=== PATIENT | female | born 1955 | race Caucasian/White ===

== ENCOUNTER 2021-03-25 09:28 | Outpatient (REF) | payer OTHER, SELFPAY ==
--- NOTE | 2021-03-25 10:12 | MHC.AU.ANR ---
Adult Audiological Evaluation Date of Visit: 03/25/21 Reason for Appointment: Audiological evaluation due to concerns for decreased hearing. Patient feels she hears well, but notes that her family frequently complains that she doesn't hear and often asks for repetition. Patient notes that she does have to raise the TV volume. She reports constant bilateral tinnitus that she's had for a number of years and is typically able to ignore. Does patient feel they have a hearing loss?: No Has hearing been tested previously?: No Hearing Handicap Inventory: HHIE SCORE: 6 Based on HHIE score, patient has: No perceived hearing handicap Ear History: Bothersome Tinnitus/Ringing/Noises in Ears: Both Ears Medical History: Medical History (Other): Appendicitis at age 14 Medication List: Suldasalazine 500 mg, Atorvastatin calcium 40 mg, low dose aspirin 81 mg, Vitamin D3 25 mcg, Hydroxyzine HCl 25 mg, omeprazole 20 mg, folic acid 1 mg Otoscopy: Right Ear: Unremarkable Left Ear: Unremarkable Tympanometry: Tympanometry performed due to: To assess integrity of the middle ear system Right Ear: Normal Middle Ear System (Type A) Left Ear: Hypercompliant Middle Ear System (Type Ad) Hearing Evaluation: Transducer(s) Used: Insert Earphones, Bone Conduction Method: Conventional Audiometry Stimuli Used: Pure Tones Right Ear: Description of Hearing: Normal hearing from 250-1500 Hz, sloping to a mild to moderately severe sensorineural hearing loss from 7001-6105 Hz. Left Ear: Description of Hearing: Normal hearing from 250-1000 Hz, sloping to a mild to severe sensorineural hearing loss from 8492-7570 Hz. Speech Recognition Threshold (SRT): Method Used: Monitored Live Voice Stimuli Used: Spondee Words Right Ear: 20 dBHL Left Ear: 20 dBHL Word Discrimination: Method: Recorded Lists Word Lists Used: NU-6 Right Ear: 100% at 70 dBHL Left Ear: 96% at 70 dBHL Recommendations: Audiological re-evaluation in one year, or sooner if changes are noted. Trial with amplification is recommended. Patient does not feel they are ready for amplification at this time. Diagnosis: Primary Diagnosis: H90.3 Bilateral Sensorineural Hearing Loss Services Performed: Services Performed: Comprehensive Audiological Evaluation (CPT 41691) Tympanometry (CPT 11012) Signature: Provider: Armando Magallon, CCC-A
== END 2021-03-25 09:29 | disposition home or self-care (01) ==
LOC: HO.SH 09:28
PROVIDERS: Visit Provider Internal Medicine
DX: H90.3 Sensorineural hearing loss, bilateral (principal)
CPT/HCPCS: 92557; 92567

== ENCOUNTER 2021-10-04 10:58 | Outpatient (REF) | payer MEDICARE, SELFPAY ==
--- NOTE | ~2021-10-04 | MM_ITS ---
EXAMINATION: MM SCREENING DIGITAL BREAST TOMOSYNTHESIS, BILATERAL CLINICAL INFORMATION: Screening. Asymptomatic. The lifetime risk of breast cancer based on the Tyrer-Cuzick Model is 7%. COMPARISON: Outside mammography: 02/16/2019, 12/18/2017, 01/09/2016 ([facility]). TECHNIQUE: Digital breast tomosynthesis is performed in both the craniocaudal and mediolateral oblique views along with computer-aided detection (CAD). Synthesized 2D images are generated from the tomosynthesis. Additional left CC view is provided. FINDINGS: There are scattered areas of fibroglandular density (ACR BI-RADS breast composition Category b). There is fine fibronodular background parenchymal pattern predominantly in the anterior and anterior central breast similar to prior outside exams. There is a stable dominant nodule mid 3:00 right breast. The axilla and skin contours are unremarkable. There are no abnormal calcifications. No significant changes. MM/MM tomosynthesis screening BI IMPRESSION: No mammographic evidence of malignancy. ASSESSMENT: BI-RADS 2: Benign RECOMMENDATION: Routine annual mammography screening. This patient's information was entered into a reminder system with a target due date for their next mammogram.
== END 2021-10-04 10:59 | disposition home or self-care (01) ==
LOC: HO.MAMMO 10:58
PROVIDERS: Visit Provider Student in an Organized Health Care Education/Training Program
DX: Z12.31 Encounter for screening mammogram for malignant neoplasm of breast (principal)
CPT/HCPCS: 77063; 77067

== ENCOUNTER 2021-10-20 14:11 | Emergency (ER) | payer MEDICARE, SELFPAY ==
--- NOTE | ~2021-10-20 | CT_ITS ---
EXAMINATION: CTA OF THE HEAD AND NECK CLINICAL INFORMATION: Left-sided headaches. COMPARISON: None. TECHNIQUE: Test bolus sequences followed by intravenous administration 70 mL of Omnipaque 350. Helical imaging was performed in the axial plane from the mediastinum to the skull vertex. Delayed postcontrast imaging of the head was also performed. The data was processed at the development technologist's workstation for generation of MIP sequences. Three-dimensional volume rendered reformatted images were also generated at an offline 3-D workstation. Stenoses are assessed in accordance with NASCET criteria unless otherwise indicated. This CT examination was performed using dose optimization techniques as appropriate, variously including the following: *Automated exposure control *Adjustment of mA and/or kV according to patient size (this includes techniques or standardized protocols for targeted exams where dose is matched to indication/reason for exam; i.e. extremities or head) *Use of iterative reconstruction technique DLP: 2294 mGy-cm. FINDINGS: CT head: There is no evidence of acute intracranial hemorrhage or territorial infarction. There is no loss of sutherland to white matter differentiation. No abnormal mass effect or midline shift is seen. No extra-axial fluid collections are identified. Incidental right-sided choroidal fissure cyst. There is no abnormal enhancement. The ventricles are normal in size. There is no abnormal attenuation within the brain parenchyma. The osseous structures and soft tissues are normal. The mastoid air cells and visualized portions of the paranasal sinuses are well aerated. CTA neck: The imaged aortic arch and origins of the great vessels are normal. The common carotid arteries are widely patent. The carotid bifurcations are patent with mild atherosclerotic wall calcifications on the right side. The cervical internal carotid arteries are normal. The vertebral arteries opacify normally and are of normal caliber. The thyroid gland is heterogeneous but not enlarged. There is moderate disc space narrowing and endplate spurring at the C5-C6 level. The imaged portions of the lungs are clear. CTA head: The intradural vertebral arteries and basilar artery are normal. The posterior cerebral arteries are widely patent. The internal carotid arteries are of normal caliber. The DANIEL and MCA vascular complexes bilaterally are normal. The venous sinuses opacify normally. CT/CT angio head neck IMPRESSION: No acute intracranial process. Normal CT angiogram of the head and neck. Imaging findings report to SHAHZAD Jones at 6:23 PM on 10/20/2021.
[2021-10-20 14:35] VITALS: BP 125/66; PULSE 93; RESP 18; TEMP 36.9; O2SAT 97; BMI 30.9
[2021-10-20 15:12] LABS: Hemoglobin 12.9 g/dl (12.0-16.0); Mean Corpuscular HGB Conc 33.1 g/dl (31.0-35.0); Mean Corpuscular Hemoglobin 31.5 pg (27.0-33.0); Mean Corpuscular Volume 95.4 fL (80.0-98.0); Mean Platelet Volume 9.4 fL (9.4-12.3); Platelet Count 256 X10*3/uL (160-400); Red Blood Count 4.09 X10*6/uL (4.20-5.50); Red Cell Distribution Width 12.5 % (11.0-16.0)
--- NOTE | 2021-10-20 15:15 | ED_ITS ---
HPI - Headache General Chief Complaint: Headache <SHAHZAD Gallagher Last Filed: 10/20/21 17:24> Stated Complaint: headache <SHAHZAD Gallagher Last Filed: 10/20/21 17:24> Time Seen by Provider: 10/20/21 15:15 <SHAHZAD Gallagher Last Filed: 10/20/21 17:24> Source: patient <SHAHZAD Gallagher Last Filed: 10/20/21 17:24> Mode of arrival: ambulatory <SHAHZAD Gallagher Last Filed: 10/20/21 17:24> Limitations: no limitations <SHAHZAD Gallagher Last Filed: 10/20/21 17:24> History of Present Illness HPI Narrative: 66 y/o female presents with 3 weeks of left-sided intermittent headache that was gradual in onset. No migraine history. No fevers, no hypertension, no nuccal rigidity. Patient states that the headache has come and gone, but for the last 4 days it is worse, and she is tender in the left side of her frontal scalp, with pain behind her left eye, and feeling that the left side of her neck is stiff. Her hair is sore. She has a history of rheumatoid arthritis, and had a TIA 1 year ago where she was treated at [facility] in [facility]. States she has been taking ibuprofen, but is not helping, the headache is still 6/10. No chest pain, no shortness of breath, no abdominal pain, no nausea, no vomiting or diarrhea, no dizziness, no lightheadedness, no palpitations, no visual changes. No blurry vision, no double vision, no loss of vision. No weakness, numbness, tingling. No slurred speech, no photophobia, no facial droop, no limb weakness. It does not hurt when she chews. She has felt well other than this. She is not vaccinated for COVID. She is on Sulfasalazine for RA, a statin d/t prior TIA, and although she does not endorse pmh of hypertension she is on hydrochlorothiazide <SHAHZAD Gallagher Last Filed: 10/20/21 17:24> MD elicited complaint: headache <SHAHZAD Gallagher Last Filed: 10/20/21 17:24> Onset (ago): week(s) (3) <SHAHZAD Gallagher Last Filed: 10/20/21 17:24> Onset description: gradually <SHAHZAD Gallagher Last Filed: 10/20/21 17:24> Location: left, frontal and occipital <SHAHZAD Gallagher Last Filed: 10/20/21 17:24> Severity: moderate <SHAHZAD Gallagher Last Filed: 10/20/21 17:24> Pain scale (0-10): 6 <SHAHZAD Gallagher Last Filed: 10/20/21 17:24> Quality & Timing: aching and throbbing <SHAHZAD Gallagher - Last Filed: 10/20/21 17:24> Exacerbating factors: none <SHAHZAD Gallagher Last Filed: 10/20/21 17:24> Relieving factors: nothing <SHAHZAD Gallagher Last Filed: 10/20/21 17:24> Associated symptoms: none <SHAHZAD Gallagher - Last Filed: 10/20/21 17:24> Related Data Allergies/Adverse Reactions: Allergies Allergy/AdvReac Type Severity Reaction Status Date / Time No Known Allergies Allergy Verified 10/20/21 15:48 <SHAHZAD Gallagher Last Filed: 10/20/21 17:24> Review of Systems Verdana 4l Constitutional: Verdana 4d Verdana 4d Constitutional: Verdana 4d Denies body ache(s), Denies chills, Denies fatigue, Denies fever(s), Reports headache(s), Denies malaise and Denies weakness Verdana 4Il <SHAHZAD Gallagher - Last Filed: 10/20/21 17:24> Verdana 4d Verdana 4l Eyes: Verdana 4d Verdana 4d Eyes: Verdana 4d Denies diplopia Verdana 4Il <SHAHZAD Gallagher - Last Filed: 10/20/21 17:24> Verdana 4d Verdana 4l ENT: Verdana 4d Denies vertigo, Denies dizziness, Denies otalgia, Reports headache(s), Denies mouth pain, Denies post nasal drip, Denies sinus pain, Denies sinus pressure, Denies sore throat and Denies throat swelling Verdana 4Il <SHAHZAD Gallagher Last FiledFiled: 10/20/21 17:24> Comments: scalp feels sore <SHAHZAD Gallagher Last Filed: 10/20/21 17:24> Cardiovascular: Cardiovascular: Denies chest pain, Denies syncope, Denies leg edema, Denies lightheadedness, Denies Loss of Consciousness, Denies palpitations and Denies dyspnea <SHAHZAD Gallagher - Last Filed: 10/20/21 17:24> Respiratory: Respiratory: Denies chest congestion, Denies cough and Denies dyspnea <SHAHZAD Gallagher - Last Filed: 10/20/21 17:24> Gastrointestinal: Gastrointestinal: Denies abdominal pain, Denies hematochezia, Denies constipation, Denies diarrhea and Denies vomiting <SHAHZAD Gallagher Last Filed: 10/20/21 17:24> Musculoskeletal: Musculoskeletal: Reports no additional musculoskeletal complaints <SHAHZAD Gallagher Last Filed: 10/20/21 17:24> Neurologic: Denies Abnormal speech present, Denies confusion, Denies vertigo, Denies dizziness, Denies syncope, Reports headache(s), Denies Sensory deficit (Neuro) and Denies weakness <SHAHZAD Gallagher - Last Filed: 10/20/21 17:24> Psychiatric: Psychiatric: Denies anxiety, Denies confusion and Denies depression <SHAHZAD Gallagher - Last Filed: 10/20/21 17:24> Endocrine: Endocrine: Denies fatigue and Denies palpitations <SHAHZAD Gallagher - Last Filed: 10/20/21 17:24> Allergic/Immunologic: Allergic/Immunologic: Denies throat swelling <SHAHZAD Gallagher - Last Filed: 10/20/21 17:24> [facility] Past Medical History [facility] Narrative: TIA RA <SHAHZAD Gallagher - Last Filed: 10/20/21 17:24> Medical History: Medical History (Updated 10/20/21 @ 17:23 by SHAHZAD Gallagher) Arthritis <SHAHZAD Gallagher - Last Filed: 10/20/21 17:24> Social History Social History: Social History Alcohol intake: never Smoked in Last 30 Days: No Use of substances other than those prescribed or required for medical reasons: No Advance Directives: No Advance Directives Information Provided: Yes <SHAHZAD Gallagher Last Filed: 10/20/21 17:24> Physical Exam Verdana 4l Vital Signs: Verdana 4d Verdana 4d Vital Signs: Verdana 4d Verdana 4Bd Last Vital Signs Verdana 4d Wire Photo Operator New 4d Wire Photo Operator New 4d Temp 98.5 F 10/20/21 14:35 Wire Photo Operator New 4d Pulse 93 10/20/21 14:35 Wire Photo Operator New 4d Resp 18 10/20/21 14:35 BP 125/66 10/20/21 14:35 Pulse Ox 97 10/20/21 14:35 BMI result Body Mass Index 30.9 <SHAHZAD Gallagher Last Filed: 10/20/21 17:24> Vital Signs: Last Vital Signs Temp 98.5 F 10/20/21 14:35 Pulse 93 10/20/21 14:35 Resp 18 10/20/21 14:35 BP 125/66 10/20/21 14:35 Pulse Ox 97 10/20/21 14:35 BMI result Body Mass Index 30.9 <SHAHZAD Greene - Last Filed: 10/20/21 18:53> Const: General: No confusion <SHAHZAD Gallagher Last Filed: 10/20/21 17:24> Nutritional Appearance: well nourished <SHAHZAD Gallagher Last Filed: 10/20/21 17:24> Orientation/consciousness: patient oriented x3 and No confusion <SHAHZAD Gallagher Last Filed: 10/20/21 17:24> Limitations: no limitations <SHAHZAD Gallagher Last Filed: 10/20/21 17:24> HENMT: Head: Yes normal to inspection, Yes normocephalic and Yes atraumatic <SHAHZAD Gallagher Last Filed: 10/20/21 17:24> Ears: hearing grossly normal bilaterally, external ears normal, TM's normal bilaterally and EAC's normal <SHAHZAD Gallagher Last Filed: 10/20/21 17:24> General nose exam: Normal external nose present <SHAHZAD Gallagher Last Filed: 10/20/21 17:24> Face and sinus: Yes normal facial exam and Yes sinuses nontender <Kassi Roque [facility] Last Filed: 10/20/21 17:24> Mouth: Normal oral and palatal mucosa present <Kassi Roque [facility] Last Filed: 10/20/21 17:24> Throat: Yes posterior oropharynx normal <Kassi Roque [facility] Last Filed: 10/20/21 17:24> Eyes: Conjunctivae: conjunctivae normal <Kassi Roque [facility] Last Filed: 10/20/21 17:24> Pupils: Equal, round and reactive pupils present <Kassi Roque [facility] Last Filed: 10/20/21 17:24> EOM: EOMs intact bilaterally <Kassi Roque [facility] Last Filed: 10/20/21 17:24> Neck: Neck: Yes full ROM, Yes no lymphadenopathy and Yes supple <Kassi Roque [facility] Last Filed: 10/20/21 17:24> Resp: Effort & Inspection: normal respiratory effort and able to speak in complete sentences <Kassi Roque [facility] Last Filed: 10/20/21 17:24> Auscultation: clear to auscultation bilaterally, no crackles, no rales, no rhonchi and no wheezes <Kassi Roque [facility] Last Filed: 10/20/21 17:24> Cardio: Rate: regular rate <Kassi Roque [facility] Last Filed: 10/20/21 17:24> Rhythm: regular rhythm <Kassi Roque [facility] Last Filed: 10/20/21 17:24> Heart sounds: S1 normal heart sound present and S2 normal heart sound present <Kassi Roque [facility] Last Filed: 10/20/21 17:24> GI: Inspection: Yes normal to inspection <Kassi Roque [facility] Last Filed: 0 10/20/21 17:24> Palpation (GI): Soft to palpation, nontender, no guarding and not rigid <Kassi Roque [facility] Last Filed: 10/20/21 17:24> Percussion: Yes normal to percussion <Kassi Roque [facility] Last Filed: 10/20/21 17:24> Auscultation: normal bowel sounds <Kassi Roque [facility] Last Filed: 10/20/21 17:24> Skin: Other: No redness, swelling, or rash on scalp. <SHAHZAD Gallagher Last Filed: 10/20/21 17:24> General skin exam: no rashes or lesions noted <Kassi Roque [facility] Last Filed: 10/20/21 17:24> Neuro: General: patient oriented x3, gait normal, tone normal and No confusion <Kassi Roque [facility] Last Filed: 10/20/21 17:24> Cranial nerves: Yes CN's II-XII intact bilaterally, Yes Facial sensation intact/muscles of mastication intact, Yes Equal, round and reactive pupils present, Yes Normal accommodation reflex present, Yes Bilaterally intact EOM present, Yes Nystagmus not present, Yes Normal facial strength present, Yes Midline tongue present, Yes Ability to bilaterally rotate head present and Yes Ability to bilaterally elevate shoulders present <Kassi Roque [facility] Last Filed: 10/20/21 17:24> Cognition (Neuro): normal cognition <Kassi Roque [facility] Last Filed: 10/20/21 17:24> Speech: No Abnormal speech present <Kassi Roque [facility] Last Filed: 10/20/21 17:24> Gait exam (Neuro): Normal gait present <Kassi Roque [facility] Last Filed: 10/20/21 17:24> Motor exam (neuro): 5/5 motor strength present throughout and Pronator motor function not present <Kassi Roque [facility] Last Filed: 10/20/21 17:24> Sensory Exam: No Sensory deficit (Neuro) <Kassi Roque [facility] Last Filed: 10/20/21 17:24> Deep tendon reflexes (DTR's): Right brachioradialis reflex intensity grade: 1+, Left brachioradialis reflex intensity grade: 1+, Right patellar reflex intensity grade: 1+ and Left patellar reflex intensity grade: 1+ <SHAHZAD Gallagher Last Filed: 10/20/21 17:24> Coordination: [id number] test normal, [id number] test normal, tandem gait normal and does not sway with eyes open <SHAHZAD Gallagher - Last Filed: 10/20/21 17:24> Romberg Test: Negative <SHAHZAD Gallagher Last Filed: 10/20/21 17:24> Pupils: Normal pupillary reactivity/response: bilateral <SHAHZAD Gallagher Last Filed: 10/20/21 17:24> Extrem: General: Yes normal to inspection and Yes full ROM <SHAHZAD Gallagher - Last Filed: 10/20/21 17:24> Psych: Appearance: grossly normal <SHAHZAD Gallagher Last Filed: 10/20/21 17:24> Affect: normal affect <SHAHZAD Gallagher Last Filed: 10/20/21 17:24> Attitude: cooperative <SHAHZAD Gallagher Last Filed: 10/20/21 17:24> Thought process: Normal thought process present <SHAHZAD Gallagher Last Filed: 10/20/21 17:24> Course Course Course Narrative: 66-year-old female with 3 weeks of gradual onset headache that has worsened on the left side in the last 3 days with left-sided scalp tenderness. No jaw pain with chewing, patient is able to open her mouth completely without pain Normal neurological exam. Discussed with Dr Garza, will get labs, ESR, Dr Garza recommended CTA head and neck. Trying to obtain records from TIA from [facility]. Were faxed ER visit from July 2021, which was a covid positive visit, not her TIA visit. <SHAHZAD Gallagher Last Filed: 10/20/21 17:24> Reevaluation(s) Reevaluation #1: Will give patient migraine treatment of fluids, Reglan, ketorolac. If sed rate is high, will place patient on high-dose steroids, and refer for temporal artery biopsy. Signed pt out to SHAHZAD Johnson, awaiting CTA and ESR results <SHAHZAD Gallagher Last Filed: 10/20/21 17:24> Reevaluation #2: CT angio head neck IMPRESSION: No acute intracranial process. Normal CT angiogram of the head and neck. > results discussed with patient including worrisome signs and symptoms and strict return precautions any to close follow-up with Neurology/PCP. She verbalized understanding feel safe for discharge home <SHAHZAD Greene Last Filed: 10/20/21 18:53> Time: 18:49 <SHAHZAD Greene - Last Filed: 10/20/21 18:53> MDM - Headache Lab Data Result diagrams: : 10/20/21 15:01 10/20/21 15:01 <SHAHZAD Gallagher - Last Filed: 10/20/21 17:24> Labs: Lab Results 10/20/21 10/20/21 10/20/21 Range/Units 15:01 15:01 15:01 WBC 10.0 (4.8-10.8) X10*3/uL RBC 4.09 L (4.20-5.50) X10*6/uL Hgb 12.9 (12.0-16.0) g/dl Hct 39.0 (37.0-47.0) % MCV 95.4 (80.0-98.0) fL MCH 31.5 (27.0-33.0) pg MCHC 33.1 (31.0-35.0) g/dl RDW 12.5 (11.0-16.0) % Plt Count 256 (160-400) X10*3/uL MPV 9.4 (9.4-12.3) fL Absolute Nucleated RBC 0.000 (0.0-0.012) X10*3/uL Nucleated RBC % (auto) 0.0 (0.0-0.2) /100WBC ESR 8 (0-20) MM/HR Sodium 140 (135-145) mmol/L Potassium 4.8 (3.3-5.1) mmol/L Chloride 106 (96-108) mmol/L Carbon Dioxide 27 (22-29) mmol/L Anion Gap 12 (12-20) BUN 18 H (9-16) mg/dL Creatinine 0.78 (0.5-1.4) mg/dL Estim Creat Clear Calc 71.7 Estimated GFR > 60 Random Glucose 122 H (60-115) mg/dL Calcium 9.8 (8.4-10.2) mg/dL <SHAHZAD Gallagher - Last Filed: 10/20/21 17:24> Lab Results 10/20/21 10/20/21 10/20/21 Range/Units 15:01 15:01 15:01 WBC 10.0 (4.8-10.8) X10*3/uL RBC 4.09 L (4.20-5.50) X10*6/uL Hgb 12.9 (12.0-16.0) g/dl Hct 39.0 (37.0-47.0) % MCV 95.4 (80.0-98.0) fL MCH 31.5 (27.0-33.0) pg MCHC 33.1 (31.0-35.0) g/dl RDW 12.5 (11.0-16.0) % Plt Count 256 (160-400) X10*3/uL MPV 9.4 (9.4-12.3) fL Absolute Nucleated RBC 0.000 (0.0-0.012) X10*3/uL Nucleated RBC % (auto) 0.0 (0.0-0.2) /100WBC ESR 8 (0-20) MM/HR Sodium 140 (135-145) mmol/L Potassium 4.8 (3.3-5.1) mmol/L Chloride 106 (96-108) mmol/L Carbon Dioxide 27 (22-29) mmol/L Anion Gap 12 (12-20) BUN 18 H (9-16) mg/dL Creatinine 0.78 (0.5-1.4) mg/dL Estim Creat Clear Calc 71.7 Estimated GFR > 60 Random Glucose 122 H (60-115) mg/dL Calcium 9.8 (8.4-10.2) mg/dL <SHAHZAD Greene - Last Filed: 10/20/21 18:53> Discharge Plan Discharge Clinical Impression: Headache <SHAHZAD Gallagher - Last Filed: 10/20/21 17:24> Patient Disposition: Home, Self-Care <SHAHZAD Gallagher - Last Filed: 10/20/21 17:24> Instructions: Acute Headache (DC) <SHAHZAD Gallagher - Last Filed: 10/20/21 17:24> Additional Instructions: Your blood work and CT scan of her head and neck were unremarkable. Please follow-up with your doctor and Neurology. If symptoms persist or worsen, headache becomes more constant/unbearable, you have weakness, vision change/loss or fever please return to the emergency department. Please see Tylenol and Motrin as needed. <SHAHZAD Gallagher - Last Filed: 10/20/21 17:24> Referrals: Taye Palafox MD [Physician] - 2 days Heide Oreilly MD [Primary Care Provider] - 2 days <SHAHZAD Gallagher - Last Filed: 10/20/21 17:24>
[2021-10-20 15:26] LABS: Anion Gap 12 (12-20); Blood Urea Nitrogen 18 mg/dL (9-16); Calcium 9.8 mg/dL (8.4-10.2); Carbon Dioxide 27 mmol/L (22-29); Chloride 106 mmol/L (96-108); Creatinine Clr Calc Pharmacy 71.7; Estimated Glomerular Filt Rate > 60; Glucose Random 122 mg/dL (60-115); Potassium 4.8 mmol/L (3.3-5.1); Sodium 140 mmol/L (135-145)
[2021-10-20] MEDS: 0.9 % Sodium Chloride 1,000 ML 999 ML IV ×2 (16:02→17:26)
[2021-10-20] MEDS: iohexoL 350 MG/ML 100 ML INFUS..BTL 70 ML IV (17:20)
[2021-10-20] MEDS: Ketorolac Tromethamine 30 MG/ML VIAL IVPUSH (17:26)
[2021-10-20] MEDS: Metoclopramide HCl 10 MG/2 ML VIAL IVPUSH (17:26)
[2021-10-20 17:45] LABS: Erythrocyte Sedimentation Rate 8 MM/HR (0-20)
== END 2021-10-20 19:04 | disposition home or self-care (01) ==
PROVIDERS: Physician Assistant; Emergency Provider Emergency Medicine; PCP Student in an Organized Health Care Education/Training Program
DX: R51.9 Headache, unspecified (principal); Z79.899 Other long term (current) drug therapy
CPT/HCPCS: 36415; 70496; 70498; 80048; 85027; 85652; 96360; 96365; 96376; 99284; J1885; J2765; Q9967

== ENCOUNTER 2022-10-08 09:28 | Emergency (ER) | payer MEDICARE, SELFPAY ==
--- NOTE | ~2022-10-08 | CT_ITS ---
EXAMINATION: CT HEAD WITHOUT CONTRAST CLINICAL INFORMATION: Headache. Rule out TIA. COMPARISON: 10/20/2021 TECHNIQUE: Contiguous axial imaging was performed from the skull base to vertex without intravenous contrast. This CT examination was performed using dose optimization techniques as appropriate, variously including the following: * Automated exposure control * Adjustment of mA and/or kV according to patient size (this includes techniques or standardized protocols for targeted exams where dose is matched to indication/reason for exam; i.e. extremities or head) Use of iterative reconstruction technique DLP: 656 mGy-cm. FINDINGS: There is no evidence of acute intracranial hemorrhage or territorial infarction. No abnormal mass effect or midline shift is seen. [place] to white matter differentiation is well preserved. No extra-axial fluid collections are identified. No hydrocephalus. No significant volume loss. There is no abnormal attenuation within the brain parenchyma. The osseous structures and soft tissues are normal. The mastoid air cells and visualized portions of the paranasal sinuses are well aerated. CT/CT head/brain wo IV con IMPRESSION: No acute intracranial pathology.
--- NOTE | 2022-10-08 09:29 | ECG_ITS ---
Test Reason : CP Blood Pressure : / mmHG Vent. Rate : 071 BPM Atrial Rate : 071 BPM P-R Int : 102 ms QRS Dur : 070 ms QT Int : 394 ms P-R-T Axes : 061 025 056 degrees QTc Int : 428 ms Sinus rhythm with short MN Otherwise normal ECG No previous ECGs available Referred By: Generic ED Physician Electronically Signed By:SUSIE RODAS
[2022-10-08 09:34] VITALS: BP 135/70; PULSE 71; RESP 20; TEMP 36.7; O2SAT 95; BMI 33.3
[2022-10-08 09:57] LABS: MANUAL DIFF FLAG NO
[2022-10-08 09:58] LABS: Basophils Percent Auto 0.4 % (0-2); Eosinophils Absolute Auto 0.1 X10*3/uL (0.0-0.4); Eosinophils Percent Auto 1.7 % (0-4); Hematocrit 37.2 % (37.0-47.0); Hemoglobin 12.6 g/dl (12.0-16.0); Imm Gran Abs Auto 0.01 X10*3/uL (0.00-0.03); Imm Gran Pct Auto 0.2 % (0.0-0.4); Lymphocytes Absolute Auto 1.1 X10*3/uL (1.2-4.9); Lymphocytes Percent Auto 23.3 % (20-40); Mean Corpuscular HGB Conc 33.9 g/dl (31.0-35.0); Mean Corpuscular Hemoglobin 31.9 pg (27.0-33.0); Mean Corpuscular Volume 94.2 fL (80.0-98.0); Mean Platelet Volume 9.6 fL (9.4-12.3); Monocytes Absolute Auto 0.3 X10*3/uL (0.1-1.2); Monocytes Percent Auto 7.4 % (2-11); Neutrophils Absolute Auto 3.1 x10*3/uL (2.0-8.3); Platelet Count 226 X10*3/uL (160-400); Red Blood Count 3.95 X10*6/uL (4.20-5.50); Red Cell Distribution Width 12.4 % (11.0-16.0); White Blood Count 4.6 X10*3/uL (4.8-10.8)
[2022-10-08 10:13] LABS: Alanine Aminotransferase 31 U/L (0-31); Albumin Level 4.2 g/dL (3.5-5.0); Alkaline Phosphatase 113 U/L (39-117); Anion Gap 12 (12-20); Aspartate Amino Transferase 26 U/L (5-31); Bilirubin Total 0.7 mg/dL (0.0-1.0); Blood Urea Nitrogen 12 mg/dL (9-16); Calcium 9.5 mg/dL (8.4-10.2); Carbon Dioxide 24 mmol/L (22-29); Chloride 106 mmol/L (96-108); Creatinine Clr Calc Pharmacy 77.4; Estimated Glomerular Filt Rate > 60; Glucose Random 112 mg/dL (60-115); Sodium 138 mmol/L (135-145); Total Protein 6.9 g/dL (6.5-8.0)
[2022-10-08 10:31] LABS: Troponin-I High Sensitivity < 3.5 ng/L (<3.5-17.0)
[2022-10-08 10:51] LABS: Appearance Urine Clear; Color Urine Dark Yellow; Glucose Urine UA Negative (Negative); Leukocyte Esterase Urine Small (1+) (Negative); Nitrite Urine Negative (Negative); PH 5.5 (5.0-9.0); UMIC TRIGGER UACC YES; Urine Blood Negative (Negative); Urine Ketones Negative (Negative); Urine Protein Negative (Neg-Trace)
[2022-10-08 10:59] LABS: Influenza A PCR NEGATIVE (Negative); Influenza B PCR NEGATIVE (Negative); Resp Syncy Virus RNA Qual PCR NEGATIVE (Negative); SARS COV2 PCR INHOUSE NEGATIVE (Negative)
[2022-10-08 11:01] LABS: Bacteria Urine None Seen (None Seen); Hyaline Casts Urine 0-2 /LPF (0-2); RBC Urine 0-2 /HPF (0-2); Squamous Epithelial Cell Urine 0-2 /HPF (0-2); UACC Culture Trigger YES; WBC Urine 0-5 /HPF (0-5)
[2022-10-08 11:13] VITALS: BP 110/54; PULSE 62; RESP 20; TEMP 36.5; O2SAT 96
[2022-10-08 12:52] VITALS: BP 94/69; PULSE 65; RESP 15; TEMP 36.5; O2SAT 96
--- NOTE | 2022-10-08 13:12 | ED.GENADULT ---
HPI - General Adult General Chief complaint: General Medical Stated complaint: migraine, chest pain Time Seen by Provider: 10/08/22 09:34 Source: patient Mode of arrival: ambulatory Limitations: no limitations History of Present Illness HPI narrative: 67-year-old female past medical history of arthritis and headaches presents emergency department today with complaints of a burning pain in her head for the past 2 months, difficulty getting her words out, forgetfulness, and chest pain since started last night. She reports she has had the symptoms before, with the last time being at a hair salon with bright lighting. She states at that time she had loss of vision and required transfer to local emergency department. She was diagnosed with possible TIA, however; she states her primary care provider is unsure of this diagnosis. Here in the emergency department she denies any difficulty speaking. Pt states she is being followed by her primary care provider for the burning sensation in her scalp and has recently been started on Gabapentin. She reports a large amount of stressors including the of brother and her impending detention. Pt denies any recent illness, sick contacts, paresthesias, weakness, fever, chills, nausea, vomiting, diarrhea, constipation, headache, or vision changes. Treatments prior to arrival: none Related Data Allergies Allergy/AdvReac Type Severity Reaction Status Date / Time No Known Allergies Allergy Verified 10/20/21 15:48 Review of Systems Review of Systems: In addition to documented HPI above, the additional ROS was obtained: CONSTITUTIONAL: Denies fever, chills, weakness, fatigue, headache, night sweats, or weight loss EYES: Denies eye pain, swelling, redness, foreign body, discharge ENT: Hearing normal. Denies sore throat, swallowing difficulty, throat tightness, hoarse voice, congestion, or ear pain CV: Denies epigastric pain. No edema, palpitations, or dyspnea on exertion RESP: Denies shortness of breath. Denies cough, wheezing, dyspnea. Denies smoke exposure GI: Denies abdominal pain. Denies nausea, vomiting, constipation or diarrhea. No hematemesis, melena, or hematochezia. : Denies irregular bleeding or vaginal discharge. Denies dysuria, urinary frequency, urinary incontinence/retention, urgency. Denies flank pain or hematuria MSK: Denies recent trauma, change in gait, myalgias, joint swelling or pain SKIN: Denies no lesions, rashes, or sores NEURO: Denies new numbness, tingling, dizziness, paresthesias or weakness. No loss of consciousness. Denies headache ENDOCRINE: Denies unexpected weight loss. Denies polyuria, polydipsia. No temperature intolerance HEME/ONC: Denies bleeding disorders, easy bruising, or lymphadenopathy PSYCH: Denies anxiety/panic, depression, SI/HI, or social issues. Yes all other systems are reviewed and are negative [facility] Past Medical History Attestation statement: The following information was validated with the patient. Source: old records reviewed Medical History Arthritis Social History Social History Alcohol intake: never Smoked in Last 30 Days: No Use of substances other than those prescribed or required for medical reasons: No Advance Directives: Yes Advance Directives Information Provided: No Advance Directives on File: No Physical Exam ED Vital Signs: Vital Signs - 24 hr 10/08/22 09:34 10/08/22 11:13 10/08/22 12:52 Temperature 98.0 F 97.7 F 97.7 F Pulse Rate 71 62 65 Respiratory Rate 20 20 15 Blood Pressure 135/70 110/54 L 94/69 Pulse Oximetry 95 96 96 Oxygen Delivery Method Room Air Room Air Room Air BMI result Body Mass Index 33.3 Nursing notes and vital signs reviewed. GENERAL APPEARANCE: A&0 x 4, generally well appearing, no acute distress HENMT: Normal to inspection, atraumatic, face symmetrical. Normal external ears, nose, and oropharynx clear. EYE: PERRLA, EOM intact, structures appear normal NECK: Supple without lymphadenopathy. No stiffness or restricted ROM. CHEST: Normal to inspection HEART: Normal rate and regular rhythm, normal S1/S2, no M/R/G LUNGS: LS CTA, moving air well. Able to speak in complete sentences. No crackles, wheezes, or rhonchi auscultated ABDOMEN: Soft, nontender, nondistended. Normal bowel sounds noted BACK: No CVAT, no obvious deformity EXTREMITIES: Moving all extremities without difficulty. No cyanosis, clubbing, or edema. Normal capillary refill. NEUROLOGICAL: Alert and oriented, moving all 4 extremities with equal strength. CN not formally tested but appearing grossly intact. Observed to ambulate with normal gait. Cognition normal SKIN: Warm and dry without any lesions, rash, or visible sores PSYCH: Cooperative, normal affect, normal thought process Course Course Course Narrative: 929: Plan for EKG to rule out STEMI. 45: Plan for CT head, blood work, serology comment and urinalysis to rule out stroke or sign of infection. Medical Decision Making Medical Decision Making [facility] Narrative: 67-year-old female past medical history of arthritis and headaches presents emergency department today with complaints of a burning pain in her head for the past 2 months, difficulty getting her words out, forgetfulness, and chest pain since started last night. Blood work unremarkable. Urinalysis negative for infection. Serology negative. EKG sinus rhythm with short MS, with no signs ischemia. CT head with no acute intracranial processes. History, physical, and diagnostics consistent with complex migraine. Low suspicion for ACS, PE, CVA, TIA. Patient is safe for discharge at this time with plan to manage her symptoms with [id number] Tylenol and/or NSAIDs such as ibuprofen in or NSAIDs, increased hydration, and rest. HPI, PE, diagnostics, and plan discussed with patient and family with no unanswered questions at this time. Patient educated to return to the emergency department with new, worsening, or concerning emergent symptoms. Recommended to follow-up with there primary care provider for further treatment and management. *Refer to Course for additional information on consultations, diagnostic interpretation, consultations, emergency department stay, conversations with patient and family, shared decision making with patient, and more information on medical decision making* Lab Data MDM Lab Attestation statement: I reviewed the patient's lab results. 10/08/22 09:49 10/08/22 09:49 Labs: Lab Results 10/08/22 10/08/22 10/08/22 Range/Units 09:49 09:49 09:49 WBC 4.6 L (4.8-10.8) X10*3/uL RBC 3.95 L (4.20-5.50) X10*6/uL Hgb 12.6 (12.0-16.0) g/dl Hct 37.2 (37.0-47.0) % MCV 94.2 (80.0-98.0) fL MCH 31.9 (27.0-33.0) pg MCHC 33.9 (31.0-35.0) g/dl RDW 12.4 (11.0-16.0) % Plt Count 226 (160-400) X10*3/uL MPV 9.6 (9.4-12.3) fL Immature Gran % (Auto) 0.2 (0.0-0.4) % Neut % (Auto) 67.0 (45-73) % Lymph % (Auto) 23.3 (20-40) % [place] % (Auto) 7.4 (2-11) % Eos % (Auto) 1.7 (0-4) % Baso % (Auto) 0.4 (0-2) % Lymph # (Auto) 1.1 L (1.2-4.9) X10*3/uL [place] # (Auto) 0.3 (0.1-1.2) X10*3/uL Eos # (Auto) 0.1 (0.0-0.4) X10*3/uL Baso # (Auto) 0.0 (0.0-0.2) X10*3/uL Abs Immat Gran (auto) 0.01 (0.00-0.03) X10*3/uL Absolute Neuts (auto) 3.1 (2.0-8.3) x10*3/uL Absolute Nucleated RBC 0.000 (0.0-0.012) X10*3/uL Nucleated RBC % (auto) 0.0 (0.0-0.2) /100WBC Sodium 138 (135-145) mmol/L Potassium 4.0 (3.3-5.1) mmol/L Chloride 106 (96-108) mmol/L Carbon Dioxide 24 (22-29) mmol/L Anion Gap 12 (12-20) BUN 12 (9-16) mg/dL Creatinine 0.74 (0.5-1.4) mg/dL Estim Creat Clear Calc 77.4 Estimated GFR > 60 Random Glucose 112 (60-115) mg/dL Calcium 9.5 (8.4-10.2) mg/dL Magnesium 2.0 (1.6-2.6) mg/dL Total Bilirubin 0.7 (0.0-1.0) mg/dL AST 26 (5-31) U/L ALT 31 (0-31) U/L Alkaline Phosphatase 113 (39-117) U/L Troponin I High Sens < 3.5 (<3.5-17.0) ng/L Total Protein 6.9 (6.5-8.0) g/dL Albumin 4.2 (3.5-5.0) g/dL Urine Color Urine Appearance Urine pH (5.0-9.0) Ur Specific [place] (1.005-1.025) Urine Protein (Neg-Trace) mg/dL Urine Glucose (UA) (Negative) mg/dL Urine Ketones (Negative) mg/dL Urine Blood (Negative) Urine Nitrite (Negative) Ur Leukocyte Esterase (Negative) Urine RBC (0-2) /HPF Urine WBC (0-5) /HPF Ur Squamous Epith Cells (0-2) /HPF Urine Bacteria (None Seen) Hyaline Casts (0-2) /LPF Influenza Type A (PCR) (Negative) Influenza Type B (PCR) (Negative) RSV RNA Qual (PCR) (Negative) SARS-CoV-2 RNA (RT-PCR) (Negative) 10/08/22 10/08/22 Range/Units 09:59 10:30 WBC (4.8-10.8) X10*3/uL RBC (4.20-5.50) X10*6/uL Hgb (12.0-16.0) g/dl Hct (37.0-47.0) % MCV (80.0-98.0) fL MCH (27.0-33.0) pg MCHC (31.0-35.0) g/dl RDW (11.0-16.0) % Plt Count (160-400) X10*3/uL MPV (9.4-12.3) fL Immature Gran % (Auto) (0.0-0.4) % Neut % (Auto) (45-73) % Lymph % (Auto) (20-40) % [place] % (Auto) (2-11) % Eos % (Auto) (0-4) % Baso % (Auto) (0-2) % Lymph # (Auto) (1.2-4.9) X10*3/uL [place] # (Auto) (0.1-1.2) X10*3/uL Eos # (Auto) (0.0-0.4) X10*3/uL Baso # (Auto) (0.0-0.2) X10*3/uL Abs Immat Gran (auto) (0.00-0.03) X10*3/uL Absolute Neuts (auto) (2.0-8.3) x10*3/uL Absolute Nucleated RBC (0.0-0.012) X10*3/uL Nucleated RBC % (auto) (0.0-0.2) /100WBC Sodium (135-145) mmol/L Potassium (3.3-5.1) mmol/L Chloride (96-108) mmol/L Carbon Dioxide (22-29) mmol/L Anion Gap (12-20) BUN (9-16) mg/dL Creatinine (0.5-1.4) mg/dL Estim Creat Clear Calc Estimated GFR Random Glucose (60-115) mg/dL Calcium (8.4-10.2) mg/dL Magnesium (1.6-2.6) mg/dL Total Bilirubin (0.0-1.0) mg/dL AST (5-31) U/L ALT (0-31) U/L Alkaline Phosphatase (39-117) U/L Troponin I High Sens (<3.5-17.0) ng/L Total Protein (6.5-8.0) g/dL Albumin (3.5-5.0) g/dL Urine Color Dark Yellow Urine Appearance Clear Urine pH 5.5 (5.0-9.0) Ur Specific [place] 1.020 (1.005-1.025) Urine Protein Negative (Neg-Trace) mg/dL Urine Glucose (UA) Negative (Negative) mg/dL Urine Ketones Negative (Negative) mg/dL Urine Blood Negative (Negative) Urine Nitrite Negative (Negative) Ur Leukocyte Esterase Small (1+) H (Negative) Urine RBC 0-2 (0-2) /HPF Urine WBC 0-5 (0-5) /HPF Ur Squamous Epith Cells 0-2 (0-2) /HPF Urine Bacteria None Seen (None Seen) Hyaline Casts 0-2 (0-2) /LPF Influenza Type A (PCR) NEGATIVE (Negative) Influenza Type B (PCR) NEGATIVE (Negative) RSV RNA Qual (PCR) NEGATIVE (Negative) SARS-CoV-2 RNA (RT-PCR) NEGATIVE (Negative) Independent Interpretation I performed an independent interpretation of an: EKG Interpretation: I have independently reviewed EKG showing sinus rhythm with short MS at rate 71 bpm. Vent. Rate : 071 BPM ? ? Atrial Rate : 071 BPM ?? P-R Int : 102 ms? QRS Dur : 070 ms ? ? QT Int : 394 ms ? ? ? P-R-T Axes : 061 025 056 degrees ?? QTc Int : 428 ms ? Sinus rhythm with short MS Otherwise normal ECG No previous ECGs available Radiology Impression Discussion of test interpretation with radiology: I have reviewed the radiologist's reading. Radiologist Impression: Have independently reviewed the CT head showing no signs of hemorrhage or infarction, no hydrocephalus. EXAMINATION: CT HEAD WITHOUT CONTRAST CLINICAL INFORMATION: Headache. Rule out TIA. COMPARISON: 10/20/2021 TECHNIQUE: Contiguous axial imaging was performed from the skull base to vertex without intravenous contrast. This CT examination was performed using dose optimization techniques as appropriate, variously including the following: *? Automated exposure control *? Adjustment of mA and/or kV according to patient size (this includes techniques or standardized protocols for targeted exams where dose is matched to indication/reason for exam; i.e. extremities or head) Use of iterative reconstruction technique DLP: 656 mGy-cm. FINDINGS: There is no evidence of acute intracranial hemorrhage or territorial infarction. No abnormal mass effect or midline shift is seen. [place] to white matter differentiation is well preserved. No extra-axial fluid collections are identified. No hydrocephalus. No significant volume loss. There is no abnormal attenuation within the brain parenchyma. The osseous structures and soft tissues are normal. The mastoid air cells and visualized portions of the paranasal sinuses are well aerated. ? CT/CT head/brain wo IV con IMPRESSION: No acute intracranial pathology. Dictated By: Curtis Layton MD Signed By: <Electronically signed by Curtis Layton MD in OV> 10/08/22 1114 DD/ 1050 TD/TT:? Logistics Administrator: ISELA Discharge Plan Discharge Clinical Impression: Migraine Patient Disposition: Home, Self-Care Instructions: Migraine Headache (ED) Additional Instructions: Your blood work is unremarkable. You do not have a urinary tract infection based on your urinalysis. Your nasal swab is negative for influenza, Covid or RSV. Your EKG is normal with no signs of heart attack or heart disease. Your CT head shows no signs of stroke, masses, or other acute intracranial pathology. Your symptoms are consistent with a complex migraine. You are safe for discharge at this time with plan to manage her symptoms with increased hydration, Tylenol and/or NSAIDs such as ibuprofen or naproxen, and rest. Please return to the emergency department new or worsening numbness, weakness, chest pain, shortness of breath, extreme headache, or vision changes. Please follow-up with your primary care provider for further treatment and management. Referrals: Heide Oreilly MD [Primary Care Provider] - Print Language: Japanese
== END 2022-10-08 13:35 | disposition home or self-care (01) ==
PROVIDERS: Nurse Practitioner Family; Emergency Provider Emergency Medicine; PCP Student in an Organized Health Care Education/Training Program
DX: G43.909 Migraine, unspecified, not intractable, without status migrainosus (principal); Z20.822 Contact with and (suspected) exposure to COVID-19; Z20.828 Contact with and (suspected) exposure to other viral communicable diseases; R41.3 Other amnesia
CPT/HCPCS: 0241U; 70450; 80053; 81001; 83735; 84484; 85025; 87086; 93005; 99284

== ENCOUNTER 2022-11-25 10:21 | Outpatient (REF) | payer MEDICARE, SELFPAY ==
--- NOTE | ~2022-11-25 | US_ITS ---
EXAMINATION: US EXTRACRANIAL CAROTID DUPLEX, BILATERAL CLINICAL INFORMATION: Dizziness COMPARISON: CT a head/neck 10/20/2021 TECHNIQUE: Real-time ultrasound and Doppler techniques (integrating B-mode 2-D vascular images, Doppler spectral analysis and color-flow Doppler imaging) were utilized to interrogate the extracranial carotid arteries, the vertebral arteries and proximal subclavian arteries bilaterally. The degree of stenosis is determined by criteria similar to NASCET. FINDINGS: Right Side: 1. There is mild atherosclerotic plaque seen in the bifurcation/proximal ICA region. 2. The common carotid artery PSV proximally is 155 cm/s and distally 75 cm/s. 3. The proximal internal carotid artery velocities are 43 cm/s systolic and 16 cm/s diastolic. 4. The proximal external carotid artery PSV is 75 cm/s. 5. The vertebral artery shows antegrade flow. 6. The subclavian artery waveforms are triphasic. Left Side: 1. There is no atherosclerotic plaque seen in the bifurcation/proximal ICA region. 2. The common carotid artery PSV proximally is 137 cm/s and distally 77 cm/s. 3. The proximal internal carotid artery velocities are 67 cm/s systolic and 20 cm/s diastolic. 4. The proximal external carotid artery PSV is 1 cm/s. 5. The vertebral artery shows antegrade flow. 6. The subclavian artery waveforms are triphasic. US/US carotid duplex BI IMPRESSION: 1. RIGHT: Minimal, non-hemodynamically significant stenosis of the proximal right internal carotid artery corresponding to a 0-49% stenosis by velocity criteria. 2. LEFT: Normal left internal carotid artery without atherosclerotic plaque or hemodynamically significant stenosis.
[2022-11-25 13:54] LABS: Erythrocyte Sedimentation Rate 9 MM/HR (0-20)
== END 2022-11-25 10:22 | disposition home or self-care (01) ==
LOC: HO.US 10:21
PROVIDERS: Absent Provider Psychiatry & Neurology Neurology; PCP Student in an Organized Health Care Education/Training Program; Visit Provider Student in an Organized Health Care Education/Training Program
DX: M06.9 Rheumatoid arthritis, unspecified (principal); R51.9 Headache, unspecified; R42 Dizziness and giddiness
CPT/HCPCS: 36415; 85652; 93880

== ENCOUNTER → 2023-02-16 10:46 | Outpatient (BNVA) | payer OTHER, SELFPAY | PROVIDERS: PCP Internal Medicine; Visit Provider Internal Medicine ==

== ENCOUNTER 2023-04-16 08:59 | Outpatient (AMB) | payer OTHER, SELFPAY ==
[2023-04-16 09:00] VITALS: BP 112/80; PULSE 84; O2SAT 96; BMI 34.2
--- NOTE | 2023-04-16 09:00 | A.OFFPC_ITS ---
Vital Signs 04/16/23 09:00 Height 5 ft 3 in Weight 193 lb BMI 34.2 BP 112/80 Blood Pressure Location Lt brachial Position Sitting Pulse 84 Pulse Source Pulse Oximeter Pulse Oximetry (%) 96 Oxygen Delivery Method Room Air Intake Visit Reasons: [employer]Sten[employer] Carotid Right Artery Hotel Attendant Required: No Accompanied by: Self / Same As Patient Allergies No Known Allergies Allergy (Verified 04/16/23 09:15) Medication List - Last Reconciled 04/16/23 by Levon Rueda MD aspirin 81 mg PO DAILY atorvastatin 40 mg PO DAILY cholecalciferol (vitamin D3) 25 mcg PO DAILY folic acid 1 mg PO DAILY hydroxyzine HCl 50 mg PO BEDTIME PRN pantoprazole 40 mg PO BID sulfasalazine 1,000 mg PO BID Tobacco use date assessed: 04/16/23 Fall risk assessment: No Falls in past year Last assessed Fall Risk: 04/16/23 Dental Screening Dental Screen Date: 04/16/23 Did you have a dental visit in the last 12 months?: Yes Did you have a dental problem in the last 6 months where you did not have access to dental care?: No Was dental information given to patient?: Patient has dentist HPI [employer] Carotid Right Artery HPI Details Patient comes in today to establish care - is a new patient to the practice Previous PCP was at the [facility] Relates (+) Hx of TIAs over the past couple of years wherein she was experiencing some burning sensation/pain over her scalp, headaches as well as occasional speech difficulty Work ups done at the ER, including labs and head CT, have all been unrevealing so far Patient also had a carotid doppler done back in November 2022 and a head and neck CTA done last year - both came out negative / unremarkable She was seen by cardiology a couple of months ago in February 2023 and is now scheduled for further work ups with echocardiogram, stress test and cardiac ev ent monitor later this month She was also referred to bariatric surgery to help her lose weight and she is scheduled to be seen by the weight loss clinic next week She is currently following up with Dr. Palafox regularly for her headaches and her rheumatoid arthritis is being managed by Dr. Hurt at [facility] [place] (is currently on Sulfasalazine) She denies any dizziness; still has on and off burning sensations on her scalp but denies any increased headaches lately Denies any exertional chest pains or SOB No nausea/vomiting, no abdominal pain No change in bowel habits noted Denies any acute urinary symptoms Recalls that she had her routine annual mammogram done at [facility] sometime earlier this year; also thinks she had BMD done either this year or last year and states that she will try to get these information to us as soon as she can Relates having her colonoscopy done last year; states they had to send her to their offices in [place] to get it done as they were booked up otherwise at their other clinics Thinks that she last had her leader assembler exam and pap smear about 3 years ago; states that she never had Hx of any abnormal pap smears - will also try to get copies of her colonoscopy and pap smear results sent to us [facility] Medical History (Updated 04/16/23 @ 12:20 by Levon Rueda MD) GERD without esophagitis Morbid obesity Obesity (BMI 30-39.9) Pure hypercholesterolemia Rheumatoid arthritis TIA (transient ischemic attack) Vitamin D deficiency Surgical History (Updated 04/16/23 @ 09:39 by Levon Rueda MD) Hx of appendectomy Family History Paternal Grandfather Heart problem Father Heart problem HTN (hypertension) Mother Heart problem HTN (hypertension) Social History Housing: Apartment Alcohol intake: never Patient Tobacco Use Status: Never used Tobacco e-Cigarette/Vaping Use: Never Used service: No Current occupational status: employed Current occupational exposures/hazards: No Cognitive needs: No Hearing needs: No Vision needs: No Questionnaire PHQ-9 Over the last 2 weeks, how often have you been bothered by any of the following problems? 1. Little interest or pleasure in doing things: not at all 2. Feeling down, depressed, or hopeless: not at all 3. Trouble falling or staying asleep, or sleeping too much: not at all 4. Feeling tired or having little energy: not at all 5. Poor appetite or overeating: not at all 6. Feeling bad about yourself - or that you are a failure or have let yourself or your family down: not at all 7. Trouble concentrating on things, such as reading the newspaper or watching television: not at all 8. Moving or speaking so slowly that other people could have noticed. Or the opposite - being so fidgety or restless that you have been moving around a lot more than usual: not at all 9. Thoughts that you would be better off or of hurting yourself in some way: not at all Total score: 0 Depression Screening Interpretation: Negative 26307 - PHQ-9 Billing: Yes Source: Developed by Drs. Merrick Justin, Debbie Monsalve, Yovany Curran and colleagues, with an educational cortney from [employer]. Thrive Questionnaire Date Thrive assessed: 04/16/23 I am a: Patient What is your living situation today?: I have a steady place to live Within the past 12 months, did the food you bought not last and you didn't have the money to get more?: Never true Within the past 12 months, did you worry whether your food would run out before you got money to buy more?: Never true Do you have trouble paying for medicines?: No Do you have trouble getting transportation to medical appointments?: No Do you have trouble paying your heating and electricity bill?: No Do you have trouble taking care of your child, family member or friend?: No Do you have trouble with day-to-day activities such as bathing, preparing meals, shopping, managing finances, etc.?: No Are you currently unemployed and looking for a job?: No Are you interested in more education?: No Please select the resources that you would like help with: None Currently or been in a relationship where the following occur: no concerns reported AUDIT C Alcohol Use Questionnaire (AUDIT-C) 1. How often do you have a drink containing alcohol?: Never Total Score: 0 Score Reviewed/Action Taken: Yes FABY-7 AMB Questionnaire FABY-7 Date FABY - 7 assessed: 04/16/23 Feeling nervous, anxious, or on edge: 0 = Not at all Not being able to stop or control worryin = Not at all Worrying too much about different things: 0 = Not at all Trouble relaxin = Not at all Being so restless that it is hard to sit still: 0 = Not at all Becoming easily annoyed or irritable: 0 = Not at all Feeling afraid as if something awful might happen: 0 = Not at all Total FABY-7 score (0-4 normal; 5-9 mild; 10-14 moderate; 15-21 severe): 0 Source: Developed by Drs. Merrick Justin, Debbie Monsalve, Yovany Curran and colleagues, with an educational cortney from [employer]. Review of Systems Const Denies chills, Reports difficulty sleeping (Hydroxyzine helps), Denies fatigue, Denies fever(s), Reports headache(s) (on and off, mostly as scalp pain / burning) and Denies malaise Eyes Denies blurry vision, Denies change in vision, Denies irritation and Denies itchy eyes ENT Denies dysphagia, Denies dizziness, Denies otalgia, Reports headache(s) (on and off, mostly as scalp pain / burning), Denies nasal congestion, Denies neck pain, Denies odynophagia, Denies sinus pain and Denies sore throat Card Denies chest pain, Denies rapid heart rate, Denies irregular heart rhythm, Denies palpitations and Denies dyspnea Resp Denies chest congestion, Denies cough, Denies dyspnea and Denies wheezing GI Denies abdominal pain, Denies bloating, Denies constipation, Denies dysphagia, Denies heartburn, Denies diarrhea, Denies nausea, Denies odynophagia and Denies vomiting Denies hematuria, Denies urinary frequency, Denies dysuria, Denies urinary incontinence and Denies urinary urgency Musc Reports back pain (recurrent pain over lower back - sciatica - sees chiropractor regularly), Reports arthralgias (in hands/fingers due to RA), Denies joint swelling, Denies muscle weakness and Denies neck pain Skin/Breast Denies breast pain, Denies breast mass, Denies change in pigmentation, Denies lesions, Denies rash and Denies unusual bruising Neuro Denies dizziness, Reports headache(s) (on and off, mostly as scalp pain / bu rning) and Denies paresthesias Psych Reports anxiety and Denies depression Endo Denies fatigue and Denies palpitations Leonardo/Lymph Denies easy bruising Aller/Immun Denies itchy eyes and Denies wheezing Physical exam (Primary Care) Vital Signs: Last Vital Signs Pulse 84 04/16/23 09:00 BP 112/80 04/16/23 09:00 Pulse Ox 96 04/16/23 09:00 Oxygen Delivery Method Room Air 04/16/23 09:00 BMI result Body Mass Index 34.2 Tobacco/Smoking Status: Tobacco use Status Tobacco use date assessed 04/16/23 04/16/23 09:06 Patient Tobacco Use Status Never used Tobacco 04/16/23 09:06 e-Cigarette/Vaping Use Never Used 04/16/23 09:06 PHQ-9: PHQ-9 Score PHQ-9: Total score 0 04/16/23 09:30 Depression Screening Interpretation: Negative Thrive Assessment: Date of Thrive Assessment Date Thrive assessed 04/16/23 04/16/23 09:06 Currently or been in a relationship where the following occur: no concerns reported Const General: no acute distress, alert and awake Orientation/consciousness: patient oriented x3 HENMT Head: Yes normocephalic and Yes atraumatic Ears: external ears normal, TM's normal bilaterally and EAC's normal General nose exam: No nasal discharge present Face and sinus: Yes normal facial exam and Yes sinuses nontender Teeth and gingiva: dentition normal Throat: Yes posterior oropharynx normal and Yes tonsils normal (no TP congestion) Eyes Eyelids: Yes eyelids normal Conjunctivae: conjunctivae normal Pupils: Equal, round and reactive pupils present EOM: EOMs intact bilaterally Neck Neck: Yes no lymphadenopathy and Yes supple Thyroid: Thyroid normal Carotids: no bruits Resp Auscultation: clear to auscultation bilaterally, no rales and no wheezes Cardio Rate: regular rate Rhythm: regular rhythm Heart sounds: no murmurs GI Palpation (GI): Soft to palpation, nontender and No hepatosplenomegaly present Auscultation: normal bowel sounds General: Yes no CVA tenderness Back/Spine/Pelvis Back: no CVA tenderness Thoracic/Lumbar Spine: lumbar spinal tenderness Skin Lesions: no lesions Rashes: no rashes Neuro General: patient oriented x3, moves all extremities, no focal motor deficits and CN's II-XI intact bilaterally Cranial nerves: Yes Equal, round and reactive pupils present Cognition (Neuro): normal cognition Gait exam (Neuro): Normal gait present Extrem General: Yes no clubbing, cyanosis or edema Right upper extremity: Extremity exam: right hand Details: tenderness (over joints in fingers); no swelling Left upper extremity: hand Details: tenderness (over joints in fingers); no swelling Assessment and Plan Assessment & Plan (1) Annual physical exam: Code(s): Z00.00 - Encounter for general adult medical examination without abnormal findings Plan: Check labs Patient will try to get copies of her test results, including her annual mammogram, BMD, leader assembler exam and pap smear and colonoscopy, sent to us [facility] We will then determine if she needs any of these updated further or not (2) Rheumatoid arthritis: Code(s): M06.9 - Rheumatoid arthritis, unspecified Qualifiers: Rheumatoid arthritis location: unspecified site Rheumatoid factor presence: with rheumatoid factor Qualified Code(s): M05.9 - Rheumatoid arthritis with rheumatoid factor, unspecified Plan: Continue Sulfasalazine 1000 mg BID and Folic Acid 1 mg QD Follow up with rheumatology (Dr. Hurt) as scheduled (3) Pure hypercholesterolemia: Code(s): E78.00 - Pure hypercholesterolemia, unspecified Plan: Reinforced low cholesterol diet Continue Atorvastatin 40 mg QD Will have her recheck her labs and fasting lipids [facility] for follow up (4) History of TIA (transient ischemic attack): Code(s): Z86.73 - Personal history of transient ischemic attack (TIA), and cerebral infarction without residual deficits Plan: Continue Aspirin 81 mg QD Head and neck CTA done in 2021 show no significant vascular disease; carotid US done earlier this year (2022) revealed no significant carotid artery disease Head CT done in 2022 was unremarkable Is advised to continue with aggressive risk reduction Follow up with neurology (Dr. Palafox) as scheduled She is also being sent by cardiology for further work ups, including echocardiogram, cardiac stress testing as well as a cardiac event monitor (5) Headache: Code(s): R51.9 - Headache, unspecified Qualifiers: Headache chronicity pattern: unspecified pattern Headache type: unspecified Intractability: not intractable Qualified Code(s): R51.9 - Headache, unspecified Plan: Suspect migraine headache or variant Have discussed with patient that her symptoms (scalp pain/burning) and associated photophobia seem consistent with migraine headaches States that neurology has also mentioned this to her in the past Follow up with Dr. Palafox as scheduled (6) Vitamin D deficiency: Code(s): E55.9 - Vitamin D deficiency, unspecified Plan: Continue Vitamin D3 25 mcg (1000 units) QD Will recheck Vitamin D level for follow up (7) GERD without esophagitis: Code(s): K21.9 - Gastro-esophageal reflux disease without esophagitis Plan: Dietary restrictions reinforced Continue Pantoprazole 40 mg QD (8) Anxiety: Code(s): F41.9 - Anxiety disorder, unspecified Plan: Continue Hydroxyzine 25 mg 2 tablets Q HS PRN - states that this helps her sleep better at night States that her anxiety is mostly related to her brother's untimely passing recently - notes that this has affected her a lot and she is still trying to process this even though her brother over a year ago now States that she tries to keep working and staying busy helps her a lot (9) Obesity (BMI 30-39.9): Code(s): E66.9 - Obesity, unspecified Plan: Reinforced diet/exercise as tolerated/lose weight Has been referred by cardiology to weight management and she is scheduled to be seen next week Plan Follow up in 4 months Orders: Orders Comprehensive [place]. Panel Fast Today E78.00 - Pure hypercholesterolemia, unspecified, M06.9 - Rheumatoid arthritis, unspecified, Z00.00 - Encounter for general adult medical examination without abnormal findings Lipid Panel Today E78.00 - Pure hypercholesterolemia, unspecified, M06.9 - Rheumatoid arthritis, unspecified, Z00.00 - Encounter for general adult medical examination without abnormal findings TSH reflex Free T4 Today M06.9 - Rheumatoid arthritis, unspecified, Z00.00 - Encounter for general adult medical examination without abnormal findings Vitamin D 25-OH Total Today E55.9 - Vitamin D deficiency, unspecified, M06.9 - Rheumatoid arthritis, unspecified, Z00.00 - Encounter for general adult medical examination without abnormal findings Complete Blood Count Auto Diff Today M06.9 - Rheumatoid arthritis, unspecified, Z00.00 - Encounter for general adult medical examination without abnormal findings UA CC w/rflx Micro + Cult Today M06.9 - Rheumatoid arthritis, unspecified, R30.0 - Dysuria, Z00.00 - Encounter for general adult medical examination without abnormal findings Vitamin B12 and Folate Today E53.8 - Deficiency of other specified B group vitamins, M06.9 - Rheumatoid arthritis, unspecified, Z00.00 - Encounter for general adult medical examination without abnormal findings C Reactive Protein Today M06.9 - Rheumatoid arthritis, unspecified, Z00.00 - Encounter for general adult medical examination without abnormal findings Hemoglobin A1c Today R73.01 - Impaired fasting glucose, Z00.00 - Encounter for general adult medical examination without abnormal findings Rheumatoid Factor Today M06.9 - Rheumatoid arthritis, unspecified, Z00.00 - Encounter for general adult medical examination without abnormal findings Erythrocyte Sedimentation Rate Today M06.9 - Rheumatoid arthritis, unspecified, Z00.00 - Encounter for general adult medical examination without abnormal findings Coding Level of Care Code New Pt Prev Care >65yr ([id number]) Diagnoses Annual physical exam Z00.00 Rheumatoid arthritis M05.9 Rheumatoid arthritis location: unspecified site Rheumatoid factor presence: with rheumatoid factor Pure hypercholesterolemia E78.00 History of TIA (transient ischemic attack) Z86.73 Headache R51.9 Headache chronicity pattern: unspecified pattern Headache type: unspecified Intractability: not intractable Vitamin D deficiency E55.9 GERD without esophagitis K21.9 Anxiety F41.9 Obesity (BMI 30-39.9) E66.9
== END 2023-04-16 09:59 | disposition home or self-care (01) ==
PROVIDERS: Visit Provider Internal Medicine
DX: Z00.00 Encounter for general adult medical examination without abnormal findings (principal); M05.9 Rheumatoid arthritis with rheumatoid factor, unspecified; Z86.73 Personal history of transient ischemic attack (TIA), and cerebral infarction without residual deficits; E55.9 Vitamin D deficiency, unspecified; E78.00 Pure hypercholesterolemia, unspecified; R51.9 Headache, unspecified; K21.9 Gastro-esophageal reflux disease without esophagitis; F41.9 Anxiety disorder, unspecified; E66.9 Obesity, unspecified
CPT/HCPCS: 99387

== ENCOUNTER 2023-04-21 09:02 | Outpatient (REF) | payer OTHER, SELFPAY ==
[2023-04-21 09:24] LABS: MANUAL DIFF FLAG NO
[2023-04-21 09:47] LABS: Basophils Percent Auto 0.5 % (0-2); Eosinophils Absolute Auto 0.1 X10*3/uL (0.0-0.4); Eosinophils Percent Auto 1.4 % (0-4); Hematocrit 38.4 % (37.0-47.0); Hemoglobin 12.8 g/dl (12.0-16.0); Imm Gran Abs Auto 0.02 X10*3/uL (0.00-0.03); Imm Gran Pct Auto 0.5 % (0.0-0.4); Lymphocytes Absolute Auto 1.2 X10*3/uL (1.2-4.9); Lymphocytes Percent Auto 26.1 % (20-40); Mean Corpuscular HGB Conc 33.3 g/dl (31.0-35.0); Monocytes Absolute Auto 0.3 X10*3/uL (0.1-1.2); Monocytes Percent Auto 7.3 % (2-11); Neutrophils Absolute Auto 2.8 x10*3/uL (2.0-8.3); Neutrophils Percent Auto 64.2 % (45-73); Platelet Count 234 X10*3/uL (160-400); Red Cell Distribution Width 12.1 % (11.0-16.0); White Blood Count 4.4 X10*3/uL (4.8-10.8)
[2023-04-21 10:18] LABS: Estimated Average Glucose 71 mg/dL; Hemoglobin A1c % 4.1 %
[2023-04-21 10:26] LABS: Erythrocyte Sedimentation Rate 7 MM/HR (0-20)
[2023-04-21 11:05] LABS: Alanine Aminotransferase 44 U/L (0-31); Albumin Level 4.4 g/dL (3.5-5.0); Alkaline Phosphatase 90 U/L (39-117); Anion Gap 13 (12-20); Aspartate Amino Transferase 37 U/L (5-31); Bilirubin Total 0.7 mg/dL (0.0-1.0); Blood Urea Nitrogen 16 mg/dL (9-16); C Reactive Protein 0.27 mg/dL (< or = 0.50); Calcium 9.3 mg/dL (8.4-10.2); Carbon Dioxide 24 mmol/L (22-29); Chloride 107 mmol/L (96-108); Cholesterol 150 mg/dL; Estimated Glomerular Filt Rate > 60; Glucose Fasting 100 mg/dL (60-99); HDL Cholesterol 60 mg/dL; LDL Cholesterol Calculated 79 mg/dl; Potassium 3.9 mmol/L (3.3-5.1); Sodium 140 mmol/L (135-145); Total Protein 7.5 g/dL (6.5-8.0); Triglycerides 58 mg/dL
[2023-04-21 11:07] LABS: TSH reflex Free T4 1.64 uIU/mL (0.32-4.0); Vitamin D 25-OH Total 31.2 ng/mL (>30)
[2023-04-21 11:14] LABS: Appearance Urine Clear; Color Urine Dark Yellow; Glucose Urine UA Negative (Negative); Leukocyte Esterase Urine Trace (Negative); Nitrite Urine Negative (Negative); Specific Gravity - Urine >= 1.030 (1.005-1.025); UMIC TRIGGER UACC YES; Urine Blood Negative (Negative); Urine Ketones Trace mg/dL (Negative); Urine Protein Trace mg/dL (Neg-Trace)
[2023-04-21 11:23] LABS: Folate 15.8 ng/mL (> or = 4.0); Vitamin B12 769 pg/mL (200-900)
[2023-04-21 11:24] LABS: Bacteria Urine None Seen (None Seen); Hyaline Casts Urine 0-2 /LPF (0-2); Other Crystals Urine Present; Squamous Epithelial Cell Urine 0-2 /HPF (0-2); WBC Urine 0-5 /HPF (0-5)
[2023-04-21 11:46] LABS: Rheumatoid Factor < 13.0 IU/mL (<15.0)
== END 2023-04-21 09:03 | disposition home or self-care (01) ==
LOC: HO.LAB 09:02
PROVIDERS: PCP Internal Medicine; Visit Provider Internal Medicine
DX: Z00.00 Encounter for general adult medical examination without abnormal findings (principal); M06.9 Rheumatoid arthritis, unspecified; E53.8 Deficiency of other specified B group vitamins; E78.00 Pure hypercholesterolemia, unspecified; E55.9 Vitamin D deficiency, unspecified; R73.01 Impaired fasting glucose
CPT/HCPCS: 36415; 80053; 80061; 81001; 81003; 82306; 82607; 82746; 83036; 84443; 85025; 85652; 86140; 86431

== ENCOUNTER → 2023-05-01 13:07 | Outpatient (REF) | payer MEDICARE, SELFPAY ==
--- NOTE | 2023-05-01 13:10 | CA_ITS ---
Transthoracic Echocardiogram Patient (Last, First, Middle): Rylie Marcos M Gender: Female Date of : 1955 Age: 67 Procedure Date: 05/01/2023 Procedure Type: Transthoracic Echocardiogram Location: OP Height: 157.48 cm Weight: 86.18 kg BSA: 1.87 m2 Heart Rate: bpm BP: 122 / 70 mmHg World Ge[employer] Teacher: TO Referring MD: Carlo Wisdom MD Tooling Manager: Anirudh Kumari MD Symptoms: I25.10 - Atherosclerotic heart disease of [place] coronary artery without... Study Quality: Fair/Contrast ECG Rhythm: Sinus Conclusions: - Essentially normal study Findings Procedure Information Contrast agent, definity, is being given per protocol without apparent complications. Left Ventricle Normal left ventricular size, thickness, and systolic function. The visually estimated ejection fraction is between 60-65%. Spectral Doppler is indicative of a normal filling pattern. Wall Motion Rest Echo Findings The basal inferior segment is hypokinetic. All other scored wall segments showed normal motion. Right Ventricle Normal right ventricular cavity size and systolic function. Atria Both atria are normal in size. Interatrial shunt cannot be excluded. Aortic Valve Normal aortic valve structure and function. There is no aortic valve stenosis. There is no aortic valve regurgitation. Mitral Valve Normal mitral valve structure and function. There is trace mitral valve regurgitation. There is no mitral valve stenosis. Pulmonic Valve The pulmonic valve is likely normal. Tricuspid Valve Normal tricuspid valve structure. There is trace tricuspid valve regurgitation. The right ventricular systolic pressure is normal. The right ventricular systolic pressure is 13 mmHg. Normal right atrial pressure. There is no evidence of pulmonary hypertension. Great Vessels All visible segments of the aorta are normal in size. The pulmonary artery was not well visualized. Venous The inferior vena cava is normal in size and collapses greater than 50% with inspiration. Pericardium/Pleural There is no evidence of pericardial effusion. Prior Study Comparison No prior study available for comparison. Measurements 2D Linear Measurements IVSd: 0.94 0.6-0.9/0.6-1.0 cm LVIDd: 4.62 3.9-5.3/4.2-5.9 cm LVIDd Index: 2.47 2.4-3.2/2.2-3.1 cm/m2 LVIDs: 3.06 2.0-3.6 cm LVPWd: 0.68 0.7-1.1 cm LA Diam: 3.70 2.7-3.8/3.0-4.0 cm LAIDs Index: 1.98 1.5-2.3 cm/m2 LV Mass: 150.01 67-162/88-224 g LV Mass Index: 80.22 43-95/49-115 g/m2 LVOT Diam: 2.00 3.0+(-)1.3 cm 2D Systolic Function EF 4C: 65.70 >55% EF 2C: 61.00 >55% EF BiP: 63.70 >55% Mitral Valve MV Pk E: 0.49 MV PK A: 0.63 MV Decel Time: 270.00 E/A: 0.80 E'Lateral: 9.03 E'Medial: 5.33 E/E' Med: 9.20 E/E' Lat: 5.50 PHT: 79.00 MVA PHT: 2.78 Decel [place]: 1.83 Aortic Valve AoV Pk Antoine: 1.28 AoV Mn Antoine: 0.88 AoV VTI: 0.23 AoV Pk Grad: 7.00 Aov Mn Grad: 4.00 EDU Cont.VTI: 2.40 LVOT LVOT Pk Antoine: 0.92 LVOT Mn Antoine: 0.57 LVOT VTI: 0.18 LVOT Pk Grad: 3.00 LVOT Mn Grad: 2.00 LVOT Diam: 2.00 LVOT Area: 3.14 Diastolic Function MV Pk E: 0.49 MV Pk A: 0.63 E/A: 0.80 E'Medial: 5.33 E/E' Med: 9.20 E' Laterial: 9.03 E/E' Lat: 5.50 Right Ventricle TAPSE (mm): 20.70 TVS' Antoine: 11.10 Tricuspid Valve TR Pk Antoine: 1.59 TR Pk Grad: 10.00 RA Press: 3.00 RVSP: 13.00 Great Vessels Aorta Sinus of Valsalva: 2.94 2.0-3.5 cm Ao Asc: 3.30 2.1-3.4 cm Updated in Other Vendor System with Status of Final Anirudh Kumari MD electronically signed on 05/02/2023 1:24:06 PM with status of Final
--- NOTE | 2023-05-01 13:10 | HM_ITS ---
* Total procedure length 35 days. Wear time 23 days. * Underlying rhythm is sinus. Average ventricular rate 68/Min. Range 50 to 153/Min. * Rare supraventricular ectopy. * No evidence of atrial fibrillation. * No significant bradycardia or heart block. * No patient markers or events in diary. MTDD
== END ==
LOC: HO.CARD 13:07
PROVIDERS: PCP Internal Medicine; Visit Provider Internal Medicine
DX: I25.10 Atherosclerotic heart disease of native coronary artery without angina pectoris (principal); I48.0 Paroxysmal atrial fibrillation; G45.9 Transient cerebral ischemic attack, unspecified
CPT/HCPCS: 93270; 93306; Q9957

== ENCOUNTER → 2023-05-01 13:10 | Outpatient (BNV) | payer MEDICARE, SELFPAY | PROVIDERS: PCP Internal Medicine; Visit Provider Internal Medicine Cardiovascular Disease | DX: I47.1 Supraventricular tachycardia (principal) | CPT/HCPCS: 93272; 93306 ==

== ENCOUNTER → 2023-05-11 10:51 | Outpatient (REF) | payer MEDICARE, SELFPAY ==
--- NOTE | 2023-05-11 10:53 | CA_ITS ---
Acquisition Time: 2023-05-11 11:11:34 Total Exercise Time: 00:05:53 Test Indications: Palpitations Medications: ASA ATORVASTATIN HYDROXYZINE PANTOPRAZOLE Protocol: SANDRA Max HR: 166 BPM 107% of Pred: 154 BPM Max BP: 158/068 mmHG Max Work Load: 7.0 METS Exercise stress test exericse 5 min 53 sec of Sandra protocol achieving 106% MPHR, without anginal symptoms, without arrhythmias, with normotensive response to exercise, without EKG changes.Echo images obtained by floor technician at rest and immedately post peak exercise. Definity contrast used. Test reviewed with Dr. Benites. Referred By: Susie Wisdom Overread By: SUSIE WISDOM
== END ==
LOC: HO.CARD 10:51
PROVIDERS: PCP Internal Medicine; Visit Provider Internal Medicine
DX: R07.2 Precordial pain (principal); G45.9 Transient cerebral ischemic attack, unspecified
CPT/HCPCS: 93350; Q9957

== ENCOUNTER → 2023-05-11 10:53 | Outpatient (BNV) | payer MEDICARE, SELFPAY | PROVIDERS: PCP Internal Medicine; Visit Provider Internal Medicine | DX: R07.2 Precordial pain (principal) | CPT/HCPCS: 93016; 93018; 93350; 93352 ==

== ENCOUNTER 2023-05-13 09:56 | Outpatient (AMB) | payer MEDICARE, SELFPAY ==
--- NOTE | 2023-05-13 10:00 | A.OFFVIS_ITS ---
Intake VS Expanded 05/13/23 10:10 Height 5 ft 2 in Weight 192 lb 9.6 oz BMI 35.2 BP 115/58 L Blood Pressure Location Rt brachial Blood Pressure Position Sitting Pulse 73 Pulse Source Pulse Oximeter Temp 98.1 F Temperature Source Temporal Artery Scan Pulse Oximetry 95 Oxygen Delivery Method Room Air Body Fat 88.4 Body Fat Percentage 45.9 Free Fat Mass 104.0 Muscle Mass 98.8 Visceral Mass 14.0 Water Mass 73.4 BMR 1,459 Intake Visit Reasons: (OV) Gastric Balloon Multiple Needle Stitcher Required: No Top Bottom Attaching Machine Operator: Top Bottom Attaching Machine Operator offered & declined Accompanied by: Self / Same As Patient Allergies No Known Allergies Allergy (Verified 05/13/23 10:07) Medication List - Last Reconciled 05/13/23 by Lionel Valencia MD aspirin 81 mg PO DAILY atorvastatin 40 mg PO DAILY cholecalciferol (vitamin D3) 25 mcg PO DAILY folic acid 1 mg PO DAILY hydroxyzine HCl 50 mg PO BEDTIME PRN pantoprazole 40 mg PO BID sulfasalazine 1,000 mg PO BID HPI HPI Comments History of Present Illness Details The patient is a 67-year-old woman self-referred to discuss Orbera gastric balloon due to a chronic problem with obesity that started in her 30s. Patient has tried every fad diet and weight loss treatment with the exception of prescription items, all unsuccessfully. These include NutriSystem, other portion control, dietary supplements and fad diets. Patient notes that in her youth, she was very active and athletic, but as she became older, she has had issues with rheumatoid arthritis and is currently being evaluated for TIA/cardiac issues with a water manager. She is currently on sulfasalazine for her rheumatoid arthritis and is being treated with low-dose statin because of a possible TIA. 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; she reports a distant history of ruptured appendix requiring open surgery at age 14 She has no children She wakes at: 0700 bed at: 2200 Breakfast: Skips food, frequently has coffee with Creamer in sugar Lunch: 1130-noon, usually some sort of a take out sandwich or fast food Dinner: About 18 30, usually starch based such as pizza, pasta, protein with starch and vegetables After dinner: 20:00 snack of either cookie or ice cream Other snacks: Assorted crackers Liquids: Milk and water Alcohol intake: Rare nicotine: Denies marijuana: Denied drugs: Denied caffeine: 2 cups per day Exercise: None, has a gym membership Last mammogram: Last pap smear: control method: Colonoscopy: SHELDON: 2 ESS: 4; patient reports severe snoring that disrupts her partner GERD: 0 on PPI, significant without PPI, + FH Parr's in brother QOL: 68 PFSH Medical History GERD without esophagitis Morbid obesity Obesity (BMI 30-39.9) Pure hypercholesterolemia Rheumatoid arthritis TIA (transient ischemic attack) Vitamin D deficiency Surgical History Hx of appendectomy Family History Paternal Grandfather Heart problem Father Heart problem HTN (hypertension) Mother Heart problem HTN (hypertension) Social History Housing: Apartment Alcohol intake: never Patient Tobacco Use Status: Never used Tobacco e-Cigarette/Vaping Use: Never Used service: No Current occupational status: employed Current occupational exposures/hazards: No Cognitive needs: No Hearing needs: No Vision needs: No Review of Systems Const All systems reviewed & are unremarkable except as noted in HPI and below Reports as per HPI Physical Exam The patient is non-toxic & in good spirits NC/AT, PERRLA, EOMI Mood, affect & judgment all appear appropriate Sclera anicteric conjunctiva pink and moist Oropharynx is clear with no aphthous ulcers, Mallampati class 4, mucous membranes moist Neck is supple with no masses, adenopathy or bruits Heart is regular, normal S1-S2 no rubs or murmurs Lungs are clear and equal anteriorly with no audible wheezing, rubs or dullness to percussion Abdomen is overweight with no demonstrable hernias. No HSM, rebound, rigidity, guarding, masses or bruits are present. Rectal exam is deferred Skin has good turgor and is free of rashes Extremities free of cyanosis clubbing edema Assessment & Plan Assessment & Plan (1) Obesity (BMI 30-39.9): Code(s): E66.9 - Obesity, unspecified (2) Anxiety: Code(s): F41.9 - Anxiety disorder, unspecified (3) History of TIA (transient ischemic attack): Code(s): Z86.73 - Personal history of transient ischemic attack (TIA), and cerebral in farction without residual deficits (4) Pure hypercholesterolemia: Code(s): E78.00 - Pure hypercholesterolemia, unspecified (5) GERD without esophagitis: Code(s): K21.9 - Gastro-esophageal reflux disease without esophagitis (6) Vitamin D deficiency: Code(s): E55.9 - Vitamin D deficiency, unspecified (7) Rheumatoid arthritis: Code(s): M06.9 - Rheumatoid arthritis, unspecified Qualifiers: Rheumatoid arthritis location: unspecified site Rheumatoid factor presence: with rheumatoid factor Qualified Code(s): M05.9 - Rheumatoid arthritis with rheumatoid factor, unspecified (8) Morbid obesity: Code(s): E66.01 - Morbid (severe) obesity due to excess calories (9) TIA (transient ischemic attack): Code(s): G45.9 - Transient cerebral ischemic attack, unspecified (10) Snorings: Code(s): R06.83 - Snoring Plan Using a teaching machine ii trimmer, we reviewed normal anatomy and physiology, the importance of proper diet to include lean protein, vegetable/high-fiber and minimal carbohydrates and fats. Options of medical weight loss, Orbera gastric balloon and sleeve gastrectomy were discussed with the patient. Risks, benefits and alternatives seem to be understood and her questions seemed to be satisfactorily answered. Out of pocket expense of 6000 dollars for the Orbera balloon was reviewed. Patient was given handouts regarding protein supplements and healthy diet and stated that she wanted to discuss her options with her partner of 30 years prior to committing. She scheduled a follow-up appointment so we can review her fa sting labs and decide how she would like to proceed. Orders: Orders Vitamin B12 and Folate Today E55.9 - Vitamin D deficiency, unspecified, E66.01 - Morbid (severe) obesity due to excess calories, E66.9 - Obesity, unspecified, E78.00 - Pure hypercholesterolemia, unspecified, F41.9 - Anxiety disorder, unspecified, G45.9 - Transient cerebral ischemic attack, unspecified, K21.9 - Gastro-esophageal reflux disease without esophagitis, M06.9 - Rheumatoid arthritis, unspecified, Z86.73 - Personal history of transient ischemic attack (TIA), and cerebral infarction without residual deficits Comprehensive Met. Panel Today E55.9 - Vitamin D deficiency, unspecified, E66.01 - Morbid (severe) obesity due to excess calories, E66.9 - Obesity, unspecified, E78.00 - Pure hypercholesterolemia, unspecified, F41.9 - Anxiety disorder, unspecified, G45.9 - Transient cerebral ischemic attack, unspecified, K21.9 - Gastro-esophageal reflux disease without esophagitis, M06.9 - Rheumatoid arthritis, unspecified, Z86.73 - Personal history of transient ischemic attack (TIA), and cerebral infarction without residual deficits C Reactive Protein Today E55.9 - Vitamin D deficiency, unspecified, E66.01 - Morbid (severe) obesity due to excess calories, E66.9 - Obesity, unspecified, E78.00 - Pure hypercholesterolemia, unspecified, F41.9 - Anxiety disorder, unspecified, G45.9 - Transient cerebral ischemic attack, unspecified, K21.9 - Gastro-esophageal reflux disease without esophagitis, M06.9 - Rheumatoid arthritis, unspecified, Z86.73 - Personal history of transient ischemic attack (TIA), and cerebral infarction without residual deficits Ferritin Today E55.9 - Vitamin D deficiency, unspecified, E66.01 - Morbid (severe) obesity due to excess calories, E66.9 - Obesity, unspecified, E78.00 - Pure hypercholesterolemia, unspecified, F41.9 - Anxiety disorder, unspecified, G45.9 - Transient cerebral ischemic attack, unspecified, K21.9 - Gastro- esophageal reflux disease without esophagitis, M06.9 - Rheumatoid arthritis, unspecified, Z86.73 - Personal history of transient ischemic attack (TIA), and cerebral infarction without residual deficits Hemoglobin A1c Today E55.9 - Vitamin D deficiency, unspecified, E66.01 - Morbid (severe) obesity due to excess calories, E66.9 - Obesity, unspecified, E78.00 - Pure hypercholesterolemia, unspecified, F41.9 - Anxiety disorder, unspecified, G45.9 - Transient cerebral ischemic attack, unspecified, K21.9 - Gastro- esophageal reflux disease without esophagitis, M06.9 - Rheumatoid arthritis, unspecified, Z86.73 - Personal history of transient ischemic attack (TIA), and cerebral infarction without residual deficits Insulin Today E55.9 - Vitamin D deficiency, unspecified, E66.01 - Morbid (severe) obesity due to excess calories, E66.9 - Obesity, unspecified, E78.00 - Pure hypercholesterolemia, unspecified, F41.9 - Anxiety disorder, unspecified, G45.9 - Transient cerebral ischemic attack, unspecified, K21.9 - Gastro- esophageal reflux disease without esophagitis, M06.9 - Rheumatoid arthritis, unspecified, Z86.73 - Personal history of transient ischemic attack (TIA), and cerebral infarction without residual deficits IRON PROFILE Today E55.9 - Vitamin D deficiency, unspecified, E66.01 - Morbid (severe) obesity due to excess calories, E66.9 - Obesity, unspecified, E78.00 - Pure hypercholesterolemia, unspecified, F41.9 - Anxiety disorder, unspecified, G45.9 - Transient cerebral ischemic attack, unspecified, K21.9 - Gastro- esophageal reflux disease without esophagitis, M06.9 - Rheumatoid arthritis, unspecified, Z86.73 - Personal history of transient ischemic attack (TIA), and cerebral infarction without residual deficits Lipid Panel Today E55.9 - Vitamin D deficiency, unspecified, E66.01 - Morbid (severe) obesity due to excess calories, E66.9 - Obesity, unspecified, E78.00 - Pure hypercholesterolemia, unspecified, F41.9 - Anxiety disorder, unspecified, G45.9 - Transient cerebral ischemic attack, unspecified, K21.9 - Gastro- esophageal reflux disease without esophagitis, M06.9 - Rheumatoid arthritis, unspecified, Z86.73 - Personal history of transient ischemic attack (TIA), and cerebral infarction without residual deficits PTHI Today E55.9 - Vitamin D deficiency, unspecified, E66.01 - Morbid (severe) obesity due to excess calories, E66.9 - Obesity, unspecified, E78.00 - Pure hypercholesterolemia, unspecified, F41.9 - Anxiety disorder, unspecified, G45.9 - Transient cerebral ischemic attack, unspecified, K21.9 - Gastro-esophageal reflux disease without esophagitis, M06.9 - Rheumatoid arthritis, unspecified, Z86.73 - Personal history of transient ischemic attack (TIA), and cerebral infarction without residual deficits TSH reflex Free T4 Today E55.9 - Vitamin D deficiency, unspecified, E66.01 - Morbid (severe) obesity due to excess calories, E66.9 - Obesity, unspecified, E78.00 - Pure hypercholesterolemia, unspecified, F41.9 - Anxiety disorder, unspecified, G45.9 - Transient cerebral ischemic attack, unspecified, K21.9 - Gastro-esophageal reflux disease without esophagitis, M06.9 - Rheumatoid arthritis, unspecified, Z86.73 - Personal history of transient ischemic attack (TIA), and cerebral infarction without residual deficits Vitamin A Today E55.9 - Vitamin D deficiency, unspecified, E66.01 - Morbid (severe) obesity due to excess calories, E66.9 - Obesity, unspecified, E78.00 - Pure hypercholesterolemia, unspecified, F41.9 - Anxiety disorder, unspecified, G45.9 - Transient cerebral ischemic attack, unspecified, K21.9 - Gastro- esophageal reflux disease without esophagitis, M06.9 - Rheumatoid arthritis, unspecified, Z86.73 - Personal history of transient ischemic attack (TIA), and cerebral infarction without residual deficits Vitamin B1 Today E55.9 - Vitamin D deficiency, unspecified, E66.01 - Morbid (se nel) obesity due to excess calories, E66.9 - Obesity, unspecified, E78.00 - Pure hypercholesterolemia, unspecified, F41.9 - Anxiety disorder, unspecified, G45.9 - Transient cerebral ischemic attack, unspecified, K21.9 - Gastro- esophageal reflux disease without esophagitis, M06.9 - Rheumatoid arthritis, unspecified, Z86.73 - Personal history of transient ischemic attack (TIA), and cerebral infarction without residual deficits Vitamin D 25-OH Total Today E55.9 - Vitamin D deficiency, unspecified, E66.01 - Morbid (severe) obesity due to excess calories, E66.9 - Obesity, unspecified, E78.00 - Pure hypercholesterolemia, unspecified, F41.9 - Anxiety disorder, unspecified, G45.9 - Transient cerebral ischemic attack, unspecified, K21.9 - Gastro-esophageal reflux disease without esophagitis, M06.9 - Rheumatoid arthritis, unspecified, Z86.73 - Personal history of transient ischemic attack (TIA), and cerebral infarction without residual deficits Zinc Today E55.9 - Vitamin D deficiency, unspecified, E66.01 - Morbid (severe) obesity due to excess calories, E66.9 - Obesity, unspecified, E78.00 - Pure hypercholesterolemia, unspecified, F41.9 - Anxiety disorder, unspecified, G45.9 - Transient cerebral ischemic attack, unspecified, K21.9 - Gastro-esophageal reflux disease without esophagitis, M06.9 - Rheumatoid arthritis, unspecified, Z86.73 - Personal history of transient ischemic attack (TIA), and cerebral infarction without residual deficits Complete Blood Count Auto Diff Today E55.9 - Vitamin D deficiency, unspecified, E66.01 - Morbid (severe) obesity due to excess calories, E66.9 - Obesity, unspecified, E78.00 - Pure hypercholesterolemia, unspecified, F41.9 - Anxiety disorder, unspecified, G45.9 - Transient cerebral ischemic attack, unspecified, K21.9 - Gastro-esophageal reflux disease without esophagitis, M06.9 - Rheumatoid arthritis, unspecified, Z86.73 - Personal history of transient ischemic attack (TIA), and cerebral infarction without residual deficits H Pylori Breath Test Today E55.9 - Vitamin D deficiency, unspecified, E66.01 - Morbid (severe) obesity due to excess calories, E66.9 - Obesity, unspecified, E78.00 - Pure hypercholesterolemia, unspecified, F41.9 - Anxiety disorder, unspecified, G45.9 - Transient cerebral ischemic attack, unspecified, K21.9 - Gastro-esophageal reflux disease without esophagitis, M06.9 - Rheumatoid arthritis, unspecified, Z86.73 - Personal history of transient ischemic attack (TIA), and cerebral infarction without residual deficits Coding Level of Care Code New Pt Level 4 (14647) Diagnoses Obesity (BMI 30-39.9) E66.9 Anxiety F41.9 History of TIA (transient ischemic attack) Z86.73 Pure hypercholesterolemia E78.00 GERD without esophagitis K21.9 Vitamin D deficiency E55.9 Rheumatoid arthritis M05.9 Rheumatoid arthritis location: unspecified site Rheumatoid factor presence: with rheumatoid factor Morbid obesity E66.01 TIA (transient ischemic attack) G45.9 Snorings R06.83
[2023-05-13 10:10] VITALS: BP 115/58; PULSE 73; TEMP 36.7; O2SAT 95; BMI 35.2
== END 2023-05-13 12:05 | disposition home or self-care (01) ==
PROVIDERS: PCP Internal Medicine; Visit Provider Surgery
DX: E66.9 Obesity, unspecified (principal); F41.9 Anxiety disorder, unspecified; Z86.73 Personal history of transient ischemic attack (TIA), and cerebral infarction without residual deficits; E78.00 Pure hypercholesterolemia, unspecified; K21.9 Gastro-esophageal reflux disease without esophagitis; E55.9 Vitamin D deficiency, unspecified; M05.9 Rheumatoid arthritis with rheumatoid factor, unspecified; E66.01 Morbid (severe) obesity due to excess calories; G45.9 Transient cerebral ischemic attack, unspecified; R06.83 Snoring
CPT/HCPCS: 99204

== ENCOUNTER → 2023-05-13 09:56 | Outpatient (BNVA) | payer MEDICARE, SELFPAY | PROVIDERS: PCP Internal Medicine; Visit Provider Surgery | DX: E66.01 Morbid (severe) obesity due to excess calories (principal); Z68.35 Body mass index [BMI] 35.0-35.9, adult; F41.9 Anxiety disorder, unspecified; E78.00 Pure hypercholesterolemia, unspecified; K21.9 Gastro-esophageal reflux disease without esophagitis; E55.9 Vitamin D deficiency, unspecified; M05.9 Rheumatoid arthritis with rheumatoid factor, unspecified; R06.83 Snoring; Z86.73 Personal history of transient ischemic attack (TIA), and cerebral infarction without residual deficits | CPT/HCPCS: 99202 ==

== ENCOUNTER 2023-05-29 08:24 | Outpatient (REF) | payer MEDICARE, SELFPAY ==
[2023-05-29 08:51] LABS: MANUAL DIFF FLAG NO
[2023-05-29 09:25] LABS: Basophils Percent Auto 0.6 % (0-2); Eosinophils Absolute Auto 0.1 X10*3/uL (0.0-0.4); Hematocrit 39.9 % (37.0-47.0); Hemoglobin 13.2 g/dl (12.0-16.0); Imm Gran Abs Auto 0.02 X10*3/uL (0.00-0.03); Imm Gran Pct Auto 0.4 % (0.0-0.4); Lymphocytes Absolute Auto 1.4 X10*3/uL (1.2-4.9); Mean Corpuscular HGB Conc 33.1 g/dl (31.0-35.0); Mean Corpuscular Hemoglobin 31.9 pg (27.0-33.0); Mean Corpuscular Volume 96.4 fL (80.0-98.0); Mean Platelet Volume 10.1 fL (9.4-12.3); Monocytes Absolute Auto 0.3 X10*3/uL (0.1-1.2); Monocytes Percent Auto 6.9 % (2-11); Neutrophils Absolute Auto 3.1 x10*3/uL (2.0-8.3); Neutrophils Percent Auto 62.1 % (45-73); Platelet Count 238 X10*3/uL (160-400); Red Blood Count 4.14 X10*6/uL (4.20-5.50); Red Cell Distribution Width 12.2 % (11.0-16.0); White Blood Count 4.9 X10*3/uL (4.8-10.8)
[2023-05-29 09:26] LABS: Estimated Average Glucose 77 mg/dL; Hemoglobin A1c % 4.3 % (<6.0)
[2023-05-29 10:15] LABS: Alanine Aminotransferase 22 U/L (0-31); Albumin Level 4.1 g/dL (3.5-5.0); Alkaline Phosphatase 94 U/L (39-117); Anion Gap 11 (12-20); Aspartate Amino Transferase 20 U/L (5-31); Bilirubin Total 0.5 mg/dL (0.0-1.0); Blood Urea Nitrogen 15 mg/dL (9-16); C Reactive Protein < 0.10 mg/dL (< or = 0.50); Calcium 9.2 mg/dL (8.4-10.2); Carbon Dioxide 24 mmol/L (22-29); Chloride 108 mmol/L (96-108); Cholesterol 159 mg/dL (<200); Estimated Glomerular Filt Rate > 60; Glucose Random 98 mg/dL (60-115); HDL Cholesterol 58 mg/dL (>40); Iron 96 mcg/dL (30-160); LDL Cholesterol Calculated 89 mg/dL (<100); Percent Iron Saturation 34 % (15-50); Potassium 4.1 mmol/L (3.3-5.1); Sodium 139 mmol/L (135-145); Total Iron Binding Capacity 285 mcg/dL (228-428); Triglycerides 63 mg/dL (<150); Unsaturated Iron Binding 189 ug/dL
[2023-05-29 10:38] LABS: Ferritin 190 ng/mL (10-250); Insulin 10 uU/mL (2-29); Vitamin D 25-OH Total 29.3 ng/mL (>30)
[2023-05-29 11:59] LABS: Folate 13.4 ng/mL (> or = 4.0); Vitamin B12 629 pg/mL (200-900)
[2023-06-01 13:59] LABS: Calcium (PTHI) 9.4 mg/dL (8.6-10.4); PTHI 53 pg/mL (16-77)
[2023-06-03 02:38] LABS: Zinc 74 mcg/dL (60-130)
[2023-06-03 19:59] LABS: Vitamin A 48 mcg/dL (38-98)
[2023-06-06 15:18] LABS: Vitamin B1 20 nmol/L (8-30)
== END 2023-05-29 08:25 | disposition home or self-care (01) ==
LOC: HO.LAB 08:24
PROVIDERS: PCP Internal Medicine; Visit Provider Surgery
DX: E66.9 Obesity, unspecified (principal); F41.9 Anxiety disorder, unspecified; E78.00 Pure hypercholesterolemia, unspecified; K21.9 Gastro-esophageal reflux disease without esophagitis; E55.9 Vitamin D deficiency, unspecified; M06.9 Rheumatoid arthritis, unspecified; E66.01 Morbid (severe) obesity due to excess calories; Z86.73 Personal history of transient ischemic attack (TIA), and cerebral infarction without residual deficits
CPT/HCPCS: 36415; 80053; 80061; 82306; 82607; 82728; 82746; 83036; 83525; 83540; 83970; 84425; 84443; 84590; 84630; 85025; 86140

== ENCOUNTER 2023-07-15 10:55 | Outpatient (AMB) | payer MEDICARE, SELFPAY ==
--- NOTE | 2023-07-15 10:58 | A.OFFVIS_ITS ---
Intake Vital Signs 07/15/23 11:00 Height 5 ft 2 in Weight 191 lb 12.835 oz BMI 35.1 BP 120/68 Blood Pressure Location Lt brachial Position Sitting Pulse 81 Intake Visit Reasons: follow up testing Intake Note: follow up Lithographic Retoucher Apprentice Required: No Accompanied by: Self / Same As Patient Allergies No Known Allergies Allergy (Verified 07/15/23 11:00) Medication List - Last Reconciled 07/15/23 by Carlo Wisdom MD aspirin 81 mg PO DAILY atorvastatin 40 mg PO DAILY cholecalciferol (vitamin D3) 25 mcg PO DAILY folic acid 1 mg PO DAILY hydroxyzine HCl 50 mg PO BEDTIME PRN pantoprazole 40 mg PO BID sulfasalazine 1,000 mg PO BID HPI HPI Comments History of Present Illness Details Rylie returns for follow-up. Recently seen in consultation regarding vascular disease. Several months ago, patient apparently had speech issues and some arm tingling extra. She was seen in the emergency room and underwent workup. She was thought to have possibly a TIA. She is on aspirin and statins. No clear neurological deficits. She has been referred to us for vascular workup as there is also strong family history of cardiac issues in multiple family members. Patient herself has no clear symptoms like angina or shortness of breath. She states he feels fine. She is overweight. She is quite concerned about that and like lose some weight. Not listed to be a diabetic or hypertensive. No history of atrial fibrillation either. Since last seen, she underwent 30 day monitor, stress test as well as coronary CTA. Overall, she feels fine. [facility] Medical History GERD without esophagitis Morbid obesity Obesity (BMI 30-39.9) Pure hypercholesterolemia Rheumatoid arthritis TIA (transient ischemic attack) Vitamin D deficiency Surgical History Hx of appendectomy Family History Paternal Grandfather Heart problem Father Heart problem HTN (hypertension) Mother Heart problem HTN (hypertension) Social History Housing: Apartment Alcohol intake: never Patient Tobacco Use Status: Never used Tobacco e-Cigarette/Vaping Use: Never Used service: No Current occupational status: employed Current occupational exposures/hazards: No Cognitive needs: No Hearing needs: No Vision needs: No Review of Systems Const Denies weakness ENT Denies dizziness Card Denies chest pain, Denies chest pain with activity, Denies syncope, Denies rapid heart rate, Denies pedal edema, Denies edema, Denies leg edema, Denies lightheadedness, Denies palpitations, Denies dyspnea, Denies dyspnea on exertion and Denies orthopnea Resp Denies cough, Denies dyspnea and Denies dyspnea on exertion GI Denies hematochezia and Denies change in stool character Musc Denies abnormal gait, Denies muscle cramps, Denies muscle weakness, Denies numbness, Denies radiating pain into limb and Denies tingling Neuro Denies abnormal gait, Denies dizziness, Denies syncope, Denies numbness, Denies tingling and Denies weakness Endo Denies palpitations Physical Exam Vital Signs: Last Vital Signs Pulse 81 07/15/23 11:00 BP 120/68 07/15/23 11:00 BMI result Body Mass Index 35.1 Assessment & Plan Assessment & Plan (1) TIA (transient ischemic attack): Code(s): G45.9 - Transient cerebral ischemic attack, unspecified (2) Morbid obesity: Code(s): E66.01 - Morbid (severe) obesity due to excess calories (3) Atherosclerotic cardiovascular disease: Code(s): I25.10 - Atherosclerotic heart disease of [place] coronary artery without angina pectoris Plan Pertinent studies reviewed. In the recent EKG, underlying rhythm is sinus. Short [place] interval. No significant ST-T changes. Normal corrected QT. In the head and neck CTA, no significant stenosis. Mild atherosclerotic wall calcifications on the right side. In the echocardiogram, LVEF 60-65%. There was concern of basal inferior hypokinesis- could be technical finding. In the exercise stress echocardiogram, reached 7 METS exercise capacity, 107% of max predicted heart rate and EKG part was negative. No symptoms. Echocardiographic component was of suboptimal quality. In the coronary CTA, mild LAD atherosclerosis, but nothing in the circumflex or RCA. Holter monitor shows underlying sinus rhythm but no evidence of any atrial fibrillation. Overall, can treat for stable vascular disease. Aspirin and statins. She states that she is taking only half a tablet of atorvastatin and hence advised to take the full dose. Follow-up lipids in due course. Weight loss as much able. Follow-up in 1 year. In the interim, she will call with concerns. Total time spent including review of data, counseling, documentation, coordination of care-31 minutes. Coding Level of Care Code Est Pt Level 4 (95504) Diagnoses TIA (transient ischemic attack) G45.9 Morbid obesity E66.01 Atherosclerotic cardiovascular disease I25.10
[2023-07-15 11:00] VITALS: BP 120/68; PULSE 81; BMI 35.1
== END 2023-07-15 11:15 | disposition home or self-care (01) ==
PROVIDERS: PCP Internal Medicine; Visit Provider Internal Medicine
DX: G45.9 Transient cerebral ischemic attack, unspecified (principal); E66.01 Morbid (severe) obesity due to excess calories; I25.10 Atherosclerotic heart disease of native coronary artery without angina pectoris
CPT/HCPCS: 99214

== ENCOUNTER → 2023-07-15 10:55 | Outpatient (BNVA) | payer MEDICARE, SELFPAY | PROVIDERS: PCP Internal Medicine; Visit Provider Internal Medicine | DX: I25.10 Atherosclerotic heart disease of native coronary artery without angina pectoris (principal); E66.01 Morbid (severe) obesity due to excess calories; Z68.35 Body mass index [BMI] 35.0-35.9, adult; Z86.73 Personal history of transient ischemic attack (TIA), and cerebral infarction without residual deficits; Z79.82 Long term (current) use of aspirin; Z79.899 Other long term (current) drug therapy | CPT/HCPCS: 99212 ==

== ENCOUNTER 2023-08-31 08:43 | Outpatient (AMB) | payer OTHER, SELFPAY ==
[2023-08-31 08:48] VITALS: BP 114/70; PULSE 93; O2SAT 95; BMI 35.9
--- NOTE | 2023-08-31 08:48 | MHC.PC.OV ---
Vital Signs 08/31/23 08:48 Height 5 ft 2 in Weight 196 lb 8 oz BMI 35.9 BP 114/70 Blood Pressure Location Lt brachial Position Sitting Pulse 93 Pulse Source Pulse Oximeter Pulse Oximetry (%) 95 Oxygen Delivery Method Room Air Intake Visit Reasons: TIA, headaches, rheumatoid arthritis [employer] Operator Required: No Accompanied by: Self / Same As Patient Allergies No Known Allergies Allergy (Verified 08/31/23 09:28) Medication List - Last Reconciled 08/31/23 by Levon Rueda MD aspirin 81 mg PO DAILY atorvastatin 40 mg PO DAILY cholecalciferol (vitamin D3) 25 mcg PO DAILY folic acid 1 mg PO DAILY hydroxyzine HCl 50 mg PO BEDTIME PRN pantoprazole 40 mg PO BID sulfasalazine 1,000 mg PO BID Tobacco use date assessed: 08/31/23 Fall risk assessment: No Falls in past year Last assessed Fall Risk: 08/31/23 Dental Screening Dental Screen Date: 08/31/23 Did you have a dental visit in the last 12 months?: Yes Did you have a dental problem in the last 6 months where you did not have access to dental care?: No Was dental information given to patient?: Patient has dentist HPI TIA, headaches, rheumatoid arthritis HPI Details Patient comes in today for her follow up visit States that she feels okay but remains frustrated about her weight She was previously referred to and was seen by Dr. Valencia from weight management a few months ago for consultation regarding her weight loss options She was also introduced to the options of a gastric balloon versus a sleeve gastrectomy and she was interested in the gastric balloon but is disappointed about the high [id number] expense Is trying to see if there are any other weight loss options for her medically or prescription-randolph although she feels that the newer injectable weight-loss medications may not necessarily be appropriate for her and she is very wary about them She denies any headaches or dizziness Denies any chest pains, no SOB No nausea/vomiting, no abdominal pain No change in bowel habits noted States that she had some follow up labs done a couple of months ago Would also like to get a referral to start seeing [place]ology here [place] [facility] [place] to see Dr. Hurt in [place] but states that he recently moved his practice over to [facility] in [place] Would also like to get a referral to gynecology here to get her pap smear done - states that she has not had a gynecology exam and pap smear done in a few years Had her colonoscopy done by Dr. Squires up in [place] back in 2019 and she is not sure at this time when her next recommended colonoscopy will be [facility] Medical History Obesity (BMI 30-39.9) Pure hypercholesterolemia GERD without esophagitis Vitamin D deficiency Rheumatoid arthritis Morbid obesity TIA (transient ischemic attack) Surgical History Hx of appendectomy Family History Paternal Grandfather Heart problem Father Heart problem HTN (hypertension) Mother Heart problem HTN (hypertension) Social History Housing: Apartment Alcohol intake: never Patient Tobacco Use Status: Never used Tobacco e-Cigarette/Vaping Use: Never Used service: No Current occupational status: employed Current occupational exposures/hazards: No Cognitive needs: No Hearing needs: No Vision needs: No Questionnaire PHQ-9 Over the last 2 weeks, how often have you been bothered by any of the following problems? 1. Little interest or pleasure in doing things: not at all 2. Feeling down, depressed, or hopeless: not at all 3. Trouble falling or staying asleep, or sleeping too much: not at all 4. Feeling tired or having little energy: not at all 5. Poor appetite or overeating: not at all 6. Feeling bad about yourself - or that you are a failure or have let yourself or your family down: not at all 7. Trouble concentrating on things, such as reading the newspaper or watching television: not at all 8. Moving or speaking so slowly that other people could have noticed. Or the opposite - being so fidgety or restless that you have been moving around a lot more than usual: not at all 9. Thoughts that you would be better off or of hurting yourself in some way: not at all Total score: 0 Depression Screening Interpretation: Negative Depression Screening Done: Yes 65509 - PHQ-9 Billing: Yes Source: Developed by Drs. Merrick Justin, Debbie Monsalve, Yovany Curran and colleagues, with an educational cortney from [employer]. Thrive Questionnaire Date Thrive assessed: 08/31/23 I am a: Patient What is your living situation today?: I have a steady place to live Within the past 12 months, did the food you bought not last and you didn't have the money to get more?: Never true Within the past 12 months, did you worry whether your food would run out before you got money to buy more?: Never true Do you have trouble paying for medicines?: No Do you have trouble getting transportation to medical appointments?: No Do you have trouble paying your heating and electricity bill?: No Do you have trouble taking care of your child, family member or friend?: No Do you have trouble with day-to-day activities such as bathing, preparing meals, shopping, managing finances, etc.?: No Are you currently unemployed and looking for a job?: No Are you interested in more education?: No Please select the resources that you would like help with: None Currently or been in a relationship where the following occur: no concerns reported AUDIT C Alcohol Use Questionnaire (AUDIT-C) 1. How often do you have a drink containing alcohol?: Never Total Score: 0 Score Reviewed/Action Taken: Yes FABY-7 AMB Questionnaire FABY-7 Date FABY - 7 assessed: 08/31/23 Feeling nervous, anxious, or on edge: 0 = Not at all Not being able to stop or control worryin = Not at all Worrying too much about different things: 0 = Not at all Trouble relaxin = Not at all Being so restless that it is hard to sit still: 0 = Not at all Becoming easily annoyed or irritable: 0 = Not at all Feeling afraid as if something awful might happen: 0 = Not at all Total FABY-7 score (0-4 normal; 5-9 mild; 10-14 moderate; 15-21 severe): 0 Source: Developed by Drs. Merrick Justin, Debbie Monsalve, Yovany Curran and colleagues, with an educational cortney from [employer]. Review of Systems Const Reports difficulty sleeping (Hydroxyzine helps), Denies fatigue, Denies fever(s), Denies headache(s) and Denies malaise ENT Denies dysphagia, Denies dizziness, Denies otalgia, Denies headache(s), Denies neck pain, Denies odynophagia, Denies sinus pain and Denies sore throat Card Denies chest pain, Denies rapid heart rate, Denies irregular heart rhythm, Denies palpitations and Denies dyspnea Resp Denies cough, Denies dyspnea and Denies wheezing GI Denies abdominal pain, Denies constipation, Denies dysphagia, Denies heartburn, Denies diarrhea, Denies nausea, Denies odynophagia and Denies vomiting Denies hematuria, Denies urinary frequency, Denies dysuria, Denies urinary incontinence and Denies urinary urgency Musc Reports back pain (recurrent pain over lower back - sciatica - sees chiropractor regularly), Reports arthralgias (in hands/fingers due to RA), Denies joint swelling and Denies neck pain Skin/Breast Denies rash Neuro Denies dizziness, Denies headache(s) and Denies paresthesias Psych Reports anxiety and Denies depression Endo Denies fatigue and Denies palpitations Leonardo/Lymph Denies easy bruising Aller/Immun Denies wheezing Physical exam (Primary Care) Vital Signs: Last Vital Signs Pulse 93 08/31/23 08:48 BP 114/70 08/31/23 08:48 Pulse Ox 95 08/31/23 08:48 Oxygen Delivery Method Room Air 08/31/23 08:48 BMI result Body Mass Index 35.9 Tobacco/Smoking Status: Tobacco use Status Tobacco use date assessed 08/31/23 08/31/23 08:54 Patient Tobacco Use Status Never used Tobacco 08/31/23 08:54 e-Cigarette/Vaping Use Never Used 08/31/23 08:54 PHQ-9: PHQ-9 Score PHQ-9: Total score 0 08/31/23 08:54 Depression Screening Interpretation: Negative Thrive Assessment: Date of Thrive Assessment Date Thrive assessed 08/31/23 08/31/23 08:54 Currently or been in a relationship where the following occur: no concerns reported Const General: no acute distress and alert HENMT Ears: TM's normal bilaterally and EAC's normal Throat: Yes posterior oropharynx normal and Yes tonsils normal (no TP congestion) Neck Neck: Yes no lymphadenopathy and Yes supple Thyroid: Thyroid normal Resp Auscultation: clear to auscultation bilaterally, no rales and no wheezes Cardio Rate: regular rate Rhythm: regular rhythm Heart sounds: no murmurs GI Palpation (GI): Soft to palpation and nontender Auscultation: normal bowel sounds General: Yes no CVA tenderness Back/Spine/Pelvis Back: no CVA tenderness Thoracic/Lumbar Spine: lumbar spinal tenderness Skin Rashes: no rashes Extrem General: Yes no clubbing, cyanosis or edema Right upper extremity: Extremity exam: right hand Details: tenderness (over joints in fingers); no swelling Left upper extremity: hand Details: tenderness (over joints in fingers); no swelling Results Reviewed Results Reviewed: Laboratory Tests 04/21/23 05/29/23 05/29/23 09:22 08:50 08:50 WBC 4.9 Hgb 13.2 Hct 39.9 Plt Count 238 Sodium 139 Potassium 4.1 Creatinine 0.74 Estimated GFR > 60 Random Glucose 98 Fasting Glucose 100 H Hemoglobin A1c % 4.3 Calcium 9.2 AST 20 ALT 22 C-Reactive Protein < 0.10 Triglycerides 63 Cholesterol 159 LDL Cholesterol, Calc 89 HDL Cholesterol 58 Vitamin A 48 Vitamin B1 20 Vitamin B12 629 25-OH Vitamin D Total 29.3 TSH 2.10 PTH Intact 53 Calcium (PTH Intact) 9.4 Assessment and Plan Assessment & Plan (1) Pure hypercholesterolemia: Code(s): E78.00 - Pure hypercholesterolemia, unspecified Plan: Results of her labs done a few months ago reviewed and discussed with patient Reinforced low cholesterol diet Continue Atorvastatin 40 mg QD Will have her recheck her labs and fasting lipids in 4 months for follow up (2) History of TIA (transient ischemic attack): Code(s): Z86.73 - Personal history of transient ischemic attack (TIA), and cerebral infarction without residual deficits Plan: Continue Aspirin 81 mg QD Head and neck CTA done in 2021 show no significant vascular disease; carotid US done earlier this year (2022) revealed no significant carotid artery disease Head CT done in 2022 was unremarkable Is advised to continue with aggressive risk reduction Follow up with neurology (Dr. Palafox) as scheduled She has also been referred to and was seen by cardiology for further work ups and so far, all of her tests and evaluations done, including echocardiogram, cardiac stress testing as well as a cardiac event monitor have all come back normal Coronary CTA revealed (+) mild LAD atherosclerosis, but normal findings in the circumflex and RCA Holter monitor shows underlying sinus rhythm but no evidence of any atrial fibrillation. She was recommended to continue treatment/management for stable vascular disease, with aggressive control of her cholesterol and blood pressure (3) Rheumatoid arthritis: Code(s): M06.9 - Rheumatoid arthritis, unspecified Qualifiers: Rheumatoid arthritis location: unspecified site Rheumatoid factor presence: with rheumatoid factor Qualified Code(s): M05.9 - Rheumatoid arthritis with rheumatoid factor, unspecified Plan: Continue Sulfasalazine 1000 mg BID and Folic Acid 1 mg QD Used to see Dr. Hurt for rheumatology follow up but is requesting for referral to rheumatology here at [facility] [place] Hurt has reportedly joined [facility] in [place] Will refer patient to [facility] Rheumatology for continuing management and follow up of her RA (4) Headache: Code(s): R51.9 - Headache, unspecified Qualifiers: Headache chronicity pattern: unspecified pattern Headache type: unspecified Intractability: not intractable Qualified Code(s): R51.9 - Headache, unspecified Plan: Suspect migraine headache or variant - states that her headaches have been better controlled lately Follow up with neurology (Dr. Palafox) as scheduled (5) Vitamin D deficiency: Code(s): E55.9 - Vitamin D deficiency, unspecified Plan: Advised that her Vitamin D level is still slightly lower than normal on her recent labs Continue Vitamin D3 25 mcg (1000 units) QD (6) GERD without esophagitis: Code(s): K21.9 - Gastro-esophageal reflux disease without esophagitis Plan: Dietary restrictions reinforced Continue Pantoprazole 40 mg QD (7) Anxiety: Code(s): F41.9 - Anxiety disorder, unspecified Plan: Continue Hydroxyzine 25 mg 2 tablets Q HS PRN - states that this helps her sleep better at night States that her anxiety is mostly related to her brother's untimely passing recently - notes that this has affected her a lot and she is still trying to process this even though her brother over a year ago now States that working and staying busy has helped her a lot (8) Obesity (BMI 30-39.9): Code(s): E66.9 - Obesity, unspecified Plan: Reinforced diet/exercise as tolerated/lose weight Has been seen by weight management and is currently debating on what she wants to do Have advised her that due to her comorbidities, the newer injectables are NOT recommended for her and she also recalls having some problems with stimulants (Phentermine) in the past Discussed other off-label Rx options including Metformin and Topiramate but advised patient that ultimately, the gastric balloon or banding may be the best options for her as they can be reversed if things do not work out for her as planned Follow up with weight management as scheduled (9) Cervical cancer screening: Code(s): Z12.4 - Encounter for screening for malignant neoplasm of cervix Plan: Per request, will refer her to OB-Phosphatic Fertilizer Supervisor here at [facility] for her annual gynecology exam and pap smear Plan Follow up in 4 months Orders: Orders Complete Blood Count Auto Diff 4 Months I10 - Essential (primary) hypertension UA CC w/rflx Micro + Cult 4 Months R30.0 - Dysuria Comprehensive [place]. Panel Fast 4 Months E78.00 - Pure hypercholesterolemia, unspecified Lipid Panel 4 Months E78.00 - Pure hypercholesterolemia, unspecified TSH reflex Free T4 4 Months E78.00 - Pure hypercholesterolemia, unspecified Vitamin D 25-OH Total 4 Months E55.9 - Vitamin D deficiency, unspecified Referrals SHIP MATE Referral Z12.4 - Encounter for screening for malignant neoplasm of cervix Rheumatology Referral M06.9 - Rheumatoid arthritis, unspecified Coding Level of Care Code Est Pt Level 4 (83777) Diagnoses Pure hypercholesterolemia E78.00 History of TIA (transient ischemic attack) Z86.73 Rheumatoid arthritis with positive rheumatoid factor, involving unspecified site M05.9 Rheumatoid arthritis location: unspecified site Rheumatoid factor presence: with rheumatoid factor Nonintractable headache, unspecified chronicity pattern, unspecified headache type R51.9 Headache chronicity pattern: unspecified pattern Headache type: unspecified Intractability: not intractable Vitamin D deficiency E55.9 GERD without esophagitis K21.9 Anxiety F41.9 Obesity (BMI 30-39.9) E66.9 Cervical cancer screening Z12.4
== END 2023-08-31 09:44 | disposition home or self-care (01) ==
PROVIDERS: PCP Internal Medicine; Visit Provider Internal Medicine
DX: E78.00 Pure hypercholesterolemia, unspecified (principal); M05.9 Rheumatoid arthritis with rheumatoid factor, unspecified; E66.9 Obesity, unspecified; Z68.35 Body mass index [BMI] 35.0-35.9, adult; Z86.73 Personal history of transient ischemic attack (TIA), and cerebral infarction without residual deficits; R51.9 Headache, unspecified; E55.9 Vitamin D deficiency, unspecified; K21.9 Gastro-esophageal reflux disease without esophagitis; F41.9 Anxiety disorder, unspecified
CPT/HCPCS: 99214

== ENCOUNTER 2023-12-03 15:14 | Outpatient (AMB) | payer MEDICARE, SELFPAY ==
[2023-12-03 15:23] VITALS: BP 104/60; PULSE 100; TEMP 36.1; O2SAT 93; BMI 35.7
--- NOTE | 2023-12-03 15:23 | A.OFFVIS_ITS ---
Intake Vital Signs 12/03/23 15:23 Height 5 ft 2 in Weight 195 lb BMI 35.7 BP 104/60 Blood Pressure Location Rt brachial Position Sitting Pulse 100 Pulse Source Pulse Oximeter Temp 97 F Temp Source Skin Pulse Oximetry (%) 93 Oxygen Delivery Method Room Air Intake Visit Reasons: RA/LVM Intake Note: New patient, internally referred by Dr. Rueda, presents to office today for RA. Last seen by Dr. Hurt about 1.5 years at [facility]. Joints affected: Sciatic pain Pain began approx: years Has tried: oral medications [employer] Required: No Accompanied by: Self / Same As Patient Allergies No Known Allergies Allergy (Verified 12/03/23 15:28) HPI HPI Comments History of Present Illness Details Ms. Youngblood a very pleasant 68-year-old female presents for transfer of care for her rheumatoid arthritis. The patient has a PMH of hypercholesterolemia, TIA, and GERD. She reports that she has had RA for many is currently on sulfasalazine 1000 mg b.i.d.. She believes that the sulfasalazine has manage her RA very well. She is very active and does all her activities that she wants to do without decreased functionality. She denies persistently red, warm, swollen joints. She does state that sometimes her DIPs get tender but but she finds it is manage. She also gets signs of bursitis in her shoulders but when she does her PT exercises that usually helps. Her main concern today is the sciatica on her right side which she finds very painful, especially when she walks. In 2002 the patient had an experience of trouble speaking and some arm tingling extra. She was seen in the emergency room and underwent workup. She was thought to have possibly a TIA and is now on aspirin and statins. She has had a vascular workup as there is also strong family history of cardiac issues in multiple family members. [facility] Medical History (Updated 12/03/23 @ 16:26 by JACKSON Granado) Piriformis syndrome of right side Piriformis syndrome of left side Low back pain potentially associated with radiculopathy Screening examination for infectious disease Long-term use of immunosuppressant medication Obesity (BMI 30-39.9) Pure hypercholesterolemia GERD without esophagitis Vitamin D deficiency Rheumatoid arthritis Morbid obesity TIA (transient ischemic attack) Surgical History Hx of appendectomy Family History (Updated 12/03/23 @ 15:28 by JEANE Olivares) Paternal Grandfather Heart problem Father Heart problem HTN (hypertension) Mother Heart problem HTN (hypertension) Other Arthritis Social History Housing: Apartment Alcohol intake: never Patient Tobacco Use Status: Never used Tobacco e-Cigarette/Vaping Use: Never Used service: No Current occupational status: employed Current occupational exposures/hazards: No Cognitive needs: No Hearing needs: No Vision needs: No Female Reproductive History Menstrual Total pregnancies: 0 Review of Systems Const All systems reviewed & are unremarkable except as noted in HPI and below Physical Exam Vital Signs: Last Vital Signs Temp 97 F 12/03/23 15:23 Pulse 100 12/03/23 15:23 BP 104/60 12/03/23 15:23 Pulse Ox 93 12/03/23 15:23 Oxygen Delivery Method Room Air 12/03/23 15:23 BMI result Body Mass Index 35.7 Office Procedures Joint Injection/Drain Joint Injection/Drain Details: right piriformis injection Primary Site: other Prep: site was prepped using aseptic technique Injected: 40 mg of, Kenalog, with 1 mL of and 1% plain lidocaine Approach Used: other Procedure: The patient tolerated the procedure well Coding 82722 - Sternocleidomastoid/Piriformis Procedure code (CPT) selection complete Results Reviewed Results Reviewed: Vital signs reviewed. Constitutional: Non-toxic appearing. No acute distress. Well-developed and well-nourished. HEENT: Normocephalic and atraumatic. External auditory canals without erythema or edema bilaterally. Dry mucous membranes. No pharyngeal erythema or exudates. Skin: Warm and dry. No rashes or lesions noted. Neck: Full and painless range of motion. No cervical lymphadenopathy. Cardio: Regular rate and rhythm. No murmurs, gallops, or rubs. No lower extremity edema. No JVD. Pulmonary: No respiratory distress. No accessory muscle usage. Scattered expiratory wheezing. Gastrointestinal: Soft, nontender, and nondistended in all 4 quadrants. Normoactive bowel sounds in all 4 quadrants. Genitourinary: No CVA tenderness. Musculoskeletal: Normal range of motion in joints throughout the body. No deformity or other signs of injury. Mild to moderate Heberden nodes across PIP joints nontender without redness and swelling. Mild to moderate Tenderness to palpation on bilateral buttocks right greater left area of the piriformis muscle. Mild tenderness to bilateral hip bursa Neuro: Alert and oriented x4. Cranial nerves 2-12 grossly intact. No focal deficits appreciated. 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 Palacios presents today for transfer of care for her rheumatoid arthritis. It appears that the patient has done well on sulfasalazine 1000 mg b.i.d. so we will continue that for the time being. There are no significant joint concerns on PE, no synovitis. However, she does have noticed Heberden nodes I will obtain updated labs and x-rays to assess her baseline. Does not appear that she has had any side effects from long-term use of sulfasalazine. Patient will obtain labs and x-rays when she comes back from her trip in about a week. #Low back pain/ Piriformis syndrome right: The right side is very tender today and it is affecting her gait. She is going on a trip and would like some relief so I think it is reasonable that I gave her an injection with the goal to help. The patient states that she had received an injection before on the left side many many years ago. The patient tolerated the procedure well. I will obtain x-ray of her lower back to assess level of osteoarthritis that may be contributory to her radiculopathy Follow-up in 3 months. If there is any need to see her sooner I will call the patient to schedule. 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) use of unspecified immunomodulators and immunosuppressants Vitamin D 1,25 dihydroxy Today M06.9 - Rheumatoid arthritis, unspecified, Z79.60 - [facility] (current) use of unspecified immunomodulators and immunosuppressants XR hand LT min 3V Today M06.9 - Rheumatoid arthritis, unspecified, Z79.60 - [facility] (current) use of unspecified immunomodulators and immunosuppressants Cyclic Citrullinated Peptide Today M06.9 - Rheumatoid arthritis, unspecified, Z7 9.60 - [facility] (current) use of unspecified immunomodulators and immunosuppressants HIGINIO Reflex Titer and Pattern Today M06.9 - Rheumatoid arthritis, unspecified, Z79.60 - [facility] (current) use of unspecified immunomodulators and immunosuppressants Anti Extractable Nuclear Ag Today M06.9 - Rheumatoid arthritis, unspecified, 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.60 - 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 (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) use of unspecified immunomodulators and immunosuppressants C Reactive Protein Today M06.9 - Rheumatoid arthritis, unspecified, Z79.60 - 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 (current) use of unspecified immunomodulators and immunosuppressants AMB Joint Injection/Aspiration Today G57.01 - Lesion of sciatic nerve, right lower limb, M54.50 - Low back pain, unspecified Erythrocyte Sedimentation Rate Today M06.9 - Rheumatoid arthritis, unspecified, Z79.60 - 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 (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) use of unspecified immunomodulators and immunosuppressants Immunoglobulins,IgG IgA IgM Today M06.9 - Rheumatoid arthritis, unspecified, Z79.60 - 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 (current) use of unspecified immunomodulators and immunosuppressants Protein Electrophoresis, Serum Today M06.9 - Rheumatoid arthritis, unspecified, Z79.60 - 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 Panel Today M06.9 - Rheumatoid arthritis, unspecified, Z79.60 - [facility] (current) use of unspecified immunomodulators and immunosuppressants XR hand RT min 3V Today M06.9 - Rheumatoid arthritis, unspecified, Z79.60 - [facility] (current) use of unspecified immunomodulators and immunosuppressants Anti DNA DS Antibody Today M06.9 - Rheumatoid arthritis, unspecified, Z79.60 - [facility] (current) use of unspecified immunomodulators and immunosuppressants Sjogren's Antibodies Today M06.9 - Rheumatoid arthritis, unspecified, Z79.60 - 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 (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) use of unspecified immunomodulators and immunosuppressants Complete Blood Count Auto Diff Today M06.9 - Rheumatoid arthritis, unspecified, Z79.60 - [facility] (current) use of unspecified immunomodulators and immunosuppressants XR lumbar spine 2-3V Today M54.50 - Low back pain, unspecified Medications: New folic acid 1 mg PO DAILY 90 tabs 1RF Z79.60 - [facility] (current) use of unspecified immunomodulators and immunosuppressants sulfasalazine 1,000 mg (2 x 500 mg) PO BID 360 tabs 1RF M06.9 - Rheumatoid arthritis, unspecified Coding Level of Care Code New Pt Level 4 (91962) Diagnoses Rheumatoid arthritis with positive rheumatoid factor, involving unspecified site M05.9 Rheumatoid arthritis location: unspecified site Rheumatoid factor presence: with rheumatoid factor Long-term use of immunosuppressant medication Z79.60 Piriformis syndrome of right side G57.01 Low back pain potentially associated with radiculopathy M54.50 CPT Codes Coding - Joint 3: 43505 - Sternocleidomastoid/Piriformis ([id number])
== END 2023-12-03 16:16 | disposition home or self-care (01) ==
PROVIDERS: PCP Internal Medicine; Visit Provider Nurse Practitioner Family
DX: M05.79 Rheumatoid arthritis with rheumatoid factor of multiple sites without organ or systems involvement (principal); Z79.60 Long term (current) use of unspecified immunomodulators and immunosuppressants; G57.01 Lesion of sciatic nerve, right lower limb; M54.50 Low back pain, unspecified
CPT/HCPCS: 20552; 99204; 99214

== ENCOUNTER → 2023-12-03 15:14 | Outpatient (BNVA) | payer MEDICARE, SELFPAY | PROVIDERS: PCP Internal Medicine; Visit Provider Nurse Practitioner Family | DX: M05.9 Rheumatoid arthritis with rheumatoid factor, unspecified (principal); G57.01 Lesion of sciatic nerve, right lower limb; M54.50 Low back pain, unspecified; Z79.60 Long term (current) use of unspecified immunomodulators and immunosuppressants | CPT/HCPCS: 20552; 99202 ==

== ENCOUNTER 2023-12-15 09:36 | Outpatient (REF) | payer MEDICARE, SELFPAY ==
--- NOTE | ~2023-12-15 | XR_ITS ---
EXAMINATION: XR HANDS, BILATERAL CLINICAL INFORMATION: [facility] (current) use of unspecified immunomodulators. COMPARISON: None available. TECHNIQUE: 3 views each hand. FINDINGS: RIGHT HAND: Aznl-du-kytzreey degenerative changes are present at the DIP joints with osteophyte formation and some sclerosis. Findings are most marked in the 2nd, 3rd and 5th digits. More minor degenerative changes are present at the PIP joint, involving the 3rd digit. Mild degenerative changes are seen in the radiocarpal joint, as well as the 1st CMC joint. No chondrocalcinosis, fractures or dislocations. LEFT HAND: Degenerative changes are present at the DIP joints, most marked in the 2nd, 3rd and 5th digits. There is some sclerosis and osteophyte formation. Subchondral cyst formation seen in the head of the 2nd metacarpal. Mild degenerative changes are seen at the radiocarpal joint and the 1st CMC joint. No chondrocalcinosis, fractures or dislocations. XR/XR hand LT min 3V IMPRESSION: Degenerative changes in both hands as described above.
--- NOTE | ~2023-12-15 | XR_ITS ---
EXAMINATION: XR HANDS, BILATERAL CLINICAL INFORMATION: [facility] (current) use of unspecified immunomodulators. COMPARISON: None available. TECHNIQUE: 3 views each hand. FINDINGS: RIGHT HAND: Egtl-sx-hioxsreu degenerative changes are present at the DIP joints with osteophyte formation and some sclerosis. Findings are most marked in the 2nd, 3rd and 5th digits. More minor degenerative changes are present at the PIP joint, involving the 3rd digit. Mild degenerative changes are seen in the radiocarpal joint, as well as the 1st CMC joint. No chondrocalcinosis, fractures or dislocations. LEFT HAND: Degenerative changes are present at the DIP joints, most marked in the 2nd, 3rd and 5th digits. There is some sclerosis and osteophyte formation. Subchondral cyst formation seen in the head of the 2nd metacarpal. Mild degenerative changes are seen at the radiocarpal joint and the 1st CMC joint. No chondrocalcinosis, fractures or dislocations. XR/XR hand RT min 3V IMPRESSION: Degenerative changes in both hands as described above.
--- NOTE | ~2023-12-15 | XR_ITS ---
EXAMINATION: XR LUMBOSACRAL SPINE CLINICAL INFORMATION: Low back pain. COMPARISON: CT abdomen and pelvis 03/30/2022. TECHNIQUE: Three views of the lumbosacral spine. FINDINGS: Moderately exaggerated lumbar lordosis is present. Mild degenerative changes are present in the lower thoracic spine with disc space narrowing, endplate sclerosis and osteophyte formation. The lumbar spine demonstrates well preserved disc spaces and only some minimal spondylitic endplate changes at L1 and L2. Calcification present in the L2-L3 and L3-L4 disc space that are appreciated on the CT scan. No acute compression fractures or subluxations are seen. No bony destructive lesions. XR/XR lumbar spine 2-3V IMPRESSION: Mild degenerative changes in the lower thoracic spine and upper lumbar spine. No acute finding.
[2023-12-15 09:52] LABS: MANUAL DIFF FLAG NO
[2023-12-15 10:06] LABS: Basophils Percent Auto 0.7 % (0-2); Eosinophils Absolute Auto 0.1 X10*3/uL (0.0-0.4); Hematocrit 38.8 % (37.0-47.0); Imm Gran Abs Auto 0.02 X10*3/uL (0.00-0.03); Imm Gran Pct Auto 0.3 % (0.0-0.4); Lymphocytes Absolute Auto 1.2 X10*3/uL (1.2-4.9); Lymphocytes Percent Auto 20.3 % (20-40); Mean Corpuscular HGB Conc 33.5 g/dl (31.0-35.0); Mean Corpuscular Volume 95.6 fL (80.0-98.0); Mean Platelet Volume 9.3 fL (9.4-12.3); Monocytes Absolute Auto 0.4 X10*3/uL (0.1-1.2); Monocytes Percent Auto 7.2 % (2-11); Neutrophils Absolute Auto 4.1 x10*3/uL (2.0-8.3); Neutrophils Percent Auto 70.5 % (45-73); Platelet Count 256 X10*3/uL (160-400); Red Blood Count 4.06 X10*6/uL (4.20-5.50); Red Cell Distribution Width 12.9 % (11.0-16.0); White Blood Count 5.8 X10*3/uL (4.8-10.8)
[2023-12-15 10:42] LABS: Erythrocyte Sedimentation Rate 6 MM/HR (0-20)
[2023-12-15 10:57] LABS: Alanine Aminotransferase 23 U/L (0-31); Albumin Level 4.2 g/dL (3.5-5.0); Alkaline Phosphatase 101 U/L (39-117); Anion Gap 10 (12-20); Aspartate Amino Transferase 20 U/L (5-31); Bilirubin Total 0.6 mg/dL (0.0-1.0); Blood Urea Nitrogen 17 mg/dL (9-16); C Reactive Protein < 0.10 mg/dL (< or = 0.50); Calcium 9.4 mg/dL (8.4-10.2); Carbon Dioxide 27 mmol/L (22-29); Chloride 107 mmol/L (96-108); Estimated Glomerular Filt Rate > 60; Glucose Random 104 mg/dL (60-115); Potassium 3.9 mmol/L (3.3-5.1); Sodium 140 mmol/L (135-145); Total Protein 7.2 g/dL (6.5-8.0)
[2023-12-15 11:14] LABS: Appearance Urine Clear; Color Urine Dark Yellow; Glucose Urine UA Negative (Negative); Leukocyte Esterase Urine Small (1+) (Negative); Nitrite Urine Negative (Negative); UMIC TRIGGER UA YES; Urine Blood Negative (Negative); Urine Ketones Negative (Negative); Urine Protein Negative (Neg-Trace)
[2023-12-15 11:37] LABS: Uric Acid 3.7 mg/dL (2.4-5.7)
[2023-12-15 11:43] LABS: Bacteria Urine None Seen (None Seen); Hyaline Casts Urine 0-2 /LPF (0-2); Other Crystals Urine Present; RBC Urine 0-2 /HPF (0-2); Squamous Epithelial Cell Urine 0-2 /HPF (0-2); WBC Urine 0-5 /HPF (0-5)
[2023-12-15 12:02] LABS: HBS Num1 0.09 mIU/mL (0-7.99); HBc Num1 0.14 S/CO (0.00-0.79); HBsAGNum1 0.39 S/CO (0.00-0.99); Hepatitis A Antibody IgM 0.27 Index (0-0.79); Hepatitis B Core Antibody Nonreactive (Nonreactive); Hepatitis B Surface Antigen Negative (Negative); ~HepC Num1 0.14 S/CO (0.00-0.79); ~Hepatitis A Antibody IgM Nonreactive (Nonreactive); ~Hepatitis B Surface Antibody NONREACTIVE (Nonreactive); ~Hepatitis C Antibody Nonreactive (Nonreactive)
[2023-12-16 17:29] LABS: IgA 408 mg/dL (70-320); IgG 1072 mg/dL (600-1540); IgM 27 mg/dL (50-300)
[2023-12-16 21:58] LABS: Prot Elec - Albumin 4.4 g/dL (3.8-4.8); Prot Elec - Alpha1 0.2 g/dL (0.2-0.3); Prot Elec - Alpha2 0.6 g/dL (0.5-0.9); Prot Elec - Beta 1 0.5 g/dL (0.4-0.6); Prot Elec - Beta 2 0.5 g/dL (0.2-0.5); Prot Elec - Gamma 0.9 g/dL (0.8-1.7); Prot Elec - Total Protein 7.1 g/dL (6.1-8.1)
[2023-12-16 22:23] LABS: Anti DNA DS Antibody 1 IU/mL; Antibody to SS-A Antigen <1.0 NEG AI (<1.0 NEG); Antibody to SS-B Antigen <1.0 NEG AI (<1.0 NEG); SM/Ribonucleoprotein Ab <1.0 NEG AI (<1.0 NEG); Smith Protein <1.0 NEG AI (<1.0 NEG)
[2023-12-17 12:53] LABS: Anti Nuclear Antibody Screen NEGATIVE (NEGATIVE)
[2023-12-17 12:58] LABS: Cyclic Citrullinated Peptide <16 UNITS
[2023-12-18 08:04] LABS: TS Negative Control Passed; TS Panel A 0; TS Panel B 1; TS Positive Control Passed; TSpotTB Negative (Negative)
[2023-12-19 12:24] LABS: VITAMIN D (1,25 OH) D3 33 pg/mL; Vit D (1,25-Dihydroxy) Total 33 pg/mL (18-72); Vitamin D (1,25 OH) D2 <8 pg/mL
== END 2023-12-15 09:37 | disposition home or self-care (01) ==
LOC: HO.LAB 09:36
PROVIDERS: PCP Internal Medicine; Visit Provider Nurse Practitioner Family
DX: M06.9 Rheumatoid arthritis, unspecified (principal); M54.50 Low back pain, unspecified; Z11.9 Encounter for screening for infectious and parasitic diseases, unspecified; Z79.60 Long term (current) use of unspecified immunomodulators and immunosuppressants
CPT/HCPCS: 36415; 72100; 73130; 80053; 81001; 82652; 82784; 84165; 84550; 85025; 85652; 86038; 86140; 86200; 86225; 86235; 86481; 86704; 86706; 86709; 86803; 87340

== ENCOUNTER 2024-01-07 09:51 | Outpatient (AMB) | payer MEDICARE, SELFPAY ==
[2024-01-07 10:05] VITALS: BP 116/60; PULSE 65; O2SAT 95; BMI 34.4
--- NOTE | 2024-01-07 10:05 | A.OFFPC_ITS ---
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: Not Required per policy Accompanied by: Self / Same As Patient Allergies No Known Allergies Allergy (Verified 01/11/24 23:18) Medication List - Last Reconciled 01/11/24 by Levon Rueda MD aspirin 81 mg PO DAILY atorvastatin 40 mg PO DAILY 90 days cephalexin 500 mg PO Q6H 3 days cholecalciferol (vitamin D3) 25 mcg PO DAILY 90 days folic acid 1 mg PO DAILY hydroxyzine HCl 50 mg (2 x 25 mg) PO BEDTIME PRN pantoprazole 40 mg PO QAM 90 days sulfasalazine 1,000 mg (2 x 500 mg) PO BID Tobacco use date assessed: 01/07/24 Fall risk assessment: No Falls in past year Last assessed Fall Risk: 01/07/24 Dental Screening Dental Screen Date: 01/07/24 Did you have a dental visit in the last 12 months?: Yes Did you have a dental problem in the last 6 months where you did not have access to dental care?: No Was dental information given to patient?: Patient has dentist HPI hyperlipidemia, RA - see comments HPI Details Patient comes in today for her follow up visit States that she is currently finishing up her Cephalexin 500 mg Q 8 hours that was prescribed for her when she went to a local urgent care center about a week ago for a groin abscess She just has a couple of capsules left on her Rx - states that her groin abscess has improved a lot with the Abx but it is still present and has not completely cleared up yet and is wondering if the 2 capsules that she has left will be enough States that she feels okay otherwise She denies any fever, headaches or dizziness Denies any chest pains, no SOB No nausea/vomiting, no abdominal pain No change in bowel habits noted Needs a few of her Rx refilled She was seen by rheumatology last month and was sent for some additional labs, which she did a few weeks ago, for further evaluation and thought that she also had her usual follow up labs done at the same time States that she tried to get copies of her most recent annual mammogram, pap smear and screening colonoscopy reports from her previous PCP but was unsuccessful - thinks that it is time anyway for all of these to be repeated and she would like to get all of these ordered as soon as possible [facility] Medical History (Updated 01/12/24 @ 03:07 by Levon Rueda MD) Piriformis syndrome of right side Piriformis syndrome of left side Low back pain potentially associated with radiculopathy Long-term use of immunosuppressant medication Obesity (BMI 30-39.9) Pure hypercholesterolemia GERD without esophagitis Vitamin D deficiency Rheumatoid arthritis Morbid obesity TIA (transient ischemic attack) Surgical History Hx of appendectomy Family History Paternal Grandfather Heart problem Father Heart problem HTN (hypertension) Mother Heart problem HTN (hypertension) Other Arthritis Social History Housing: Apartment Alcohol intake: never Patient Tobacco Use Status: Never used Tobacco e-Cigarette/Vaping Use: Never Used service: No Current occupational status: employed Current occupational exposures/hazards: No Cognitive needs: No Hearing needs: No Vision needs: Yes (glasses) Questionnaire PHQ-9 Over the last 2 weeks, how often have you been bothered by any of the following problems? 1. Little interest or pleasure in doing things: not at all 2. Feeling down, depressed, or hopeless: not at all 3. Trouble falling or staying asleep, or sleeping too much: not at all 4. Feeling tired or having little energy: not at all 5. Poor appetite or overeating: not at all 6. Feeling bad about yourself - or that you are a failure or have let yourself or your family down: not at all 7. Trouble concentrating on things, such as reading the newspaper or watching television: not at all 8. Moving or speaking so slowly that other people could have noticed. Or the opposite - being so fidgety or restless that you have been moving around a lot more than usual: not at all 9. Thoughts that you would be better off or of hurting yourself in some way: not at all Total score: 0 Depression Screening Interpretation: Negative Depression Screening Done: Yes 20235 - PHQ-9 Billing: Yes Source: Developed by Drs. Merrick Justin, Debbie Monsalve, Yovany Curran and colleagues, with an educational cortney from [employer]. Thrive Questionnaire Date Thrive assessed: 01/07/24 I am a: Patient What is your living situation today?: I have a steady place to live Within the past 12 months, did the food you bought not last and you didn't have the money to get more?: Never true Within the past 12 months, did you worry whether your food would run out before you got money to buy more?: Never true Do you have trouble paying for medicines?: No Do you have trouble getting transportation to medical appointments?: No Do you have trouble paying your heating and electricity bill?: No Do you have trouble taking care of your child, family member or friend?: No Do you have trouble with day-to-day activities such as bathing, preparing meals, shopping, managing finances, etc.?: No Are you currently unemployed and looking for a job?: No Are you interested in more education?: No Please select the resources that you would like help with: None Currently or been in a relationship where the following occur: no concerns reported THRIVE Score: 0 AUDIT C Alcohol Use Questionnaire (AUDIT-C) 1. How often do you have a drink containing alcohol?: Never 3. How often do you have six or more drinks on one occasion?: Never Total Score: 0 Score Reviewed/Action Taken: Yes FABY-7 AMB Questionnaire FABY-7 Date FABY - 7 assessed: 01/07/24 Feeling nervous, anxious, or on edge: 0 = Not at all Not being able to stop or control worryin = Not at all Worrying too much about different things: 0 = Not at all Trouble relaxin = Not at all Being so restless that it is hard to sit still: 0 = Not at all Becoming easily annoyed or irritable: 0 = Not at all Feeling afraid as if something awful might happen: 0 = Not at all Total FABY-7 score (0-4 normal; 5-9 mild; 10-14 moderate; 15-21 severe): 0 Source: Developed by Debbie Markham Kurt Kroenke and colleagues, with an educational cortney from [employer]. Review of Systems Const Denies chills, Reports difficulty sleeping (Hydroxyzine helps), Denies fatigue, Denies fever(s) and Denies headache(s) ENT Denies dysphagia, Denies dizziness, Denies otalgia, Denies headache(s), Denies neck pain, Denies odynophagia and Denies sore throat Card Denies chest pain, Denies rapid heart rate, Denies irregular heart rhythm, Denies palpitations and Denies dyspnea Resp Denies cough, Denies dyspnea and Denies wheezing GI Denies abdominal pain, Denies constipation, Denies dysphagia, Denies heartburn, Denies diarrhea, Denies nausea, Denies odynophagia and Denies vomiting Denies hematuria, Denies urinary frequency, Denies dysuria, Denies urinary incontinence and Denies urinary urgency Musc Reports back pain (recurrent pain over lower back - sciatica - sees chiropractor regularly), Reports arthralgias (in hands/fingers due to RA), Denies joint swelling and Denies neck pain Skin/Breast Reports furuncle (over her groin area - resolving (see HPI)) and Denies rash Neuro Denies dizziness, Denies headache(s) and Denies paresthesias Psych Reports anxiety and Denies depression Endo Denies fatigue and Denies palpitations Leonardo/Lymph Denies easy bruising Aller/Immun Denies wheezing Physical exam (Primary Care) Vital Signs: Last Vital Signs Pulse 65 01/07/24 10:05 BP 116/60 01/07/24 10:05 Pulse Ox 95 01/07/24 10:05 Oxygen Delivery Method Room Air 01/07/24 10:05 BMI result Body Mass Index 34.4 Tobacco/Smoking Status: Tobacco use Status Tobacco use date assessed 01/07/24 01/07/24 10:06 Patient Tobacco Use Status Never used Tobacco 01/07/24 10:06 e-Cigarette/Vaping Use Never Used 01/07/24 10:06 PHQ-9: PHQ-9 Score PHQ-9: Total score 0 01/11/24 23:16 Depression Screening Interpretation: Negative Thrive Assessment: Date of Thrive Assessment Date Thrive assessed 01/07/24 01/07/24 10:06 Currently or been in a relationship where the following occur: no concerns reported Const General: no acute distress and alert HENMT Ears: TM's normal bilaterally and EAC's normal Throat: Yes posterior oropharynx normal and Yes tonsils normal (no TP congestion) Neck Neck: Yes no lymphadenopathy and Yes supple Thyroid: Thyroid normal Resp Auscultation: clear to auscultation bilaterally, no rales and no wheezes Cardio Rate: regular rate Rhythm: regular rhythm Heart sounds: no murmurs GI Palpation (GI): Soft to palpation and nontender Auscultation: normal bowel sounds General: Yes no CVA tenderness Back/Spine/Pelvis Back: no CVA tenderness Thoracic/Lumbar Spine: lumbar spinal tenderness Skin Rashes: no rashes Extrem General: Yes no clubbing, cyanosis or edema Right upper extremity: Extremity exam: right hand Details: tenderness (over joints in fingers); no swelling Left upper extremity: hand Details: tenderness (over joints in fingers); no swelling Results Reviewed Results Reviewed: Laboratory Tests 12/15/23 12/15/23 09:45 09:51 WBC 5.8 Hgb 13.0 Hct 38.8 Plt Count 256 ESR 6 Sodium 140 Potassium 3.9 Creatinine 0.70 Estimated GFR > 60 Random Glucose 104 Uric Acid 3.7 Calcium 9.4 AST 20 ALT 23 C-Reactive Protein < 0.10 PEP Interpretation SEE NOTE Ur Specific [place] 1.020 Urine Protein Negative Urine Glucose (UA) Negative Urine Blood Negative Urine Nitrite Negative Ur Leukocyte Esterase Small (1+) H IgG Total 1072 IgA Total 408 H IgM 27 L Cycl Citrul Peptide IgG <16 HIGINIO Screen NEGATIVE SS-A/Ro Antibody <1.0 NEG SS-B/La Antibody <1.0 NEG Sm (Morgan) Antibody <1.0 NEG SM/VEHICLE MAINTENANCE TECHNICIAN IgG Antibody <1.0 NEG Double Strand DNA Ab 1 Hep Bs Antigen Negative Hepatitis C Ab (EIA) Nonreactive Assessment and Plan Assessment & Plan (1) Pure hypercholesterolemia: Code(s): E78.00 - Pure hypercholesterolemia, unspecified Plan: Results of her labs done a few weeks ago reviewed and discussed with patient but advised that these did not include the labs that I previously ordered (contrary to what patient thought) and did not include her fasting lipids Reinforced low cholesterol diet Continue Atorvastatin 40 mg QD Will have her recheck her labs and fasting lipids in 4 months for follow up - will just have patient use her current orders (updated) for her next lab draw (2) History of TIA (transient ischemic attack): Code(s): Z86.73 - Personal history of transient ischemic attack (TIA), and cerebral infarction without residual deficits Plan: Continue Aspirin 81 mg QD Head and neck CTA done in 2021 showed no significant vascular disease; carotid US done last year (2022) revealed no significant carotid artery disease Head CT done in 2022 was unremarkable She is advised to continue with aggressive risk factor(s) reduction Follow up with neurology (Dr. Palafox) as scheduled She has also been referred to and was seen by cardiology for further work ups and so far, all of her tests and evaluations done, including echocardiogram, cardiac stress testing as well as a cardiac event monitor have all come back normal Coronary CTA revealed (+) mild LAD atherosclerosis, but normal findings in the circumflex and RCA Holter monitor showed underlying sinus rhythm and no evidence of atrial fibrillation or any arrhythmia She was also recommended by cardiology to continue treatment/management for stable vascular disease, with aggressive control of her cholesterol and blood pressure (3) Rheumatoid arthritis: Code(s): M06.9 - Rheumatoid arthritis, unspecified Qualifiers: Rheumatoid arthritis location: unspecified site Rheumatoid factor presence: with rheumatoid factor Qualified Code(s): M05.9 - Rheumatoid arthritis with rheumatoid factor, unspecified Plan: Continue Sulfasalazine 1000 mg BID and Folic Acid 1 mg QD She used to see Dr. Hurt at [facility] in [place] for rheumatology follow up but as Dr. Hurt has reportedly joined [facility] in [place], she is now following up locally here with [facility] Rheumatology for continuing management of her RA She had some additional labs ordered recently for further evaluation, all of which came back okay (4) Headache: Code(s): R51.9 - Headache, unspecified Qualifiers: Headache chronicity pattern: unspecified pattern Headache type: unspecified Intractability: not intractable Qualified Code(s): R51.9 - Headache, unspecified Plan: Suspect migraine headache or variant - states that her headaches have been better controlled lately Follow up with neurology (Dr. Palafox) as scheduled (5) Cutaneous abscess of groin: Code(s): L02.214 - Cutaneous abscess of groin Plan: Patient states that this has improved significantly on her current Abx (Cephalexin 500 mg Q 8 hours x 7 days) and she is almost finished with her Rx (has 2 capsules left) but the abscess is still not completely cleared up yet Will extend her Abx Tx for another 3 days and increase the frequency of her dosing from Q 8 hours to Q 6 hours - advised that this should be enough to help clear up the remaining abscess in her groin area completely (6) Vitamin D deficiency: Code(s): E55.9 - Vitamin D deficiency, unspecified Plan: Continue Vitamin D3 25 mcg (1000 units) QD (7) GERD without esophagitis: Code(s): K21.9 - Gastro-esophageal reflux disease without esophagitis Plan: Dietary restrictions reinforced Continue Pantoprazole 40 mg QD (8) Anxiety: Code(s): F41.9 - Anxiety disorder, unspecified Plan: Continue Hydroxyzine 25 mg 2 tablets Q HS PRN - states that this also helps her sleep better at night States that her anxiety is mostly related to her brother's untimely passing recently - notes that this has affected her a lot and she is still trying to process this even though her brother over a year ago now States that working and staying busy has helped her a lot (9) Obesity (BMI 30-39.9): Code(s): E66.9 - Obesity, unspecified Plan: Reinforced diet/exercise as tolerated/lose weight She has been seen by weight management and is currently still debating on what she wants to do She has been advised her that due to her multiple comorbidities, the newer injectables are NOT really recommended for her and she also recalls having some problems with stimulants (Phentermine) in the past Have discussed with her other off-label Rx options including Metformin and Topiramate but have advised patient that ultimately, the gastric balloon or banding may be the best options for her as they can be reversed if things do not work out as planned although these carry their own potential risks and drawbacks, which she should discuss further with weight management if she wants to consider these Follow up with weight management as scheduled (10) Cervical cancer screening: Code(s): Z12.4 - Encounter for screening for malignant neoplasm of cervix Plan: Per request, will refer her to OB-Astro Technician here at [facility] for her annual gynecology exam and pap smear (11) Breast cancer screening by mammogram: Code(s): Z12.31 - Encounter for screening mammogram for malignant neoplasm of breast Plan: Will send her for her screening mammogram, per request (12) Colon cancer screening: Code(s): Z12.11 - Encounter for screening for malignant neoplasm of colon Plan: Will refer her to GI for repeat screening colonoscopy Plan Follow up in 4 months Orders: Orders MM tomosynthesis screening BI 01/07/24 Z12.31 - Encounter for screening mammogram for malignant neoplasm of breast Referrals PATIENT RELATIONS MANAGER Referral Z12.4 - Encounter for screening for malignant neoplasm of cervix Gastroenterology Referral Z12.11 - Encounter for screening for malignant neoplasm of colon Medications: New cephalexin continue Cephalexin 500 mg Q 6 hours for 3 MORE DAYS 500 mg PO Q6H 3 days 12 caps 0RF hydroxyzine HCl 50 mg (2 x 25 mg) PO BEDTIME PRN 60 tabs 3RF anxiety/sleep Changed From pantoprazole 40 mg PO BID To pantoprazole 40 mg PO QAM 90 days 90 tabs 3RF From atorvastatin 40 mg PO DAILY To atorvastatin 40 mg PO DAILY 90 days 90 tabs 1RF From cholecalciferol (vitamin D3) 25 mcg PO DAILY To cholecalciferol (vitamin D3) 25 mcg PO DAILY 90 days 90 tabs 3RF Coding Level of Care Code Est Pt Level 4 (14474) Diagnoses Pure hypercholesterolemia E78.00 History of TIA (transient ischemic attack) Z86.73 Rheumatoid arthritis with positive rheumatoid factor, involving unspecified site M05.9 Rheumatoid arthritis location: unspecified site Rheumatoid factor presence: with rheumatoid factor Nonintractable headache, unspecified chronicity pattern, unspecified headache type R51.9 Headache chronicity pattern: unspecified pattern Headache type: unspecified Intractability: not intractable Cutaneous abscess of groin L02.214 Vitamin D deficiency E55.9 GERD without esophagitis K21.9 Anxiety F41.9 Obesity (BMI 30-39.9) E66.9 Cervical cancer screening Z12.4 Breast cancer screening by mammogram Z12.31 Colon cancer screening Z12.11
== END 2024-01-07 11:00 | disposition home or self-care (01) ==
PROVIDERS: PCP Internal Medicine; Visit Provider Internal Medicine
DX: E78.00 Pure hypercholesterolemia, unspecified (principal); Z86.73 Personal history of transient ischemic attack (TIA), and cerebral infarction without residual deficits; M05.9 Rheumatoid arthritis with rheumatoid factor, unspecified; Z68.34 Body mass index [BMI] 34.0-34.9, adult; E66.9 Obesity, unspecified; R51.9 Headache, unspecified; L02.214 Cutaneous abscess of groin; E55.9 Vitamin D deficiency, unspecified; K21.9 Gastro-esophageal reflux disease without esophagitis; F41.9 Anxiety disorder, unspecified; Z12.31 Encounter for screening mammogram for malignant neoplasm of breast; Z12.11 Encounter for screening for malignant neoplasm of colon
CPT/HCPCS: 99214

== ENCOUNTER 2024-02-23 13:52 | Outpatient (REF) | payer MEDICARE, SELFPAY ==
[2024-02-23 15:02] LABS: MANUAL DIFF FLAG NO
[2024-02-23 15:23] LABS: Basophils Percent Auto 0.4 % (0-2); Eosinophils Absolute Auto 0.1 X10*3/uL (0.0-0.4); Eosinophils Percent Auto 0.8 % (0-4); Hematocrit 39.9 % (37.0-47.0); Hemoglobin 13.4 g/dl (12.0-16.0); Imm Gran Abs Auto 0.03 X10*3/uL (0.00-0.03); Imm Gran Pct Auto 0.4 % (0.0-0.4); Lymphocytes Absolute Auto 1.5 X10*3/uL (1.2-4.9); Lymphocytes Percent Auto 21.7 % (20-40); Mean Corpuscular HGB Conc 33.6 g/dl (31.0-35.0); Mean Corpuscular Hemoglobin 32.8 pg (27.0-33.0); Mean Corpuscular Volume 97.6 fL (80.0-98.0); Mean Platelet Volume 9.4 fL (9.4-12.3); Monocytes Absolute Auto 0.5 X10*3/uL (0.1-1.2); Monocytes Percent Auto 6.3 % (2-11); Neutrophils Percent Auto 70.4 % (45-73); Platelet Count 274 X10*3/uL (160-400); Red Blood Count 4.09 X10*6/uL (4.20-5.50); Red Cell Distribution Width 12.5 % (11.0-16.0); White Blood Count 7.1 X10*3/uL (4.8-10.8)
[2024-02-23 15:53] LABS: Alanine Aminotransferase 27 U/L (0-31); Albumin Level 4.4 g/dL (3.5-5.0); Alkaline Phosphatase 85 U/L (39-117); Anion Gap 12 (12-20); Aspartate Amino Transferase 25 U/L (5-31); Bilirubin Total 0.4 mg/dL (0.0-1.0); Blood Urea Nitrogen 18 mg/dL (9-16); Calcium 9.6 mg/dL (8.4-10.2); Carbon Dioxide 26 mmol/L (22-29); Chloride 104 mmol/L (96-108); Cholesterol 167 mg/dL (<200); Estimated Glomerular Filt Rate > 60; Glucose Fasting 91 mg/dL (60-99); HDL Cholesterol 74 mg/dL (>40); LDL Cholesterol Calculated 80 mg/dL (<100); Potassium 4.2 mmol/L (3.3-5.1); Sodium 138 mmol/L (135-145); Total Protein 7.5 g/dL (6.5-8.0); Triglycerides 68 mg/dL (<150)
[2024-02-23 16:07] LABS: TSH reflex Free T4 1.35 uIU/mL (0.32-4.0); Vitamin D 25-OH Total 30.2 ng/mL (>30)
[2024-02-23 16:20] LABS: Appearance Urine Clear; Glucose Urine UA Negative (Negative); Leukocyte Esterase Urine Moderate (2+) (Negative); Nitrite Urine Negative (Negative); Specific Gravity - Urine 1.025 (1.005-1.025); UMIC TRIGGER UACC YES; Urine Blood Trace (Negative); Urine Ketones Negative (Negative); Urine Protein Negative (Neg-Trace)
[2024-02-23 16:22] LABS: Color Urine Yellow
[2024-02-23 16:35] LABS: Bacteria Urine None Seen (None Seen); WBC Urine 0-5 /HPF (0-5)
== END 2024-02-23 13:53 | disposition home or self-care (01) ==
LOC: HO.LAB 13:52
PROVIDERS: PCP Internal Medicine; Visit Provider Internal Medicine
DX: I10 Essential (primary) hypertension (principal); E78.00 Pure hypercholesterolemia, unspecified; E55.9 Vitamin D deficiency, unspecified
CPT/HCPCS: 36415; 80053; 80061; 81001; 82306; 84443; 85025; 99202

== ENCOUNTER 2024-02-23 13:57 | Outpatient (AMB) | payer MEDICARE, SELFPAY ==
--- NOTE | 2024-02-23 14:02 | A.OFFVIS_ITS ---
Vital Signs 02/23/24 14:05 Height 5 ft 2 in Weight 190 lb BMI 34.7 BP 116/64 Intake Visit Reasons: Cyst on Labia Intake Note: Went to urgent care and was told she has a bartholin cyst on right labia News Specialist Required: No Information Interpreted: non-clinical & clinical Cylinder Batcher: Cylinder Batcher Present (Abbe) Allergies No Known Allergies Allergy (Verified 02/23/24 14:07) Is last menstrual period known: No Post menopausal: Yes Patient : No HPI Comments Details: Patient is here today for an new patient consult, history right vulvar lump 3 months ago, seen at Urgent Care was placed on antibiotics. (of note the system was down during her visit and charting was done after the visit with access to her records afterwards.) She then reported to her primary care sometime later that the area was not completely resolved and irritating and was given another course of antibiotics from her primary care and she reports this has been helpful along with warm compresses and soaking. She can not remember if it have her drained or had pus discharge. not sexually active in many years. She is uncertain if she has ever had abnormal Pap smear. Her annual was booked in March. [facility] Medical History Piriformis syndrome of right side Piriformis syndrome of left side Low back pain potentially associated with radiculopathy Long-term use of immunosuppressant medication Obesity (BMI 30-39.9) Pure hypercholesterolemia GERD without esophagitis Vitamin D deficiency Rheumatoid arthritis Morbid obesity TIA (transient ischemic attack) Surgical History Hx of appendectomy Family History (Updated 02/23/24 @ 14:09 by JEANE Carreno) Paternal Grandfather Heart problem Father Heart problem HTN (hypertension) Mother Heart problem HTN (hypertension) Paternal Grandmother Breast cancer Maternal Grandfather Pancreatic cancer Other Arthritis Social History Housing: Apartment Alcohol intake: never Patient Tobacco Use Status: Never used Tobacco e-Cigarette/Vaping Use: Never Used service: No Current occupational status: employed Current occupational exposures/hazards: No Cognitive needs: No Hearing needs: No Vision needs: Yes (glasses) Female Reproductive History Menstrual Age of Menarche: 15 control method: none Total pregnancies: 0 Date of Mammogram: 10/06/22 Review of Systems Const All systems reviewed & are unremarkable except as noted in HPI and below Physical Exam Vital Signs: Last Vital Signs BP 116/64 02/23/24 14:05 BMI result Body Mass Index 34.7 Const General: cooperative, healthy appearing and no acute distress Orientation/consciousness: patient oriented x3 GI Inspection: Yes normal to inspection Palpation (GI): Soft to palpation and Other GI palpation findings present (Nontender) Rectal Exam - Female: visual inspection normal Other: External exam: Right lower labia with enlarged, nontender firm thickening in the lower portion approximately 0.5 x 1 point 5 cm, mild erythema focused point possible scar formation. General: Yes bladder normal to palpation External Female Exam: normal appearance of the urethra Speculum Exam - Vagina: normal appearance of the vagina, normal palpation, normal vaginal discharge and vagina atrophic Speculum Exam - Cervix: normal appearance of the cervix and normal palpation Bimanual exam- vagina & uterus: normal bimanual exam, normal palpation, uterine size normal, bladder normal to palpation, normal palpation, uterine shape normal and non-tender Bimanual Exam- Adnexa, other: normal adnexae Neuro General: patient oriented x3 Assessment & Plan Assessment & Plan (1) Labial lesion: Code(s): N90.89 - Other specified noninflammatory disorders of vulva and perineum (2) Labia enlarged: Code(s): N90.60 - Unspecified hypertrophy of vulva Plan Discussed: Possible inflamed hair follicle verses sebaceous gland cyst versus other mass or tumor. She is interested in having it removed. Currently not inflamed or infected appearing. Advised if it does become irritated, enlarged, warmth to touch, or erythematous to apply warm compress several times a day. And to report to the office for sooner evaluation with Dr. Stern. Consult appointment for labial mass to be made. Sign a release of records for her aging room hand in Pap smear reports and mammogram reports. Keep annual exam scheduled in March. Call if there is any further concerns. All of her questions and concerns were addressed to the best of my ability and shared decision making. She is agreeable to the plan of care. This note is constructed using voice recognition software. While every effort has been made to ensure accuracy, production lapping machine operator errors may have been included. Coding Level of Care Code New Pt Level 3 (31313) Diagnoses Labial lesion N90.89 Labia enlarged N90.60
[2024-02-23 14:05] VITALS: BP 116/64; BMI 34.7
== END 2024-02-23 14:36 | disposition home or self-care (01) ==
LOC: HO.HWS 13:57
PROVIDERS: PCP Internal Medicine; Visit Provider Advanced Practice Midwife
DX: N90.89 Other specified noninflammatory disorders of vulva and perineum (principal); N90.60 Unspecified hypertrophy of vulva
CPT/HCPCS: 99203; 99213

== ENCOUNTER → 2024-03-04 15:05 | Outpatient (BNVA) | payer MEDICARE, SELFPAY | PROVIDERS: PCP Internal Medicine; Visit Provider Nurse Practitioner Family | DX: M05.9 Rheumatoid arthritis with rheumatoid factor, unspecified (principal); M54.50 Low back pain, unspecified; G57.01 Lesion of sciatic nerve, right lower limb; Z79.60 Long term (current) use of unspecified immunomodulators and immunosuppressants | CPT/HCPCS: 20552; 99212 ==

== ENCOUNTER 2024-03-25 09:16 | Outpatient (AMB) | payer MEDICARE, SELFPAY ==
--- NOTE | 2024-03-25 09:46 | A.OFFVIS_ITS ---
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 She is doing well with no concerns. freq incomplete emptyung Attempting to eat a healthy diet with calcium and vitamin D and stays active with exercise. Currently sexually active. Denies any vaginal dryness or irritation. STI testing offered; she accepts. Last pap smear; 2019 at [place]. Last mammogram; 2022 at [facility]. Colonoscopy is UTD. Denies any family history of ovarian or colon cancer. FH breast cancer. [facility] Medical History Piriformis syndrome of right side Piriformis syndrome of left side Low back pain potentially associated with radiculopathy Long-term use of immunosuppressant medication Obesity (BMI 30-39.9) Pure hypercholesterolemia GERD without esophagitis Vitamin D deficiency Rheumatoid arthritis Morbid obesity TIA (transient ischemic attack) Surgical History Hx of appendectomy Family History Paternal Grandfather Heart problem Father Heart problem HTN (hypertension) Mother Heart problem HTN (hypertension) Paternal Grandmother Breast cancer Maternal Grandfather Pancreatic cancer Other Arthritis Social History Housing: Apartment Alcohol intake: never Patient Tobacco Use Status: Never used Tobacco e-Cigarette/Vaping Use: Never Used service: No Current occupational status: employed Current occupational exposures/hazards: No Cognitive needs: No Hearing needs: No Vision needs: Yes (glasses) Female Reproductive History Menstrual Age of Menarche: 15 Total pregnancies: 0 Date of last pap smear: 06/06/20 (neg pap and hpv) Date of Mammogram: 10/06/22 (Birad 2) Review of Systems Const All systems reviewed & are unremarkable except as noted in HPI and below Reports as per HPI Eyes Reports no additional complaints ENT Reports no additional complaints Card Reports no additional complaints Resp Reports no additional complaints GI Reports as per HPI and Reports no additional complaints Reports as per HPI Musc Reports no additional complaints Skin/Breast Reports as per HPI Neuro Reports no additional complaints Psych Reports no additional complaints Endo Reports no additional complaints Leonardo/Lymph Reports no additional complaints Aller/Immun Reports no additional complaints Physical Exam Vital Signs: Last Vital Signs BP 104/66 03/25/24 09:47 BMI result Body Mass Index 34.6 Const General: cooperative, healthy appearing, no acute distress, well developed and alert Orientation/consciousness: patient oriented x3 HEENT Head: Yes normal to inspection Eyes General: appearance normal, both eyes and all related structures Neck Neck: Yes normal visual inspection Thyroid: Thyroid normal Chest Chest palpation & inspection: normal inspection of the chest and other (no puckering, dimpling, peau de orange, retraction, discharge, masses) Breast/axilla inspection: normal inspection of the breasts Breast/axilla palpation: normal palpation of the breasts and other (Pendulous bilaterally) Resp Effort & Inspection: normal respiratory effort GI Inspection: Yes normal to inspection Palpation (GI): Soft to palpation Rectal Exam - Female: deferred General: Yes bladder normal to palpation External Female Exam: normal external appearance and normal appearance of the urethra Speculum Exam - Vagina: normal appearance of the vagina, normal palpation, normal vaginal discharge and vagina atrophic Speculum Exam - Cervix: normal appearance of the cervix and normal palpation Bimanual exam- vagina & uterus: normal bimanual exam, normal palpation, uterine size normal, bladder normal to palpation, normal palpation and non-tender Bimanual Exam- Adnexa, other: no masses Skin General skin exam: no rashes or lesions noted Rashes: no rashes Neuro General: patient oriented x3 Cognition (Neuro): normal cognition Extrem General: Yes normal to inspection Psych Attitude: cooperative Thought process: Normal thought process present Results AMB Urinalysis, Automated UA Leukoctes 0 Gonzalo/uL Last Edit by JEANE Cruz on 03/25/24 10:55 UA Nitrite Negative Last Edit by JEANE Cruz on 03/25/24 10:55 UA Urobilinogen 0 mg/dL Last Edit by JEANE Cruz on 03/25/24 10:5 5 UA Protein 0 mg/dL Last Edit by JEANE Cruz on 03/25/24 10:55 UA pH 5.5 Last Edit by Dinora Streetgenoveva A on 03/25/24 10:55 UA Blood 0 Carlos/uL Last Edit by Dinora Streetgenoveva A on 03/25/24 10:55 UA Specific [place] 1.020 Last Edit by Dinora Streetgenoveva A on 03/25/24 10:55 UA Ketone Negative Last Edit by Dinora Valeriano Contrerasdanaegenoveva A on 03/25/24 10:55 UA Bilirubin 0 mg/dL Last Edit by Dinora Streetgenoveva A on 03/25/24 10:55 UA Glucose 0 mg/dL Last Edit by Dinoraalyson Norton A on 03/25/24 10:55 Results Reviewed Results Reviewed: Laboratory Last Values Urine pH (Auto) 5.5 03/25/24 10:54 Specific [place] (Auto) 1.020 03/25/24 10:54 Urine Protein (Auto) 0 mg/dL 03/25/24 10:54 Glucose (UA)(Auto) 0 mg/dL 03/25/24 10:54 Urine Ketones (Auto) Negative 03/25/24 10:54 Urine Blood (Auto) 0 Carlos/uL 03/25/24 10:54 Urine Nitrite (Auto) Negative 03/25/24 10:54 Urine Bilirubin (Auto) 0 mg/dL 03/25/24 10:54 Urine Urobilinogen (Auto) 0 mg/dL 03/25/24 10:54 Leukocyte Esterase (Auto) 0 Gonzalo/uL 03/25/24 10:54 Assessment & Plan Assessment & Plan (1) Encounter for well woman exam with routine gynecological exam: Code(s): Z01.419 - Encounter for gynecological examination (general) (routine) without abnormal findings Category: Medical (2) Frequency of urination: Code(s): R35.0 - Frequency of micturition Category: Medical Plan Discussed: Current recommendations for pap smears per ASCCP guidelines. Breast awareness, periodic self breast exams and yearly mammogram. Maintain a healthy lifestyle, well balanced diet including Calcium 1,200 mg and Vitamin D 600 IU daily, and routine exercise. Contact the office with any postmenopausal bleeding. Patient verbalizes understanding and agrees to the plan of care. She was given opportunity to ask questions and all questions were answered to the best of my ability. RTO in 1 year for annual practicing urologist exam. This note is constructed using voice recognition software. While every effort has been made to ensure accuracy, incident response analyst errors may have been included. Orders: Orders AMB Urinalysis Automated Today R35.0 - Frequency of micturition Referrals Urology Referral R35.0 - Frequency of micturition Coding Level of Care Code Est Pt Prev Care >65y(31517) Diagnoses Encounter for well woman exam with routine gynecological exam Z01.419 Frequency of urination R35.0
[2024-03-25 09:47] VITALS: BP 104/66; BMI 34.6
== END 2024-03-25 10:46 | disposition home or self-care (01) ==
PROVIDERS: PCP Internal Medicine; Visit Provider Advanced Practice Midwife
DX: Z01.419 Encounter for gynecological examination (general) (routine) without abnormal findings (principal); R35.0 Frequency of micturition
CPT/HCPCS: 99397

== ENCOUNTER → 2024-03-25 09:16 | Outpatient (BNVA) | payer MEDICARE, SELFPAY | PROVIDERS: PCP Internal Medicine; Visit Provider Advanced Practice Midwife | DX: Z01.419 Encounter for gynecological examination (general) (routine) without abnormal findings (principal); R35.0 Frequency of micturition | CPT/HCPCS: 81003 ==

== ENCOUNTER 2024-04-19 10:21 | Outpatient (AMB) | payer MEDICARE, SELFPAY ==
--- NOTE | 2024-04-19 10:22 | A.OFFVIS_ITS ---
Vital Signs 04/19/24 10:23 Height 5 ft 2 in Weight 189 lb BMI 34.6 BP 142/50 H Blood Pressure Location Lt brachial Position Sitting Pulse 72 Intake Visit Reasons: Colonoscopy Screening Intake Note: Rylie presents in the office as a colonoscopy screening. CC: She states that she has GERD once in a blue but she takes pantoprazole. 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 She is referred by Levon Rueda. PMX Morbid obesity High cholesterol Snores Arteriosclerotic heart disease Rheumatoid arthritis History of TIA GERD Cutaneous abscess of the groin Anxiety History of esophageal stricture with dilation * SURGICAL HISTORY Appendectomy Colonoscopy -2019 at [facility] with a hyperplastic polyp only * ALLERGIES: NKDA * [employer] LABS: Laboratory Tests 02/23/24 15:00 WBC 7.1 RBC 4.09 L Hgb 13.4 Hct 39.9 Plt Count 274 Estimated GFR > 60 Total Bilirubin 0.4 AST 25 ALT 27 Alkaline Phosphatase 85 TSH 1.35 2020 colonoscopy [facility] 2021 gastroenterology note [facility] 04/21/2022 EGD Gastric biopsy, random: ?Oxyntic and antral type gastric mucosa with no significant pathological change ?No morphological changes of H. pylori present in H&E sections examined. 11/01/2019 EGD/colon 1. Esophagus, middle third, biopsy: - ?Squamous mucosa without pathologic change. ? 2. Sigmoid colon, polypectomy: - ?Hyperplastic polyp. Sign Out Date: ? ?11/02/2019 ? Tissue Source: 1:MIDDLE THIRD ESOPHAGEAL BIOPSY 2:SIGMOID POLYP ? Final Diagnosis: 1. Esophagus, middle third, biopsy: - ?Squamous mucosa without pathologic change. ? 2. Sigmoid colon, polypectomy: - ?Hyperplastic polyp. TODAY'S VISIT She is only here to catch up on all my health tests. But since she is nervous and given she is not completely sure about her own hx of polyps, we will do a Cologuard. She is particularly excited because she did not enjoy prepping and would not like to undergo an unnecessary procedure. I think that this is a good option for her given the negative family history of colorectal cancer. Return office visit in 8 weeks to evaluate [facility] Medical History TIA (transient ischemic attack) Annual physical exam Cervical cancer screening Screening examination for infectious disease Piriformis syndrome of left side Piriformis syndrome of right side Breast cancer screening by mammogram Colon cancer screening Encounter for well woman exam with routine gynecological exam Low back pain potentially associated with radiculopathy Long-term use of immunosuppressant medication Obesity (BMI 30-39.9) Pure hypercholesterolemia GERD without esophagitis Vitamin D deficiency Rheumatoid arthritis Morbid obesity Surgical History Hx of appendectomy Family History Paternal Grandfather Heart problem Father Heart problem HTN (hypertension) Mother Heart problem HTN (hypertension) Paternal Grandmother Breast cancer Maternal Grandfather Pancreatic cancer Other Arthritis Social History Housing: Apartment Alcohol intake: never Patient Tobacco Use Status: Never used Tobacco e-Cigarette/Vaping Use: Never Used service: No Current occupational status: employed Current occupational exposures/hazards: No Cognitive needs: No Hearing needs: No Vision needs: Yes (glasses) Female Reproductive History Menstrual Age of Menarche: 15 Review of Systems Const Denies fatigue, Denies fever(s), Denies night sweats, Denies poor appetite and Denies weight loss ENT Reports Normal hearing present, Denies dental pain, Denies dysphagia, Denies hearing loss, Denies mouth pain, Denies odynophagia, Denies throat swelling, Denies tongue swelling and Reports other (Dentition adequate) Card Reports no additional complaints Resp Reports no additional complaints GI Details: Denies abdominal pain, Denies melena, Denies bloating, Denies hematochezia, Denies constipation, Denies GI cramping, Denies dysphagia, Denies excessive flatus, Denies early satiety, Reports heartburn, Denies diarrhea, Denies nausea, Denies odynophagia, Denies vomiting and Denies hematemesis Skin/Breast Denies pruritus, Denies lesions, Denies rash and Denies jaundice Neuro Reports Normal hearing present and Denies Abnormal speech present Endo Denies fatigue Aller/Immun Denies throat swelling and Denies tongue swelling Physical Exam Vital Signs: Last Vital Signs Pulse 72 04/19/24 10:23 BP 142/50 H 04/19/24 10:23 BMI result Body Mass Index 34.6 Const General: cooperative, no acute distress, well developed and well groomed Nutritional Appearance: well nourished and obese Orientation/consciousness: oriented to person, oriented to place and oriented to time Limitations: No language barrier HEENT Head: Yes normocephalic and Yes atraumatic Eyes General: appearance normal, both eyes and all related structures Pupils: Equal, round and reactive pupils present Neck Neck: Yes normal visual inspection Resp Effort & Inspection: normal respiratory effort and able to speak in complete sentences GI Inspection: Yes obesity Neuro General: oriented to person, oriented to place and oriented to time Cranial nerves: Yes Equal, round and reactive pupils present and Yes Normal hearing present Speech: No Abnormal speech present Extrem General: Yes normal to inspection Psych Appearance: grossly normal and well kempt Mental Status: mental status grossly normal Speech and movement: Normal speech and movement present Affect: normal affect Attitude: cooperative Thought process: Normal thought process present and not confabulating Thought content: Normal thought content present Insight: Limited insight present (Psych) Judgement: Limited judgement present (Psych) Results Reviewed Results Reviewed: Laboratory Tests 02/23/24 15:00 WBC 7.1 RBC 4.09 L Hgb 13.4 Hct 39.9 Plt Count 274 Estimated GFR > 60 Total Bilirubin 0.4 AST 25 ALT 27 Alkaline Phosphatase 85 TSH 1.35 2019 colonoscopy [facility] 2021 gastroenterology note [facility] 04/21/2022 EGD Gastric biopsy, random: ?Oxyntic and antral type gastric mucosa with no significant pathological change ?No morphological changes of H. pylori present in H&E sections examined. 11/01/2019 EGD/colon 1. Esophagus, middle third, biopsy: - ?Squamous mucosa without pathologic change. ? 2. Sigmoid colon, polypectomy: - ?Hyperplastic polyp. Sign Out Date: ? ?11/02/2019 ? Tissue Source: 1:MIDDLE THIRD ESOPHAGEAL BIOPSY 2:SIGMOID POLYP ? Final Diagnosis: 1. Esophagus, middle third, biopsy: - ?Squamous mucosa without pathologic change. ? 2. Sigmoid colon, polypectomy: - ?Hyperplastic polyp. Assessment & Plan Assessment & Plan (1) Pre-op examination: Code(s): Z01.818 - Encounter for other preprocedural examination Category: Medical (2) Morbid obesity: Code(s): E66.01 - Morbid (severe) obesity due to excess calories Category: Medical Plan She is only here to catch up on all my health tests. But since she is nervous and given she is not completely sure about her own hx of polyps, we will do a Cologuard. She is particularly excited because she did not enjoy prepping and would not like to undergo an unnecessary procedure. I think that this is a good option for her given the negative family history of colorectal cancer. Return office visit in 8 weeks to evaluate Cologuard. Coding Level of Care Code New Pt Level 3 (84216) Diagnoses Pre-op examination Z01.818 Morbid obesity E66.01
[2024-04-19 10:23] VITALS: BP 142/50; PULSE 72; BMI 34.6
== END 2024-04-19 10:43 | disposition home or self-care (01) ==
PROVIDERS: PCP Internal Medicine; Visit Provider Nurse Practitioner
DX: Z01.818 Encounter for other preprocedural examination (principal); Z12.11 Encounter for screening for malignant neoplasm of colon; E66.01 Morbid (severe) obesity due to excess calories; Z68.34 Body mass index [BMI] 34.0-34.9, adult
CPT/HCPCS: 99024

== ENCOUNTER → 2024-04-19 10:21 | Outpatient (BNVA) | payer MEDICARE, SELFPAY | PROVIDERS: PCP Internal Medicine; Visit Provider Nurse Practitioner | DX: Z01.818 Encounter for other preprocedural examination (principal); K21.9 Gastro-esophageal reflux disease without esophagitis; E66.01 Morbid (severe) obesity due to excess calories; Z68.34 Body mass index [BMI] 34.0-34.9, adult; Z79.899 Other long term (current) drug therapy | CPT/HCPCS: 99212 ==

== ENCOUNTER 2024-05-30 09:03 | Outpatient (AMB) | payer MEDICARE, SELFPAY ==
[2024-05-30 09:04] VITALS: BP 110/64; PULSE 74; O2SAT 95; BMI 33.2
--- NOTE | 2024-05-30 09:04 | MHC.PC.OV ---
Vital Signs 05/30/24 09:04 Height 5 ft 2 in Weight 181 lb 6 oz BMI 33.2 BP 110/64 Blood Pressure Location Lt brachial Position Sitting Pulse 74 Pulse Source Pulse Oximeter Pulse Oximetry (%) 95 Oxygen Delivery Method Room Air Intake Visit Reasons: Hyperlipidmia Clinical Team Manager Required: No Accompanied by: Self / Same As Patient Allergies No Known Allergies Allergy (Verified 05/30/24 09:22) Medication List - Last Reconciled 05/30/24 by Levon Rueda MD aspirin 81 mg PO DAILY atorvastatin 40 mg PO DAILY 90 days cholecalciferol (vitamin D3) 25 mcg PO DAILY 90 days folic acid 1 mg PO DAILY hydroxyzine HCl 50 mg (2 x 25 mg) PO BEDTIME PRN pantoprazole 40 mg PO QAM 90 days semaglutide 0.5 mg subcut QWEEK sulfasalazine 1,000 mg (2 x 500 mg) PO BID Tobacco use date assessed: 05/30/24 Fall risk assessment: No Falls in past year Last assessed Fall Risk: 05/30/24 Dental Screening Dental Screen Date: 05/30/24 Did you have a dental visit in the last 12 months?: Yes Did you have a dental problem in the last 6 months where you did not have access to dental care?: No Was dental information given to patient?: Patient has dentist HPI Hyperlipidmia HPI Details Patient comes in today for her follow up visit States that she feels okay except for inability to sleep at night She has been taking Hydroxyzine, which used to help her in the past but states that it is no longer helping States that she tried taking 2 tablets of Hydroxyzine and when it did not help, took 3 tablets and even that did nothing She has also tried several OTC sleep aids recently, including Melatonin and Unisom and a couple of others but none of them helped at all Admits that she has been getting Semaglutide 0.5 mg SQ injections weekly for about 3 weeks now - has been getting it online through [employer] and she has been paying [id number] for this as she has tried everything she can to lose weight unsuccessfully States that she has lost some weight since and that the injections have not bothered her so far She denies any fever, headaches or dizziness Denies any chest pains, no SOB No nausea/vomiting, no abdominal pain No change in bowel habits noted She had her follow up labs done back in February 2024 and would like to know how her results came out Since her last visit, she's also had her mammogram done on [facility] in [place] in late March 2024 (normal) and a Cologuard test done last month in April 2024 (also negative) She had her gynecology exam with Richelle Davis here at [facility] in March 2024 and is scheduled to see Dr. Stern in July 2024 for consultation regarding some labial lesion(s) [facility] Medical History (Updated 05/30/24 @ 09:48 by Levon Rueda MD) Insomnia TIA (transient ischemic attack) Piriformis syndrome of left side Piriformis syndrome of right side Low back pain potentially associated with radiculopathy Long-term use of immunosuppressant medication Obesity (BMI 30-39.9) Pure hypercholesterolemia GERD without esophagitis Vitamin D deficiency Rheumatoid arthritis Surgical History Hx of appendectomy Family History Paternal Grandfather Heart problem Father Heart problem HTN (hypertension) Mother Heart problem HTN (hypertension) Paternal Grandmother Breast cancer Maternal Grandfather Pancreatic cancer Other Arthritis Social History Housing: Apartment Alcohol intake: never Patient Tobacco Use Status: Never used Tobacco e-Cigarette/Vaping Use: Never Used service: No Current occupational status: employed Current occupational exposures/hazards: No Cognitive needs: No Hearing needs: No Vision needs: Yes (glasses) Female Reproductive History Menstrual Age of Menarche: 15 Questionnaire PHQ-9 Over the last 2 weeks, how often have you been bothered by any of the following problems? 1. Little interest or pleasure in doing things: not at all 2. Feeling down, depressed, or hopeless: not at all 3. Trouble falling or staying asleep, or sleeping too much: not at all 4. Feeling tired or having little energy: not at all 5. Poor appetite or overeating: not at all 6. Feeling bad about yourself - or that you are a failure or have let yourself or your family down: not at all 7. Trouble concentrating on things, such as reading the newspaper or watching television: not at all 8. Moving or speaking so slowly that other people could have noticed. Or the opposite - being so fidgety or restless that you have been moving around a lot more than usual: not at all 9. Thoughts that you would be better off or of hurting yourself in some way: not at all Total score: 0 Depression Screening Interpretation: Negative Depression Screening Done: Yes 70827 - PHQ-9 Billing: Yes Source: Developed by Drs. Merrick Justin, Debbie Monsalve, Yovany Curran and colleagues, with an educational cortney from [employer]. Thrive Questionnaire Date Thrive assessed: 05/30/24 I am a: Patient What is your living situation today?: I have a steady place to live Within the past 12 months, did the food you bought not last and you didn't have the money to get more?: Never true Within the past 12 months, did you worry whether your food would run out before you got money to buy more?: Never true Do you have trouble paying for medicines?: No Do you have trouble getting transportation to medical appointments?: No Do you have trouble paying your heating and electricity bill?: No Do you have trouble taking care of your child, family member or friend?: No Do you have trouble with day-to-day activities such as bathing, preparing meals, shopping, managing finances, etc.?: No Are you currently unemployed and looking for a job?: Yes Are you interested in more education?: No Please select the resources that you would like help with: None Currently or been in a relationship where the following occur: No concerns reported THRIVE Score: 0 AUDIT C Alcohol Use Questionnaire (AUDIT-C) 1. How often do you have a drink containing alcohol?: Never 3. How often do you have six or more drinks on one occasion?: Never Total Score: 0 Score Reviewed/Action Taken: Yes FABY-7 AMB Questionnaire FABY-7 Date FABY - 7 assessed: 05/30/24 Feeling nervous, anxious, or on edge: 0 = Not at all Not being able to stop or control worryin = Not at all Worrying too much about different things: 0 = Not at all Trouble relaxin = Not at all Being so restless that it is hard to sit still: 0 = Not at all Becoming easily annoyed or irritable: 0 = Not at all Feeling afraid as if something awful might happen: 0 = Not at all Total FABY-7 score (0-4 normal; 5-9 mild; 10-14 moderate; 15-21 severe): 0 Source: Developed by Drs. Merrick Justin, Debbie Monsalve, Yovany Curran and colleagues, with an educational cortney from [employer]. Review of Systems Const Denies chills, Reports difficulty sleeping (Hydroxyzine no longer helping), Denies fatigue, Denies fever(s) and Denies headache(s) ENT Denies dysphagia, Denies dizziness, Denies otalgia, Denies headache(s), Denies neck pain, Denies odynophagia and Denies sore throat Card Denies chest pain, Denies rapid heart rate, Denies irregular heart rhythm, Denies palpitations and Denies dyspnea Resp Denies cough, Denies dyspnea and Denies wheezing GI Denies abdominal pain, Denies constipation, Denies dysphagia, Denies heartburn, Denies diarrhea, Denies nausea, Denies odynophagia and Denies vomiting Denies hematuria, Denies urinary frequency, Denies dysuria, Denies urinary incontinence and Denies urinary urgency Musc Reports back pain (on and off over the lower back), Reports arthralgias (in hands/fingers due to RA), Denies joint swelling and Denies neck pain Skin/Breast Denies rash Neuro Denies dizziness, Denies headache(s) and Denies paresthesias Psych Reports anxiety and Denies depression Endo Denies fatigue and Denies palpitations Leonardo/Lymph Denies easy bruising Aller/Immun Denies wheezing Physical exam (Primary Care) Vital Signs: Last Vital Signs Pulse 74 05/30/24 09:04 BP 110/64 05/30/24 09:04 Pulse Ox 95 05/30/24 09:04 Oxygen Delivery Method Room Air 05/30/24 09:04 BMI result Body Mass Index 33.2 Tobacco/Smoking Status: Tobacco use Status Tobacco use date assessed 05/30/24 05/30/24 09:05 Patient Tobacco Use Status Never used Tobacco 05/30/24 09:05 e-Cigarette/Vaping Use Never Used 05/30/24 09:05 PHQ-9: PHQ-9 Score PHQ-9: Total score 0 05/30/24 09:05 Depression Screening Interpretation: Negative Thrive Assessment: Date of Thrive Assessment Date Thrive assessed 05/30/24 05/30/24 09:05 Currently or been in a relationship where the following occur: No concerns reported Const General: no acute distress and alert HENMT Ears: TM's normal bilaterally and EAC's normal Throat: Yes posterior oropharynx normal and Yes tonsils normal (no TP congestion) Neck Neck: Yes no lymphadenopathy and Yes supple Thyroid: Thyroid normal Resp Auscultation: clear to auscultation bilaterally, no rales and no wheezes Cardio Rate: regular rate Rhythm: regular rhythm Heart sounds: no murmurs GI Palpation (GI): Soft to palpation and nontender Auscultation: normal bowel sounds General: Yes no CVA tenderness Back/Spine/Pelvis Back: no CVA tenderness Thoracic/Lumbar Spine: lumbar spinal tenderness Skin Rashes: no rashes Extrem General: Yes no clubbing, cyanosis or edema Right upper extremity: Extremity exam: right hand Details: tenderness (over joints in fingers); no swelling Left upper extremity: hand Details: tenderness (over joints in fingers); no swelling Results Reviewed Results Reviewed: Laboratory Tests 02/23/24 02/23/24 12:55 15:00 WBC 7.1 Hgb 13.4 Hct 39.9 Plt Count 274 Sodium 138 Potassium 4.2 Creatinine 0.75 Estimated GFR > 60 Fasting Glucose 91 Calcium 9.6 AST 25 ALT 27 Triglycerides 68 Cholesterol 167 LDL Cholesterol, Calc 80 HDL Cholesterol 74 25-OH Vitamin D Total 30.2 L TSH 1.35 Ur Specific Termo 1.025 Urine Protein Negative Urine Glucose (UA) Negative Urine Blood Trace H Urine Nitrite Negative Ur Leukocyte Esterase Moderate (2+) H Assessment and Plan Assessment & Plan (1) Pure hypercholesterolemia: Code(s): E78.00 - Pure hypercholesterolemia, unspecified Plan: Results of her labs done a few weeks ago reviewed and discussed with patient Reinforced low cholesterol diet Continue Atorvastatin 40 mg QD Will have her recheck her labs and fasting lipids in 4 months for follow up (2) History of TIA (transient ischemic attack): Code(s): Z86.73 - Personal history of transient ischemic attack (TIA), and cerebral infarction without residual deficits Plan: Continue Aspirin 81 mg QD Head and neck CTA done in 2021 showed no significant vascular disease; carotid US done last year (2022) revealed no significant carotid artery disease Head CT done in 2022 was unremarkable She is advised to continue with aggressive risk factor(s) reduction Follow up with neurology (Dr. Palafox) as scheduled She has also been referred to and was seen by cardiology for further work ups and so far, all of her tests and evaluations done, including echocardiogram, cardiac stress testing as well as a cardiac event monitor have all come back normal Coronary CTA revealed (+) mild LAD atherosclerosis, but normal findings in the circumflex and RCA Holter monitor showed underlying sinus rhythm and no evidence of atrial fibrillation or any arrhythmia She was also recommended by cardiology to continue treatment/management for stable vascular disease, with aggressive control of her cholesterol and blood pressure (3) Rheumatoid arthritis: Code(s): M06.9 - Rheumatoid arthritis, unspecified Qualifiers: Rheumatoid arthritis location: unspecified site Rheumatoid factor presence: with rheumatoid factor Qualified Code(s): M05.9 - Rheumatoid arthritis with rheumatoid factor, unspecified Plan: Continue Sulfasalazine 1000 mg BID and Folic Acid 1 mg QD She used to see Dr. Hurt at [facility] in [place] for rheumatology follow up but as Dr. Hurt has reportedly joined [facility] in [place], she is now following up locally here with [facility] Rheumatology for continuing management of her RA She had some additional labs ordered by rheumatology for further evaluation a few months ago and all of these came back okay (4) Headache: Code(s): R51.9 - Headache, unspecified Qualifiers: Headache chronicity pattern: unspecified pattern Headache type: unspecified Intractability: not intractable Qualified Code(s): R51.9 - Headache, unspecified Plan: Suspect migraine headache or variant - states that her headaches have been better controlled lately Follow up with neurology (Dr. Palafox) as scheduled (5) Vitamin D deficiency: Code(s): E55.9 - Vitamin D deficiency, unspecified Plan: Continue Vitamin D3 25 mcg (1000 units) QD (6) GERD without esophagitis: Code(s): K21.9 - Gastro-esophageal reflux disease without esophagitis Plan: Dietary restrictions reinforced Continue Pantoprazole 40 mg QD (7) Insomnia: Code(s): G47.00 - Insomnia, unspecified Qualifiers: Insomnia type: unspecified Qualified Code(s): G47.00 - Insomnia, unspecified Plan: Sleep hygiene reinforced States that her Hydroxyzine used to help her with her sleep in the past but it is no longer helping She has also tried several OTC sleep aids recently, including Melatonin and Unisom and a couple of others but none of them helped at all Will now try her on Trazodone 50 mg Q HS PRN (8) Anxiety: Code(s): F41.9 - Anxiety disorder, unspecified Plan: Continue Hydroxyzine 25 mg 2 tablets Q HS PRN - states that this was helping her sleep better at night but has not helped lately States that her anxiety is mostly related to her brother's untimely passing sometime last year - notes that this has affected her a lot and she is still trying to process this even though her brother over a year ago now States that working and staying busy has helped her a lot (9) Obesity (BMI 30-39.9): Code(s): E66.9 - Obesity, unspecified Plan: Reinforced diet/exercise as tolerated/lose weight She has been seen by weight management and is currently still debating on what she wants to do She has been advised her that due to her multiple comorbidities, the newer injectables are NOT really recommended for her and she also recalls having some problems with stimulants (Phentermine) in the past Have discussed with her other off-label Rx options including Metformin and Topiramate but have advised patient that ultimately, the gastric balloon or banding may be the best options for her as they can be reversed if things do not work out as planned although these carry their own potential risks and drawbacks, which she should discuss further with weight management if she wants to consider these She apparently went out on her own and signed up with an online company ([employer]) that apparently helps patients with weight loss and other issues and has been getting from them Rx for Semaglutide injections (she pays [id number] for these) and has been on the injections for about 3 weeks now States that she is happy that she has lost some weight since and has had no problems so far with the injections and she would like to continue on them for now Have advised patient that IF she starts experiencing any abdominal pain, persistent bloating or discomfort or any other unusual symptoms, then she should stop using these immediately and let us know Plan Follow up in 4 months Orders: Orders Complete Blood Count Auto Diff 4 Months D64.9 - Anemia, unspecified TSH reflex Free T4 4 Months E78.00 - Pure hypercholesterolemia, unspecified UA CC w/rflx Micro + Cult 4 Months R30.0 - Dysuria Comprehensive [place]. Panel Fast 4 Months E78.00 - Pure hypercholesterolemia, unspecified Lipid Panel 4 Months E78.00 - Pure hypercholesterolemia, unspecified Vitamin D 25-OH Total 4 Months E55.9 - Vitamin D deficiency, unspecified Medications: New trazodone 50 mg PO BEDTIME 30 days PRN 30 tabs 2RF insomnia Coding Level of Care Code Est Pt Level 4 (13005) Complex EM visit Add On G2211 Diagnoses Pure hypercholesterolemia E78.00 History of TIA (transient ischemic attack) Z86.73 Rheumatoid arthritis with positive rheumatoid factor, involving unspecified site M05.9 Rheumatoid arthritis location: unspecified site Rheumatoid factor presence: with rheumatoid factor Nonintractable headache, unspecified chronicity pattern, unspecified headache type R51.9 Headache chronicity pattern: unspecified pattern Headache type: unspecified Intractability: not intractable Vitamin D deficiency E55.9 GERD without esophagitis K21.9 Insomnia, unspecified type G47.00 Insomnia type: unspecified Anxiety F41.9 Obesity (BMI 30-39.9) E66.9
== END 2024-05-30 09:45 | disposition home or self-care (01) ==
PROVIDERS: PCP Internal Medicine; Visit Provider Internal Medicine
DX: E78.00 Pure hypercholesterolemia, unspecified (principal); Z86.73 Personal history of transient ischemic attack (TIA), and cerebral infarction without residual deficits; M05.9 Rheumatoid arthritis with rheumatoid factor, unspecified; R51.9 Headache, unspecified; E55.9 Vitamin D deficiency, unspecified; K21.9 Gastro-esophageal reflux disease without esophagitis; G47.00 Insomnia, unspecified; F41.9 Anxiety disorder, unspecified; E66.9 Obesity, unspecified

== ENCOUNTER → 2024-05-30 09:03 | Outpatient (BNVA) | payer MEDICARE, SELFPAY | PROVIDERS: PCP Internal Medicine; Visit Provider Internal Medicine | DX: E78.00 Pure hypercholesterolemia, unspecified (principal); M05.9 Rheumatoid arthritis with rheumatoid factor, unspecified; R51.9 Headache, unspecified; E55.9 Vitamin D deficiency, unspecified; K21.9 Gastro-esophageal reflux disease without esophagitis; G47.00 Insomnia, unspecified; F41.9 Anxiety disorder, unspecified; E66.9 Obesity, unspecified; Z86.73 Personal history of transient ischemic attack (TIA), and cerebral infarction without residual deficits | CPT/HCPCS: 99212 ==

== ENCOUNTER 2024-06-01 08:47 | Outpatient (AMB) | payer MEDICARE, SELFPAY ==
--- NOTE | 2024-06-01 09:33 | A.OFFVIS_ITS ---
Intake Visit Reasons: urinary frequency Intake Note: New Patient presents for initial visit for urinary frequency, incontinence Urology Medications: none Blood Thinner: none PVR: 0ml's Windows Systems Admin Required: No Accompanied by: Self / Same As Patient Allergies No Known Allergies Allergy (Verified 06/01/24 09:44) Medication List - Last Reconciled 06/01/24 by JACKSON Cox aspirin 81 mg PO DAILY atorvastatin 40 mg PO DAILY 90 days cholecalciferol (vitamin D3) 25 mcg PO DAILY 90 days folic acid 1 mg PO DAILY hydroxyzine HCl 50 mg (2 x 25 mg) PO BEDTIME PRN pantoprazole 40 mg PO QAM 90 days semaglutide 0.5 mg subcut QWEEK sulfasalazine 1,000 mg (2 x 500 mg) PO BID trazodone 50 mg PO BEDTIME PRN 30 days HPI Comments Details: Rylie is a very pleasant 68-year-old female patient of Dr. Rueda. She has a past medical history of insomnia, TIA, obesity, hypercholesteremia, GERD, vitamin-D deficiency, and rheumatoid arthritis on long-term immunosuppressants. She presents to the office today as a new patient for nocturia. In discussion with the patient today she reports noting over the last year she has been having issues with nocturia. She reports typically she wakes up a proximally 4-5 times per night with urge to use the bathroom with minimal amounts of urination. She otherwise denies urinary urgency, urinary frequency, incontinence, hematuria, dysuria, foul smelling urine, changes to urinary stream, flank pain, fever, and or chills. In office urinalysis results reviewed with the patient today. PVR 0 mL . We discussed at length potential causes of nocturia. When asked she does report a history of snoring, insomnia, and fatigue upon wakening. We discussed correlation of potential sleep apnea with nocturia. Discussed obtaining retroperitoneal ultrasound for further assessment evaluation. She otherwise offers no other issues or concerns at this time. [facility] Medical History Insomnia TIA (transient ischemic attack) Piriformis syndrome of left side Piriformis syndrome of right side Low back pain potentially associated with radiculopathy Long-term use of immunosuppressant medication Obesity (BMI 30-39.9) Pure hypercholesterolemia GERD without esophagitis Vitamin D deficiency Rheumatoid arthritis Surgical History Hx of appendectomy Family History Paternal Grandfather Heart problem Father Heart problem HTN (hypertension) Mother Heart problem HTN (hypertension) Paternal Grandmother Breast cancer Maternal Grandfather Pancreatic cancer Other Arthritis Social History Housing: Apartment Alcohol intake: never Patient Tobacco Use Status: Never used Tobacco e-Cigarette/Vaping Use: Never Used service: No Current occupational status: employed Current occupational exposures/hazards: No Cognitive needs: No Hearing needs: No Vision needs: Yes (glasses) Female Reproductive History Menstrual Age of Menarche: 15 Review of Systems Const All systems reviewed & are unremarkable except as noted in HPI and below Physical Exam Const General: cooperative, healthy appearing, comfortable, no acute distress, well developed, alert and awake Nutritional Appearance: overweight Orientation/consciousness: patient oriented x3 Limitations: no limitations HEENT Head: Yes normal to inspection, Yes normocephalic and Yes atraumatic Ears: hearing grossly normal bilaterally Eyes General: appearance normal, both eyes and all related structures Neck Neck: Yes normal visual inspection and Yes trachea midline Chest Chest palpation & inspection: normal inspection of the chest Resp Effort & Inspection: normal respiratory effort and able to speak in complete sentences Cardio Rate: regular rate GI Inspection: Yes normal to inspection General: Yes no CVA tenderness Back/Spine/Pelvis Back: no CVA tenderness Skin General skin exam: no rashes or lesions noted Neuro General: patient oriented x3 Extrem General: Yes normal to inspection Psych Appearance: grossly normal and well kempt Mental Status: mental status grossly normal Speech and movement: Normal speech and movement present and Clear speech present Affect: normal affect Attitude: cooperative Thought process: Normal thought process present Thought content: Normal thought content present Insight: Fair insight present (Psych) Judgement: Fair judgement present (Psych) Office Procedures Post Void Residual Post Residual Void Post Void Residual (PVR): 0 [id number] Void Residual by ultrasound Results AMB Urinalysis, Automated UA Leukoctes 15 Gonzalo/uL Last Edit by William Méndez on 06/01/24 09:42 UA Nitrite Negative Last Edit by William Méndez on 06/01/24 09:42 UA Urobilinogen 0.2 mg/dL Last Edit by William Méndez on 06/01/24 09:42 UA Protein 15 mg/dL Last Edit by William Méndez on 06/01/24 09:42 UA pH 6.0 Last Edit by William Méndez on 06/01/24 09:42 UA Blood 0 Carlos/uL Last Edit by William Méndez on 06/01/24 09:42 UA Specific [place] 1.020 Last Edit by William Méndez on 06/01/24 09:42 UA Ketone Negative Last Edit by William Méndez on 06/01/24 09:42 UA Bilirubin 0 mg/dL Last Edit by William Méndez on 06/01/24 09:42 UA Glucose 0 mg/dL Last Edit by William Méndez on 06/01/24 09:42 Results Reviewed Results Reviewed: Laboratory Last Values Urine pH (Auto) 6.0 06/01/24 09:40 Specific [place] (Auto) 1.020 06/01/24 09:40 Urine Protein (Auto) 15 mg/dL 06/01/24 09:40 Glucose (UA)(Auto) 0 mg/dL 06/01/24 09:40 Urine Ketones (Auto) Negative 06/01/24 09:40 Urine Blood (Auto) 0 Carlos/uL 06/01/24 09:40 Urine Nitrite (Auto) Negative 06/01/24 09:40 Urine Bilirubin (Auto) 0 mg/dL 06/01/24 09:40 Urine Urobilinogen (Auto) 0.2 mg/dL 06/01/24 09:40 Leukocyte Esterase (Auto) 15 Gonzalo/uL 06/01/24 09:40 Assessment & Plan Assessment & Plan (1) Snorings: Code(s): R06.83 - Snoring Category: Medical (2) Nocturia: Code(s): R35.1 - Nocturia Category: Medical Plan In office urinalysis results reviewed with the patient today; as noted above. PVR 0 mL. Discussed at length potential causes of nocturia. Will obtain sleep study for further assessment evaluation. Will obtain retroperitoneal ultrasound for further assessment evaluation. Discussed importance of limiting fluids 2-3 hours prior to bed to decrease episodes of nocturia. Follow-up in 1-3 months with sleep study and imaging to be completed prior; or sooner with any issues, concerns, and or questions. Orders: Orders AMB Urinalysis Automated Today Z13.9 - Encounter for screening, unspecified US retroperitoneal comp Today R35.1 - Nocturia AMB Post Void Residual by ultrasound Today R35.0 - Frequency of micturition RT home sleep study Today R06.83 - Snoring, R35.1 - Nocturia, R53.83 - Other fatigue Patient Instructions: The patient had an opportunity to ask questions regarding the treatment plan. All questions were answered. Physical exam, labs, and imaging were discussed and reviewed in detail. As well as risks, benefits, and discussion of treatment choices. No major barriers to understanding were identified. The patient expressed understanding and agreement with the above treatment plan. The patient was made aware they should contact our office by phone for worsening of their current condition, the appearance of new symptoms, or with any questions or concerns. Compliance is encouraged with any medications and follow up testing that is ordered. It is a privilege to be allowed the opportunity to participate in? your urological care.? Again, if you have any questions or concerns If you have any questions or concerns please do not hesitate to contact me. The office is [phone]. This note is constructed using voice recognition software. While every effort has been made to ensure accuracy market risk analyst errors may have been included. Yours sincerely, JACKSON Cox Coding Level of Care Code New Pt Level 3 (92832) Diagnoses Snorings R06.83 Nocturia R35.1 CPT Codes Post Residual Void - PVR CPT Code: 60707-Vumq Void Residual by ultrasound ([id number])
== END 2024-06-01 09:49 | disposition home or self-care (01) ==
PROVIDERS: PCP Internal Medicine; Visit Provider Nurse Practitioner Family
DX: R06.83 Snoring (principal); R35.1 Nocturia; Z13.9 Encounter for screening, unspecified
CPT/HCPCS: 99203

== ENCOUNTER → 2024-06-01 08:47 | Outpatient (BNVA) | payer MEDICARE, SELFPAY | PROVIDERS: PCP Internal Medicine; Visit Provider Nurse Practitioner Family | DX: R06.83 Snoring (principal); R35.1 Nocturia | CPT/HCPCS: 51798; 81003; 99202 ==

== ENCOUNTER 2024-06-14 10:24 | Outpatient (AMB) | payer MEDICARE, SELFPAY ==
[2024-06-14 10:29] VITALS: BP 113/61; PULSE 70; BMI 32.7
--- NOTE | 2024-06-14 10:29 | MHC.OFFVIS ---
Vital Signs 06/14/24 10:29 Height 5 ft 2 in Weight 179 lb BMI 32.7 BP 113/61 Blood Pressure Location Lt brachial Position Sitting Pulse 70 Intake Visit Reasons: 8 week follow up Intake Note: Rylie presents to in office follow up of cologuard. CC: Patient reports doing well and denies having any GI concerns today. 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 But since she is nervous and given she is not completely sure about her own hx of polyps, we will do a Cologuard. She is particularly excited because she did not enjoy prepping and would not like to undergo an unnecessary procedure. I think that this is a good option for her given the negative family history of colorectal cancer. Return office visit in 8 weeks to evaluate Cologuard. HER COLOGUARD SCREENING was negative TODAY'S VISIT The Cologuard test is negative and can be repeated in 3 years. PFSH Medical History Insomnia TIA (transient ischemic attack) Piriformis syndrome of left side Piriformis syndrome of right side Low back pain potentially associated with radiculopathy Long-term use of immunosuppressant medication Obesity (BMI 30-39.9) Pure hypercholesterolemia GERD without esophagitis Vitamin D deficiency Rheumatoid arthritis Surgical History Hx of appendectomy Family History Paternal Grandfather Heart problem Father Heart problem HTN (hypertension) Mother Heart problem HTN (hypertension) Paternal Grandmother Breast cancer Maternal Grandfather Pancreatic cancer Other Arthritis Social History Housing: Apartment Alcohol intake: never Patient Tobacco Use Status: Never used Tobacco e-Cigarette/Vaping Use: Never Used service: No Current occupational status: employed Current occupational exposures/hazards: No Cognitive needs: No Hearing needs: No Vision needs: Yes (glasses) Female Reproductive History Menstrual Age of Menarche: 15 Review of Systems Const Denies fatigue, Denies fever(s), Denies night sweats, Denies poor appetite and Denies weight loss Eyes Details: glasses Reports requires corrective lenses ENT Reports Normal hearing present, Denies dental pain, Denies dysphagia, Denies hearing loss, Denies mouth pain, Denies odynophagia, Denies throat swelling, Denies tongue swelling and Reports other (Dentition adequate) Card Reports no additional complaints Resp Reports no additional complaints GI Details: Denies abdominal pain, Denies melena, Denies bloating, Denies hematochezia, Denies constipation, Denies GI cramping, Denies dysphagia, Denies excessive flatus, Denies early satiety, Denies heartburn, Denies diarrhea, Denies nausea, Denies odynophagia, Denies vomiting and Denies hematemesis Skin/Breast Denies pruritus, Denies lesions, Denies rash and Denies jaundice Neuro Reports Normal hearing present and Denies Abnormal speech present Endo Denies fatigue Aller/Immun Denies throat swelling and Denies tongue swelling Physical Exam Vital Signs: Last Vital Signs Pulse 70 06/14/24 10:29 BP 113/61 06/14/24 10:29 BMI result Body Mass Index 32.7 Const General: cooperative, no acute distress, well developed and well groomed Nutritional Appearance: well nourished and obese Orientation/consciousness: oriented to person, oriented to place and oriented to time Limitations: No language barrier HEENT Head: Yes normocephalic and Yes atraumatic Eyes General: appearance normal, both eyes and all related structures Pupils: Equal, round and reactive pupils present Resp Effort & Inspection: normal respiratory effort and able to speak in complete sentences GI Inspection: No Abdominal panniculus present and Yes obesity Rectal Exam - Female: deferred Skin General skin exam: no rashes or lesions noted Nails: normal Neuro General: oriented to person, oriented to place and oriented to time Cranial nerves: Yes Equal, round and reactive pupils present and Yes Normal hearing present Speech: No Abnormal speech present Extrem General: Yes normal to inspection Psych Appearance: grossly normal and well kempt Mental Status: mental status grossly normal Speech and movement: Normal speech and movement present Affect: normal affect Attitude: cooperative Thought process: Normal thought process present and not confabulating Thought content: Normal thought content present Insight: Good insight present (Psych) Judgement: Good judgement present (Psych) Assessment & Plan Assessment & Plan (1) Encounter for colorectal cancer screening using Cologuard test: Comment: 05/2024= negative Cologuard repeat in 3 years Code(s): Z12.11 - Encounter for screening for malignant neoplasm of colon; Z12.12 - Encounter for screening for malignant neoplasm of rectum Category: Medical Plan The Cologuard test is negative and can be repeated in 3 years. Coding Level of Care Code Est Pt Level 3 (13780) Diagnoses Encounter for colorectal cancer screening using Cologuard test Z12.11; Z12.12
== END 2024-06-14 10:47 | disposition home or self-care (01) ==
PROVIDERS: PCP Internal Medicine; Visit Provider Nurse Practitioner
DX: Z71.2 Person consulting for explanation of examination or test findings (principal)
CPT/HCPCS: 99024

== ENCOUNTER → 2024-06-14 10:24 | Outpatient (BNVA) | payer MEDICARE, SELFPAY | PROVIDERS: PCP Internal Medicine; Visit Provider Nurse Practitioner | DX: E66.01 Morbid (severe) obesity due to excess calories (principal); Z68.32 Body mass index [BMI] 32.0-32.9, adult; Z12.11 Encounter for screening for malignant neoplasm of colon; Z12.12 Encounter for screening for malignant neoplasm of rectum | CPT/HCPCS: 99212 ==

== ENCOUNTER 2024-07-28 08:56 | Outpatient (AMB) | payer MEDICARE, SELFPAY ==
[2024-07-28 08:57] VITALS: BP 120/62; PULSE 68; BMI 30.9
--- NOTE | 2024-07-28 08:57 | MHC.OFFVIS ---
Vital Signs 07/28/24 08:57 Height 5 ft 2 in Weight 168 lb 13.985 oz BMI 30.9 BP 120/62 Blood Pressure Location Lt brachial Position Sitting Pulse 68 Pulse Source Monitor Intake Visit Reasons: 1 yr f/up [employer] Specialist Required: No Accompanied by: Self / Same As Patient Allergies No Known Allergies Allergy (Verified 06/14/24 10:38) Medication List - Last Reconciled 07/28/24 by Carlo Wisdom MD aspirin 81 mg PO DAILY atorvastatin 40 mg PO DAILY 90 days cholecalciferol (vitamin D3) 25 mcg PO DAILY 90 days folic acid 1 mg PO DAILY hydroxyzine HCl 50 mg (2 x 25 mg) PO BEDTIME PRN pantoprazole 40 mg PO QAM 90 days semaglutide 0.5 mg subcut QWEEK sulfasalazine 1,000 mg (2 x 500 mg) PO BID HPI Comments Details: Rylie returns for follow-up. Originally seen in consultation regarding vascular disease. In 2022, patient apparently had speech issues and some arm tingling extra. She was seen in the ER and underwent workup. She was thought to have possibly a TIA. She is on aspirin and statins. No clear neurological deficits. She was then referred to us for vascular workup as there is also strong family history of cardiac issues in multiple family members. Patient herself has no clear symptoms like angina or shortness of breath. She states he feels fine. She is overweight. She is quite concerned about that and like lose some weight. Not listed to be a diabetic or hypertensive. No history of atrial fibrillation either. Since last seen, no new cardiac concerns. She states she is losing a lot of weight and much more cheerful. Otherwise, getting along fine. [facility] Medical History Insomnia TIA (transient ischemic attack) Piriformis syndrome of left side Piriformis syndrome of right side Low back pain potentially associated with radiculopathy Long-term use of immunosuppressant medication Obesity (BMI 30-39.9) Pure hypercholesterolemia GERD without esophagitis Vitamin D deficiency Rheumatoid arthritis Surgical History Hx of appendectomy Family History Paternal Grandfather Heart problem Father Heart problem HTN (hypertension) Mother Heart problem HTN (hypertension) Paternal Grandmother Breast cancer Maternal Grandfather Pancreatic cancer Other Arthritis Social History Housing: Apartment Alcohol intake: never Patient Tobacco Use Status: Never used Tobacco e-Cigarette/Vaping Use: Never Used service: No Current occupational status: employed Current occupational exposures/hazards: No Cognitive needs: No Hearing needs: No Vision needs: Yes (glasses) Female Reproductive History Menstrual Age of Menarche: 15 Review of Systems Const Denies chills, Denies fatigue, Denies fever(s), Denies frequent falls, Denies weakness, Denies weight gain and Denies weight loss ENT Denies dizziness Card Denies chest pain, Denies leg edema, Denies lightheadedness, Denies palpitations, Denies dyspnea and Denies dyspnea on exertion Resp Denies cough, Denies dyspnea and Denies dyspnea on exertion GI Denies hematochezia Musc Denies abnormal gait, Denies muscle weakness, Denies numbness, Denies radiating pain into limb and Denies tingling Neuro Denies abnormal gait, Denies dizziness, Denies frequent falls, Denies numbness, Denies tingling and Denies weakness Endo Denies fatigue and Denies palpitations Physical Exam Vital Signs: Last Vital Signs Pulse 68 07/28/24 08:57 BP 120/62 07/28/24 08:57 BMI result Body Mass Index 30.9 Const General: comfortable and no acute distress Orientation/consciousness: patient oriented x3 HEENT Other: Unremarkable Head: Yes normal to inspection Neck Neck: Yes normal visual inspection Chest Chest palpation & inspection: normal inspection of the chest Resp Auscultation: clear to auscultation bilaterally Cardio Palpation: normal PMI Heart sounds: S1 normal heart sound present, S2 normal heart sound present, no gallops, no murmurs and no rubs GI Palpation (GI): Soft to palpation Back/Spine/Pelvis Other: unremarkable Skin General skin exam: no rashes or lesions noted Neuro General: patient oriented x3 Extrem General: Yes normal to inspection Psych Mental Status: mental status grossly normal Office Procedures EKG Details: EKG with underlying sinus rhythm at 68/Min; no significant ST-T changes and otherwise unremarkable. [place]. [id number], Complete Assessment & Plan Assessment & Plan (1) TIA (transient ischemic attack): Code(s): G45.9 - Transient cerebral ischemic attack, unspecified Category: Medical (2) Morbid obesity: Code(s): E66.01 - Morbid (severe) obesity due to excess calories Category: Medical (3) Atherosclerotic cardiovascular disease: Code(s): I25.10 - Atherosclerotic heart disease of [place] coronary artery without angina pectoris Category: Medical Plan Pertinent studies reviewed. In the head and neck CTA, no significant stenosis. Mild atherosclerotic wall calcifications on the right side. In the echocardiogram, LVEF 60-65%. There was concern of basal inferior hypokinesis- could be technical finding. In the exercise stress echocardiogram, reached 7 METS exercise capacity, 107% of max predicted heart rate and EKG part was negative. No symptoms. Echocardiographic component was of suboptimal quality. In the coronary CTA, mild LAD atherosclerosis, but nothing in the circumflex or RCA. Holter monitor shows underlying sinus rhythm but no evidence of any atrial fibrillation. Overall, can treat for stable mild vascular disease. She is already losing lot of weight and that is going to be very beneficial in improving the overall health. Remains on aspirin/statins. She will call us with ongoing concerns. Coding Level of Care Code Est Pt Level 3 (48707) Diagnoses TIA (transient ischemic attack) G45.9 Morbid obesity E66.01 Atherosclerotic cardiovascular disease I25.10 CPT Codes EKG - CPT: 36806-[id number], Complete ([id number])
== END 2024-07-28 09:15 | disposition home or self-care (01) ==
PROVIDERS: PCP Internal Medicine; Visit Provider Internal Medicine
DX: G45.9 Transient cerebral ischemic attack, unspecified (principal); E66.01 Morbid (severe) obesity due to excess calories; I25.10 Atherosclerotic heart disease of native coronary artery without angina pectoris
CPT/HCPCS: 93010; 99213

== ENCOUNTER 2024-07-28 09:31 | Outpatient (REF) | payer MEDICARE, SELFPAY ==
--- NOTE | ~2024-07-28 | US_ITS ---
EXAMINATION: US RETROPERITONEAL COMPLETE (RENAL) CLINICAL INFORMATION: Nocturia. COMPARISON: Ultrasound abdomen 05/02/2022. CT abdomen 04/17/2022. TECHNIQUE: Real-time imaging of the kidneys and bladder. FINDINGS: RIGHT KIDNEY: 10.7 x 3.8 x 5.2 cm (SAG x AP x TRV). The kidney is normal in size, contour, and echogenicity. Renal cortical thickness is normal. No calculi or focal parenchymal lesions. No hydronephrosis. LEFT KIDNEY: 11.0 x 4.7 x 4.8 cm (SAG x AP x TRV). The kidney is normal in size, contour, and echogenicity. Renal cortical thickness is normal. No calculi or focal parenchymal lesions. No hydronephrosis. BLADDER: Well distended and normal. Bilateral ureteral jets are demonstrated. Prevoid bladder volume is 187 mL. Postvoid bladder volume is 6 mL. US/US retroperitoneal comp IMPRESSION: Normal exam. Electronically signed by: Micah Logan MD 09/23/2024 04:15 PM DILCIA
== END 2024-07-28 09:32 | disposition home or self-care (01) ==
LOC: HO.US 09:31
PROVIDERS: PCP Internal Medicine; Visit Provider Nurse Practitioner Family
DX: R35.1 Nocturia (principal); R06.83 Snoring; R53.83 Other fatigue; G47.33 Obstructive sleep apnea (adult) (pediatric)
CPT/HCPCS: 76770; 93005; 95806; 99212

== ENCOUNTER → 2024-07-28 09:46 | Outpatient (BNV) | payer MEDICARE, SELFPAY | PROVIDERS: PCP Internal Medicine; Visit Provider Internal Medicine | DX: G47.33 Obstructive sleep apnea (adult) (pediatric) (principal) | CPT/HCPCS: 95806 ==

== ENCOUNTER 2024-07-29 09:14 | Outpatient (REF) | payer MEDICARE, SELFPAY ==
[2024-07-29 09:42] LABS: MANUAL DIFF FLAG NO
[2024-07-29 10:41] LABS: Basophils Percent Auto 0.7 % (0-2); Eosinophils Absolute Auto 0.1 X10*3/uL (0.0-0.4); Eosinophils Percent Auto 1.7 % (0-4); Hematocrit 37.5 % (37.0-47.0); Hemoglobin 12.3 g/dl (12.0-16.0); Imm Gran Abs Auto 0.01 X10*3/uL (0.00-0.03); Imm Gran Pct Auto 0.2 % (0.0-0.4); Lymphocytes Absolute Auto 1.2 X10*3/uL (1.2-4.9); Lymphocytes Percent Auto 28.7 % (20-40); Mean Corpuscular HGB Conc 32.8 g/dl (31.0-35.0); Mean Corpuscular Hemoglobin 32.2 pg (27.0-33.0); Mean Corpuscular Volume 98.2 fL (80.0-98.0); Mean Platelet Volume 9.8 fL (9.4-12.3); Monocytes Absolute Auto 0.4 X10*3/uL (0.1-1.2); Monocytes Percent Auto 9.5 % (2-11); Neutrophils Absolute Auto 2.5 x10*3/uL (2.0-8.3); Neutrophils Percent Auto 59.2 % (45-73); Platelet Count 220 X10*3/uL (160-400); Red Blood Count 3.82 X10*6/uL (4.20-5.50); Red Cell Distribution Width 12.7 % (11.0-16.0); White Blood Count 4.2 X10*3/uL (4.8-10.8)
[2024-07-29 11:18] LABS: Alanine Aminotransferase 27 U/L (0-31); Albumin Level 4.2 g/dL (3.5-5.0); Anion Gap 13 (12-20); Aspartate Amino Transferase 27 U/L (5-31); Bilirubin Total 0.6 mg/dL (0.0-1.0); Blood Urea Nitrogen 9 mg/dL (9-16); C Reactive Protein < 0.10 mg/dL (< or = 0.50); Calcium 9.7 mg/dL (8.4-10.2); Carbon Dioxide 27 mmol/L (22-29); Chloride 105 mmol/L (96-108); Estimated Glomerular Filt Rate > 60; Glucose Random 101 mg/dL (60-115); Potassium 4.3 mmol/L (3.3-5.1); Sodium 141 mmol/L (135-145); Total Protein 6.8 g/dL (6.5-8.0)
[2024-07-29 11:19] LABS: Erythrocyte Sedimentation Rate 7 MM/HR (0-20)
[2024-07-29 12:03] LABS: Alkaline Phosphatase 80 U/L (39-117)
== END 2024-07-29 09:15 | disposition home or self-care (01) ==
LOC: HO.LAB 09:14
PROVIDERS: Nurse Practitioner Family; PCP Internal Medicine; Visit Provider Internal Medicine
DX: M05.9 Rheumatoid arthritis with rheumatoid factor, unspecified (principal); Z79.60 Long term (current) use of unspecified immunomodulators and immunosuppressants
CPT/HCPCS: 36415; 80053; 85025; 85652; 86140

== ENCOUNTER 2024-08-24 10:45 | Outpatient (AMB) | payer MEDICARE, SELFPAY ==
--- NOTE | 2024-08-24 10:50 | A.OFFVIS_ITS ---
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 Rueda. She has a past medical history of insomnia, TIA, obesity, hypercholesteremia, GERD, vitamin-D deficiency, and rheumatoid arthritis on long-term immunosuppressants. She presents to the office today for follow-up. Of note, patient was seen approximately 3 months ago as a new patient for nocturia at which time a retroperitoneal ultrasound was ordered for further assessment evaluation and a sleep study as patient had been reporting signs and symptoms of sleep apnea. Both of these results were reviewed with the patient today. Sleep study notes recommendation for mild obstructive sleep apnea that can be treated with conservative measures including position therapy, avoiding sleeping in a supine position, and weight reduction. She does report feeling symptoms are somewhat improving as she has been intentionally losing weight as she is on Semaglutide. She also reports feeling she has difficulty sleeping and staying asleep and feels this contributes to her episodes of nocturia. She discusses the loss of her significant other of 40 years in January of this year. Retroperitoneal ultrasound notes................ She otherwise denies urinary urgency, urinary frequency, incontinence, hematuria, dysuria, foul smelling urine, changes to urinary stream, flank pain, fever, and or chills. In office urinalysis results reviewed with the patient today. We discussed bilirubinemia however patient states this is related to her rheumatological medications. In review of patient's chart it appears: Total bilirubin: 03/07 0.4, 08/07 0.6 AST: 03/07 25, 08/07 27 ALT: 03/07 PVR 0 mL . We discussed at length potential causes of nocturia. She otherwise offers no other issues or concerns at this time. FORMERLY [facility], 1928–1983 Medical History Insomnia TIA (transient ischemic attack) Piriformis syndrome of left side Piriformis syndrome of right side Low back pain potentially associated with radiculopathy Long-term use of immunosuppressant medication Obesity (BMI 30-39.9) Pure hypercholesterolemia GERD without esophagitis Vitamin D deficiency Rheumatoid arthritis Surgical History Hx of appendectomy Family History Paternal Grandfather Heart problem Father Heart problem HTN (hypertension) Mother Heart problem HTN (hypertension) Paternal Grandmother Breast cancer Maternal Grandfather Pancreatic cancer Other Arthritis Social History Housing: Apartment Alcohol intake: never Patient Tobacco Use Status: Never used Tobacco e-Cigarette/Vaping Use: Never Used service: No Current occupational status: employed Current occupational exposures/hazards: No Cognitive needs: No Hearing needs: No Vision needs: Yes (glasses) Female Reproductive History Menstrual Age of Menarche: 15 Review of Systems Const All systems reviewed & are unremarkable except as noted in HPI and below Physical Exam Const General: cooperative, healthy appearing, comfortable, no acute distress, well developed, alert and awake Nutritional Appearance: overweight Orientation/consciousness: patient oriented x3 Limitations: no limitations HEENT Head: Yes normal to inspection, Yes normocephalic and Yes atraumatic Ears: hearing grossly normal bilaterally Eyes General: appearance normal, both eyes and all related structures Neck Neck: Yes normal visual inspection and Yes trachea midline Chest Chest palpation & inspection: normal inspection of the chest Resp Effort & Inspection: normal respiratory effort and able to speak in complete sentences Cardio Rate: regular rate GI Inspection: Yes normal to inspection General: Yes no CVA tenderness Back/Spine/Pelvis Back: no CVA tenderness Skin General skin exam: no rashes or lesions noted Neuro General: patient oriented x3 Extrem General: Yes normal to inspection Psych Appearance: grossly normal and well kempt Mental Status: mental status grossly normal Speech and movement: Normal speech and movement present and Clear speech present Affect: normal affect Attitude: cooperative Thought process: Normal thought process present Thought content: Normal thought content present Insight: Fair insight present (Psych) Judgement: Fair judgement present (Psych) Office Procedures Post Void Residual Post Residual Void Post Void Residual (PVR): 0 [id number] Void Residual by ultrasound Results AMB Urinalysis, Automated UA Leukoctes 70 Gonzalo/uL Last Edit by [employer] on 08/24/24 11:16 UA Nitrite Last Edit by [employer] on 08/24/24 11:16 UA Urobilinogen 0.2 mg/dL Last Edit by [employer] on 08/24/24 11:16 UA Protein 30 mg/dL Last Edit by [employer] on 08/24/24 11:16 UA pH 6.0 Last Edit by [employer] on 08/24/24 11:16 UA Blood 0 Carlos/uL Last Edit by [employer] on 08/24/24 11:16 UA Specific [place] 1.030 Last Edit by [employer] on 08/24/24 11:16 UA Ketone Positive Last Edit by [employer] on 08/24/24 11:16 UA Bilirubin 2 mg/dL Last Edit by [employer] on 08/24/24 11:16 UA Glucose 0 mg/dL Last Edit by [employer] on 08/24/24 11:16 Results Reviewed Results Reviewed: Laboratory Last Values Urine pH (Auto) 6.0 08/24/24 10:53 Specific [place] (Auto) 1.030 08/24/24 10:53 Urine Protein (Auto) 30 mg/dL 08/24/24 10:53 Glucose (UA)(Auto) 0 mg/dL 08/24/24 10:53 Urine Ketones (Auto) Positive 08/24/24 10:53 Urine Blood (Auto) 0 Carlos/uL 08/24/24 10:53 Urine Bilirubin (Auto) 2 mg/dL 08/24/24 10:53 Urine Urobilinogen (Auto) 0.2 mg/dL 08/24/24 10:53 Leukocyte Esterase (Auto) 70 Gonzalo/uL 08/24/24 10:53 Assessment & Plan Assessment & Plan (1) Anxiety: Code(s): F41.9 - Anxiety disorder, unspecified Category: Medical (2) Nocturia: Code(s): R35.1 - Nocturia Category: Medical Plan In office urinalysis results reviewed with the patient today; as noted above. Recent sleep study results reviewed with the patient today; as noted above. Recent retroperitoneal ultrasound results reviewed with the patient today; as noted above. Will continue with surveillance monitoring as patient feels she is self managing symptoms. We discussed further treatment options and risks and benefits of these treatment options. Will refer to counseling for further assessment evaluation. She currently denies any bothersome urinary issues. She reports be happy with current voiding parameters. We discussed bladder triggers/irritants. We discussed importance of limiting fluids 2-3 hours prior to bed to decrease episodes of nocturia. Follow-up in 3-6 months with PVR; or sooner with any issues, concerns, and or questions. Orders: Orders AMB Post Void Residual by ultrasound Today R35.1 - Nocturia AMB Urinalysis Automated Today Z13.9 - Encounter for screening, unspecified Referrals Counseling Referral F41.9 - Anxiety disorder, unspecified Patient Instructions: The patient had an opportunity to ask questions regarding the treatment plan. All questions were answered. Physical exam, labs, and imaging were discussed and reviewed in detail. As well as risks, benefits, and discussion of treatment choices. No major barriers to understanding were identified. The patient expressed understanding and agreement with the above treatment plan. The patient was made aware they should contact our office by phone for worsening of their current condition, the appearance of new symptoms, or with any questions or concerns. Compliance is encouraged with any medications and follow up testing that is ordered. It is a privilege to be allowed the opportunity to participate in? your urological care.? Again, if you have any questions or concerns If you have any questions or concerns please do not hesitate to contact me. The office is [phone]. This note is constructed using voice recognition software. While every effort has been made to ensure accuracy labor trainer errors may have been included. Yours sincerely, LAWRENCE Cox-FRACISCO Coding Level of Care Code Est Pt Level 3 (79520) Diagnoses Anxiety F41.9 Nocturia R35.1 CPT Codes Post Residual Void - PVR CPT Code: 93853-Fhpm Void Residual by ultrasound ([id number])
--- OUTSIDE RECORDS SUMMARY | 2024-08-25 01:02 | XMS_ITS | Continuity of Care Document ---
Author Organization [facility] ter Address [address] [place] [id number]- Care Team Providers Care Senior Asp Net Developer Name Role Phone Mohit HUNG, Levon Workman Primary Care Physician [place]counter [facility] [place] 08/05/24 - 08/06/[address] [address]- Discharge Disposition: A-D/C Home Attending Physician: Malena Sotomayor MD Admitting Physician: Malnea Sotomayor MD Referring Physician: Not on Staff, Referring MD Encounter Type: Disch ES Allergies, Adverse Reactions, Alerts No Known Allergies Immunizations Given and Recorded Vaccine Date Status Refusal Reason Zostavax (oldterm) 1 01/14/18 Given tetanus/diphtheria/pertussis, acel(Tdap) 2 10/27/12 Given influenza virus vaccine, inactivated 3 07/30/10 Gi augusto Influenza Virus Vaccine (oldterm) 4 07/27/07 Given diphtheria-tetanus toxoids (DT) 01/17/03 Given 1Admin Note: Declined 2Admin Note: Declined 3Admin Note: declined 4Admin Note: Declined Medications aspirin 81 mg oral delayed release tablet 81 mg, By Mouth, Daily, Refills 0, Maintenance, 08/30/20 2:59:00 PM EST, Partial fill upon patient request if the prescription is for a schedule II opioid drug. Start Date: 08/30/20 Status: Ordered Repeat number: 1 atorvastatin 40 mg oral tablet 1 tablet = 40 mg, By Mouth, Daily, # 30 tablet, 5 Refills, Maintenance, 7/28/22 2:02:00 PM EDT, Tablet, Partial fill upon patient request if the prescription is for a schedule II opioid drug. Start Date: 04/10/22 Status: Ordered Quantity: 30.0 Unit: tablet Repeat number: 1 Azulfidine 500 mg oral tablet 2 tablet = 1,000 mg, By Mouth, 2 times a day, # 120 tablet, 0 Refills, Maintenance, 10/28/13 11:27:18 AM EST, Tablet Start Date: 10/28/13 Stop Date: 11/27/13 Status: Ordered Quantity: 120.0 Unit: tablet Repeat number: 1 cyclobenzaprine 5 mg oral tablet 1 tablet = 5 mg, By Mouth, 3 times a day, for 3 days, # 10 tablet, 0 Refills, Acute 08/09/24 12:35:00 AM EST, 08/06/24 12:35:00 AM EST, Tablet, [id number], Partial fill upon patient request if the prescription is for a schedule II opioid drug., 160, cm, 08/05/24 22:38:00 EST, Height, 75, kg, 08/05/24 22:38:00 EST, Dry Weight Start Date: 08/06/24 Stop Date: 08/09/24 Status: Ordered Quantity: 10.0 Unit: tablet Repeat number: 1 folic acid 1 mg oral tablet 1 mg, 1, tablet, By Mouth, Daily, # 30 tablet, Refills 0, Tot. Refills 0, Maintenance, 06/09/16 11:34:12 AM EDT, Do Not Route Start Date: 06/09/16 Stop Date: 07/09/16 Status: Ordered Quantity: 30.0 Unit: tablet Repeat number: 1 HydrOXYzine = 20 mg, By Mouth, Daily at bedtime, 0 Refills, Maintenance, 07/17/21 6:50:00 PM EDT, Partial fill upon patient request if the prescription is for a schedule II opioid drug. Start Date: 07/17/21 Status: Ordered Repeat number: 1 omeprazole 20 mg oral delayed release tablet 1 tablet = 20 mg, By Mouth, Daily, # 30 tablet, 0 Refills, Maintenance, 08/06/24 12:27:00 AM EST, CR Tablet, [facility] #[id number], Partial fill upon patient request if the prescription is for a schedule II opioid drug., 160, cm, 08/05/24 22:38:00 EST, Height, 75, kg, 08/05/24 22:38:00 EST, Dry Weight Start Date: 08/06/24 Status: Ordered Quantity: 30.0 Unit: tablet Repeat number: 1 pantoprazole 40 mg oral delayed release tablet TAKE ONE TABLET TWICE DAILY Start Date: 04/10/22 Status: Ordered Repeat number: 1 Vitamin D3 1000 intl units oral tablet 1 tablet = 1,000 International_Units, By Mouth, Daily, # 30 tablet, 0 Refills, Maintenance, 08/29/20 3:51:00 PM EST, Tablet, Partial fill upon patient request if the prescription is for a schedule IIopioid drug. Start Date: 08/29/20 Status: Ordered Quantity: 30.0 Unit: tablet Repeat number: 1 Problem List Condition Confirmation Course Effective Dates Status Health St at Informant Anxiety disorder Confirmed Active Dyspepsia Confirmed Active Hiatal hernia Confirmed Active Class 1 obesity with body mass index (BMI) of 31.0 to 31.9 in adult Confirmed Active Osteopenia Confirmed Active RLS (restless legs syndrome) Confirmed Active Rheumatoid arthritis Confirmed Active Esophageal stenosis 1 Confirmed Active Synovitis/tenosyno vitis - wrist Confirmed Active 1Per upper Endos, 12/31, Dr. Squires, dilated. Results Radiology Reports * Exam Date Time Procedure Performing Provider Status 08/05/24 10:32 PM Chest 2 Views Frontal and Lat Chirag Herron; Auth (Verified) Notes: (Chest 2 Views Frontal and Lat) Reason For Exam: Cough RESULT: Chest 2 Views Frontal and Lat Chest 2 Views Frontal and Lat INDICATION: Epigastric pain, bilateral leg cramping nausea and poor appetitie, pt also reports having diiffculty sleeping; Reason: Cough; Clinical Question(s): Pneumonia COMPARISON: Multiple priors, most recent 07/17/2021. FINDINGS: LINES AND TUBES: None. LUNGS AND PLEURA: Clear lungs. Normal pulmonary vascularity. No pleural effusion. No pneumothorax. HEART, MEDIASTINUM AND FRAN: Heart is normal in size. Normal mediastinal and hilar contour. BONES AND SOFT TISSUES: No acute abnormality. Partially imaged excreted IV contrast within the renal collecting systems from recent imaging study. IMPRESSION: No evidence of acute abnormality. I have personally reviewed the images and I agree with this report. WSN: [id number] Ordering Physician: Malena Sotomayor Dictated By: Cuate Earl MD Dictated Date/Time: 08/06/24 8:19 am Reviewed By: Seth Luke MD Signed By: Seth Luke MD Signed Date/Time: 08/06/24 8:24 am Transcribed By: SANDRA Transcribed Date/Time: 08/06/24 8:15 am * Exam Date Time Procedure Performing Provider Status 08/05/24 10:[address] Abd/Pelvis W/ IV Contrast Only Colon , Janet; Auth (Verified) Notes: (CT Abd/Pelvis W/ IV Contrast Only) Reason For Exam: Pain RESULT: CT Abd/Pelvis W/ IV Contrast Only CT Abd/Pelvis W/ IV Contrast Only Hx of Present Illness: pt with multiple complaints epigastric pain, bilateral leg cramping nausea and poor appetite, pt also reports having difficulty sleeping no cardiac hx, on semiglutide; Reason: Pain; Clinical Question(s): Obstruction TECHNIQUE: Spiral CT through the abdomen and pelvis with IV contrast formatted in 3 planes. 100 cc of Isovue 300 was administered intravenously. This study was performed without oral contrast. Weight-based protocol using automatic tube modulation was used to optimize exposure parameters. CTDIvol Body: 17.00 mGy, DLP Body: 862 mGy*cm. COMPARISON: 03/30/2022. FINDINGS: Reclamation Supervisor View Findings, Lines and Tubes: None. Visualized Chest: Lung bases are clear. No pleural effusion. The heart is normal in size. No pericardial effusion. Diaphragm: Normal. Liver: Diffuse low-attenuation throughout the liver parenchyma consistent with hepatic steatosis. No evidence of mass. Gallbladder: No CT evidence of gallbladder pathology. Bile ducts: No biliary ductal dilation. Spleen: Normal. Pancreas: Normal. Adrenal glands: Unchanged hypodense nodule in the right adrenal gland measuring 1.9 cm, likely an adenoma. Normal left adrenal gland. Kidneys and ureters: No hydronephrosis, stones, or suspicious masses. Small hypodensities that are too small to characterize are noted, requiring no dedicated follow up. Bladder: Normal. Reproductive organs: Unremarkable. Stomach, small bowel, and large bowel: No evidence of obstruction or inflammation. Appendix: Not seen, likely surgically absent. Peritoneum and retroperitoneum: No ascites or pneumoperitoneum. No omental or mesenteric lesions. Lymph nodes: No enlarged lymph nodes. Blood vessels: Mild vascular calcifications but no aneurysm. No evidence of venous thrombosis. Abdominal and pelvic wall: Small fat-containing umbilical hernia. Bones: No acute abnormality. IMPRESSION: No acute process. I have personally reviewed the images and I agree with this report. WSN: [id number] Ordering Physician: Malena Sotomayor Dictated By: Melissa Macario DO Dictated Date/Time: 08/05/24 11:29 p Reviewed By: Grady Wilkerson MD Signed By: Grady Wilkerson MD Signed Date/Time: 08/05/24 11:34 pm Transcribed By: SANDRA Transcribed Date/Time: 08/05/24 11:04 pm Vital Signs Most recent to oldest [Reference Range]: 1 2 3 Height 160 cm (08/05/24 10:38 PM) 160 cm (08/05/24 6:55 PM) 160 cm (08/05/24 5:36 PM) Weight 75 kg (08/05/24 10:38 PM) 75 kg (08/05/24 6:55 PM) Oxygen Saturation [94-100 %] 100 % (08/05/24 10:38 PM) 99 % (08/05/24 5:36 PM) 100 % (08/05/24 5:30 PM) Pulse Rate [55-90 bpm] 76 bpm (08/05/24 10:38 PM) 74 bpm (08/05/24 5:36 PM) 86 bpm (08/05/24 5:30 PM) Body Mass Index [18.5-24.99 kg/m2] 29.3 kg/m2 *H* (08/05/24 10:38 PM) Blood Pressure [90-138/55-84 mm Hg] 121/76mm Hg (08/05/24 10:38 PM) 135/71mm Hg (08/05/24 5:36 PM) Respiratory Rate [16-30 br/min] 18 br/min (08/05/24 10:38 PM) 20 br/min (08/05/24 5:36 PM) Temperature [96.8-100.4 DegF] 97.4 DegF (08/05/24 10:38 PM) 97.9 DegF (08/05/24 5:36 PM) Mode of Delivery (Oxygen) Room air (08/05/24 10:38 PM) Room air (08/05/24 5:36 PM) Room air (08/05/24 5:30 PM) Blood pressure sites Arm, left (08/05/24 5:36 PM) Temperature Route Oral (08/05/24 10:38 PM) Oral (08/05/24 5:36 PM) Dry Weight 75 kg (08/05/24 10:38 PM) 75 kg (08/05/24 6:55 PM) 75 kg (08/05/24 5:36 PM) Dry Weight Obtained Via Patient/family s tated (08/05/24 5:36 PM) Social History Social History Type Response Smoking Status Former smoker entered on: 07/10/17 Sex Sex Representation Female (finding) EKG study * Event Display: EKG Authored Date: * Event Display: ECG 12-Lead Authored Date: Please click on pdf link to open report * Event Display: ECG 12-Lead Authored Date: Ventricular Rate: 67 BPM Atrial Rate: 67 BPM P-R Interval: 136 ms QRS Duration: 70 ms Q-T Interval: 404 ms QTC Calculation(Bazett): 426 ms P Marydel: 44 degrees R Marydel: 18 degrees T Marydel: 46 degrees Normal sinus rhythm Low voltage QRS Borderline ECG When compared with ECG of 17-Jul-2021 18:56, No significant change was found Confirmed by VENITA MCCRARY MD ([id number]) on 08/06/2024 8:50:16 AM Trezevant: VENITA MCCRARY MD Note * Malena Sotomayor MD: PERFORM, SIGN, VERIFY Event Display: Patient Education Handout Authored Date: [id number] * Malena Sotomayor MD: PERFORM Event Display: Patient Education Leaflets Authored Date: [id number] Leg Cramps ?? [id number] Leg Cramps A muscle cramp or spasm is a strong, involuntary contraction of the muscle fibers. It occurs suddenly. It's also called a charley horse. This may occur in the foot, calf, or thigh at night when the legs are elevated. Muscle cramps can occur after exercise. If the spasm is prolonged, it can become very painful. This may be caused by sleeping in an uncomfortable position, muscle fatigue, poor muscle tone from lack of exercise and stretching, dehydration, electrolyte imbalance, diabetes, alcohol use, and certain medicine. Home care ??? Drink plenty of fluids during the day to prevent dehydration. ??? Stretch your legs before bedtime. ??? Eat a diet high in potassium. These foods include fresh fruit, such as bananas, oranges, cantaloupe, and honeydew melon. It also includes apple, prune, orange, grape and pineapple juices. Other foods high in potassium are white, red, and solano beans, baked potatoes, raw spinach, cod, flounder, halibut, salmon, and scallops. ??? Talk with your healthcare provider about taking mineral and vitamin supplements that contain magnesium and vitamin B-12 if you are not already taking these. Other prescription medicines may also be used. ??? Stay away from stimulants such as caffeine, nicotine,and decongestants. How to relieve an acute leg cramp ??? For mild pain, getting out of the bed and walking may help. Some people find relief with heat and massage. You can apply heat with a warm shower, bath, or compress. Some people feel better with a cold packs. You can make an ice pack by filling a plastic bag that seals at the top with ice cubes and then wrapping it with a thin towel. Try both and use the method that feels best for 15 to 20 minutes at a time. ??? For severe pain, stretching the muscle that isin spasm may quickly relieve the pain. ??? When the spasm is in your foot, your toes may curl up ordown. To stretch the muscle in spasm, bend your toes in the opposite direction. If the spasm pulls your toes up, bend them down. If the spasm pulls them down, bend them up. ??? When the spasm is in your calf, bend the ankle so the foot points upward toward your knee. ??? When the spasm is in your thigh, bend or straighten the knee and hip until you feel relief. ?? Follow-up care Follow up with your healthcare provider, or as advised. ?? When to get medical advice Call your healthcare provider right away if any of these occur: ??? Walking makes your pain worse and rest makes it better ??? You develop weakness in the affected leg ??? Pain or frequency of spasmsincreases and is not controlled by the above measures ?? Last Reviewed Date: 2021 ?? [id number] The [employer]. All rights reserved. This information is not intended as a substitute for professional medical care. Always follow your healthcare professional's instructions. ?? * Bran HUNG, Malena Lopez: PERFORM Event Display: Patient Education Leaflets Authored Date: [id number] Myalgias ?? [id number] Myalgias Myalgias are another word for??muscle aches and soreness.??This is a symptom, not a disease.??Myalgias can have many causes.??A cold, the flu,??fever, or any infection can cause them.??They may happen after heavy exercise or injury, such as an accident or fall.??Some medicines such as statins, someantidepressants, and cancer treatments can cause myalgias.??They can also be a symptom of long-term(chronic) health problems such as cancer, lupus,??chronic fatigue, rheumatoid arthritis, or hypothyroidism. With these illnesses, other serious symptoms often occur with muscle pain and soreness. Myalgias most often go away on their own. If they don't go away, or they come back or are severe, you may need tests to help find the cause. Home care ??? Rest until you feel better. ??? Follow instructions that you were given for how to care for yourself. This may depend on the cause of your myalgias. ??? If myalgia is thought to be caused by a medicine, talk with the healthcare provider who prescribed the medicine about what to do. ??? To control pain, take prescription or ewcy-dtl-[id number] medicines as directed. Unless told not to,??you can try acetaminophen or ibuprofen. ?? Follow-up care Follow up with your healthcare provider or as advised. If your symptoms don't go away in a few daysor if they come back, follow up with your provider for an exam and testing. ?? When to get medical advice Call your healthcare provider right away if you have any of these: ??? Fever of??100.4??F (38??C)??or higher, or as advised by your provider ??? Pain that gets worse, or pain that goes away and comesback ??? New joint pain ??? New rash ??? Severe headache, neck pain, drowsiness, or confusion ?? Last Reviewed Date: 2022 ?? [employer]. All rights reserved. This information is not intended as a substitute for professional medical care. Always follow your healthcare professional's instructions. ?? * Bran HUNG, Malena Lopez: PERFORM Event Display: Patient Education Leaflets Authored Date: [id number] Gastritis or Ulcer, No Antibiotic Treatment ?? [id number] Gastritis or Ulcer, No Antibiotic Treatment Gastritis??is irritation and inflammation of the stomach lining. This means the lining is red and swollen. It can cause shallow sores in the stomach lining called erosions. An??ulcer??is a deeper sore in the lining of the stomach. It may also occur in the first part of the small intestine (duodenum).?? The causes and symptoms of gastritis and ulcers are very similar. Causes and risk factors for both problems can include: ??? Long-term use of nonsteroidal anti-inflammatory drugs (NSAIDs), such as aspirin and ibuprofen ??? H. pylori??bacteria infection ??? Tobacco use ??? Alcohol use ??? Certain other conditions, such as immune disorders, certain medicines such as high-dose iron supplements, and street drugs, such ascocaine Symptoms for both problems can include: ??? Dull or burning pain in the upper part of the belly ??? Loss of appetite ??? Heartburn or upsetstomach ??? Frequent burping ??? Bloated feeling ??? Nausea with or without vomiting You likely had an assessment to help find the exact cause and extent of your problem. This may haveincluded a health history, exam, and certain tests. Results showed that your problem is not from ??H. pylori??infection you may not need antibiotics aspart of your treatment. Whether your problem is gastritis or an ulcer, you will still need to take other medicines. You will also need to follow instructions to help reduce stomach irritation so your stomach can heal.??Yourhealthcare provider may advise you to quit smoking and to stop drinking alcohol If certain medicineshealthcare provider Home care ??? Take any medicines you???re prescribed exactly as directed. Common medicines used to treat gastritis include: o Antacids.??These help neutralize the normal acids in your stomach. o o H2??blockers. These reduce the amount of acid your stomach makes. o Proton pump inhibitors.??These decrease your stomach acid more effectively than H2 blockers. o Bismuth subsalicylate.??This helps protect the lining of your stomach from acid. ??? Don't take any NSAIDs during your treatment. If you take NSAID to help treat other health problems, tell your healthcare provider. They may need to adjustyour medicine plan or change the dosage. ??? Don???t use tobacco and don???t drink alcohol. These products can increase the amount of acid your stomach makes. This can delay healing. It can also makesymptoms worse. ??? Consume plenty of fruits and vegetables and other sources of dietary fiber. ?? Follow-up care Follow up with your healthcare provider, or as advised. In some cases, you may need more tests. ?? When to get medical advice Call your healthcare provider right away if any of these occur: ??? Fever of 100.4??F (38??C) or higher, or as directed by your healthcare??provider ??? Stomach pain that gets worse or moves to the lower right part of belly or towards the back ??? Extreme tiredness (fatigue) ??? Weakness or dizziness ??? Continued weight loss ??? Frequent vomiting,??blood in your vomit, or coffee ground like substance in your vomit ??? Black, tarry, or bloody stools ??? Symptoms get worse or you have new symptoms ?? Call 911 Call 911??if any of these occur: ??? Chest pain appears or gets worse, or spreads to the back, neck, shoulder, or arm ??? Unusually fast heart rate ??? Trouble breathing or swallowing ??? Confusion ??? Extreme drowsiness or trouble waking up ??? Fainting ??? Large amounts of blood present in vomit or stool ?? Last Reviewed Date: 2024 ?? [id number] The [employer]. All rights reserved. This information is not intended as a substitute for professional medical care. Always follow your healthcare professional's instructions. ?? Patient Care team information Care Team Personnel Name: Levon Rueda MD Position: Reference Physician Member Role: PCP Address: [address] [place] [address] [place] [id number] Telecom: Name: Mando Interiano RN Position: S RN Member Role: Primary Care Nurse Name: Víctor Mercado RN Position: S RN Member Role: Primary Care Nurse Care Team Related Persons Name: INDER BENITEZ Name: CORNELIUS TUCKER Name: CORNELIUS TUCKER Name: ALVA TO Insurance Providers Guarantor name: NILESH BENITEZ Health Plan Information #: 1 Payer: [employer] PPO [employer] Member Number: [id number] Policy Number: NA Group Number: [id number] Health Plan Information #: 2 Payer: [employer] PPO [employer] Member Number: [id number] Policy Number: NA Group Number: NA
== END 2024-08-24 11:40 | disposition home or self-care (01) ==
PROVIDERS: PCP Internal Medicine; Visit Provider Nurse Practitioner Family
DX: Z13.9 Encounter for screening, unspecified (principal)

== ENCOUNTER → 2024-08-24 10:45 | Outpatient (BNVA) | payer MEDICARE, SELFPAY | PROVIDERS: PCP Internal Medicine; Visit Provider Nurse Practitioner Family | DX: R35.1 Nocturia (principal); F41.9 Anxiety disorder, unspecified | CPT/HCPCS: 51798; 81003; 99212 ==

== ENCOUNTER 2024-09-19 13:14 | Outpatient (AMB) | payer MEDICARE, SELFPAY ==
[2024-09-19 13:22] VITALS: BP 120/64; PULSE 79; O2SAT 94; BMI 28.4
--- NOTE | 2024-09-19 13:22 | A.OFFPC_ITS ---
Vital Signs 09/19/24 13:22 Height 5 ft 2 in Weight 155 lb 4 oz BMI 28.4 BP 120/64 Blood Pressure Location Lt brachial Position Sitting Pulse 79 Pulse Source Pulse Oximeter Pulse Oximetry (%) 94 Oxygen Delivery Method Room Air Intake Visit Reasons: [facility] Director Risk Required: No Accompanied by: Self / Same As Patient Allergies No Known Allergies Allergy (Verified 09/19/24 13:57) Medication List - Last Reconciled 09/19/24 by Levon Rueda MD aspirin 81 mg PO DAILY atorvastatin 40 mg PO DAILY 90 days cholecalciferol (vitamin D3) 25 mcg PO DAILY 90 days folic acid 1 mg PO DAILY hydroxyzine HCl 50 mg (2 x 25 mg) PO BEDTIME PRN pantoprazole 40 mg PO QAM 90 days semaglutide 0.5 mg subcut QWEEK sulfasalazine 1,000 mg (2 x 500 mg) PO BID Tobacco use date assessed: 09/19/24 Fall risk assessment: 1 Fall in past year Last assessed Fall Risk: 09/19/24 Dental Screening Dental Screen Date: 09/19/24 Did you have a dental visit in the last 12 months?: Yes Did you have a dental problem in the last 6 months where you did not have access to dental care?: No Was dental information given to patient?: Patient has dentist HPI [facility] HPI Details Patient comes in today for her follow up visit States that she feels okay She has done very well and has been able to lose over 25 lbs since her last visit in May 2024 on Semaglutide She denies any headaches or dizziness Denies any chest pains, no increased SOB No nausea/vomiting, no abdominal pain No change in bowel habits noted She was not able to get her follow up fasting labs done prior to her appointment today although she did have some non-fasting labs done back in July 2024 [facility] Medical History (Updated 09/20/24 @ 05:20 by Levon Rueda MD) Coronary artery disease Insomnia TIA (transient ischemic attack) Piriformis syndrome of left side Piriformis syndrome of right side Low back pain potentially associated with radiculopathy Long-term use of immunosuppressant medication Obesity (BMI 30-39.9) Pure hypercholesterolemia GERD without esophagitis Vitamin D deficiency Rheumatoid arthritis Surgical History Hx of appendectomy Family History Paternal Grandfather Heart problem Father Heart problem HTN (hypertension) Mother Heart problem HTN (hypertension) Paternal Grandmother Breast cancer Maternal Grandfather Pancreatic cancer Other Arthritis Social History Housing: Apartment Alcohol intake: never Patient Tobacco Use Status: Never used Tobacco e-Cigarette/Vaping Use: Never Used service: No Current occupational status: employed Current occupational exposures/hazards: No Cognitive needs: No Hearing needs: No Vision needs: Yes (glasses) Female Reproductive History Menstrual Age of Menarche: 15 Questionnaire PHQ-9 Over the last 2 weeks, how often have you been bothered by any of the following problems? 1. Little interest or pleasure in doing things: not at all 2. Feeling down, depressed, or hopeless: not at all 3. Trouble falling or staying asleep, or sleeping too much: not at all 4. Feeling tired or having little energy: not at all 5. Poor appetite or overeating: not at all 6. Feeling bad about yourself - or that you are a failure or have let yourself or your family down: not at all 7. Trouble concentrating on things, such as reading the newspaper or watching television: not at all 8. Moving or speaking so slowly that other people could have noticed. Or the opposite - being so fidgety or restless that you have been moving around a lot more than usual: not at all 9. Thoughts that you would be better off or of hurting yourself in some way: not at all Total score: 0 Depression Screening Interpretation: Negative Depression Screening Done: Yes 06257 - PHQ-9 Billing: Yes Source: Developed by Drs. Merrick Justin, Debbie Monsalve, Yovany Curran and colleagues, with an educational cortney from [employer]. Thrive Questionnaire Date Thrive assessed: 09/19/24 I am a: Patient What is your living situation today?: I have a steady place to live Within the past 12 months, did the food you bought not last and you didn't have the money to get more?: Never true Within the past 12 months, did you worry whether your food would run out before you got money to buy more?: Never true Do you have trouble paying for medicines?: No Do you have trouble getting transportation to medical appointments?: No Do you have trouble paying your heating and electricity bill?: No Do you have trouble taking care of your child, family member or friend?: No Do you have trouble with day-to-day activities such as bathing, preparing meals, shopping, managing finances, etc.?: No Are you currently unemployed and looking for a job?: Yes Are you interested in more education?: No Please select the resources that you would like help with: None Currently or been in a relationship where the following occur: No concerns reported THRIVE Score: 0 AUDIT C Alcohol Use Questionnaire (AUDIT-C) 1. How often do you have a drink containing alcohol?: Never 3. How often do you have six or more drinks on one occasion?: Never Total Score: 0 Score Reviewed/Action Taken: Yes FABY-7 AMB Questionnaire FABY-7 Date FABY - 7 assessed: 09/19/24 Feeling nervous, anxious, or on edge: 0 = Not at all Not being able to stop or control worryin = Not at all Worrying too much about different things: 0 = Not at all Trouble relaxin = Not at all Being so restless that it is hard to sit still: 0 = Not at all Becoming easily annoyed or irritable: 0 = Not at all Feeling afraid as if something awful might happen: 0 = Not at all Total FABY-7 score (0-4 normal; 5-9 mild; 10-14 moderate; 15-21 severe): 0 Source: Developed by Drs. Merrick Justin, Debbie Monsalve, Yovany Curran and colleagues, with an educational cortney from [employer]. Review of Systems Const Denies chills, Reports difficulty sleeping (Hydroxyzine no longer helping), Denies fatigue, Denies fever(s) and Denies headache(s) ENT Denies dysphagia, Denies dizziness, Denies otalgia, Denies headache(s), Denies neck pain, Denies odynophagia and Denies sore throat Card Denies chest pain, Denies rapid heart rate, Denies irregular heart rhythm, Denies palpitations and Denies dyspnea Resp Denies chest congestion, Denies cough and Denies dyspnea GI Denies abdominal pain, Denies constipation, Denies dysphagia, Denies heartburn, Denies diarrhea, Denies nausea, Denies odynophagia and Denies vomiting Denies hematuria, Denies urinary frequency, Denies dysuria, Denies urinary incontinence and Denies urinary urgency Musc Reports back pain (on and off over the lower back), Reports arthralgias (in hands/fingers due to RA), Denies joint swelling and Denies neck pain Skin/Breast Denies rash Neuro Denies dizziness, Denies headache(s) and Denies paresthesias Psych Reports anxiety and Denies depression Endo Denies fatigue and Denies palpitations Leonardo/Lymph Denies easy bruising Physical exam (Primary Care) Vital Signs: Last Vital Signs Pulse 79 09/19/24 13:22 BP 120/64 09/19/24 13:22 Pulse Ox 94 09/19/24 13:22 Oxygen Delivery Method Room Air 09/19/24 13:22 BMI result Body Mass Index 28.4 Tobacco/Smoking Status: Tobacco use Status Tobacco use date assessed 09/19/24 09/19/24 13:28 Patient Tobacco Use Status Never used Tobacco 09/19/24 13:28 e-Cigarette/Vaping Use Never Used 09/19/24 13:28 PHQ-9: PHQ-9 Score PHQ-9: Total score 0 09/19/24 14:02 Depression Screening Interpretation: Negative Thrive Assessment: Date of Thrive Assessment Date Thrive assessed 09/19/24 09/19/24 13:28 Currently or been in a relationship where the following occur: No concerns reported Const General: no acute distress and alert HENMT Ears: TM's normal bilaterally and EAC's normal Throat: Yes posterior oropharynx normal and Yes tonsils normal (no TP congestion) Neck Neck: Yes no lymphadenopathy and Yes supple Thyroid: Thyroid normal Resp Auscultation: clear to auscultation bilaterally, no rales and no wheezes Cardio Rate: regular rate Rhythm: regular rhythm Heart sounds: no murmurs GI Palpation (GI): Soft to palpation and nontender Auscultation: normal bowel sounds General: Yes no CVA tenderness Back/Spine/Pelvis Back: no CVA tenderness Thoracic/Lumbar Spine: lumbar spinal tenderness Skin Rashes: no rashes Extrem General: Yes no clubbing, cyanosis or edema Right upper extremity: Extremity exam: right hand Details: tenderness (over joints in fingers); no swelling Left upper extremity: hand Details: tenderness (over joints in fingers); no swelling Results Reviewed Results Reviewed: Laboratory Tests 07/29/24 09:39 WBC 4.2 L Hgb 12.3 Hct 37.5 Plt Count 220 Sodium 141 Potassium 4.3 Creatinine 0.75 Estimated GFR > 60 Random Glucose 101 Calcium 9.7 AST 27 ALT 27 Coding Level of Care Code Est Pt Level 4 (77738) Diagnoses Pure hypercholesterolemia E78.00 History of TIA (transient ischemic attack) Z86.73 Coronary artery disease involving [place] coronary artery of [place] heart without angina pectoris I25.10 Coronary Disease-Associated Artery/Lesion type: [place] artery [place] vs. transplanted heart: [place] heart Associated angina: without angina Rheumatoid arthritis with positive rheumatoid factor, involving unspecified site M05.9 Rheumatoid arthritis location: unspecified site Rheumatoid factor presence: with rheumatoid factor Nonintractable headache, unspecified chronicity pattern, unspecified headache type R51.9 Headache chronicity pattern: unspecified pattern Headache type: unspecified Intractability: not intractable Vitamin D deficiency E55.9 GERD without esophagitis K21.9 Nocturnal leg cramps G47.62 Insomnia, unspecified type G47.00 Insomnia type: unspecified Anxiety F41.9 Obesity (BMI 30-39.9) E66.9 Additional Codes PHQ-9 - 91438 - PHQ-9 Billing: Yes ([id number]) Assessment & Plan Assessment & Plan (1) Pure hypercholesterolemia: Code(s): E78.00 - Pure hypercholesterolemia, unspecified Category: Medical Plan: Patient was not able to get her follow up labs done prior to her appointment today Reinforced low cholesterol diet Continue Atorvastatin 40 mg QD Will have her recheck her labs and fasting lipids in 4 months for follow up - will just have patient use her current orders (updated) for her next lab draw (2) History of TIA (transient ischemic attack): Code(s): Z86.73 - Personal history of transient ischemic attack (TIA), and cerebral infarction without residual deficits Category: Medical Plan: Continue Aspirin 81 mg QD Head and neck CTA done in 2021 showed no significant vascular disease; carotid US done last year (2022) revealed no significant carotid artery disease Head CT done in 2022 was unremarkable She is advised to continue with aggressive risk factor(s) reduction Follow up with neurology (Dr. Palafox) as scheduled (3) Coronary artery disease: Code(s): I25.10 - Atherosclerotic heart disease of [place] coronary artery without angina pectoris Category: Medical Qualifiers: Coronary Disease-Associated Artery/Lesion type: [place] artery [place] vs. transplanted heart: [place] heart Associated angina: without angina Qualified Code(s): I25.10 - Atherosclerotic heart disease of [place] coronary artery without angina pectoris Plan: She has been referred to and was seen by cardiology for further work ups and all of her tests and evaluations done, including echocardiogram, cardiac stress testing as well as cardiac event monitor, have all come back normal Coronary CTA revealed (+) mild LAD atherosclerosis, but normal findings in the circumflex and RCA Holter monitor showed underlying sinus rhythm and no evidence of atrial fibrillation or any arrhythmia She was recommended by cardiology to continue treatment/management for stable vascular disease, with aggressive control of her cholesterol and blood pressure (4) Rheumatoid arthritis: Code(s): M06.9 - Rheumatoid arthritis, unspecified Category: Medical Qualifiers: Rheumatoid arthritis location: unspecified site Rheumatoid factor presence: with rheumatoid factor Qualified Code(s): M05.9 - Rheumatoid arthritis with rheumatoid factor, unspecified Plan: Continue Sulfasalazine 1000 mg BID and Folic Acid 1 mg QD She used to see Dr[facility] H[facility] [place] for rheumatology follow up but as Dr. Hurt has reportedly joined [facility] in [place], she is now following up locally here with [facility] for continuing management of her RA She had some additional labs ordered by rheumatology for further evaluation a few months ago and all of these came back okay (5) Headache: Code(s): R51.9 - Headache, unspecified Category: Medical Qualifiers: Headache chronicity pattern: unspecified pattern Headache type: unspecified Intractability: not intractable Qualified Code(s): R51.9 - Headache, unspecified Plan: Suspect migraine headache or variant - states that her headaches have been better controlled lately Follow up with neurology (Dr. Palafox) as scheduled (6) Vitamin D deficiency: Code(s): E55.9 - Vitamin D deficiency, unspecified Category: Medical Plan: Continue Vitamin D3 25 mcg (1000 units) QD (7) GERD without esophagitis: Code(s): K21.9 - Gastro-esophageal reflux disease without esophagitis Category: Medical Plan: Dietary restrictions reinforced Continue Pantoprazole 40 mg QD (8) Nocturnal leg cramps: Code(s): G47.62 - Sleep related leg cramps Category: Medical Plan: Will start patient on a trial of Magnesium tablets 400 mg 1 to 2 tablets Q HS PRN (9) Insomnia: Code(s): G47.00 - Insomnia, unspecified Category: Medical Qualifiers: Insomnia type: unspecified Qualified Code(s): G47.00 - Insomnia, unspecified Plan: Sleep hygiene reinforced States that her Hydroxyzine used to help her with her sleep in the past but it is no longer helping She has also tried several OTC sleep aids recently, including Melatonin and Unisom and a couple of others but none of them helped at all We tried her on Trazodone 50 mg Q HS PRN at her last visit and she states that it did not help at all Have advised patient that this is then more likely due to her anxiety and she should be able to sleep better once his anxiety is much better controlled (10) Anxiety: Code(s): F41.9 - Anxiety disorder, unspecified Category: Medical Plan: Continue Hydroxyzine 25 mg 2 tablets Q HS PRN - states that this was helping her sleep better at night but has not helped lately States that her anxiety is mostly related to her brother's untimely passing sometime last year - notes that this has affected her a lot and she is still trying to process this even though her brother over a year ago now States that working and staying busy has helped her a lot Will start her on a trial of Lorazepam 0.5 mg Q HS PRN (11) Obesity (BMI 30-39.9): Code(s): E66.9 - Obesity, unspecified Category: Medical Plan: Reinforced diet/exercise as tolerated/lose weight She went out on her own and signed up with an online company ([employer]) that apparently helps patients with weight loss and other issues and she has been getting from them Rx for Semaglutide injections (she pays [id number] for these) and has been on the injections for a few months now States that she is very happy that she has been able to lose a lot of weight since (over 25 pounds since May 2024) and has had no problems so far with the injections and she would like to continue on them at this time Plan Follow up in 4 months Medications: New magnesium oxide Take 1 to 2 tablets orally bedtime PRN; 60 tabs 3RF leg cramps/restless leg symptoms lorazepam 0.5 mg PO BEDTIME PRN 30 tabs 0RF anxiety
== END 2024-09-19 14:11 | disposition home or self-care (01) ==
LOC: HO.HMCH 13:14
PROVIDERS: PCP Internal Medicine; Visit Provider Internal Medicine
DX: E78.00 Pure hypercholesterolemia, unspecified (principal); M05.9 Rheumatoid arthritis with rheumatoid factor, unspecified; Z68.28 Body mass index [BMI] 28.0-28.9, adult; E66.9 Obesity, unspecified; Z86.73 Personal history of transient ischemic attack (TIA), and cerebral infarction without residual deficits; I25.10 Atherosclerotic heart disease of native coronary artery without angina pectoris; R51.9 Headache, unspecified; E55.9 Vitamin D deficiency, unspecified; K21.9 Gastro-esophageal reflux disease without esophagitis; G47.62 Sleep related leg cramps; G47.00 Insomnia, unspecified; F41.9 Anxiety disorder, unspecified

== ENCOUNTER → 2024-09-19 13:14 | Outpatient (BNVA) | payer MEDICARE, SELFPAY | PROVIDERS: PCP Internal Medicine; Visit Provider Internal Medicine | DX: E78.00 Pure hypercholesterolemia, unspecified (principal); I25.10 Atherosclerotic heart disease of native coronary artery without angina pectoris; M05.9 Rheumatoid arthritis with rheumatoid factor, unspecified; R51.9 Headache, unspecified; E55.9 Vitamin D deficiency, unspecified; K21.9 Gastro-esophageal reflux disease without esophagitis; G47.62 Sleep related leg cramps; G47.00 Insomnia, unspecified; F41.9 Anxiety disorder, unspecified; E66.9 Obesity, unspecified; Z86.73 Personal history of transient ischemic attack (TIA), and cerebral infarction without residual deficits | CPT/HCPCS: 96127; 99212 ==

== ENCOUNTER 2024-11-22 10:45 | Outpatient (AMB) | payer MEDICARE, SELFPAY ==
--- NOTE | 2024-11-22 10:46 | A.OFFVIS_ITS ---
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 Accompanied by: Self / Same As Patient Allergies No Known Allergies Allergy (Verified 11/22/24 11:35) Medication List - Last Reconciled 11/22/24 by JULIAON Cox aspirin 81 mg PO DAILY atorvastatin 40 mg PO DAILY 90 days cholecalciferol (vitamin D3) 25 mcg PO DAILY 90 days folic acid 1 mg PO DAILY hydroxyzine HCl 50 mg (2 x 25 mg) PO BEDTIME PRN lorazepam 0.5 mg PO BEDTIME PRN magnesium oxide Take 1 to 2 tablets orally bedtime PRN; pantoprazole 40 mg PO QAM 90 days semaglutide 0.5 mg subcut QWEEK sulfasalazine 1,000 mg (2 x 500 mg) PO BID HPI Comments Details: Rylie is a very pleasant 69-year-old female patient of Dr. Rueda. She has a past medical history of insomnia, TIA, obesity, hypercholesteremia, GERD, vitamin-D deficiency, and rheumatoid arthritis on long-term immunosuppressants. She presents to the office today for follow-up of her nocturia. In discussion with the patient today she reports to be doing and feeling well. She discusses weaning herself off of her weight loss medication as she feels this is caused her a significant amount of GI issues with nausea, indigestion, and constipation. She discusses continuing with episodes of nocturia up to 3 times per night however feels she is self managing and does not wish to undergo further workup at this time. In office urinalysis results reviewed with the patient today. PVR 0 mL. Previous workup has included a retroperitoneal ultrasound as well as sleep study. Sleep study notes recommendation for mild obstructive sleep apnea that can be treated with conservative measures including position therapy, avoiding sleeping in a supine position, and weight reduction. Retroperitoneal ultrasound 08/07 notes bilateral kidneys are normal in size, contour, and echogenicity. No hydronephrosis, renal lesions, and or calculi noted. The bladder is well distended and normal. Bilateral ureteral jets are demonstrated. Pre void bladder volume is approximately 200 mL. Postvoid bladder volume is approximately 5 mL. Normal retroperitoneal ultrasound. We discussed the importance of limiting fluids 2-3 hours prior to bed to decrease episodes of nocturia. She otherwise denies urinary urgency, urinary frequency, incontinenc e, hematuria, dysuria, foul smelling urine, changes to urinary stream, flank pain, fever, and or chills. We discussed at length potential causes of nocturia. She otherwise offers no other issues or concerns at this time. [facility] Medical History Coronary artery disease Insomnia TIA (transient ischemic attack) Piriformis syndrome of left side Piriformis syndrome of right side Low back pain potentially associated with radiculopathy Long-term use of immunosuppressant medication Obesity (BMI 30-39.9) Pure hypercholesterolemia GERD without esophagitis Vitamin D deficiency Rheumatoid arthritis Surgical History Hx of appendectomy Family History Paternal Grandfather Heart problem Father Heart problem HTN (hypertension) Mother Heart problem HTN (hypertension) Paternal Grandmother Breast cancer Maternal Grandfather Pancreatic cancer Other Arthritis Social History Housing: Apartment Alcohol intake: never Patient Tobacco Use Status: Never used Tobacco e-Cigarette/Vaping Use: Never Used service: No Current occupational status: employed Current occupational exposures/hazards: No Cognitive needs: No Hearing needs: No Vision needs: Yes (glasses) Female Reproductive History Menstrual Age of Menarche: 15 Review of Systems Const All systems reviewed & are unremarkable except as noted in HPI and below Physical Exam Const General: cooperative, healthy appearing, comfortable, no acute distress, well developed, alert and awake Nutritional Appearance: overweight Orientation/consciousness: patient oriented x3 Limitations: no limitations HEENT Head: Yes normal to inspection, Yes normocephalic and Yes atraumatic Ears: hearing grossly normal bilaterally Eyes General: appearance normal, both eyes and all related structures Neck Neck: Yes normal visual inspection and Yes trachea midline Chest Chest palpation & inspection: normal inspection of the chest Resp Effort & Inspection: normal respiratory effort and able to speak in complete sentences Cardio Rate: regular rate GI Inspection: Yes normal to inspection General: Yes no CVA tenderness Back/Spine/Pelvis Back: no CVA tenderness Skin General skin exam: no rashes or lesions noted Neuro General: patient oriented x3 Extrem General: Yes normal to inspection Psych Appearance: grossly normal and well kempt Mental Status: mental status grossly normal Speech and movement: Normal speech and movement present and Clear speech present Affect: normal affect Attitude: cooperative Thought process: Normal thought process present Thought content: Normal thought content present Insight: Fair insight present (Psych) Judgement: Fair judgement present (Psych) Office Procedures Post Void Residual Post Residual Void Post Void Residual (PVR): 0 [id number] Void Residual by ultrasound Results AMB Urinalysis, Automated UA Leukoctes 15 Gonzalo/uL Last Edit by Arielle Delarosa on 11/22/24 11:12 UA Nitrite Negative Last Edit by Arielle Delarosa on 11/22/24 11:12 UA Urobilinogen 0.2 mg/dL Last Edit by Arielle Delarosa on 11/22/24 11:12 UA Protein 15 mg/dL Last Edit by Arielle Delarosa on 11/22/24 11:12 UA pH 6.0 Last Edit by Arielle Delarosa on 11/22/24 11:12 UA Blood 0 Carlos/uL Last Edit by Arielle Delarosa on 11/22/24 11:12 UA Specific [place] 1.020 Last Edit by Arielle Delarosa on 11/22/24 11:12 UA Ketone Negative Last Edit by Arielle Delarosa on 11/22/24 11:12 UA Bilirubin 0 mg/dL Last Edit by Arielle Delarosa on 11/22/24 11:12 UA Glucose 0 mg/dL Last Edit by Arielle Delarosa on 11/22/24 11:12 Results Reviewed Results Reviewed: Laboratory Last Values Urine pH (Auto) 6.0 11/22/24 11:09 Specific [place] (Auto) 1.020 11/22/24 11:09 Urine Protein (Auto) 15 mg/dL 11/22/24 11:09 Glucose (UA)(Auto) 0 mg/dL 11/22/24 11:09 Urine Ketones (Auto) Negative 11/22/24 11:09 Urine Blood (Auto) 0 Carlos/uL 11/22/24 11:09 Urine Nitrite (Auto) Negative 11/22/24 11:09 Urine Bilirubin (Auto) 0 mg/dL 11/22/24 11:09 Urine Urobilinogen (Auto) 0.2 mg/dL 11/22/24 11:09 Leukocyte Esterase (Auto) 15 Gonzalo/uL 11/22/24 11:09 Assessment & Plan Assessment & Plan (1) Nocturia: Code(s): R35.1 - Nocturia Category: Medical Plan In office urinalysis results with the patient today; as noted above. PVR 0 mL. Will continue with surveillance monitoring of nocturia as patient feels she is self managing symptoms at this time. She currently denies any bothersome urinary issues. She reports be happy with current voiding parameters. Discussed importance of limiting fluids 2-3 hours prior to bed to decrease episodes of nocturia. Follow-up in 6 months with PVR; or sooner with any issues, concerns, and or questions. Orders: Orders AMB Urinalysis Automated Today Z13.9 - Encounter for screening, unspecified AMB Post Void Residual by ultrasound Today R35.1 - Nocturia Patient Instructions: The patient had an opportunity to ask questions regarding the treatment plan. All questions were answered. Physical exam, labs, and imaging were discussed and reviewed in detail. As well as risks, benefits, and discussion of treatment choices. No major barriers to understanding were identified. The patient expressed understanding and agreement with the above treatment plan. The patient was made aware they should contact our office by phone for worsening of their current condition, the appearance of new symptoms, or with any questions or concerns. Compliance is encouraged with any medications and follow up testing that is ordered. It is a privilege to be allowed the opportunity to participate in? your urological care.? Again, if you have any questions or concerns If you have any questions or concerns please do not hesitate to contact me. The office is [phone]. This note is constructed using voice recognition software. While every effort has been made to ensure accuracy behavioral instructor errors may have been included. Yours sincerely, JACKSON Cox Coding Level of Care Code Est Pt Level 3 (40722) Diagnoses Nocturia R35.1 CPT Codes Post Residual Void - PVR CPT Code: 40153-Wawt Void Residual by ultrasound ([id number])
--- OUTSIDE RECORDS SUMMARY | 2024-11-22 12:58 | XMS_ITS | Encounter Summary ---
Author Organization [employer] Address [address] [facility] 7t [place] [address] Care Team Providers Care Social Work Therapist Name Role Phone Heide Oreilly MD Primary Care Provider [phone] Encounter Details Date Type Department Care Team (Late st Contact Info) Description 04/17/2023 Orders Only [facility] MED & PEDS [address] [place] [address] Carrie Heard LPN Social History Tobacco Use Types Packs/Day Years Used Date Smoking Tobacco: Never Smokeless Tobacco: Never Alcohol Use Standard Drinks/Week Comments Never 0 (1 standard drink = 0.6 oz pur e alcohol) Comments Unknown Sex and Gender Information Value Date Recorded Sex Assigned at Female 07/14/2022 10:37 AM EDT Legal Sex Female 10:37 AM EDT Gender Identity Female 07/14/2022 10:37 AM EDT Sexual Orientation Straight 07/14/2022 10 :37 AM EDT documented as of this encounter Plan of Treatment Not on file documented as of this encounter Visit Diagnoses Not on filedocumented in this encounter Care Teams Social Work Therapist Relationship Specialty Start Date End Date Heide Oreilly MD [address] [place] [id number] PCP - General Family Medicine 09/03/20 documented as of this encounter
--- OUTSIDE RECORDS SUMMARY | 2024-11-22 12:58 | XMS_ITS | Encounter Summary ---
Author Organization [employer] Address [address] [facility] 7[address] [place] [address] Care Team Providers Care Nail Puller Name Role Phone Heide Oreilly MD Primary Care Provider [phone] Reason for Visit * Reason Onset Date Comments Referral 12/16/2022 Encounter Details Date Type Department Care Team (Late st Contact Info) Description 12/16/2022 Telephone [facility] MEDICINE [address] [place] [address] Heide Oreilly MD [address] [place], [place] [phone] Referral Social History Tobacco Use Types Packs/Day Years [...] Orientation Straight 07/14/2022 10 :37 AM EDT COVID-19 Exposure Response Date Recorded In the last 10 days, have yo u been in contact with someone who was confirmed or suspected to have Coronavirus/COVID-19? No / Unsure 12/12/2022 1:08 PM EDT documented as of this encounter Miscellaneous Notes * Telephone Encounter - Lillian Kimbrough RN - 12/19/2022 3:28 PM EDT RN called pt regarding message below. Pt states she has still not receive cardiology referral. States she is very frustrated and scared because I don't want to and leave my family . RN reassured pt, I will follow up with the referral team . RN spoke with Fay Gil who states referral was not sent by PCP. Will forward message to PCP to place referral. RN will follow up with the referral team and update pt. Pt advised if she experience symptoms such as blurry vision, numbness and any other symptoms. Pt verbalizes understanding and agrees to plan. * Telephone Encounter - Kelsy Ferro - 12/19/2022 1:43 PM EDT Tc from Татьяна at [facility] Radiology inquiring patients referral. Patient also requesting to speak to it application development manager. Please contact Татьяна at [phone] Or/and patient at [phone] * Telephone Encounter - Richmond Babcock - 12/19/2022 1:26 PM EDT Tc from pt returning call per notes, pt is requesting to speak to a nurse in regards to US results and referral. Please contact at [phone] * Telephone Encounter - Liyah Henderson RN - 12/18/2022 1:58 PM EDT Please see messages below and f/u with pt. Thank you. * Telephone Encounter - Ann Marie Garrett - 12/18/2022 1:54 PM EDT Tc from pt calling to inform needs a cardiology referral . States pcp was going to referral her outafter review US results . Pt would like a call back emerald with status . * Telephone Encounter - Liyah Henderson RN - 12/16/2022 3:47 PM EDT Referred 12/10/22. Please f/u with pt regarding status. Thank you. * Telephone Encounter - Víctor Stevenson - 12/16/2022 3:25 PM EDT Tc from pt requesting a call back regarding pt referral for the cardiology. Please contact pt at [phone] documented in this encounter Plan of Treatment Not on file documented as of this encounter Visit Diagnoses Not on filedocumented in this encounter Care Teams Nail Puller Relationship Specialty Start Date End Date Heide Oreilly MD [address] [place] [id number] PCP - General Family Medicine 09/03/20 documented as of this encounter
--- OUTSIDE RECORDS SUMMARY | 2024-11-22 12:58 | XMS_ITS | Encounter Summary ---
Author Organization [employer] Address [address] [facility] [address] [place] [address] Care Team Providers Care Counter Roller Name Role Phone Heide Oreilly MD Primary Care Provider Reason for Visit * Reason Onset Date Comments Med Refill 12/09/2022 Encounter Details Date Type Department Care Team (Late st Contact Info) Description 12/09/2022 Telephone [facility] [address] [place] [address] Heide Oreilly MD [address] [place], [place] [phone] Med Refill Social History Tobacco Use Types Packs/Day Years [...] encounter Miscellaneous Notes * Telephone Encounter - Víctor [place] - 12/09/2022 3:22 PM EDT Tc from pt requesting med refill Atorvastatin 40 mg documented in this encounter Plan of Treatment Not on file documented as of this encounter Visit Diagnoses Not on filedocumented in this encounter Care Teams Counter Roller Relationship Specialty Start Date End Date Heide Oreilly MD [address] [place] [address] PCP - General Family Medicine 09/03/20 documented as of this encounter
--- OUTSIDE RECORDS SUMMARY | 2024-11-22 12:58 | XMS_ITS | Encounter Summary ---
Author Organization [employer] Address [address] [facility] [address] [place] [address] Care Team Providers Care Orthopedic Mechanic Name Role Phone Heide Oreilly MD Primary Care Provider [phone] Reason for Visit * Reason Comments Med Refill Encounter Details Date Type Department Care Team ([facility] st Contact Info) Description 05/09/2024 Refill [facility] MED & PEDS [address] [place] [address] Heide Oreilly MD [address] [place] [address] Social History Tobacco Use Types Packs/Day Years Used Date Smoking Tobacco: Never Smokeless Tobacco: Never Alcohol Use Standard Drinks/Week Comments Never 0 (1 standard drink = 0.6 oz pur e alcohol) Housing Stability Answer Date Recorded What is your housing situation today? Not on aun e 06/30/[address] you li ve. Do you have problems with any of the following? None of the above 06/30/2023 Food Insecurity Answer Date Recorded Within the past 12 months, y ou worried that your food would run out before you got money to buy more: Never True 06/30/2023 Within the past 12 months,th e food you bought just didn't last and you didn't have enough money to get more: Never True Transportation Answer Date Recorded In the past 12 months, has l ack of transportation kept you from medical appts, meetings, work or from getting things needed for daily living? No 06/30/2023 Utilities Answer Date Recorded In the past 12 months, has t he electric, gas, oil or water company threatened to shut off services in your home? No 06/30/2023 Comments Unknown Sex and Gender Information Value [...] on filedocumented in this encounter Care Teams Orthopedic Mechanic Relationship Specialty Start Date End Date Heide Oreilly MD [address] [place] [id number] PCP - General Family Medicine 09/03/20 documented as of this encounter
--- OUTSIDE RECORDS SUMMARY | 2024-11-22 12:58 | XMS_ITS | Clinical Summary ---
Author Organization [employer] Address [address] [place] [address] [address] [place] [address] Care Team Providers Care Academic Vice President Name Role Phone Heide Oreilly MD Primary Care Provider [phone] Allergies No known active allergies Medications famotidine (Pepcid) 40 MG tablet Take 40 mg by mouth at bedtime. 2 Active atorvastatin (Lipitor) 40 MG tablet 1 tablet = 40 mg, By Mouth, Daily, # 30 tablet, 5 Refills, Maintenance, 04/10/22 14:02:00 EDT, Tablet, Partial fill upon patient request if the prescription is for a schedule II opioid drug. 30 tablet 11 3 Active cholecalciferol (Vitamin D-3) 25 MCG (1000 UT) tabletIndicatio ns:Vitamin D deficiency TAKE 1 TABLET BY MOUTH EVERY DAY 30 tablet 11 3 Active pantoprazole (ProtoNix) 40 MG EC tablet TAKE ONE TABLET BY MOUTH TWICE DAILY 180 tablet 1 3 Active famotidine (Pepcid) 40 MG tabletIndicatio ns:Gastroesopha geal reflux disease without esophagitis TAKE ONE TABLET AT BEDTIME 30 tablet 1 4 Active hydrOXYzine HCl (Atarax) 25 MG tablet TAKE TWO TABLETS DAILY NEEDED 180 tablet 4 Active Aspirin Adult Low Strength 81 MG EC tablet TAKE ONE TABLET BY MOUTH EVERY DAY 90 tablet 5 Active Active Problems Problem Noted Date Diagnosed Date Anxiety disorder 10/29/2022 Rheumatoid arthritis 10/29/2022 RLS (restless legs syndrome) 10/29/2022 Synovitis or tenosynovitis of wrist 10/29/2022 Stricture of esophagus 10/29/2022 Overview (10/29/2022): Per upper Endos, 12/31, kehinde Travis. Encounters Date Type Department Care Team Description 09/23/2024 Refill [facility] CH[facility] MED & PEDS [address] [place] [address] Heide Oreilly MD from Last 3 Months Immunizations Name Administration Dates Next Due DT (pediatric) 01/17/2003 Influenza Whole 07/27/2007 Influenza, IIV3, injectable 07/30/2010 Tdap 10/27/2012 Zoster, live 01/14/2018 Social History Tobacco Use Types Packs/Day Years Used Date Smoking Tobacco: Never Smokeless Tobacco: Never Tobacco Cessation:Counseling Given: Not Answered Alcohol Use Standard Drinks/Week Comments Never 0 (1 standard drink = 0.6 oz pur e alcohol) Housing Stability Answer Date Recorded What is your housing situation today? Not on anu e 06/30/[address] you [...] Orientation Straight 07/14/2022 10 :37 AM EDT Last Filed Vital Signs Vital Sign Reading Time Taken Comments Blood Pressure 133/73 12/12/2022 1:55 PM EDT Pulse 70 12/12/2022 1:55 PM EDT Temperature 36.3 ??C (97.4 ??F) 12/12/2022 1:55 PM ED T Respiratory Rate 16 12/12/2022 1:55 PM EDT Oxygen Saturation 97% 12/12/2022 1:55 PM EDT Inhaled Oxygen Concentration - - Weight 86.2 kg (190 lb) 12/12/2022 1:55 PM EDT Height 160 cm (5' 3 ) 12/12/2022 1:55 PM EDT Body Mass Index 33.66 12/12/2022 1:55 PM EDT Plan of Treatment Health Maintenance Due Date Last Done Comments CT Colonography 1956 Colonoscopy 1956 Colorectal Cancer Screening 1956 Depression Screening 1956 FIT DNA/Cologuard 1956 FIT 1956 FOBT 1956 Sigmoidoscopy 1956 Alcohol/Substance Use Screening 1968 Hepatitis C Screening 1974 Pneumococcal Vaccine: 50+ Years (1 of 1 - PCV) 2006 Zoster Vaccines (2 of 3) 03/11/2018 01/14/2018 DTaP/Tdap/Td Vaccines (2 - T d or Tdap) 10/27/2022 10/27/2012 Mammogram 10/04/2023 10/04/2021 SDOH Screening 12/13/2023 12/12/2022 Tobacco Screening 12/13/2023 12/12/2022 COVID-19 Vaccine (1 - 2023-2 5 season) 2024 Influenza Vaccine (#1) 2024 0, 07/27/2007 RSV Patients and Patients Aged 60 years or older (1 - 1-dose 75+ series) 2031 HIB Vaccines Aged Out No longer eligi ble based on patient's age to complete this topic HPV Vaccines Aged Out No longer eligi ble based on patient's age to complete this topic Hepatitis A Vaccines Aged Out No long er eligible based on patient's age to complete this topic Hepatitis B Vaccines Aged Out No long er eligible based on patient's age to complete this topic IPV Vaccines Aged Out No longer eligi ble based on patient's age to complete this topic Meningococcal Vaccine Aged Out No rikki will eligible based on patient's age to complete this topic RSV under 20 months Aged Out No longe r eligible based on patient's age to complete this topic Rotavirus Vaccines Aged Out No longer eligible based on patient's age to complete this topic Procedures Procedure Name Priority Date/Time Associated Diagnosis Comments MAMMOGRAM GENERIC Routine 10/04/2021 11: 20 AM EST from Last 3 Months or Most Recently Relevant to Health Maintenance Results * Mammography Report 1 (10/04/2021 11:20 AM EST) Anatomical Region Laterality Modality Breast Bilateral Mammography 10/04/2021 11:2 0 AM EST Narrative 10/08/2021 5:27 PM EST Refer to the Notes tab for result details [facility] Procedure: Mammography Report 1 Procedure Note Provider, MD [place] - 12/07/2022 Refer to the Notes tab for result details [facility] Procedure: Mammography Report 1 Heide Oreilly MD IMG BI PROCEDURES Final Result from Last 3 Months or Most Recently Relevant to Health Maintenance Insurance [facility] MEDICARE ADVANTAGE HMO Care Teams Academic Vice President Relationship Specialty Start Date End Date Heide Oreilly MD [address] [place] [id number] PCP - General Family Medicine 09/03/20
--- OUTSIDE RECORDS SUMMARY | 2024-11-22 12:58 | XMS_ITS | Encounter Summary ---
Author Organization [employer] Address [address] [facility] 7t [place] [address] Care Team Providers Care Eradicator Name Role Phone Heide Oreilly MD Primary Care Provider [phone] Reason for Visit * Reason Onset Date Comments Results 12/09/2022 Encounter Details Date Type Department Care Team ([facility] st Contact Info) Description 12/09/2022 Telephone [facility] [address] [place] [address] Heide Oreilly MD [address] [place], [place] [phone] Results Social History Tobacco Use Types Packs/Day Years [...] encounter Miscellaneous Notes * Telephone Encounter - Liyah Henderson RN - 12/10/2022 10:01 AM EDT Call to pt and pt informed of below. Pt verbalizes understanding. Per pt, also completed a carotid [place] [facility] Requesting result. Advised will obtain from [employer] and if available will forward to PCPto review and call pt with results. Pt agrees. Pt requesting refill of atorvastatin 40mg. Rx queued. Report of US obtained and sent to scan. * Telephone Encounter - Heide Oreilly MD - 12/10/2022 9:52 AM EDT ESR is normal * Telephone Encounter - Víctor Stevenson - 12/09/2022 3:25 PM EDT Tc from pt requesting lab results. Please contact pt at [phone] documented in this encounter Plan of Treatment Not on file documented as of this encounter Visit Diagnoses Not on filedocumented in this encounter Care Teams Eradicator Relationship Specialty Start Date End Date Heide Oreilly MD [address] [place] [id number] PCP - General Family Medicine 09/03/20 documented as of this encounter
== END 2024-11-22 11:38 | disposition home or self-care (01) ==
LOC: HO.HUSH 10:45
PROVIDERS: PCP Internal Medicine; Visit Provider Nurse Practitioner Family
DX: Z13.9 Encounter for screening, unspecified (principal); R35.1 Nocturia
CPT/HCPCS: 99213

== ENCOUNTER → 2024-11-22 10:45 | Outpatient (BNVA) | payer MEDICARE, SELFPAY | PROVIDERS: PCP Internal Medicine; Visit Provider Nurse Practitioner Family | DX: R35.1 Nocturia (principal); Z13.9 Encounter for screening, unspecified | CPT/HCPCS: 51798; 81003; 99212 ==

== ENCOUNTER 2024-12-26 09:46 | Outpatient (REF) | payer MEDICARE, SELFPAY ==
[2024-12-26 10:01] LABS: MANUAL DIFF FLAG NO
--- OUTSIDE RECORDS SUMMARY | 2024-12-26 10:54 | XMS_ITS | Encounter Summary ---
Author Organization [employer] Address [address] [facility] 7t [place] [address] Care Team Providers Care Jewel Bearing Turner Name Role Phone Heide Oreilly MD Primary Care Provider [phone] Reason for Visit * Reason Onset Date Comments Results 12/09/2022 Encounter Details Date Type Department Care Team ([facility] st Contact Info) Description 12/09/2022 Telephone [facility] MEDICINE [address] [place] [address] Heide Oreilly MD [address] [place], [place] [phone] Results Social History Tobacco Use Types Packs/Day [...] pt, also [place] [facility] [place] Requesting result. Advised will obtain from [employer] and if available will forward to PCPto [...] requesting lab results. Please contact pt at [phone] documented in this encounter Plan of Treatment Not on file documented as of this encounter Visit Diagnoses Not on filedocumented in this encounter Care Teams Jewel Bearing Turner Relationship Specialty Start Date End Date Heide Oreilly MD [address] [place] [id number] PCP - General Family Medicine 09/03/20 documented as of this encounter
--- OUTSIDE RECORDS SUMMARY | 2024-12-26 10:54 | XMS_ITS | Encounter Summary ---
Author Organization [employer] Address [address] [facility] 7t [place] [address] Care Team Providers Care Crystal Gazer Name Role Phone Heide Oreilly MD Primary Care Provider [phone] Reason for Visit * Reason Onset Date Comments Med Refill 12/09/2022 Encounter Details Date Type Department Care Team (Late st Contact Info) Description 12/09/2022 Telephone [facility] MEDICINE [address] [place] [address] Heide Oreilly MD [address] [place], [place] [phone] Med Refill Social History Tobacco Use Types [...] on filedocumented in this encounter Care Teams Crystal Gazer Relationship Specialty Start Date End Date Heide Oreilly MD [address] [place] [address] PCP - General Family Medicine 09/03/20 documented as of this encounter
--- OUTSIDE RECORDS SUMMARY | 2024-12-26 10:54 | XMS_ITS | Encounter Summary ---
Author Organization [employer] Address [address] [facility] 7t [place] [address] Care Team Providers Care Icu Manager Name Role Phone Heide Oreilly MD Primary Care Provider [phone] Reason for Visit * Reason Comments Med Refill Encounter Details Date Type Department Care Team ([facility] st Contact Info) Description 12/21/2024 Refill [facility] & PEDS [address] [place] [address] Heide Oreilly MD [address] [place] [address] Social History Tobacco Use Types Packs/Day Years [...] on filedocumented in this encounter Care Teams Icu Manager Relationship Specialty Start Date End Date Heide Oreilly MD [address] [place] [id number] PCP - General Family Medicine 09/03/20 documented as of this encounter
--- OUTSIDE RECORDS SUMMARY | 2024-12-26 10:54 | XMS_ITS | Clinical Summary ---
Author Organization [employer] Address [address] [place] [address] 7t [place] [address] Care Team Providers Care Rubber Belt Splicer Name Role Phone Heide Oreilly MD Primary Care Provider [phone] Allergies No known active allergies Medications famotidine [...] Encounters Date Type Department Care Team Description 12/21/2024 Refill [facility] [address] [place] [address] Heide Oreilly MD from Last 3 Months [...] Most Recently Relevant to Health Maintenance Insurance [facility] MEDICARE ADVANTAGE HMO Care Teams Rubber Belt Splicer Relationship Specialty Start Date End Date Heide Oreilly MD [address] [place] [id number] PCP - General Family Medicine 09/03/20
--- OUTSIDE RECORDS SUMMARY | 2024-12-26 10:54 | XMS_ITS | Encounter Summary ---
Author Organization [employer] Address [address] [facility] 7t [place] [address] Care Team Providers Care Dowel Maker Name Role Phone Heide Oreilly MD Primary Care Provider [phone] Encounter Details Date Type Department Care Team (Late st Contact Info) Description 04/17/2023 Orders Only [facility]EDS [address] [place] [address] Carrie Heard LPN Social History Tobacco Use [...] on filedocumented in this encounter Care Teams Dowel Maker Relationship Specialty Start Date End Date Heide Oreilly MD [address] [place] [address] PCP - General Family Medicine 09/03/20 documented as of this encounter
--- OUTSIDE RECORDS SUMMARY | 2024-12-26 10:54 | XMS_ITS | Encounter Summary ---
Author Organization [employer] Address [address] [facility] 7t [place] [address] Care Team Providers Care Corn Chip Maker Name Role Phone Heide Oreilly MD Primary Care Provider [phone] Reason for Visit * Reason Comments Med Refill Encounter Details Date Type Department Care Team ([facility] st Contact Info) Description 05/09/2024 Refill [facility] MED & PEDS [address] [place] [address] Heide Oreilly MD [address] [place] [address] Social History Tobacco Use Types Packs/Day Years [...] on filedocumented in this encounter Care Teams Corn Chip Maker Relationship Specialty Start Date End Date Heide Oreilly MD [address] [place] [address] PCP - General Family Medicine 09/03/20 documented as of this encounter
--- OUTSIDE RECORDS SUMMARY | 2024-12-26 10:54 | XMS_ITS | Encounter Summary ---
Author Organization [employer] Address [address] [facility] 7t [place] [address] Care Team Providers Care Clearance Rep Name Role Phone Heide Oreilly MD Primary Care Provider [phone] Reason for Visit * Reason Onset Date Comments Referral 12/16/2022 Encounter Details Date Type Department Care Team (Late st Contact Info) Description 12/16/2022 Telephone [facility] MEDICINE [address] [place] [address] Heide Oreilly MD [address] [place], [place] [phone] Referral Social History Tobacco Use Types Packs/Day [...] 1:43 PM EDT Tc from Татьяна at [facility] Radiology inquiring patients referral. Patient also requesting to speak to fixed income manager. Please contact Татьяна at [phone] Or/and patient at [phone] * Telephone Encounter - Richmond Babcock - 12/19/2022 1:26 PM EDT Tc from pt returning call per notes, pt is requesting to speak to a nurse in regards to US results and referral. Please contact at [phone] * Telephone Encounter - Liyah Henderson RN [...] for the cardiology. Please contact pt at [phone] documented in this encounter Plan of Treatment Not on file documented as of this encounter Visit Diagnoses Not on filedocumented in this encounter Care Teams Clearance Rep Relationship Specialty Start Date End Date Heide Oreilly MD [address] [place] [address] PCP - General Family Medicine 09/03/20 documented as of this encounter
[2024-12-26 11:05] LABS: Basophils Percent Auto 0.5 % (0-2); Eosinophils Absolute Auto 0.1 X10*3/uL (0.0-0.4); Eosinophils Percent Auto 1.3 % (0-4); Imm Gran Abs Auto 0.01 X10*3/uL (0.00-0.03); Imm Gran Pct Auto 0.3 % (0.0-0.4); Lymphocytes Percent Auto 26.2 % (20-40); Mean Corpuscular HGB Conc 33.3 g/dl (31.0-35.0); Mean Corpuscular Hemoglobin 32.8 pg (27.0-33.0); Mean Corpuscular Volume 98.5 fL (80.0-98.0); Mean Platelet Volume 9.5 fL (9.4-12.3); Monocytes Absolute Auto 0.3 X10*3/uL (0.1-1.2); Neutrophils Absolute Auto 2.4 x10*3/uL (2.0-8.3); Neutrophils Percent Auto 64.7 % (45-73); Platelet Count 265 X10*3/uL (160-400); Red Blood Count 3.96 X10*6/uL (4.20-5.50); Red Cell Distribution Width 12.2 % (11.0-16.0); White Blood Count 3.7 X10*3/uL (4.8-10.8)
[2024-12-26 11:11] LABS: Appearance Urine Clear; Color Urine Dark Yellow; Glucose Urine UA Negative (Negative); Leukocyte Esterase Urine Small (1+) (Negative); Nitrite Urine Negative (Negative); Specific Gravity - Urine 1.025 (1.005-1.025); UMIC TRIGGER UACC YES; Urine Blood Negative (Negative); Urine Ketones Trace mg/dL (Negative); Urine Protein Negative (Neg-Trace)
[2024-12-26 11:22] LABS: Bacteria Urine None Seen (None Seen); Hyaline Casts Urine 0-2 /LPF (0-2); RBC Urine 0-2 /HPF (0-2); Squamous Epithelial Cell Urine 0-2 /HPF (0-2); UACC Culture Trigger YES; WBC Urine 0-5 /HPF (0-5)
[2024-12-26 11:46] LABS: Erythrocyte Sedimentation Rate 5 MM/HR (0-20)
[2024-12-26 12:01] LABS: Alanine Aminotransferase 21 U/L (0-31); Albumin Level 4.3 g/dL (3.5-5.0); Alkaline Phosphatase 92 U/L (39-117); Anion Gap 9 (12-20); Aspartate Amino Transferase 25 U/L (5-31); Bilirubin Total 0.6 mg/dL (0.0-1.0); Blood Urea Nitrogen 12 mg/dL (9-16); C Reactive Protein < 0.04 mg/dL (< or = 0.50); Calcium 9.6 mg/dL (8.4-10.2); Carbon Dioxide 27 mmol/L (22-29); Chloride 109 mmol/L (96-108); Cholesterol 148 mg/dL (<200); Estimated Glomerular Filt Rate > 60; Glucose Fasting 100 mg/dL (60-99); Glucose Random 100 mg/dL (60-115); HDL Cholesterol 74 mg/dL (>40); LDL Cholesterol Calculated 64 mg/dL (<100); Lipase 148 U/L (8-78); Sodium 140 mmol/L (135-145); Triglycerides 51 mg/dL (<150)
[2024-12-26 12:02] LABS: TSH reflex Free T4 1.64 uIU/mL (0.32-4.0); Vitamin D 25-OH Total 30.6 ng/mL (>30)
[2024-12-26 13:03] LABS: HBc Num1 0.09 S/CO (0.00-0.79); HBsAGNum1 0.24 S/CO (0.00-0.99); Hepatitis B Core Antibody Nonreactive (Nonreactive); Hepatitis B Surface Antigen Negative (Negative); ~HepC Num1 0.15 S/CO (0.00-0.79); ~Hepatitis B Surface Antibody NONREACTIVE (Nonreactive); ~Hepatitis C Antibody Nonreactive (Nonreactive)
[2024-12-27 08:09] LABS: Hepatitis A Antibody IgM 0.12 Index (0-0.79); ~Hepatitis A Antibody IgM Nonreactive (Nonreactive)
[2024-12-28 20:38] LABS: TS Negative Control Passed; TS Panel A 0; TS Panel B 0; TS Positive Control Passed; TSpotTB Negative (Negative)
== END 2024-12-26 09:47 | disposition home or self-care (01) ==
LOC: HO.LAB 09:46
PROVIDERS: Absent Provider Internal Medicine; PCP Internal Medicine; Visit Provider Student in an Organized Health Care Education/Training Program
DX: M05.9 Rheumatoid arthritis with rheumatoid factor, unspecified (principal); E78.00 Pure hypercholesterolemia, unspecified; E55.9 Vitamin D deficiency, unspecified; R10.9 Unspecified abdominal pain
CPT/HCPCS: 36415; 80053; 80061; 81001; 82306; 83690; 84443; 85025; 85652; 86140; 86481; 86704; 86706; 86709; 86803; 87086; 87340

== ENCOUNTER 2025-01-18 10:55 | Outpatient (AMB) | payer MEDICARE, SELFPAY ==
[2025-01-18 11:01] VITALS: BP 122/68; PULSE 83; O2SAT 92; BMI 26.5
--- NOTE | 2025-01-18 11:01 | MHC.PC.OV ---
Vital Signs 01/18/25 11:01 Height 5 ft 2 in Weight 145 lb 2 oz BMI 26.5 BP 122/68 Blood Pressure Location Lt brachial Position Sitting Pulse 83 Pulse Source Pulse Oximeter Pulse Oximetry (%) 92 Oxygen Delivery Method Room Air Intake Visit Reasons: 4 Months f/u - see comments Branch Assistant Required: No Accompanied by: Self / Same As Patient Allergies No Known Allergies Allergy (Verified 01/18/25 11:32) Medication List - Last Reconciled 01/18/25 by Levon Rueda MD aspirin 81 mg PO DAILY atorvastatin 40 mg PO DAILY 90 days cholecalciferol (vitamin D3) 25 mcg PO DAILY 90 days folic acid 1 mg PO DAILY hydroxyzine HCl 50 mg (2 x 25 mg) PO BEDTIME PRN lorazepam 0.5 mg PO BEDTIME PRN magnesium oxide Take 1 to 2 tablets orally bedtime PRN; pantoprazole 40 mg PO QAM 90 days semaglutide 0.5 mg subcut QWEEK sulfasalazine 1,000 mg (2 x 500 mg) PO BID 30 days Tobacco use date assessed: 01/18/25 Fall risk assessment: No Falls in past year Last assessed Fall Risk: 01/18/25 Dental Screening Dental Screen Date: 01/18/25 Did you have a dental visit in the last 12 months?: Yes Did you have a dental problem in the last 6 months where you did not have access to dental care?: No Was dental information given to patient?: Patient has dentist HPI 4 Months f/u - see comments HPI Details Patient comes in today for her follow up visit States that she feels okay She denies any headaches or dizziness Denies any chest pains, no increased SOB No nausea/vomiting, no abdominal pain No change in bowel habits noted Needs her Folic Acid Rx refilled She had her follow up labs done a few weeks ago - to discuss her results [facility] Medical History Coronary artery disease Insomnia TIA (transient ischemic attack) Piriformis syndrome of left side Piriformis syndrome of right side Low back pain potentially associated with radiculopathy Long-term use of immunosuppressant medication Obesity (BMI 30-39.9) Pure hypercholesterolemia GERD without esophagitis Vitamin D deficiency Rheumatoid arthritis Surgical History Hx of appendectomy Family History Paternal Grandfather Heart problem Father Heart problem HTN (hypertension) Mother Heart problem HTN (hypertension) Paternal Grandmother Breast cancer Maternal Grandfather Pancreatic cancer Other Arthritis Social History Housing: Apartment Alcohol intake: never Patient Tobacco Use Status: Never used Tobacco e-Cigarette/Vaping Use: Never Used service: No Current occupational status: employed Current occupational exposures/hazards: No Cognitive needs: No Hearing needs: No Vision needs: Yes (glasses) Female Reproductive History Menstrual Age of Menarche: 15 Questionnaire PHQ-9 Over the last 2 weeks, how often have you been bothered by any of the following problems? 1. Little interest or pleasure in doing things: not at all 2. Feeling down, depressed, or hopeless: not at all 3. Trouble falling or staying asleep, or sleeping too much: several days 4. Feeling tired or having little energy: not at all 5. Poor appetite or overeating: not at all 6. Feeling bad about yourself - or that you are a failure or have let yourself or your family down: not at all 7. Trouble concentrating on things, such as reading the newspaper or watching television: not at all 8. Moving or speaking so slowly that other people could have noticed. Or the opposite - being so fidgety or restless that you have been moving around a lot more than usual: not at all 9. Thoughts that you would be better off or of hurting yourself in some way: not at all Total score: 1 Depression Screening Interpretation: Negative Depression Screening Done: Yes 30681 - PHQ-9 Billing: Yes Source: Developed by Drs. Merrick Justin, Debbie Monsalve, Yovany Curran and colleagues, with an educational cortney from [employer]. Thrive Questionnaire Date Thrive assessed: 01/18/25 I am a: Patient What is your living situation today?: I have a steady place to live Within the past 12 months, did the food you bought not last and you didn't have the money to get more?: Never true Within the past 12 months, did you worry whether your food would run out before you got money to buy more?: Never true Do you have trouble paying for medicines?: No Do you have trouble getting transportation to medical appointments?: No Do you have trouble paying your heating and electricity bill?: No Do you have trouble taking care of your child, family member or friend?: No Do you have trouble with day-to-day activities such as bathing, preparing meals, shopping, managing finances, etc.?: No Are you currently unemployed and looking for a job?: No Are you interested in more education?: No Please select the resources that you would like help with: None Currently or been in a relationship where the following occur: No concerns reported THRIVE Score: 0 AUDIT C Alcohol Use Questionnaire (AUDIT-C) 1. How often do you have a drink containing alcohol?: Never 3. How often do you have six or more drinks on one occasion?: Never Total Score: 0 Score Reviewed/Action Taken: Yes FABY-7 AMB Questionnaire FABY-7 Date FABY - 7 assessed: 01/18/25 Feeling nervous, anxious, or on edge: 0 = Not at all Not being able to stop or control worryin = Not at all Worrying too much about different things: 0 = Not at all Trouble relaxin = Several days Being so restless that it is hard to sit still: 1 = Several days Becoming easily annoyed or irritable: 0 = Not at all Feeling afraid as if something awful might happen: 0 = Not at all Total FABY-7 score (0-4 normal; 5-9 mild; 10-14 moderate; 15-21 severe): 2 Source: Developed by Drs. Merrick Justin, Debbie Monsalve, Yovany Curran and colleagues, with an educational cortney from [employer]. Review of Systems Const Denies chills, Reports difficulty sleeping (Hydroxyzine not helping much lately), Denies fatigue, Denies fever(s) and Denies headache(s) ENT Denies dysphagia, Denies dizziness, Denies otalgia, Denies headache(s), Denies neck pain, Denies odynophagia and Denies sore throat Card Denies chest pain, Denies rapid heart rate, Denies irregular heart rhythm, Denies palpitations and Denies dyspnea Resp Denies chest congestion, Denies cough and Denies dyspnea GI Denies abdominal pain, Denies constipation, Denies dysphagia, Denies heartburn, Denies diarrhea, Denies nausea, Denies odynophagia and Denies vomiting Denies hematuria, Denies urinary frequency, Denies dysuria, Denies urinary incontinence and Denies urinary urgency Musc Reports back pain (on and off over the lower back), Reports arthralgias (in hands/fingers due to RA), Denies joint swelling and Denies neck pain Skin/Breast Denies rash Neuro Denies dizziness, Denies headache(s) and Denies paresthesias Psych Reports anxiety and Denies depression Endo Denies fatigue and Denies palpitations Leonardo/Lymph Denies easy bruising Physical exam (Primary Care) Vital Signs: Last Vital Signs Pulse 83 01/18/25 11:01 BP 122/68 01/18/25 11:01 Pulse Ox 92 01/18/25 11:01 Oxygen Delivery Method Room Air 01/18/25 11:01 BMI result Body Mass Index 26.5 Tobacco/Smoking Status: Tobacco use Status Tobacco use date assessed 01/18/25 01/18/25 11:07 Patient Tobacco Use Status Never used Tobacco 01/18/25 11:07 e-Cigarette/Vaping Use Never Used 01/18/25 11:07 PHQ-9: PHQ-9 Score PHQ-9: Total score 1 01/18/25 11:34 Depression Screening Interpretation: Negative Thrive Assessment: Date of Thrive Assessment Date Thrive assessed 01/18/25 01/18/25 11:07 Currently or been in a relationship where the following occur: No concerns reported Const General: no acute distress and alert HENMT Ears: TM's normal bilaterally and EAC's normal Throat: Yes posterior oropharynx normal and Yes tonsils normal (no TP congestion) Neck Neck: Yes no lymphadenopathy and Yes supple Thyroid: Thyroid normal Resp Auscultation: clear to auscultation bilaterally, no rales and no wheezes Cardio Rate: regular rate Rhythm: regular rhythm Heart sounds: no murmurs GI Palpation (GI): Soft to palpation and nontender Auscultation: normal bowel sounds General: Yes no CVA tenderness Back/Spine/Pelvis Back: no CVA tenderness Thoracic/Lumbar Spine: lumbar spinal tenderness Skin Rashes: no rashes Extrem General: Yes no clubbing, cyanosis or edema Right upper extremity: Extremity exam: right hand Details: tenderness (over joints in fingers); no swelling Left upper extremity: hand Details: tenderness (over joints in fingers); no swelling Results Reviewed Results Reviewed: Laboratory Tests 12/26/24 12/26/24 09:54 09:59 WBC 3.7 L Hgb 13.0 Hct 39.0 Plt Count 265 ESR 5 Sodium 140 Potassium 5.0 Creatinine 0.74 Estimated GFR > 60 Fasting Glucose 100 H Calcium 9.6 AST 25 ALT 21 Triglycerides 51 Cholesterol 148 LDL Cholesterol, Calc 64 HDL Cholesterol 74 Lipase 148 H 25-OH Vitamin D Total 30.6 TSH 1.64 Ur Specific [place] 1.025 Urine Protein Negative Urine Glucose (UA) Negative Urine Blood Negative Urine Nitrite Negative Ur Leukocyte Esterase Small (1+) H Coding Level of Care Code Est Pt Level 4 (08751) Diagnoses Pure hypercholesterolemia E78.00 History of TIA (transient ischemic attack) Z86.73 Coronary artery disease involving [place] coronary artery of [place] heart without angina pectoris I25.10 Coronary Disease-Associated Artery/Lesion type: [place] artery [place] vs. transplanted heart: [place] heart Associated angina: without angina Rheumatoid arthritis with positive rheumatoid factor, involving unspecified site M05.9 Rheumatoid arthritis location: unspecified site Rheumatoid factor presence: with rheumatoid factor Nonintractable headache, unspecified chronicity pattern, unspecified headache type R51.9 Headache chronicity pattern: unspecified pattern Headache type: unspecified Intractability: not intractable Vitamin D deficiency E55.9 GERD without esophagitis K21.9 Nocturnal leg cramps G47.62 Insomnia, unspecified type G47.00 Insomnia type: unspecified Anxiety F41.9 Obesity (BMI 30-39.9) E66.9 Additional Codes PHQ-9 - 64764 - PHQ-9 Billing: Yes ([id number]) Assessment & Plan Assessment & Plan (1) Pure hypercholesterolemia: Code(s): E78.00 - Pure hypercholesterolemia, unspecified Category: Medical Plan: Results of her labs done a few weeks ago reviewed and discussed with patient Reinforced low cholesterol diet Continue Atorvastatin 40 mg QD Will have her recheck her labs and fasting lipids in 4 months for follow up (2) History of TIA (transient ischemic attack): Code(s): Z86.73 - Personal history of transient ischemic attack (TIA), and cerebral infarction without residual deficits Category: Medical Plan: Continue Aspirin 81 mg QD Head and neck CTA done in 2021 showed no significant vascular disease; carotid US done in 2022 revealed no significant carotid artery disease Head CT done in 2022 was also unremarkable She is advised to continue with aggressive risk factor(s) reduction/modification Follow up with neurology (Dr. Palafox) as scheduled (3) Coronary artery disease: Code(s): I25.10 - Atherosclerotic heart disease of [place] coronary artery without angina pectoris Category: Medical Qualifiers: Coronary Disease-Associated Artery/Lesion type: [place] artery [place] vs. transplanted heart: [place] heart Associated angina: without angina Qualified Code(s): I25.10 - Atherosclerotic heart disease of [place] coronary artery without angina pectoris Plan: Patient was seen by cardiology last year and all of her tests and evaluations done, including echocardiogram, cardiac stress testing as well as cardiac event monitor, have all come back normal Coronary CTA revealed (+) mild LAD atherosclerosis, but normal findings in the circumflex and RCA Holter monitor showed underlying sinus rhythm and no evidence of atrial fibrillation or any arrhythmia She was recommended by cardiology to continue treatment/management for stable vascular disease, with aggressive control of her cholesterol and blood pressure Continue Aspirin 81 mg QD (4) Rheumatoid arthritis: Code(s): M06.9 - Rheumatoid arthritis, unspecified Category: Medical Qualifiers: Rheumatoid arthritis location: unspecified site Rheumatoid factor presence: with rheumatoid factor Qualified Code(s): M05.9 - Rheumatoid arthritis with rheumatoid factor, unspecified Plan: Continue Sulfasalazine 1000 mg BID and Folic Acid 1 mg QD (Rx refilled) She used to see [facility] [place] for rheumatology follow up but as Dr. Hurt has reportedly joined [facility] in [place], she is now following up locally here with [facility] Rheumatology for continuing management of her RA She had some additional labs ordered by rheumatology for further evaluation a few weeks ago and all of these came back normal/negative (5) Headache: Code(s): R51.9 - Headache, unspecified Category: Medical Qualifiers: Headache chronicity pattern: unspecified pattern Headache type: unspecified Intractability: not intractable Qualified Code(s): R51.9 - Headache, unspecified Plan: Suspect migraine headache or variant - states that her headaches have been better controlled lately Follow up with neurology (Dr. Palafox) as scheduled (6) Vitamin D deficiency: Code(s): E55.9 - Vitamin D deficiency, unspecified Category: Medical Plan: Continue Vitamin D3 25 mcg (1000 units) QD (7) GERD without esophagitis: Code(s): K21.9 - Gastro-esophageal reflux disease without esophagitis Category: Medical Plan: Dietary restrictions reinforced Continue Pantoprazole 40 mg QD (8) Nocturnal leg cramps: Code(s): G47.62 - Sleep related leg cramps Category: Medical Plan: Continue Magnesium tablets 400 mg 1 to 2 tablets Q HS PRN - states that these seem to be helping with her leg cramps (9) Insomnia: Code(s): G47.00 - Insomnia, unspecified Category: Medical Qualifiers: Insomnia type: unspecified Qualified Code(s): G47.00 - Insomnia, unspecified Plan: Sleep hygiene reinforced States that her Hydroxyzine used to help her with her sleep in the past but it is no longer helping She has also tried several OTC sleep aids recently, including Melatonin and Unisom and a couple of others but none of them helped at all We tried her on Trazodone 50 mg Q HS PRN at her last visit and she states that it did not help at all Have advised patient that this is then more likely due to her anxiety and she should be able to sleep better once his anxiety is much better controlled (10) Anxiety: Code(s): F41.9 - Anxiety disorder, unspecified Category: Medical Plan: Continue Hydroxyzine 25 mg 2 tablets Q HS PRN - states that this was helping her sleep better at night but has not helped lately States that her anxiety is mostly related to her brother's untimely passing sometime last year - notes that this has affected her a lot and she is still trying to process this even though her brother over a year ago now States that working and staying busy has helped her a lot We started her on a trial of Lorazepam 0.5 mg Q HS PRN - states that Lorazepam helped but she has only taken it a couple of times over the past few months as she did not want to take it unless absolutely needed (11) Obesity (BMI 30-39.9): Code(s): E66.9 - Obesity, unspecified Category: Medical Plan: Reinforced diet/exercise as tolerated/lose weight She went out on her own and signed up with an online company ([employer]) that apparently helps patients with weight loss and other issues and she has been getting from them Rx for Semaglutide injections (she pays [id number] for these) and has been on the injections for a few months now States that she is very happy that she has been able to lose a lot of weight since (over 25 pounds since May 2024) and has had no problems so far with the injections and she would like to continue on them at this time Plan Follow up in 4 months Orders: Orders Complete Blood Count Auto Diff 4 Months D64.9 - Anemia, unspecified UA CC w/rflx Micro + Cult 4 Months R30.0 - Dysuria Vitamin D 25-OH Total 4 Months E55.9 - Vitamin D deficiency, unspecified Comprehensive [place]. Panel Fast 4 Months E78.00 - Pure hypercholesterolemia, unspecified Lipid Panel 4 Months E78.00 - Pure hypercholesterolemia, unspecified TSH reflex Free T4 4 Months E78.00 - Pure hypercholesterolemia, unspecified Medications: Changed From folic acid 1 mg PO DAILY 90 tabs 1RF Z79.60 - nursing home (current) use of unspecified immunomodulators and immunosuppressants To folic acid 1 mg PO DAILY 90 days 90 tabs 3RF Z79.60 - termination clerk (current) use of unspecified immunomodulators and immunosuppressants
--- OUTSIDE RECORDS SUMMARY | 2025-01-18 12:22 | XMS_ITS | Encounter Summary ---
Author Organization [employer] Address 75 [facility] 7t [place] [address] Care Team Providers Care Shook Machine Operator Name Role Phone Heide Oreilly MD Primary Care Provider [phone] Reason for Visit * Reason Comments Med Refill Encounter Details Date Type Department Care Team (Late st Contact Info) Description 12/21/2024 Refill [facility] [address] [place] [address] Heide Oreilly MD [address] [place] [address] Social History Tobacco Use Types Packs/Day Years [...] on filedocumented in this encounter Care Teams Shook Machine Operator Relationship Specialty Start Date End Date Heide Oreilly MD [address] [place] [id number] PCP - General Family Medicine 09/03/20 documented as of this encounter
--- OUTSIDE RECORDS SUMMARY | 2025-01-18 12:22 | XMS_ITS | Encounter Summary ---
Author Organization [employer] Address 75 [facility] 7t [place] [address] Care Team Providers Care Interactive Digital Media Specialist Name Role Phone Heide Oreilly MD Primary Care Provider [phone] Reason for Visit * Reason Onset Date Comments Referral 12/16/2022 Encounter Details Date Type Department Care Team ([facility] st Contact Info) Description 12/16/2022 Telephone [facility] MEDICINE [address] [place] [address] Heide Oreilly MD [address] [place], [place] [phone] Referral Social History Tobacco Use Types Packs/Day [...] 1:43 PM EDT Tc from Татьяна at [facility] Radiology inquiring patients referral. Patient also requesting to speak to executive manager. Please contact Татьяна at [phone] Or/and patient at [phone] * Telephone Encounter - Richmond Babcock - 12/19/2022 1:26 PM EDT Tc from pt returning call per notes, pt is requesting to speak to a nurse in regards to US results and referral. Please contact at [phone] * Telephone Encounter - Liyah Henderson RN [...] for the cardiology. Please contact pt at [phone] documented in this encounter Plan of Treatment Not on file documented as of this encounter Visit Diagnoses Not on filedocumented in this encounter Care Teams Interactive Digital Media Specialist Relationship Specialty Start Date End Date Heide Oreilly MD [address] [place] [phone] PCP - General Family Medicine 09/03/20 documented as of this encounter
--- OUTSIDE RECORDS SUMMARY | 2025-01-18 12:22 | XMS_ITS | Encounter Summary ---
Author Organization [email or web address] Address 75 [facility] 7t [place] [address] Care Team Providers Care Director Of Dietary Name Role Phone Heide Oreilly MD Primary Care Provider [phone] Reason for Visit * Reason Onset Date Comments Results 12/09/2022 Encounter Details Date Type Department Care Team ([facility] st Contact Info) Description 12/09/2022 Telephone [facility] MEDICINE [address] [place] [address] Heide Oreilly MD [address] [place], [place] [phone] Results Social History Tobacco Use Types Packs/Day [...] pt, also completed a carotid US at [facility]. Requesting result. Advised will obtain from [employer] and if available will forward to PCPto [...] requesting lab results. Please contact pt at [phone] documented in this encounter Plan of Treatment Not on file documented as of this encounter Visit Diagnoses Not on filedocumented in this encounter Care Teams Director Of Dietary Relationship Specialty Start Date End Date Heide Oreilly MD [address] [place] [id number] PCP - General Family Medicine 09/03/20 documented as of this encounter
--- OUTSIDE RECORDS SUMMARY | 2025-01-18 12:22 | XMS_ITS | Encounter Summary ---
Author Organization [employer] Address 75 [facility] 7t [place] [address] Care Team Providers Care Certified Nurse Midwife Name Role Phone Heide Oreilly MD Primary Care Provider [phone] Reason for Visit * Reason Comments Med Refill Encounter Details Date Type Department Care Team (Late st Contact Info) Description 05/09/2024 Refill [facility] MED & PEDS [address] [place] [address] Heide Oreilly MD [address] [place] [address] Social History Tobacco Use Types Packs/Day Years [...] on filedocumented in this encounter Care Teams Certified Nurse Midwife Relationship Specialty Start Date End Date Heide Oreilly MD [address] [place] [id number] PCP - General Family Medicine 09/03/20 documented as of this encounter
--- OUTSIDE RECORDS SUMMARY | 2025-01-18 12:22 | XMS_ITS | Encounter Summary ---
Author Organization [employer] Address 75 [facility] 7t [place] [address] Care Team Providers Care Self Pay Collector Name Role Phone Heide Oreilly MD Primary Care Provider [phone] Reason for Visit * Reason Onset Date Comments Med Refill 12/09/2022 Encounter Details Date Type Department Care Team (Late st Contact Info) Description 12/09/[address] [facility] MEDICINE [address] [place] [address] Heide Oreilly MD [address] [place], [place] [phone] Med Refill Social History Tobacco Use Types [...] on filedocumented in this encounter Care Teams Self Pay Collector Relationship Specialty Start Date End Date Heide Oreilly MD [address] [place] [id number] PCP - General Family Medicine 09/03/20 documented as of this encounter
--- OUTSIDE RECORDS SUMMARY | 2025-01-18 12:22 | XMS_ITS | Encounter Summary ---
Author Organization [employer] Address 75 [facility] 7t [place] [address] Care Team Providers Care Rubber Goods Finisher Name Role Phone Heide Oreilly MD Primary Care Provider [phone] Encounter Details Date Type Department Care Team (Late st Contact Info) Description 04/17/2023 Orders Only [facility] MED & PEDS [address] [place] [address] Carrie Heard LPN Social History Tobacco Use [...] on filedocumented in this encounter Care Teams Rubber Goods Finisher Relationship Specialty Start Date End Date Heide Orelily MD [address] [place] [phone] PCP - General Family Medicine 09/03/20 documented as of this encounter
--- OUTSIDE RECORDS SUMMARY | 2025-01-18 12:22 | XMS_ITS | Clinical Summary ---
Author Organization [employer] Address 75 [facility] 7t [place] [address] Care Team Providers Care Line Service Technician Name Role Phone Heide Oreilly MD Primary Care Provider [phone] Allergies No known active allergies Medications famotidine [...] Type Department Care Team Description 12/21/2024 Refill [facility] CH[facility] MED & PEDS [address] [place] [address] Heide Oreilly MD from Last 3 Months [...] Most Recently Relevant to Health Maintenance Insurance [facility] MEDICARE ADVANTAGE HMO Care Teams Line Service Technician Relationship Specialty Start Date End Date Heide Oreilly MD [address] [place] [phone] PCP - General Family Medicine 09/03/20
== END 2025-01-18 11:38 | disposition home or self-care (01) ==
LOC: HO.HMCH 10:57
PROVIDERS: PCP Internal Medicine; Visit Provider Internal Medicine
DX: E78.00 Pure hypercholesterolemia, unspecified (principal); Z86.73 Personal history of transient ischemic attack (TIA), and cerebral infarction without residual deficits; I25.10 Atherosclerotic heart disease of native coronary artery without angina pectoris; M05.9 Rheumatoid arthritis with rheumatoid factor, unspecified; E66.9 Obesity, unspecified; Z68.26 Body mass index [BMI] 26.0-26.9, adult; R51.9 Headache, unspecified; E55.9 Vitamin D deficiency, unspecified; K21.9 Gastro-esophageal reflux disease without esophagitis; G47.62 Sleep related leg cramps; F41.9 Anxiety disorder, unspecified; G47.00 Insomnia, unspecified

== ENCOUNTER → 2025-01-18 10:55 | Outpatient (BNVA) | payer MEDICARE, SELFPAY | PROVIDERS: PCP Internal Medicine; Visit Provider Internal Medicine | DX: E78.00 Pure hypercholesterolemia, unspecified (principal); I25.10 Atherosclerotic heart disease of native coronary artery without angina pectoris; R51.9 Headache, unspecified; E55.9 Vitamin D deficiency, unspecified; K21.9 Gastro-esophageal reflux disease without esophagitis; G47.62 Sleep related leg cramps; G47.00 Insomnia, unspecified; F41.9 Anxiety disorder, unspecified; E66.9 Obesity, unspecified; Z68.26 Body mass index [BMI] 26.0-26.9, adult; Z86.73 Personal history of transient ischemic attack (TIA), and cerebral infarction without residual deficits; Z71.3 Dietary counseling and surveillance | CPT/HCPCS: 96127; 99212 ==

== ENCOUNTER 2025-03-01 10:39 | Outpatient (AMB) | payer MEDICARE, SELFPAY ==
--- NOTE | 2025-03-01 10:47 | A.OFFVIS_ITS ---
Vital Signs 03/01/25 10:58 Height 5 ft 2 in Weight 143 lb 8 oz BMI 26.2 BP 118/58 L Blood Pressure Location Rt brachial Position Sitting Pulse 76 Pulse Source Pulse Oximeter Pulse Oximetry (%) 98 Oxygen Delivery Method Room Air Intake Visit Reasons: f/u Intake Note: Est pt for mgmt of GERD CC; C.O. possible GI sx related to ozempic. Pt reports sx include; bloating, gas, belching, GERD, generalized abd pain, hard stools, constipation. Pt cannot recall previous colo but knows that it was at least 5-6 years ago. Possibly through [facility]? Judge Clerk Required: No Accompanied by: Self / Same As Patient Allergies No Known Allergies Allergy (Verified 03/01/25 10:49) HPI HPI f/u: Details: Pt only see before for cologuard test. It was negative. She is here today for evaluation of multiple new GI problems. She lost 40# on GLP-1 and is having a lot of GI problems. N/V, dyspepesia, severe GERD, severe CIC but then takes meds and has explosive diarrhea - yet won't move bowels for many days despite taking miralax, senna, colace, fiber, and bisacodyl at night. She also had abdominal pain that at times is lower and at times upper, very generalized. Has FHX of SSBE and pancreatic cancer. Labs reveal an elevated lipase. She would like to lose some more weight, but we discuss benefits of medication GLP-1 cessation. For now get CT of abd and pelvis, repeat lipase, start Linzess. ROV 4 weeks. [facility] Medical History Coronary artery disease Insomnia TIA (transient ischemic attack) Piriformis syndrome of left side Piriformis syndrome of right side Low back pain potentially associated with radiculopathy Long-term use of immunosuppressant medication Obesity (BMI 30-39.9) Pure hypercholesterolemia GERD without esophagitis Vitamin D deficiency Rheumatoid arthritis Surgical History H/O colonoscopy Hx of appendectomy Family History Paternal Grandfather Heart problem Father Heart problem HTN (hypertension) Mother Heart problem HTN (hypertension) Paternal Grandmother Breast cancer Maternal Grandfather Pancreatic cancer Other Arthritis Social History Housing: Apartment Alcohol intake: never Patient Tobacco Use Status: Never used Tobacco e-Cigarette/Vaping Use: Never Used service: No Current occupational status: employed Current occupational exposures/hazards: No Cognitive needs: No Hearing needs: No Vision needs: Yes (glasses) Female Reproductive History Menstrual Age of Menarche: 15 Review of Systems Const Denies fatigue, Denies fever(s), Denies night sweats, Reports poor appetite and Reports weight loss ENT Reports Normal hearing present, Denies dental pain, Denies dysphagia, Denies hearing loss, Denies mouth pain, Denies odynophagia, Denies throat swelling, Denies tongue swelling and Reports other (Dentition adequate) Card Reports no additional complaints Resp Reports no additional complaints GI Details: Reports abdominal pain, Reports belching, Denies melena, Reports bloating, Denies hematochezia, Reports constipation, Denies GI cramping, Denies dysphagia, Denies excessive flatus, Denies early satiety, Reports dyspepsia, Reports heartburn, Reports diarrhea, Reports nausea, Denies odynophagia, Reports vomiting and Denies hematemesis Skin/Breast Denies pruritus, Denies lesions, Denies rash and Denies jaundice Neuro Reports Normal hearing present and Denies Abnormal speech present Endo Denies fatigue Aller/Immun Denies throat swelling and Denies tongue swelling Physical Exam Vital Signs: Last Vital Signs Pulse 76 03/01/25 10:58 BP 118/58 L 03/01/25 10:58 Pulse Ox 98 03/01/25 10:58 Oxygen Delivery Method Room Air 03/01/25 10:58 BMI result Body Mass Index 26.2 Const General: cooperative, no acute distress, well developed and well groomed Nutritional Appearance: well nourished Orientation/consciousness: oriented to person, oriented to place and oriented to time Limitations: No language barrier HEENT Head: Yes normocephalic and Yes atraumatic Eyes General: appearance normal, both eyes and all related structures Pupils: Equal, round and reactive pupils present Neck Neck: Yes normal visual inspection and Yes no lymphadenopathy Thyroid: Thyroid normal Resp Effort & Inspection: normal respiratory effort and able to speak in complete sentences Auscultation: clear to auscultation bilaterally Cardio Rate: regular rate Rhythm: regular rhythm Heart sounds: Normal, physiologic split S2 sound present Peripheral pulses: radial pulses present and posterior tibial pulses present GI Inspection: No distended and No Abdominal panniculus present Palpation (GI): Soft to palpation, nontender, no guarding, not rigid and No hepatosplenomegaly present Percussion: Yes normal to percussion Auscultation: normal bowel sounds Rectal Exam - Female: deferred Skin General skin exam: no rashes or lesions noted, turgor normal, skin not dry, no jaundice, No spider nevi and no striae Rashes: no rashes Nails: normal Neuro General: oriented to person, oriented to place and oriented to time Cranial nerves: Yes Equal, round and reactive pupils present and Yes Normal hearing present Speech: No Abnormal speech present Extrem General: Yes normal to inspection, No clubbing, No cyanosis and No edema Psych Appearance: grossly normal and well kempt Mental Status: mental status grossly normal Speech and movement: Normal speech and movement present Affect: normal affect Attitude: cooperative Thought process: Normal thought process present and not confabulating Thought content: Normal thought content present Insight: Limited insight present (Psych) Judgement: Limited judgement present (Psych) Assessment & Plan Assessment & Plan (1) GERD without esophagitis: Code(s): K21.9 - Gastro-esophageal reflux disease without esophagitis Category: Medical (2) History of esophageal stricture: Code(s): Z87.19 - Personal history of other diseases of the digestive system Category: Medical (3) Family history of pancreatic cancer: Comment: maternal grandfather and maternal uncle of this. Code(s): Z80.0 - Family history of malignant neoplasm of digestive organs Category: Medical (4) Elevated lipase: Code(s): R74.8 - Abnormal levels of other serum enzymes Category: Medical (5) Abdominal pain: Code(s): R10.9 - Unspecified abdominal pain Category: Medical Plan Pt only see before for cologuard test. It was negative. She is here today for evaluation of multiple new GI problems. She lost 40# on GLP-1 and is having a lot of GI problems. N/V, dyspepesia, severe GERD, severe CIC but then takes meds and has explosive diarrhea - yet won't move bowels for many days despite taking miralax, senna, colace, fiber, and bisacodyl at night. She also had abdominal pain that at times is lower and at times upper, very generalized. Has FHX of SSBE and pancreatic cancer. Labs reveal an elevated lipase. She would like to lose some more weight, but we discuss benefits of medication GLP-1 cessation. For now get CT of abd and pelvis, repeat lipase, start Linzess. ROV 4 weeks. Orders: Orders CT abdomen pelvis w IV con 03/01/25 R10.9 - Unspecified abdominal pain EGD - GI Use Only 03/01/25 Z87.19 - Personal history of other diseases of the digestive system, K21.9 - Gastro-esophageal reflux disease without esophagitis Amylase 03/01/25 R10.9 - Unspecified abdominal pain Lipase 03/01/25 R10.9 - Unspecified abdominal pain Medications: New linaclotide (Linzess) Take first thing in the morning with a full glass of water. 145 mcg PO QAM 30 caps 3RF K58.1 - Irritable bowel syndrome with constipation Coding Level of Care Code Est Pt Level 4 (46380) Diagnoses GERD without esophagitis K21.9 History of esophageal stricture Z87.19 Family history of pancreatic cancer Z80.0 Elevated lipase R74.8 Abdominal pain R10.9 Time Spent (min) 37
[2025-03-01 10:58] VITALS: BP 118/58; PULSE 76; O2SAT 98; BMI 26.2
== END 2025-03-01 11:41 | disposition home or self-care (01) ==
LOC: HO.HGI 10:39
PROVIDERS: PCP Internal Medicine; Visit Provider Nurse Practitioner
DX: K21.9 Gastro-esophageal reflux disease without esophagitis (principal); Z87.19 Personal history of other diseases of the digestive system; Z80.0 Family history of malignant neoplasm of digestive organs; R74.8 Abnormal levels of other serum enzymes; R10.9 Unspecified abdominal pain
CPT/HCPCS: 99214

== ENCOUNTER 2025-03-01 11:50 | Outpatient (REF) | payer MEDICARE, SELFPAY ==
[2025-03-01 12:56] LABS: Amylase 105 U/L (28-100); Lipase 27 U/L (8-78)
== END 2025-03-01 11:51 | disposition home or self-care (01) ==
LOC: HO.LAB 11:50
PROVIDERS: PCP Internal Medicine; Visit Provider Nurse Practitioner
DX: R10.9 Unspecified abdominal pain (principal); K21.9 Gastro-esophageal reflux disease without esophagitis; R74.8 Abnormal levels of other serum enzymes; Z87.19 Personal history of other diseases of the digestive system; Z80.0 Family history of malignant neoplasm of digestive organs
CPT/HCPCS: 36415; 82150; 83690; 99212

== ENCOUNTER 2025-03-29 08:17 | Outpatient (REF) | payer MEDICARE, SELFPAY | END 2025-03-29 08:18 | disposition home or self-care (01) | LOC: HO.LNP 08:17 | PROVIDERS: PCP Internal Medicine; Visit Provider Advanced Practice Midwife | DX: Z12.4 Encounter for screening for malignant neoplasm of cervix (principal); Z80.3 Family history of malignant neoplasm of breast; Z79.85 Long-term (current) use of injectable non-insulin antidiabetic drugs; Z79.82 Long term (current) use of aspirin; Z79.899 Other long term (current) drug therapy | CPT/HCPCS: 87626; 88175; G0101; Q0091 ==

== ENCOUNTER 2025-03-29 08:17 | Outpatient (AMB) | payer MEDICARE, SELFPAY ==
--- OUTSIDE RECORDS SUMMARY | 2025-03-29 08:20 | XMS_ITS | Encounter Summary ---
Author Organization [employer] Address 75 [facility] 7t [place] [address] Care Team Providers Care Cold Mill Operator Name Role Phone Heide Oreilly MD Primary Care Provider [phone] Reason for Visit * Reason Onset Date Comments Results 12/09/2022 Encounter Details Date Type Department Care Team (Late st Contact Info) Description 12/09/[address] [facility] MEDICINE [address] [place] [address] Heide Oreilly MD [address] [place] [address] Results Social History Tobacco Use Types Packs/Day [...] pt, also completed a carotid US at [facility]. Requesting result. Advised will obtain from [employer] and if available will forward to PCPto [...] requesting lab results. Please contact pt at [phone] documented in this encounter Plan of Treatment Not on file documented as of this encounter Visit Diagnoses Not on filedocumented in this encounter Care Teams Cold Mill Operator Relationship Specialty Start Date End Date Heide Oreilly MD [address] [place] [id number] PCP - General Family Medicine 09/03/20 documented as of this encounter
--- NOTE | 2025-03-29 08:35 | MHC.OFFVIS ---
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: No Information Interpreted: clinical only (Vi) Accompanied by: Self / Same As Patient Allergies No Known Allergies Allergy (Verified 03/29/25 08:37) Medication List - Last Reconciled 03/29/25 by Malena Hernandes LPN aspirin 81 mg PO DAILY atorvastatin 40 mg PO DAILY 90 days cholecalciferol (vitamin D3) 25 mcg PO DAILY 90 days folic acid 1 mg PO DAILY 90 days hydroxyzine HCl 50 mg (2 x 25 mg) PO BEDTIME PRN lorazepam 0.5 mg PO BEDTIME PRN magnesium oxide Take 1 to 2 tablets orally bedtime PRN; ondansetron 4 mg PO Q8H PRN 10 days pantoprazole 40 mg PO QAM 90 days semaglutide 0.5 mg subcut QWEEK sulfasalazine 1,000 mg (2 x 500 mg) PO BID 30 days Is last menstrual period known: No Post menopausal: No Patient : No Do you need a note to return to daycare/school/sports/work: No HPI Comments Details: 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 Currently not sexually active. Denies any vaginal dryness or irritation. Attempting to eat a healthy diet with calcium and vitamin D and stays active with exercise. Last pap smear; 2019, negative. Last mammogram; 2023. Colonoscopy is UTD. Denies any family history of ovarian or colon cancer. FH breast cancer. [facility] Medical History Coronary artery disease Insomnia TIA (transient ischemic attack) Piriformis syndrome of left side Piriformis syndrome of right side Low back pain potentially associated with radiculopathy Long-term use of immunosuppressant medication Obesity (BMI 30-39.9) Pure hypercholesterolemia GERD without esophagitis Vitamin D deficiency Rheumatoid arthritis Surgical History H/O colonoscopy Hx of appendectomy Family History Paternal Grandfather Heart problem Father Heart problem HTN (hypertension) Mother Heart problem HTN (hypertension) Paternal Grandmother Breast cancer Maternal Grandfather Pancreatic cancer Other Arthritis Social History Housing: Apartment Alcohol intake: never Patient Tobacco Use Status: Never used Tobacco e-Cigarette/Vaping Use: Never Used service: No Current occupational status: employed Current occupational exposures/hazards: No Cognitive needs: No Hearing needs: No Vision needs: Yes (glasses) Female Reproductive History Menstrual Age of Menarche: 15 Menopause type: natural Date of last pap smear: 06/06/20 History of abnormal pap smear: No Date of Mammogram: 04/13/24 History of abnormal mammogram: No Review of Systems Const All systems reviewed & are unremarkable except as noted in HPI and below Reports as per HPI Eyes Reports no additional complaints ENT Reports no additional complaints Card Reports no additional complaints Resp Reports no additional complaints GI Reports as per HPI and Reports no additional complaints Reports as per HPI Musc Reports no additional complaints Skin/Breast Reports as per HPI Neuro Reports no additional complaints Psych Reports no additional complaints Endo Reports no additional complaints Leonardo/Lymph Reports no additional complaints Aller/Immun Reports no additional complaints Physical Exam Vital Signs: Last Vital Signs BP 98/62 03/29/25 08:36 BMI result Body Mass Index 26.5 Const General: cooperative, healthy appearing, no acute distress, well developed and alert Orientation/consciousness: patient oriented x3 HEENT Head: Yes normal to inspection Eyes General: appearance normal, both eyes and all related structures Neck Neck: Yes normal visual inspection Thyroid: Thyroid normal Chest Chest palpation & inspection: normal inspection of the chest and other (no puckering, dimpling, peau de orange, retraction, discharge, masses) Breast/axilla inspection: normal inspection of the breasts Breast/axilla palpation: normal palpation of the breasts Resp Effort & Inspection: normal respiratory effort GI Inspection: Yes normal to inspection Palpation (GI): Soft to palpation Rectal Exam - Female: deferred General: Yes bladder normal to palpation External Female Exam: normal external appearance and normal appearance of the urethra Speculum Exam - Vagina: normal appearance of the vagina, normal palpation, normal vaginal discharge and vagina atrophic Speculum Exam - Cervix: normal appearance of the cervix and normal palpation Bimanual exam- vagina & uterus: normal bimanual exam, normal palpation, uterine size normal, bladder normal to palpation, normal palpation and non-tender Bimanual Exam- Adnexa, other: no masses Skin General skin exam: no rashes or lesions noted Rashes: no rashes Neuro General: patient oriented x3 Cognition (Neuro): normal cognition Extrem General: Yes normal to inspection Psych Attitude: cooperative Thought process: Normal thought process present Assessment & Plan Assessment & Plan (1) Encounter for well woman exam with routine gynecological exam: Code(s): Z01.419 - Encounter for gynecological examination (general) (routine) without abnormal findings Category: Medical Plan Discussed: Current recommendations for pap smears per ASCCP guidelines. Pap obtained. Breast awareness, periodic self breast exams and yearly mammogram. Maintain a healthy lifestyle, well balanced diet including Calcium 1,200 mg and Vitamin D 600 IU daily, and routine exercise. Contact the office with any postmenopausal bleeding. Patient verbalizes understanding and agrees to the plan of care. She was given opportunity to ask questions and all questions were answered to the best of my ability. RTO in 1 year for annual weld engineer exam. This note is constructed using voice recognition software. While every effort has been made to ensure accuracy, hydraulic specialist errors may have been included. Orders: Orders Pap Smear Today Z12.4 - Encounter for screening for malignant neoplasm of cervix Coding Level of Care Code Est Pt Prev Care >65y(61315) Diagnoses Encounter for well woman exam with routine gynecological exam Z01.419
[2025-03-29 08:36] VITALS: BP 98/62; BMI 26.5
== END 2025-03-29 09:10 | disposition home or self-care (01) ==
LOC: HO.HWS 08:18
PROVIDERS: PCP Internal Medicine; Visit Provider Advanced Practice Midwife
DX: Z01.419 Encounter for gynecological examination (general) (routine) without abnormal findings (principal)
CPT/HCPCS: G0101; Q0091

== ENCOUNTER 2025-03-30 09:44 | Outpatient (AMB) | payer MEDICARE, SELFPAY ==
--- NOTE | 2025-03-30 09:49 | MHC.OFFVIS ---
Vital Signs 03/30/25 09:50 Height 5 ft 2 in Weight 138 lb 14.259 oz BMI 25.4 BP 89/55 L Blood Pressure Location Lt brachial Position Sitting Pulse 85 Intake Visit Reasons: titrate linzess Intake Note: Rylie presents in the office as a follow up. CC: Results to blood work - states Linzess was $700. Commercial Interior Designer Required: No Allergies No Known Allergies Allergy (Verified 03/30/25 09:51) HPI HPI titrate linzess: Details: Assessment & Plan (1) GERD without esophagitis: Code(s): K21.9 - Gastro-esophageal reflux disease without esophagitis Category: Medical (2) History of esophageal stricture: Code(s): Z87.19 - Personal history of other diseases of the digestive system Category: Medical (3) Family history of pancreatic cancer: Comment: maternal grandfather and maternal uncle of this. Code(s): Z80.0 - Family history of malignant neoplasm of digestive organs Category: Medical (4) Elevated lipase: Code(s): R74.8 - Abnormal levels of other serum enzymes Category: Medical (5) Abdominal pain: Code(s): R10.9 - Unspecified abdominal pain Category: Medical Plan Pt only see before for cologuard test. It was negative. She is here today for evaluation of multiple new GI problems. She lost 40# on GLP-1 and is having a lot of GI problems. N/V, dyspepesia, severe GERD, severe CIC but then takes meds and has explosive diarrhea - yet won't move bowels for many days despite taking miralax, senna, colace, fiber, and bisacodyl at night. She also had abdominal pain that at times is lower and at times upper, very generalized. Has FHX of SSBE and pancreatic cancer. Labs reveal an elevated lipase. She would like to lose some more weight, but we discuss benefits of medication GLP-1 cessation. For now get CT of abd and pelvis, repeat lipase, start Linzess. ROV 4 weeks. Orders: Orders CT abdomen pelvis w IV con 03/01/25 R10.9 - Unspecified abdominal pain EGD - GI Use Only 03/01/25 Z87.19 - Personal history of other diseases of the digestive system, K21.9 - Gastro-esophageal reflux disease without esophagitis Amylase 03/01/25 R10.9 - Unspecified abdominal pain Lipase 03/01/25 R10.9 - Unspecified abdominal pain Medications: New linaclotide (Linzess) Take first thing in the morning with a full glass of water. 145 mcg PO QAM 30 caps 3RF K58.1 - Irritable bowel syndrome with constipation Laboratory Tests 12/26/24 03/01/25 09:59 12:08 Amylase 105 H Lipase [address] ABD AND PELVIS EGD TODAYS VISIT She never got the Linzess because it would have cost her 700 dollars! It appears that it is a tier 3 drug via [facility]. It seems the all of the constipation meds fallen to very high co-pay categories. However, with good Rx we can get her Amitiza 8 micro g twice a day for 42 dollars so I will give her a good Rx card in print the coupon and she will have this at [facility]. We review the pancreatic enzymes and since her amylase and lipase have been intermittently elevated I don't feel that the Ozemic is the best medicine for her given her FHX of pancreatic cancer. We discuss this and sign/sx of pancreatitis. Her BP was low today 89 systolic, will repeat as she has no dizziness or signs of hypotension. Repeat BP is improved. She continues on her pantoprazole 40 mg once a day with good control of her GERD. Return office visit in 6 weeks [facility] Medical History (Updated 03/30/25 @ 11:25 by JOSÉ Alonso) Elevated lipase Abdominal pain Pap smear for cervical cancer screening Encounter for screening for cervical cancer Morbid obesity Coronary artery disease Insomnia TIA (transient ischemic attack) Piriformis syndrome of left side Piriformis syndrome of right side Low back pain potentially associated with radiculopathy Long-term use of immunosuppressant medication Obesity (BMI 30-39.9) Pure hypercholesterolemia GERD without esophagitis Vitamin D deficiency Rheumatoid arthritis Surgical History H/O colonoscopy Hx of appendectomy Family History Paternal Grandfather Heart problem Father Heart problem HTN (hypertension) Mother Heart problem HTN (hypertension) Paternal Grandmother Breast cancer Maternal Grandfather Pancreatic cancer Other Arthritis Social History Housing: Apartment Alcohol intake: never Patient Tobacco Use Status: Never used Tobacco e-Cigarette/Vaping Use: Never Used service: No Current occupational status: employed Current occupational exposures/hazards: No Cognitive needs: No Hearing needs: No Vision needs: Yes (glasses) Female Reproductive History Menstrual Age of Menarche: 15 Review of Systems Const Denies fatigue, Denies fever(s), Denies night sweats, Denies poor appetite and Denies weight loss ENT Denies dental pain, Denies dysphagia, Denies hearing loss, Denies mouth pain, Denies odynophagia, Denies throat swelling, Denies tongue swelling and Reports other (Dentition adequate) Card Reports no additional complaints Resp Reports no additional complaints GI Details: Denies abdominal pain, Denies melena, Denies bloating, Denies hematochezia, Reports constipation, Denies GI cramping, Denies dysphagia, Denies excessive flatus, Denies early satiety, Denies heartburn, Denies diarrhea, Denies nausea, Denies odynophagia, Denies vomiting and Denies hematemesis Skin/Breast Denies pruritus, Denies lesions, Denies rash and Denies jaundice Endo Denies fatigue Aller/Immun Denies throat swelling and Denies tongue swelling Physical Exam Vital Signs: Last Vital Signs Pulse 85 03/30/25 09:50 BP 89/55 L 03/30/25 09:50 BMI result Body Mass Index 25.4 Assessment & Plan Assessment & Plan (1) Elevated pancreatic enzyme: Code(s): R74.8 - Abnormal levels of other serum enzymes Category: Medical (2) Family history of pancreatic cancer: Comment: maternal grandfather and maternal uncle of this. Code(s): Z80.0 - Family history of malignant neoplasm of digestive organs Category: Medical (3) Chronic idiopathic constipation: Code(s): K59.04 - Chronic idiopathic constipation Category: Medical Plan She never got the Linzess because it would have cost her 700 dollars! It appears that it is a tier 3 drug via [facility]. It seems the all of the constipation meds fallen to very high co-pay categories. However, with good Rx we can get her Amitiza 8 micro g twice a day for 42 dollars so I will give her a good Rx card in print the coupon and she will have this at [facility]. We review the pancreatic enzymes and since her amylase and lipase have been intermittently elevated I don't feel that the Ozemic is the best medicine for her given her FHX of pancreatic cancer. We discuss this and sign/sx of pancreatitis. Her BP was low today 89 systolic, will repeat as she has no dizziness or signs of hypotension. Repeat BP is improved. She continues on her pantoprazole 40 mg once a day with good control of her GERD. Return office visit in 6 weeks Medications: New lubiprostone (Amitiza) 8 mcg PO BID 60 caps 6RF JOSÉ Alonso lubiprostone (Amitiza) 8 mcg PO BID 60 caps 6RF JOSÉ Alonso Refilled sulfasalazine 1,000 mg (2 x 500 mg) PO BID 120 tabs 0RF 30 days Levon Rueda MD M06.9 - Rheumatoid arthritis, unspecified Coding Level of Care Code Est Pt Level 3 (38952) Diagnoses Elevated pancreatic enzyme R74.8 Family history of pancreatic cancer Z80.0 Chronic idiopathic constipation K59.04
[2025-03-30 09:50] VITALS: BP 89/55; PULSE 85; BMI 25.4
--- OUTSIDE RECORDS SUMMARY | 2025-03-30 10:06 | XMS_ITS | Encounter Summary ---
Author Organization [employer] Address [address] [facility] [address] [place] [address] Care Team Providers Care Risk And Compliance Analytics Director Name Role Phone Heide Oreilly MD Primary Care Provider Reason for Visit * Reason Onset Date Comments Results 12/09/2022 Encounter Details Date Type Department Care Team (Late st Contact Info) Description 12/09/2022 Telephone [facility] MEDICINE [address] [place] [address] Heide Oreilly MD [address] [place] [address] Results Social History Tobacco Use Types Packs/Day [...] pt, also completed a carotid US at [facility] [place]. Requesting result. Advised will obtain from [facility] and if available will forward to PCPto [...] requesting lab results. Please contact pt at [phone] documented in this encounter Plan of Treatment Not on file documented as of this encounter Visit Diagnoses Not on filedocumented in this encounter Care Teams Risk And Compliance Analytics Director Relationship Specialty Start Date End Date Heide Oreilly MD [address] [place] [id number] PCP - General Family Medicine 09/03/20 documented as of this encounter
== END 2025-03-30 10:26 | disposition home or self-care (01) ==
LOC: HO.HGI 09:45
PROVIDERS: PCP Internal Medicine; Visit Provider Nurse Practitioner
DX: R74.8 Abnormal levels of other serum enzymes (principal); Z80.0 Family history of malignant neoplasm of digestive organs; K59.04 Chronic idiopathic constipation
CPT/HCPCS: 99213

== ENCOUNTER → 2025-03-30 09:44 | Outpatient (BNVA) | payer MEDICARE, SELFPAY | PROVIDERS: PCP Internal Medicine; Visit Provider Nurse Practitioner | DX: R74.8 Abnormal levels of other serum enzymes (principal); K59.04 Chronic idiopathic constipation; Z80.0 Family history of malignant neoplasm of digestive organs | CPT/HCPCS: 99212 ==

== ENCOUNTER 2025-04-06 12:35 | Outpatient (REF) | payer MEDICARE, SELFPAY ==
[2025-04-06 12:47] LABS: MANUAL DIFF FLAG NO
--- OUTSIDE RECORDS SUMMARY | 2025-04-06 12:57 | XMS_ITS | Clinical Summary ---
Author Organization [facility] Address [address] [place] [address] Phone Care Team Providers Care Pbx Supervisor Name Role Phone Chidi Rapp MD Primary Care Provider [phone] Allergies No known active allergies Medications folic acid (FOLVITE) 1 MG tablet Take 1 mg by mouth daily. Active calcium carbonate 1,250 mg (500 mg elemental) capsule Unknown dose Active ibuprofen (ADVIL,MOTRIN) 600 MG tablet Take 1 tablet (600 mg total) by mouth every 8 (eight) hours as needed for pain (specific location in comments). 20 tablet 11/15/2017 Active sulfaSALAzine (AZULFIDINE) 500 mg tabletIndicatio ns:Rheumatoid arthritis involving multiple sites with positive rheumatoid factor Take 2 tablets (1,000 mg total) by mouth 2 (two) times a day. 120 tablet 3 08/03/2023 Active Social History Tobacco Use Types Packs/Day Years Used Date Smoking Tobacco: Former Smokeless Tobacco: Never Alcohol Use Standard Drinks/Week Comments No 0 (1 standard drink = 0.6 oz pur e alcohol) Education Answer Date Recorded Are you interested in more education? Not on anu e 08/03/2023 Are you concerned about learning? Not on file 08/03/2023 No 08/03/2023 No 08/03/2023 Digital Access Answer Date Recorded No 08/03/2023 No 08/03/2023 Reliable internet access at home? Not on file 08/03/2023 Device with a working camera? Not on file Comments Unknown Sex and Gender Information Value Date Recorded Sex Assigned at Not on file Legal Sex Female 5:53 PM EST Gender Identity Not on file Sexual Orientation Not on file Last Filed Vital Signs Vital Sign Reading Time Taken Comments Blood Pressure 130/83 11/15/2017 5:58 PM EST Pulse 72 11/15/2017 5:58 PM EST Temperature 36.6 C (97.9 F) 11/15/2017 5:58 PM EST Respiratory Rate 16 11/15/2017 5:58 PM EST Oxygen Saturation 94% 11/15/2017 5:58 PM EST Inhaled Oxygen Concentration - - Weight 76.2 kg (168 lb) 11/15/2017 5:58 PM EST Height 157.5 cm (5' 2 ) 11/15/2017 5:58 PM EST Body Mass Index 30.73 11/15/2017 5:58 PM EST Plan of Treatment Health Maintenance Due Date Last Done Comments Adult Td,Tdap Booster 1956 LIPID PANEL 1956 DEPRESSION SCREENING 1968 SMOKING Hx and SMOKELESS TOB ACCO SCREENING 1969 HEPATITIS C SCREENING 1974 MAMMOGRAM 1996 COLOGUARD 2001 COLONOSCOPY 2001 COLORECTAL CANCER SCREENING 2001 FIT TEST 2001 FOBT 2001 SIGMOIDOSCOPY 2001 VIRTUAL COLONOSCOPY 2001 PNEUMOCOCCAL VACCINES (50+ y ears) (1 of 1 - PCV) 2006 ZOSTER VACCINES (1 of 2) 2006 OSTEOPOROSIS SCREENING INITI AL (ONE-TIME) 2021 COVID-19 VACCINE ( - 2023-2 5 season) 2024 RSV VACCINE (1 - 1-dose 75+ series) 2031 HEPATITIS A VACCINES Aged Out No long er eligible based on patient's age to complete this topic HIB VACCINES Aged Out No longer eligi ble based on patient's age to complete this topic MENINGOCOCCAL VACCINES (ACWY) Aged Out No longer eligible based on patient's age to complete this topic MENINGOCOCCAL VACCINES (B) Aged Out N o longer eligible based on patient's age to complete this topic Medical Devices Not on file [place] [address] [place] [address] MEDICARE REPLACEMENT MEDICARE REPLACEMENT MEDICARE REPLACEMENT MEDICARE REPLACEMENT [place] [id number] Care Teams Pbx Supervisor Relationship Specialty Start Date End Date Chidi Rapp MD PCP - General Internal Medicine 11/15/17 Additional Source Comments The information contained in this document represents components of the legal health record. It is not the complete legal health record.[facility]
--- OUTSIDE RECORDS SUMMARY | 2025-04-06 12:57 | XMS_ITS | Encounter Summary ---
Author Organization [employer] Address [address] [facility] [address] [place] [address] Care Team Providers Care Rail Switchman Name Role Phone Heide Oreilly MD Primary Care Provider [phone] Reason for Visit * Reason Onset Date Comments Results 12/09/2022 Encounter Details Date Type Department Care Team (Late st Contact Info) Description 12/09/2022 Telephone [facility] MEDICINE [address] [place] [address] Heide Oreilly MD [address] [place] [address] Results Social History Tobacco Use Types Packs/Day [...] pt, also [place] [facility] [place]. Advised will obtain from [facility] and if available will forward to PCPto [...] requesting lab results. Please contact pt at [phone] documented in this encounter Plan of Treatment Not on file documented as of this encounter Visit Diagnoses Not on filedocumented in this encounter Care Teams Rail Switchman Relationship Specialty Start Date End Date Heide Oreilly MD [address] [place] [id number] PCP - General Family Medicine 09/03/20 documented as of this encounter
[2025-04-06 13:00] LABS: Hematocrit 36.0 % (37.0-47.0); Hemoglobin 12.2 g/dl (12.0-16.0); Imm Gran Abs Auto 0.01 X10*3/uL (0.00-0.03); Imm Gran Pct Auto 0.2 % (0.0-0.4); Lymphocytes Absolute Auto 1.5 X10*3/uL (1.2-4.9); Mean Corpuscular HGB Conc 33.9 g/dl (31.0-35.0); Mean Corpuscular Hemoglobin 33.0 pg (27.0-33.0); Mean Corpuscular Volume 97.3 fL (80.0-98.0); NRBC Abs Auto 0.000 X10*3/uL (0.0-0.012); NRBC Pct Auto 0.0 /100WBC (0.0-0.2); Platelet Count 236 X10*3/uL (160-400); Red Blood Count 3.70 X10*6/uL (4.20-5.50); White Blood Count 4.2 X10*3/uL (4.8-10.8)
[2025-04-06 13:24] LABS: Blood Urea Nitrogen 12 mg/dL (9-16); Estimated Glomerular Filt Rate > 60
[2025-04-06 13:26] LABS: Alanine Aminotransferase 21 U/L (0-31); Albumin Level 4.3 g/dL (3.5-5.0); Alkaline Phosphatase 94 U/L (39-117); Anion Gap 9 (12-20); Aspartate Amino Transferase 23 U/L (5-31); Blood Urea Nitrogen 12 mg/dL (9-16); Calcium 8.9 mg/dL (8.4-10.2); Carbon Dioxide 27 mmol/L (22-29); Chloride 108 mmol/L (96-108); Estimated Glomerular Filt Rate > 60; Potassium 4.0 mmol/L (3.3-5.1); Sodium 140 mmol/L (135-145); Total Protein 6.6 g/dL (6.5-8.0)
== END 2025-04-06 12:36 | disposition home or self-care (01) ==
LOC: HO.LAB 12:35
PROVIDERS: Student in an Organized Health Care Education/Training Program; Visit Provider Nurse Practitioner
DX: M05.9 Rheumatoid arthritis with rheumatoid factor, unspecified (principal); R74.8 Abnormal levels of other serum enzymes; Z80.0 Family history of malignant neoplasm of digestive organs
CPT/HCPCS: 36415; 80053; 82565; 84520; 85025; 85652; 86140

== ENCOUNTER 2025-04-12 13:27 | Outpatient (AMB) | payer MEDICARE, SELFPAY ==
--- NOTE | 2025-04-12 13:31 | A.OFFVIS_ITS ---
Vital Signs 04/12/25 13:39 Height 5 ft 2 in Weight 145 lb 1.027 oz BMI 26.5 BP 112/60 Blood Pressure Location Lt brachial Position Sitting Pulse 66 Pulse Source Pulse Oximeter Pulse Oximetry (%) 94 Oxygen Delivery Method Room Air Intake Visit Reasons: RA Intake Note: Patient presents for RA follow up. Allergies No Known Allergies Allergy (Verified 04/12/25 13:39) Medication List - Last Reconciled 04/12/25 by Yuni Mar MD aspirin 81 mg PO DAILY atorvastatin 40 mg PO DAILY 90 days cholecalciferol (vitamin D3) 25 mcg PO DAILY 90 days folic acid 1 mg PO DAILY 90 days hydroxyzine HCl 50 mg (2 x 25 mg) PO BEDTIME PRN lorazepam 0.5 mg PO BEDTIME PRN lubiprostone (Amitiza) 8 mcg PO BID magnesium oxide Take 1 to 2 tablets orally bedtime PRN; ondansetron 4 mg PO Q8H PRN 10 days pantoprazole 40 mg PO QAM 90 days semaglutide 0.5 mg subcut QWEEK sulfasalazine 1,000 mg (2 x 500 mg) PO BID 30 days HPI Comments Details: Patient is a 69-year-old female with hyperlipidemia complicated by coronary artery disease, anxiety, GERD, and rheumatoid arthritis here today for follow up Interval History: Patient last seen 03/04/24 with Maryana Xiong - SSZ 1000mg bid - No complaints, joints under control Today - Feels more achy - restless legs in the night - Intermittent sciatica pains Rheumatologic History: Current Rheumatology Medication(s): SSZ 1000mg bid PFSH Medical History (Updated 03/30/25 @ 11:25 by JOSÉ Alonso) Elevated lipase Abdominal pain Pap smear for cervical cancer screening Encounter for screening for cervical cancer Morbid obesity Coronary artery disease Insomnia TIA (transient ischemic attack) Piriformis syndrome of left side Piriformis syndrome of right side Low back pain potentially associated with radiculopathy Long-term use of immunosuppressant medication Obesity (BMI 30-39.9) Pure hypercholesterolemia GERD without esophagitis Vitamin D deficiency Rheumatoid arthritis Surgical History H/O colonoscopy Hx of appendectomy Family History Paternal Grandfather Heart problem Father Heart problem HTN (hypertension) Mother Heart problem HTN (hypertension) Paternal Grandmother Breast cancer Maternal Grandfather Pancreatic cancer Other Arthritis Social History Housing: Apartment Alcohol intake: never Patient Tobacco Use Status: Never used Tobacco e-Cigarette/Vaping Use: Never Used service: No Current occupational status: employed Current occupational exposures/hazards: No Cognitive needs: No Hearing needs: No Vision needs: Yes (glasses) Female Reproductive History Menstrual Age of Menarche: 15 Review of Systems Const Details: Review of Systems Constitutional: Denies fever, chills, weight loss ENT: Denies vision changes, eye pain or eye redness, dental caries, dry mouth GI: Denies nausea, vomiting, diarrhea, abdominal pain, change in BM Pulm: Denies SOB, LITTLEJOHN, hemoptysis, wheezing Cards: Denies chest pain, palpitations Skin: Denies Raynaud's, rash, nail changes, photosensitivity, MILK VENDOR: Denies headaches, weakness, paresthesias, recurrent falls MSK: as per HPI All other systems reviewed and are unremarkable except noted above Physical Exam Exam Exam: Vital signs reviewed Physical Examination CONSTITUITIONAL Patient alert and cooperative. Well appearing and in no apparent painful distress MSK Hands * Right Hand: Able to make a fist. No swelling or tenderness to palpation of these joints. * Left Hand: Able to make a fist. No swelling or tenderness to palpation of these joints. * Herbedens nodes noted bilaterally Wrists * Right Wrist: Full ROM. 70 degrees of wrist flexion, 80 degrees of wrist extension. No swelling or TTP * Left Wrist: Full ROM. 70 degrees of wrist flexion, 80 degrees of wrist extension. No swelling or TTP Elbows * Right Elbow: Full ROM. No swelling or TTP. No TTP of the medial and lateral epicondyles * Left Elbow: Full ROM. No swelling or TTP. No TTP of the medial and lateral epicondyles Shoulders * Right shoulder: Full ROM. No swelling noted. No TTP of the AC joint, subacromial bursa or posterior shoulder * Left shoulder: Full ROM. No swelling noted. No TTP of the AC joint, subacromial bursa or posterior shoulder Hip bursa: Mild tenderness to palpation bilaterally Knees * Right knee: Full ROM. No swelling noted. No TTP of the knee joint lie or pes anserine bursa * Left knee: Full ROM. No swelling noted. No TTP of the knee joint lie or pes anserine bursa. * Crepitations felt bilaterally Ankles * Right ankle: Good ankle dorsiflexion and plantar flexion. No swelling. No TTP of the ankle joint * Left ankle: Good ankle dorsiflexion and plantar flexion. No swelling. No TTP of the ankle joint Feet * Right foot: Negative squeeze test * Left foot: Negative squeeze test Tender points? * No tenderness to palpation of the bilateral trapezius, supraspinatus, anterior costochondral junctions, bilateral suboccipital muscle insertions SKIN No rashes Vital Signs: Last Vital Signs Pulse 66 04/12/25 13:39 BP 112/60 04/12/25 13:39 Pulse Ox 94 04/12/25 13:39 Oxygen Delivery Method Room Air 04/12/25 13:39 BMI result Body Mass Index 26.5 Results Reviewed Results Reviewed: Laboratory Tests 12/26/24 04/06/25 09:59 12:45 WBC 4.2 L RBC 3.70 L Hgb 12.2 Hct 36.0 L Plt Count 236 ESR 7 Sodium 140 Potassium 4.0 Chloride 108 Carbon Dioxide 27 BUN 12 Creatinine 0.65 AST 23 ALT 21 C-Reactive Protein < 0.04 25-OH Vitamin D Total 30.6 Assessment & Plan Assessment & Plan (1) Rheumatoid arthritis: Code(s): M06.9 - Rheumatoid arthritis, unspecified Category: Medical Qualifiers: Rheumatoid arthritis location: unspecified site Rheumatoid factor presence: with rheumatoid factor Qualified Code(s): M05.9 - Rheumatoid arthritis with rheumatoid factor, unspecified Plan: #RA Patient is a 69-year-old female with rheumatoid arthritis here today for follow up. Doing well overall on sulfasalazine but has been noticing increased achy joints. No active synovitis on examination but we will try increasing her sulfasalazine dose to see if this will help Plan - Increase SSZ 1500mg bid - RTC 4 months - Labs before visit: CBC, CMP, ESR, CRP (2) Encounter for monitoring sulfasalazine therapy: Code(s): Z51.81 - Encounter for therapeutic drug level monitoring; Z79.899 - Other long term care pharmacist (current) drug therapy Plan: #Long-term Use of Sulfasalazine Discussed with patient the risks and benefits of sulfasalazine in the management of the rheumatic condition Benefits include: - Reduced pain, reduce mortality, maintenance of remission then reduction of flares Risks include: - GI upset, hemolysis (especially if G6PD deficiency), eosinophilia, headache, dizziness, rash, elevated LFTs (3) Restless legs syndrome: Code(s): G25.81 - Restless legs syndrome Plan: #RLS Currently on magnesium with minimal improvement. Recommended gabapentin Patient has some at home, she will see if these are still good and try those. If she does not have any at home she will reach out to use and I will prescribe for her Plan I spent 30 minutes reviewing the record and labs, taking a history, examining the patient, discussing the treatment plan, ordering diagnostic work up and documenting in the medical record Orders: Orders Complete Blood Count Auto Diff 4 Months M05.9 - Rheumatoid arthritis with rheumatoid factor, unspecified Erythrocyte Sedimentation Rate 4 Months M05.9 - Rheumatoid arthritis with rheumatoid factor, unspecified Comprehensive Met. Panel 4 Months M05.9 - Rheumatoid arthritis with rheumatoid factor, unspecified C Reactive Protein 4 Months M05.9 - Rheumatoid arthritis with rheumatoid factor, unspecified Medications: Changed From sulfasalazine 1,000 mg (2 x 500 mg) PO BID 30 days 120 tabs 0RF M06.9 - Rheumatoid arthritis, unspecified To sulfasalazine 1,500 mg (3 x 500 mg) PO BID 540 tabs 1RF 90 days M06.9 - Rheumatoid arthritis, unspecified Coding Level of Care Code Est Pt Level 4 (04906) Complex EM visit Add On G2211 Diagnoses Rheumatoid arthritis with positive rheumatoid factor, involving unspecified site M05.9 Rheumatoid arthritis location: unspecified site Rheumatoid factor presence: with rheumatoid factor Encounter for monitoring sulfasalazine therapy Z51.81; Z79.899 Restless legs syndrome G25.81
[2025-04-12 13:39] VITALS: BP 112/60; PULSE 66; O2SAT 94; BMI 26.5
--- OUTSIDE RECORDS SUMMARY | 2025-04-12 14:01 | XMS_ITS | Clinical Summary ---
Author Organization [facility] Address [address] [address] Phone Care Team Providers Care Finance Accounting Internship Name Role Phone Chidi Rapp MD Primary Care Provider [phone] Allergies No known active allergies Medications folic [...] you interested in more education? Not on aun e 08/03/2023 Are you concerned about learning? [...] topic Medical Devices Not on [place] [address] [place] [address] MEDICARE REPLACEMENT MEDICARE REPLACEMENT MEDICARE REPLACEMENT MEDICARE REPLACEMENT [place] [address] Care Teams Finance Accounting Internship Relationship Specialty Start Date End Date Chidi Rapp MD PCP - General Internal Medicine 11/15/17 Additional Source Comments The information contained in this document represents components of the legal health record. It is not the complete legal health record.[facility]
--- OUTSIDE RECORDS SUMMARY | 2025-04-12 14:01 | XMS_ITS | Encounter Summary ---
Author Organization [employer] Address [address] [facility] [address] [place] [address] Care Team Providers Care Leaf Tier Name Role Phone Heide Oreilly MD Primary Care Provider [phone] Reason for Visit * Reason Onset Date Comments Results 12/09/2022 Encounter Details Date Type Department Care Team (Late st Contact Info) Description 12/09/[address] [facility] MEDICINE [address] [place] [address] Heide Oreilly MD [address] [place] [address] Results Social History Tobacco Use Types Packs/Day [...] pt, also completed a carotid US at [facility] [place]. Requesting result. Advised will obtain from [employer] and if available will forward to PCPto [...] requesting lab results. Please contact pt at [phone] documented in this encounter Plan of Treatment Not on file documented as of this encounter Visit Diagnoses Not on filedocumented in this encounter Care Teams Leaf Tier Relationship Specialty Start Date End Date Heide Oreilly MD [address] [place] [id number] PCP - General Family Medicine 09/03/20 documented as of this encounter
== END 2025-04-12 14:08 | disposition home or self-care (01) ==
LOC: HO.RHE 13:28
PROVIDERS: PCP Internal Medicine; Visit Provider Student in an Organized Health Care Education/Training Program
DX: M05.79 Rheumatoid arthritis with rheumatoid factor of multiple sites without organ or systems involvement (principal); Z51.81 Encounter for therapeutic drug level monitoring; Z79.899 Other long term (current) drug therapy; G25.81 Restless legs syndrome
CPT/HCPCS: 99214; G2211

== ENCOUNTER → 2025-04-12 13:27 | Outpatient (BNVA) | payer MEDICARE, SELFPAY | PROVIDERS: PCP Internal Medicine; Visit Provider Student in an Organized Health Care Education/Training Program | DX: M05.842 Other rheumatoid arthritis with rheumatoid factor of left hand (principal); M05.841 Other rheumatoid arthritis with rheumatoid factor of right hand; M15.1 Heberden's nodes (with arthropathy); Z79.899 Other long term (current) drug therapy | CPT/HCPCS: 99212 ==

== ENCOUNTER 2025-04-27 06:56 | Outpatient (REF) | payer MEDICARE, SELFPAY ==
--- NOTE | ~2025-04-27 | CT_ITS ---
EXAMINATION: CT ABDOMEN AND PELVIS WITH CONTRAST CLINICAL INFORMATION: R10.9. Unspecified abdominal pain. COMPARISON: None available. TECHNIQUE: Multidetector volumetric images were obtained from the superior aspect of the liver through the pubic symphysis following administration 85 mL of Omnipaque 350 intravenous contrast. Sagittal and coronal reformatted images were obtained on the technologist's workstation. Oral contrast: Yes This CT examination was performed using dose optimization techniques as appropriate, variously including the following: *Automated exposure control *Adjustment of mA and/or kV according to patient size (this includes techniques or standardized protocols for targeted exams where dose is matched to indication/reason for exam; i.e. extremities or head) *Use of iterative reconstruction technique DLP: 348 mGy centimeter FINDINGS: LUNG BASES: No acute airspace disease. No gross pulmonary nodules. LIVER, GALLBLADDER, AND BILIARY TREE: The liver measures 15 cm. There is a 5 mm well-defined hypodensity in the periphery of the right hepatic lobe too small to be fully characterized. The portal veins, hepatic veins and intrahepatic portion of the IVC are patent. No pericholecystic fluid collection or gallbladder wall thickening. No intrahepatic or extrahepatic biliary ductal dilatation. PANCREAS: No focal lesion. No peripancreatic fluid collection. No main pancreatic ductal dilatation. SPLEEN: 9 cm. No focal mass. ADRENAL GLANDS: There are superior 2 cm hypodense nodule, right adrenal gland. There is a 0.9 cm isodense nodule, left adrenal gland. KIDNEYS AND URETERS: No hydronephrosis. No gross nephrolithiasis. Subcentimeter cyst both kidneys. Normal enhancement pattern of the renal parenchyma. There is no dilatation of the ureters. BLADDER: Fluid-filled and nearly collapsed. GASTROINTESTINAL TRACT: Abundant stool throughout the large intestine. No intestinal wall thickening. No intestinal obstruction pattern. No ascites. No pneumoperitoneum. Appendix is not identified no edema pattern in the mesocecum. ABDOMINAL WALL: Small fat-containing umbilical hernia and focal diastases abdominal rectus muscles. LYMPH NODES: Mild prominent mesenteric and retroperitoneum, nonspecific. VASCULAR: Axial in the descending thoracic aorta proximal abdominal aorta wall. No aneurysm or dissection abdominal aorta. PELVIC VISCERA: No gross masses. OSSEOUS STRUCTURES: Sclerosis and the sacroiliac joints with vacuum phenomenon. Mild degenerative changes in the coxofemoral joints. Multilevel thoracolumbar spondylosis. Facet joint hypertrophy at L4-5 and L5-S1. CT/CT abdomen pelvis w IV con IMPRESSION: Abundant stool, large intestine. Small fat-containing umbilical hernia. Bilateral adrenal nodules, statistically matter present adenoma. 5 mm cystic lesion, right hepatic lobe. Fleischner guidelines were followed. Electronically signed by: Elian Gray MD 04/27/2025 10:11 AM EDT
[2025-04-27] MEDS: iohexoL 350 MG/ML 100 ML INFUS..BTL IV (09:35)
[2025-04-27] MEDS: Barium Sulfate Oral (Berry) 450 ML ORAL.SUSP 900 ML PO (09:36)
== END 2025-04-27 06:57 | disposition home or self-care (01) ==
LOC: HO.CT 06:56
PROVIDERS: PCP Internal Medicine; Visit Provider Nurse Practitioner
DX: R10.9 Unspecified abdominal pain (principal)
CPT/HCPCS: 74177; Q9967

== ENCOUNTER → 2025-04-27 06:58 | Outpatient (BNV) | payer MEDICARE, SELFPAY | PROVIDERS: PCP Internal Medicine; Visit Provider Radiology Diagnostic Radiology | DX: R10.84 Generalized abdominal pain (principal) | CPT/HCPCS: 74177 ==

== ENCOUNTER 2025-04-28 11:26 | Outpatient (REF) | payer MEDICARE, SELFPAY ==
--- OUTSIDE RECORDS SUMMARY | 2025-04-28 11:28 | XMS_ITS | Clinical Summary ---
Author Organization [facility] Address [address] [address] Phone Care Team Providers Care Nougat Cutter Machine Name Role Phone Chidi Rapp MD Primary Care Provider [phone] Allergies No known active allergies Medications folic [...] topic Medical Devices Not on file [place] [address] [address] [place] [address] MEDICARE REPLACEMENT MEDICARE REPLACEMENT MEDICARE REPLACEMENT MEDICARE REPLACEMENT MED[place] [id number] Care Teams Nougat Cutter Machine Relationship Specialty Start Date End Date Chidi Rapp MD PCP - General Internal Medicine 11/15/17 Additional Source Comments The information contained in this document represents components of the legal health record. It is not the complete legal health record.[facility]
--- OUTSIDE RECORDS SUMMARY | 2025-04-28 11:28 | XMS_ITS | Encounter Summary ---
Author Organization [employer] Address [address] [facility] 7t [place] [address] Care Team Providers Care Field Observer Name Role Phone Heide Oreilly MD Primary Care Provider [phone] Madeline Mina CNP Primary Care Provider [phone] Reason for Visit * Reason Onset Date Comments Results 12/09/2022 Encounter Details Date Type Department Care Team (Late st Contact Info) Description 12/09/2022 Telephone [facility] MEDICINE [address] [place] [address] Heide Oreilly MD [address] [place], [place] [id number] Results Social History Tobacco Use Types Packs/Day [...] pt, also completed a carotid US at [facility]. Requesting result. Advised will obtain from [employer] and if available will forward to PCPto [...] requesting lab results. Please contact pt at [phone] documented in this encounter Plan of Treatment Not on file documented as of this encounter Visit Diagnoses Not on filedocumented in this encounter Care Teams Field Observer Relationship Specialty Start Date End Date Heide Oreilly MD [address] [place] [address] PCP - General Family Medicine 09/03/20 04/20/25 Madeline Mina CNP [address] [place] [address] PCP - General Family Medicine 04/21/25 documented as of this encounter
== END 2025-04-28 11:27 | disposition home or self-care (01) ==
LOC: HO.MAMMO 11:26
PROVIDERS: PCP Internal Medicine; Visit Provider Student in an Organized Health Care Education/Training Program
DX: Z13.89 Encounter for screening for other disorder (principal)

== ENCOUNTER 2025-05-11 10:38 | Outpatient (AMB) | payer MEDICARE, SELFPAY ==
--- NOTE | 2025-05-11 10:42 | A.OFFVIS_ITS ---
Vital Signs 05/11/25 10:43 Height 5 ft 2 in Weight 142 lb BMI 26.0 BP 112/64 Blood Pressure Location Rt brachial Position Sitting Pulse 84 Pulse Source Pulse Oximeter Pulse Oximetry (%) 96 Oxygen Delivery Method Room Air Intake Visit Reasons: 6 wks f/u [facility] Intake Note: Est pt for mgmt of [facility]. Review CT scan results. CC: C.O. difficulty with affording the amitiza at this time. Pt also reports that she still has not heard from anyone regarding her EGD and scheduling that procedure. Petroleum Geologist Required: No Accompanied by: Self / Same As Patient Allergies No Known Allergies Allergy (Verified 05/11/25 10:50) HPI HPI 6 wks f/u [facility]: Details: Assessment & Plan (1) Elevated pancreatic enzyme: Code(s): R74.8 - Abnormal levels of other serum enzymes Category: Medical (2) Family history of pancreatic cancer: Comment: maternal grandfather and maternal uncle of this. Code(s): Z80.0 - Family history of malignant neoplasm of digestive organs Category: Medical (3) Chronic idiopathic constipation: Code(s): K59.04 - Chronic idiopathic constipation Category: Medical Plan She never got the Linzess because it would have cost her 700 dollars! It appears that it is a tier 3 drug via [facility]. It seems the all of the constipation meds fallen to very high co-pay categories. However, with good Rx we can get her Amitiza 8 micro g twice a day for 42 dollars so I will give her a good Rx card in print the coupon and she will have this at [facility]. We review the pancreatic enzymes and since her amylase and lipase have been intermittently elevated I don't feel that the Ozemic is the best medicine for her given her FHX of pancreatic cancer. We discuss this and sign/sx of pancreatitis. Her BP was low today 89 systolic, will repeat as she has no dizziness or signs of hypotension. Repeat BP is improved. She continues on her pantoprazole 40 mg once a day with good control of her GERD. Return office visit in 6 weeks Medications: New lubiprostone (Amitiza) 8 mcg PO BID 60 caps 6RF JOSÉ Alonso lubiprostone (Amitiza) 8 mcg PO BID 60 caps 6RF JOSÉ Alonso Refilled sulfasalazine 1,000 mg (2 x 500 mg) PO BID 120 tabs 0RF 30 days Levon Rueda MD M06.9 - Rheumatoid arthritis, unspecified CT ABD AND PELVIS 04/27/25 FINDINGS: LUNG BASES: No acute airspace disease. No gross pulmonary nodules. LIVER, GALLBLADDER, AND BILIARY TREE: The liver measures 15 cm. There is a 5 mm well-defined hypodensity in the periphery of the right hepatic lobe too small to be fully characterized. The portal veins, hepatic veins and intrahepatic portion of the IVC are patent. No pericholecystic fluid collection or gallbladder wall thickening. No intrahepatic or extrahepatic biliary ductal dilatation. PANCREAS: No focal lesion. No peripancreatic fluid collection. No main pancreatic ductal dilatation. SPLEEN: 9 cm. No focal mass. ADRENAL GLANDS: There are superior 2 cm hypodense nodule, right adrenal gland. There is a 0.9 cm isodense nodule, left adrenal gland. KIDNEYS AND URETERS: No hydronephrosis. No gross nephrolithiasis. Subcentimeter cyst both kidneys. Normal enhancement pattern of the renal parenchyma. There is no dilatation of the ureters. BLADDER: Fluid-filled and nearly collapsed. GASTROINTESTINAL TRACT: Abundant stool throughout the large intestine. No intestinal wall thickening. No intestinal obstruction pattern. No ascites. No pneumoperitoneum. Appendix is not identified no edema pattern in the mesocecum. ABDOMINAL WALL: Small fat-containing umbilical hernia and focal diastases abdominal rectus muscles. LYMPH NODES: Mild prominent mesenteric and retroperitoneum, nonspecific. VASCULAR: Axial in the descending thoracic aorta proximal abdominal aorta wall. No aneurysm or dissection abdominal aorta. PELVIC VISCERA: No gross masses. OSSEOUS STRUCTURES: Sclerosis and the sacroiliac joints with vacuum phenomenon. Mild degenerative changes in the coxofemoral joints. Multilevel thoracolumbar spondylosis. Facet joint hypertrophy at L4-5 and L5-S1. CT/CT abdomen pelvis w IV con IMPRESSION: Abundant stool, large intestine. Small fat-containing umbilical hernia. Bilateral adrenal nodules, statistically matter present adenoma. 5 mm cystic lesion, right hepatic lobe. TODAY'S VISIT [facility] Medical History Elevated lipase Abdominal pain Pap smear for cervical cancer screening Encounter for screening for cervical cancer Morbid obesity Coronary artery disease Insomnia TIA (transient ischemic attack) Piriformis syndrome of left side Piriformis syndrome of right side Low back pain potentially associated with radiculopathy Long-term use of immunosuppressant medication Obesity (BMI 30-39.9) Pure hypercholesterolemia GERD without esophagitis Vitamin D deficiency Rheumatoid arthritis Surgical History H/O colonoscopy Hx of appendectomy Family History Paternal Grandfather Heart problem Father Heart problem HTN (hypertension) Mother Heart problem HTN (hypertension) Paternal Grandmother Breast cancer Maternal Grandfather Pancreatic cancer Other Arthritis Social History Housing: Apartment Alcohol intake: never Patient Tobacco Use Status: Never used Tobacco e-Cigarette/Vaping Use: Never Used service: No Current occupational status: employed Current occupational exposures/hazards: No Cognitive needs: No Hearing needs: No Vision needs: Yes (glasses) Female Reproductive History Menstrual Age of Menarche: 15 Review of Systems Const Denies fatigue, Denies fever(s), Denies night sweats, Denies poor appetite and Denies weight loss ENT Reports Normal hearing present, Denies dental pain, Denies dysphagia, Denies hearing loss, Denies mouth pain, Denies odynophagia, Denies throat swelling, Denies tongue swelling and Reports other (Dentition adequate) Card Reports no additional complaints Resp Reports no additional complaints GI Details: Denies abdominal pain, Denies melena, Denies bloating, Denies hematochezia, Reports constipation, Denies GI cramping, Denies dysphagia, Denies excessive flatus, Denies early satiety, Reports dyspepsia, Reports heartburn, Denies diarrhea, Denies nausea, Denies odynophagia, Denies vomiting and Denies hematemesis Skin/Breast Denies pruritus, Denies lesions, Denies rash and Denies jaundice Neuro Reports Normal hearing present and Denies Abnormal speech present Endo Denies fatigue Aller/Immun Denies throat swelling and Denies tongue swelling Physical Exam Vital Signs: Last Vital Signs Pulse 84 05/11/25 10:43 BP 112/64 05/11/25 10:43 Pulse Ox 96 05/11/25 10:43 Oxygen Delivery Method Room Air 05/11/25 10:43 BMI result Body Mass Index 26.0 Const General: cooperative, no acute distress, well developed and well groomed Nutritional Appearance: average body habitus and well nourished Orientation/consciousness: oriented to person, oriented to place and oriented to time Limitations: No language barrier HEENT Head: Yes normocephalic and Yes atraumatic Eyes General: appearance normal, both eyes and all related structures Pupils: Equal, round and reactive pupils present Neck Neck: Yes normal visual inspection and Yes no lymphadenopathy Thyroid: Thyroid normal Resp Effort & Inspection: normal respiratory effort and able to speak in complete sentences Auscultation: clear to auscultation bilaterally Cardio Rate: regular rate Rhythm: regular rhythm Heart sounds: Normal, physiologic split S2 sound present Peripheral pulses: radial pulses present and posterior tibial pulses present GI Inspection: No distended and No Abdominal panniculus present Palpation (GI): Soft to palpation, nontender, no guarding, not rigid and No hepatosplenomegaly present Percussion: Yes normal to percussion Auscultation: normal bowel sounds Rectal Exam - Female: deferred Skin General skin exam: no rashes or lesions noted, turgor normal, skin not dry, no jaundice, No spider nevi and no striae Rashes: no rashes Nails: normal Neuro General: oriented to person, oriented to place and oriented to time Cranial nerves: Yes Equal, round and reactive pupils present and Yes Normal hearing present Speech: No Abnormal speech present Extrem General: Yes normal to inspection, No clubbing, No cyanosis and No edema Psych Appearance: grossly normal and well kempt Mental Status: mental status grossly normal Speech and movement: Normal speech and movement present Affect: normal affect Attitude: cooperative Thought process: Normal thought process present and not confabulating Thought content: Normal thought content present Insight: Fair insight present (Psych) Judgement: Fair judgement present (Psych) Results Reviewed Results Reviewed: CT ABD AND PELVIS 04/27/25 FINDINGS: LUNG BASES: No acute airspace disease. No gross pulmonary nodules. LIVER, GALLBLADDER, AND BILIARY TREE: The liver measures 15 cm. There is a 5 mm well-defined hypodensity in the periphery of the right hepatic lobe too small to be fully characterized. The portal veins, hepatic veins and intrahepatic portion of the IVC are patent. No pericholecystic fluid collection or gallbladder wall thickening. No intrahepatic or extrahepatic biliary ductal dilatation. PANCREAS: No focal lesion. No peripancreatic fluid collection. No main pancreatic ductal dilatation. SPLEEN: 9 cm. No focal mass. ADRENAL GLANDS: There are superior 2 cm hypodense nodule, right adrenal gland. There is a 0.9 cm isodense nodule, left adrenal gland. KIDNEYS AND URETERS: No hydronephrosis. No gross nephrolithiasis. Subcentimeter cyst both kidneys. Normal enhancement pattern of the renal parenchyma. There is no dilatation of the ureters. BLADDER: Fluid-filled and nearly collapsed. GASTROINTESTINAL TRACT: Abundant stool throughout the large intestine. No intestinal wall thickening. No intestinal obstruction pattern. No ascites. No pneumoperitoneum. Appendix is not identified no edema pattern in the mesocecum. ABDOMINAL WALL: Small fat-containing umbilical hernia and focal diastases abdominal rectus muscles. LYMPH NODES: Mild prominent mesenteric and retroperitoneum, nonspecific. VASCULAR: Axial in the descending thoracic aorta proximal abdominal aorta wall. No aneurysm or dissection abdominal aorta. PELVIC VISCERA: No gross masses. OSSEOUS STRUCTURES: Sclerosis and the sacroiliac joints with vacuum phenomenon. Mild degenerative changes in the coxofemoral joints. Multilevel thoracolumbar spondylosis. Facet joint hypertrophy at L4-5 and L5-S1. CT/CT abdomen pelvis w IV con IMPRESSION: Abundant stool, large intestine. Small fat-containing umbilical hernia. Bilateral adrenal nodules, statistically matter present adenoma. 5 mm cystic lesion, right hepatic lobe. Assessment & Plan Assessment & Plan (1) GERD without esophagitis: Code(s): K21.9 - Gastro-esophageal reflux disease without esophagitis Category: Medical (2) Chronic idiopathic constipation: Code(s): K59.04 - Chronic idiopathic constipation Category: Medical (3) Elevated pancreatic enzyme: Code(s): R74.8 - Abnormal levels of other serum enzymes Category: Medical Plan - The patient is a 69-year-old female presenting with follow-up for chronic constipation and evaluation of elevated lipase levels, concerning because she was on Ozempic. - Chronic constipation persisting with episodes of infrequent bowel movements and discomfort, relieved by Lubiprostone 8 micro g b.i.d.. Medication use and costs discussed as contributing factors to management difficulty. She was given a good Rx card and printed a coupon to facilitate/assist with cost - Recent CT scan showed no acute pancreas inflammation, despite previous elevated lipase levels. Normal findings for pancreas and liver ductal systems. Still I would be cautious about Ozempic use especially since she presented to me complaining of nausea GERD and dyspepsia with upper abdominal pain. - the CAT scan also showed sacroiliitis and thoracic spondylosis, which at this point is an incidental finding and not causing the patient any symptoms - awaiting scheduling of endoscopy appointment for evaluating nausea and dyspepsia potentially related to medication (Ozempic) use. Her symptoms have receded since she stopped using the Ozempic after our last conversation. She was utilizing it for weight loss not for diabetes. - she continues on pantoprazole 40 mg once a day with good control of her GERD. Return office visit in 3 months EGD/COLONOSCOPY BIOPSY TODAY'S VISIT Coding Level of Care Code Est Pt Level 3 (81398) Diagnoses GERD without esophagitis K21.9 Chronic idiopathic constipation K59.04 Elevated pancreatic enzyme R74.8
[2025-05-11 10:43] VITALS: BP 112/64; PULSE 84; O2SAT 96; BMI 26.0
--- OUTSIDE RECORDS SUMMARY | 2025-05-11 12:02 | XMS_ITS | Encounter Summary ---
Author Organization [employer] Address [address] [facility] 7t [place] [address] Care Team Providers Care Learning Developer Name Role Phone Heide Oreilly MD Primary Care Provider [phone] Madeline Mina CNP Primary Care Provider [phone] Reason for Visit * Reason Onset Date Comments Results 12/09/2022 Encounter Details Date Type Department Care Team (Late st Contact Info) Description 12/09/2022 Telephone [facility] MEDICINE [address] [place] [address] Heide Oreilly MD [address] [place], [place] [id number] Results Social History Tobacco Use Types Packs/Day [...] pt, also [place] [facility] Requesting result. Advised will obtain from [employer] and if available will forward to PCPto [...] requesting lab results. Please contact pt at [phone] documented in this encounter Plan of Treatment Not on file documented as of this encounter Visit Diagnoses Not on filedocumented in this encounter Care Teams Learning Developer Relationship Specialty Start Date End Date Heide Oreilly MD [address] [place] [address] PCP - General Family Medicine 09/03/20 04/20/25 Madeline Mina CNP [address] [place] [address] PCP - General Family Medicine 04/21/25 documented as of this encounter
--- OUTSIDE RECORDS SUMMARY | 2025-05-11 12:02 | XMS_ITS | Encounter Summary ---
Author Organization [employer] Address [address] [facility] 7t [place] [address] Care Team Providers Care Insole Tacker Name Role Phone Heide Oreilly MD Primary Care Provider [phone] Madeline Mina CNP Primary Care Provider [phone] Reason for Visit * Reason Onset Date Comments Med Refill 12/09/2022 Encounter Details Date Type Department Care Team (Late st Contact Info) Description 12/09/2022 Telephone [facility] MEDICINE [address] [place] [address] Heide Oreilly MD [address] [place], [place] [id number] Med Refill Social History Tobacco Use Types [...] on filedocumented in this encounter Care Teams Insole Tacker Relationship Specialty Start Date End Date Heide Oreilly MD [address] [place] [address] PCP - General Family Medicine 09/03/20 04/20/25 Madeline Mina CNP [address] [place] [address] PCP - General Family Medicine 04/21/25 documented as of this encounter
--- OUTSIDE RECORDS SUMMARY | 2025-05-11 12:02 | XMS_ITS | Encounter Summary ---
Author Organization [employer] Address [address] [facility] [address] [place] [address] Care Team Providers Care Pile Driver Engineer Name Role Phone Heide Oreilly MD Primary Care Provider [phone] Madeline Mina CNP Primary Care Provider [phone] Reason for Visit * Reason Comments Med Refill Encounter Details Date Type Department Care Team (Late st Contact Info) Description 12/21/2024 Refill [facility] & PEDS [address] [place], [place] [phone] Heide Oreilly MD [address] [place], [place] Social History Tobacco Use Types Packs/Day Years [...] on filedocumented in this encounter Care Teams Pile Driver Engineer Relationship Specialty Start Date End Date Heide Oreilly MD [address] [place] [address] PCP - General Family Medicine 09/03/20 04/20/25 Madeline Mina CNP [address] [place] [address] PCP - General Family Medicine 04/21/25 documented as of this encounter
--- OUTSIDE RECORDS SUMMARY | 2025-05-11 12:02 | XMS_ITS | Encounter Summary ---
Author Organization [employer] Address [address] [facility] [address] [place] [address] Care Team Providers Care Organ Recovery Coordinator Name Role Phone Heide Oreilly MD Primary Care Provider [phone] Madeline Mina CNP Primary Care Provider [phone] Reason for Visit * Reason Onset Date Comments Referral 12/16/2022 Encounter Details Date Type Department Care Team (Late st Contact Info) Description 12/16/2022 Telephone [facility] MEDICINE [address] [place] [address] Heide Oreilly MD [address] [place], [place] [phone] Referral Social History Tobacco Use Types Packs/Day [...] 1:43 PM EDT Tc from Татьяна at [facility] Radiology inquiring patients referral. Patient also requesting to speak to kitchen manager. Please contact Татьяна at [phone] Or/and patient at [phone] * Telephone Encounter - [place] Babcock - 12/19/2022 1:26 PM EDT Tc from pt returning call per notes, pt is requesting to speak to a nurse in regards to US results and referral. Please contact at [phone] * Telephone Encounter - Liyah Henderson RN [...] for the cardiology. Please contact pt at [phone] documented in this encounter Plan of Treatment Not on file documented as of this encounter Visit Diagnoses Not on filedocumented in this encounter Care Teams Organ Recovery Coordinator Relationship Specialty Start Date End Date Heide Oreilly MD [address] [place] [address] PCP - General Family Medicine 09/03/20 04/20/25 Madeline Mina CNP [address] [place] [address] PCP - General Family Medicine 04/21/25 documented as of this encounter
--- OUTSIDE RECORDS SUMMARY | 2025-05-11 12:02 | XMS_ITS | Clinical Summary ---
Author Organization [facility] Address [address] [address] Phone Care Team Providers Care Visual Artist Name Role Phone Chidi Rapp MD Primary Care Provider [phone] Allergies No known active allergies Medications folic [...] SCREENING INITI AL (ONE-TIME) 2021 COVID-19 VACCINE (1 - 2023-2 5 season) 2024 INFLUENZA VACCINE (#1) 2025 RSV VACCINE (1 - 1-dose 75+ series) [...] topic Medical Devices Not on file Insurance MEDICARE REPLACEMENT MEDICARE REPLACEMENT MEDICARE REPLACEMENT MEDICARE REPLACEMENT MEDICARE REPLACEMENT Care Teams Visual Artist Relationship Specialty Start Date End Date Chidi Rapp MD PCP - General Internal Medicine 11/15/17 Additional Source Comments The information contained in this document represents components of the legal health record. It is not the complete legal health record.[facility]
--- OUTSIDE RECORDS SUMMARY | 2025-05-11 12:02 | XMS_ITS | Encounter Summary ---
Author Organization [employer] Address [address] [place] [address] 7t [place] [address] Care Team Providers Care Engineering Inspector Name Role Phone Heide Oreilly MD Primary Care Provider [phone] Madeline Mina CNP Primary Care Provider [phone] Encounter Details Date Type Department Care Team (Late st Contact Info) Description 04/17/2023 Orders Only [facility] CHC MED & PEDS [address] [place] [address] Carrie Heard LPN Social History Tobacco Use [...] on filedocumented in this encounter Care Teams Engineering Inspector Relationship Specialty Start Date End Date Heide Oreilly MD [address] [place] [address] PCP - General Family Medicine 09/03/20 04/20/25 Madeline Mina CNP [address] [place] [address] PCP - General Family Medicine 04/21/25 documented as of this encounter
--- OUTSIDE RECORDS SUMMARY | 2025-05-11 12:03 | XMS_ITS | Encounter Summary ---
Author Organization [employer] Address [address] [facility] 7t [place] [address] Care Team Providers Care Drafter Plumbing Name Role Phone Heide Oreilly MD Primary Care Provider [phone] Madeline Mina CNP Primary Care Provider [phone] Reason for Visit * Reason Comments Med Refill Encounter Details Date Type Department Care Team (Late st Contact Info) Description 05/09/2024 Refill [facility] CHC MED & PEDS [address] [place], [place] [phone] Heide Oreilly MD [address] [place], [place] Social History Tobacco Use Types Packs/Day [...] on filedocumented in this encounter Care Teams Drafter Plumbing Relationship Specialty Start Date End Date Heide Oreilly MD [address] [place] [address] PCP - General Family Medicine 09/03/20 04/20/25 Madeline Mina CNP [address] [place] [address] PCP - General Family Medicine 04/21/25 documented as of this encounter
--- OUTSIDE RECORDS SUMMARY | 2025-05-11 12:03 | XMS_ITS | Clinical Summary ---
Author Organization [employer] Address [address] [facility] 7t [place] [address] Care Team Providers Care Luggage Repairer Name Role Phone Madeline Mina CNP Primary Care Provider [phone] Allergies No known active allergies Medications famotidine [...] 10/29/2022 Overview (10/29/2022): Per upper Endos, 12/31, Dr. Squires, dilated. Immunizations Immunization Administration Dates Next Due DT (pediatric) 01/17/2003 [...] 70 12/12/2022 1:55 PM EDT Temperature 36.3 C (97.4 F) 12/12/2022 1:55 PM EDT Respiratory Rate 16 12/12/2022 1:55 PM EDT [...] (2 - T d or Tdap) 10/27/2022 10/27/2012, 01/17/2003 Mammogram 10/04/2023 10/04/2021 SDOH Screening 12/13/2023 12/12/2022 Tobacco Screening 12/13/2023 12/12/2022 COVID-19 Vaccine ( - 2023-2 5 season) 2024 Influenza Vaccine (#1) 2025 0, 07/27/2007 RSV Patients and Patients Aged [...] patient's age to complete this topic Meningococcal B Vaccine Aged Out No l onger eligible based on patient's age to complete [...] Most Recently Relevant to Health Maintenance Insurance [facility] MEDICARE ADVANTAGE HMO Care Teams Luggage Repairer Relationship Specialty Start Date End Date Madeline Mina CNP [address] [place] [address] PCP - General Family Medicine 04/21/25
== END 2025-05-11 11:12 | disposition home or self-care (01) ==
LOC: HO.HGI 10:39
PROVIDERS: PCP Internal Medicine; Visit Provider Nurse Practitioner
DX: K21.9 Gastro-esophageal reflux disease without esophagitis (principal); K59.04 Chronic idiopathic constipation; R74.8 Abnormal levels of other serum enzymes
CPT/HCPCS: 99213

== ENCOUNTER → 2025-05-11 10:38 | Outpatient (BNVA) | payer MEDICARE, SELFPAY | PROVIDERS: PCP Internal Medicine; Visit Provider Nurse Practitioner | DX: K21.9 Gastro-esophageal reflux disease without esophagitis (principal); K59.04 Chronic idiopathic constipation; R74.8 Abnormal levels of other serum enzymes | CPT/HCPCS: 99212 ==

== ENCOUNTER 2025-05-19 12:45 | Outpatient (REF) | payer MEDICARE, SELFPAY ==
--- NOTE | ~2025-05-19 | MM_ITS ---
EXAMINATION: DXA BONE DENSITY AXIAL HISTORY: M81.0 - Age-related osteoporosis without current pathological fracture TECHNIQUE: Zilliant Dual energy absorptiometry (DEXA) of the lumbar spine, total left hip, and femoral neck was performed. COMPARISON: Comparison is made with the prior examination dated EXAMINATION: DXA BONE DENSITY AXIAL HISTORY: M81.0 - Age-related osteoporosis without current pathological fracture TECHNIQUE: Zilliant Dual energy absorptiometry (DEXA) of the lumbar spine, total left hip, and femoral neck was performed. COMPARISON: There are no prior studies for comparison. FINDINGS: The bone mineral density of the lumbar spine is 0.896 g/cm2, corresponding to a T-score of -2.4, and a Z-score of -0.7. This is indicative of osteopenia. The bone mineral density of the left total hip is 0.834 g/cm2, corresponding to a T-score of -1.4, and a Z-score of 0.0. This is indicative of osteopenia. The bone mineral density of the left femoral neck is 0.829 g/cm2, corresponding to a T-score of -1.5, and a Z-score of 0.1. This is indicative of osteopenia. FRACTURE RISK: The FRAX index suggests a risk of major osteoporotic fracture of 20.0%, and of hip fracture 3.5%. MM/XR DEXA axial skeleton IMPRESSION: Based on bone mineral density, and according to World Health Organization (WHO) criteria, the diagnosis is consistent with osteopenia. Statistically, 68% of repeat scans fall within 1 SD (+/- 0.010 g/cm2 for AP spine L1-L4) and 1 SD (+/- 0.012 g/cm2 for femur total) FRAX is a trademark of the [employer]'s [employer], a World Health Organization (WHO) Collaborating Center. . FINDINGS: The bone mineral density of the lumbar spine is g/cm2, corresponding to a T-score of , and a Z-score of . This is indicative of This represents a BMD change of % compared to the prior exam. The bone mineral density of the left total hip is g/cm2, corresponding to a T-score of , and a Z-score of . This is indicative of This represents a BMD change of % compared to the prior exam. The bone mineral density of the left femoral neck is g/cm2, corresponding to a T-score of , and a Z-score of . This is indicative of This represents a BMD change of % compared to the prior exam. FRACTURE RISK: The FRAX index suggests a ten year probability of major osteoporotic fracture of %, and of hip fracture %. IMPRESSION: Based on bone mineral density, and according to World Health Organization (WHO) criteria, the diagnosis is consistent with osteopenia. Statistically, 68% of repeat scans fall within 1 SD (+/- 0.010 g/cm2 for AP spine L1-L4) and 1 SD (+/- 0.012 g/cm2 for femur total) FRAX is a trademark of the [employer], a World Health Organization (WHO) Collaborating Center. Electronically signed by: Merrick Sherman MD 05/19/2025 01:33 PM EDT
--- OUTSIDE RECORDS SUMMARY | 2025-05-19 12:58 | XMS_ITS | Encounter Summary ---
Author Organization [employer] Address [address] [place] [address] 7t [place] [address] Care Team Providers Care Starch Cooker Name Role Phone Heide Oreilly MD Primary Care Provider Madeline Mina CNP Primary Care Provider [phone] Encounter Details Date Type Department Care Team (Late st Contact Info) Description 04/17/2023 Orders Only [facility] CHC MED & PEDS [address] [place] [address] Carrie Heard LPN Social History Tobacco Use [...] on filedocumented in this encounter Care Teams Starch Cooker Relationship Specialty Start Date End Date Heide Oreilly MD [address] [place] [address] PCP - General Family Medicine 09/03/20 04/20/25 Madeline Mina CNP [address] [place] [address] PCP - General Family Medicine 04/21/25 documented as of this encounter
--- OUTSIDE RECORDS SUMMARY | 2025-05-19 12:58 | XMS_ITS | Clinical Summary ---
Author Organization [employer] Address [address] [facility] 7t [place] [address] Care Team Providers Care Suction Operator Name Role Phone Madeline Mina CNP Primary Care Provider [phone] Allergies No known active allergies Medications famotidine [...] COVID-19 Vaccine (1 - 2023-2 5 season) 2025 Influenza Vaccine (#1) 2025 0, 07/27/2007 RSV [...] Most Recently Relevant to Health Maintenance Insurance [facility] MEDICARE ADVANTAGE HMO Care Teams Suction Operator Relationship Specialty Start Date End Date Madeline Mina CNP [address] [place] [address] PCP - General Family Medicine 04/21/25
--- OUTSIDE RECORDS SUMMARY | 2025-05-19 12:58 | XMS_ITS | Encounter Summary ---
Author Organization [employer] Address [address] [facility] 7t [place] [address] Care Team Providers Care Final Inspector Movement Assembly Name Role Phone Heide Oreilly MD Primary Care Provider Madeline Mina CNP Primary Care Provider [phone] Reason for Visit * Reason Onset Date Comments Referral 12/16/2022 Encounter Details Date Type Department Care Team (Late st Contact Info) Description 12/16/2022 Telephone [facility] MEDICINE [address] [place] [address] Heide Oreilly MD [address] [place], [place] [id number] Referral Social History Tobacco Use Types Packs/Day [...] 1:43 PM EDT Tc from Татьяна at [facility] Radiology inquiring patients referral. Patient also requesting to speak to automation/controls manager. Please contact Татьяна at [phone] Or/and patient at [phone] * Telephone Encounter - Richmond Babcock - 12/19/2022 1:26 PM EDT Tc from pt returning call per notes, pt is requesting to speak to a nurse in regards to US results and referral. Please contact at [phone] * Telephone Encounter - Liyah Henderson RN [...] for the cardiology. Please contact pt at [phone] documented in this encounter Plan of Treatment Not on file documented as of this encounter Visit Diagnoses Not on filedocumented in this encounter Care Teams Final Inspector Movement Assembly Relationship Specialty Start Date End Date Heide Oreilly MD [address] [place] [address] PCP - General Family Medicine 09/03/20 04/20/25 Madeline Mina CNP [address] [place] [address] PCP - General Family Medicine 04/21/25 documented as of this encounter
--- OUTSIDE RECORDS SUMMARY | 2025-05-19 12:58 | XMS_ITS | Encounter Summary ---
Author Organization [employer] Address [address] [facility] 7t [place] [address] Care Team Providers Care Getterer Name Role Phone Heide Oreilly MD Primary Care Provider Madeline Mina CNP Primary Care Provider [phone] Reason for Visit * Reason Comments Med Refill Encounter Details Date Type Department Care Team (Late st Contact Info) Description 05/09/2024 Refill [facility] CHC MED & PEDS [address] [place], [place] [phone] Heide Oreilly MD [address] [place] [address] Social History Tobacco Use Types Packs/Day Years [...] on filedocumented in this encounter Care Teams Getterer Relationship Specialty Start Date End Date Heide Oreilly MD [address] [place] [address] PCP - General Family Medicine 09/03/20 04/20/25 Madeline Mina CNP [address] [place] [address] PCP - General Family Medicine 04/21/25 documented as of this encounter
--- OUTSIDE RECORDS SUMMARY | 2025-05-19 12:58 | XMS_ITS | Encounter Summary ---
Author Organization [employer] Address [address] [facility] 7t [place] [address] Care Team Providers Care Thaw Shed Heater Tender Name Role Phone Heide Oreilly MD Primary Care Provider [phone] Madeline Mina CNP Primary Care Provider [phone] Reason for Visit * Reason Onset Date Comments Results 12/09/2022 Encounter Details Date Type Department Care Team (Late st Contact Info) Description 12/09/2022 Telephone [facility] MEDICINE [address] [place] [address] Heide Oreilly MD [address] [place], [place] [id number] Results Social History Tobacco Use Types Packs/Day [...] pt, also completed a carotid US at [facility] [place]. Requesting result. Advised will obtain from [employer] and if available will forward to PCPto [...] requesting lab results. Please contact pt at [phone] documented in this encounter Plan of Treatment Not on file documented as of this encounter Visit Diagnoses Not on filedocumented in this encounter Care Teams Thaw Shed Heater Tender Relationship Specialty Start Date End Date Heide Oreilly MD [address] [place] [address] PCP - General Family Medicine 09/03/20 04/20/25 Madeline Mina CNP [address] [place] [address] PCP - General Family Medicine 04/21/25 documented as of this encounter
--- OUTSIDE RECORDS SUMMARY | 2025-05-19 12:58 | XMS_ITS | Clinical Summary ---
Author Organization [facility] Address [address] [address] Phone Care Team Providers Care Concrete Pavement Installer Name Role Phone Chidi Rapp MD Primary Care Provider [phone] Allergies No known active allergies Medications folic [...] 2006 OSTEOPOROSIS SCREENING INITI AL (ONE-TIME) 2021 INFLUENZA VACCINE (#1) 2025 COVID-19 VACCINE (1 - 4-2 5 season) 2025 RSV VACCINE (1 - 1-dose 75+ [...] REPLACEMENT MEDICARE REPLACEMENT MEDICARE REPLACEMENT Care Teams Concrete Pavement Installer Relationship Specialty Start Date End Date Chidi Rapp MD PCP - General Internal Medicine 11/15/17 Additional Source Comments The information contained in this document represents components of the legal health record. It is not the complete legal health record.[facility]
--- OUTSIDE RECORDS SUMMARY | 2025-05-19 12:58 | XMS_ITS | Encounter Summary ---
Author Organization [employer] Address [address] [facility] 7t [place] [address] Care Team Providers Care Scientist Immunology Name Role Phone Heide Oreilly MD Primary Care Provider [phone] Madeline Mina CNP Primary Care Provider [phone] Reason for Visit * Reason Comments Med Refill Encounter Details Date Type Department Care Team (Late st Contact Info) Description 12/21/2024 Refill [facility] CHC MED & PEDS [address] [place], [place] [phone] Heide Oreilly MD [address] [place] [address] Social History Tobacco Use Types Packs/Day Years [...] on filedocumented in this encounter Care Teams Scientist Immunology Relationship Specialty Start Date End Date Heide Oreilly MD [address] [place] [address] PCP - General Family Medicine 09/03/20 04/20/25 Madeline Mina CNP [address] [place] [address] PCP - General Family Medicine 04/21/25 documented as of this encounter
--- OUTSIDE RECORDS SUMMARY | 2025-05-19 12:58 | XMS_ITS | Encounter Summary ---
Author Organization [employer] Address [address] [facility] 7t [place] [address] Care Team Providers Care Manager Furniture Name Role Phone Heide Oreilly MD Primary Care Provider [phone] Madeline Mina CNP Primary Care Provider [phone] Reason for Visit * Reason Onset Date Comments Med Refill 12/09/2022 Encounter Details Date Type Department Care Team (Late st Contact Info) Description 12/09/2022 Telephone [facility] MEDICINE [address] [place] [address] Heide Oreilly MD [address] [place], [place] [id number] Med Refill Social History Tobacco Use Types [...] on filedocumented in this encounter Care Teams Manager Furniture Relationship Specialty Start Date End Date Heide Oreilly MD [address] [place] [address] PCP - General Family Medicine 09/03/20 04/20/25 Madeline Mina CNP [address] [place] [address] PCP - General Family Medicine 04/21/25 documented as of this encounter
== END 2025-05-19 12:46 | disposition home or self-care (01) ==
LOC: HO.MAMMO 12:45
PROVIDERS: PCP Internal Medicine; Visit Provider Student in an Organized Health Care Education/Training Program
DX: M81.0 Age-related osteoporosis without current pathological fracture (principal)
CPT/HCPCS: 77080

== ENCOUNTER → 2025-05-19 13:00 | Outpatient (BNV) | payer MEDICARE, SELFPAY | PROVIDERS: PCP Internal Medicine; Visit Provider Radiology Diagnostic Radiology | DX: E28.39 Other primary ovarian failure (principal) | CPT/HCPCS: 77080 ==

== ENCOUNTER 2025-07-19 15:07 | Outpatient (AMB) | payer MEDICARE, SELFPAY ==
[2025-07-19 15:08] VITALS: BP 110/70; PULSE 81; O2SAT 99; BMI 26.5
--- NOTE | 2025-07-19 15:08 | A.OFFPC_ITS ---
Vital Signs 07/19/25 15:08 Height 5 ft 2 in Weight 145 lb 2 oz BMI 26.5 BP 110/70 Blood Pressure Location Lt brachial Position Sitting Pulse 81 Pulse Source Pulse Oximeter Pulse Oximetry (%) 99 Oxygen Delivery Method Room Air Intake Visit Reasons: hyperlipidemia Administrative Program Specialist Required: No Accompanied by: Self / Same As Patient Allergies No Known Allergies Allergy (Verified 07/19/25 15:56) Medication List - Last Reconciled 07/19/25 by Levon Rueda MD alendronate 70 mg PO QWEEK 90 days aspirin 81 mg PO DAILY atorvastatin 40 mg PO DAILY 90 days cholecalciferol (vitamin D3) 25 mcg PO DAILY 90 days folic acid 1 mg PO DAILY 90 days hydroxyzine HCl 50 mg (2 x 25 mg) PO BEDTIME PRN lorazepam 0.5 mg PO BEDTIME PRN lubiprostone (Amitiza) 8 mcg PO BID magnesium oxide Take 1 to 2 tablets orally bedtime PRN; ondansetron 4 mg PO Q8H PRN 10 days pantoprazole 40 mg PO QAM 90 days sulfasalazine 1,500 mg (3 x 500 mg) PO BID 90 days Tobacco use date assessed: 07/19/25 Fall risk assessment: No Falls in past year Last assessed Fall Risk: 07/19/25 Dental Screening Dental Screen Date: 07/19/25 Did you have a dental visit in the last 12 months?: Yes Did you have a dental problem in the last 6 months where you did not have access to dental care?: No Was dental information given to patient?: Patient has dentist HPI hyperlipidemia HPI Details Patient comes in today for her follow up visit States that she feels okay She denies any headaches or dizziness Denies any chest pains, no increased shortness of breath No nausea/vomiting, no abdominal pain No change in bowel habits noted Relates that she has been on Tirzepatide 2.5 mg weekly injections for the past 6 months but stopped taking it about 2 months ago when she started experiencing increased abdominal pain and bloating Relates that she has (+) family Hx of pancreatic cancer but she is not sure about the details on this Her abdominal CT done back in April 2025 revealed (+) normal pancreas but she does not want to go back on it or be switched to any of the other GLP-1s as well She did not get her follow up labs done prior to her appointment today [facility] Medical History Elevated lipase Abdominal pain Pap smear for cervical cancer screening Encounter for screening for cervical cancer Morbid obesity Coronary artery disease Insomnia TIA (transient ischemic attack) Piriformis syndrome of left side Piriformis syndrome of right side Low back pain potentially associated with radiculopathy Long-term use of immunosuppressant medication Obesity (BMI 30-39.9) Pure hypercholesterolemia GERD without esophagitis Vitamin D deficiency Rheumatoid arthritis Surgical History H/O colonoscopy Hx of appendectomy Family History Paternal Grandfather Heart problem Father Heart problem HTN (hypertension) Mother Heart problem HTN (hypertension) Paternal Grandmother Breast cancer Maternal Grandfather Pancreatic cancer Other Arthritis Social History Housing: Apartment Alcohol intake: never Patient Tobacco Use Status: Never used Tobacco e-Cigarette/Vaping Use: Never Used service: No Current occupational status: employed Current occupational exposures/hazards: No Cognitive needs: No Hearing needs: No Vision needs: Yes (glasses) Female Reproductive History Menstrual Age of Menarche: 15 Questionnaire PHQ-9 Over the last 2 weeks, how often have you been bothered by any of the following problems? 1. Little interest or pleasure in doing things: not at all 2. Feeling down, depressed, or hopeless: not at all 3. Trouble falling or staying asleep, or sleeping too much: several days 4. Feeling tired or having little energy: not at all 5. Poor appetite or overeating: not at all 6. Feeling bad about yourself - or that you are a failure or have let yourself or your family down: not at all 7. Trouble concentrating on things, such as reading the newspaper or watching television: not at all 8. Moving or speaking so slowly that other people could have noticed. Or the opposite - being so fidgety or restless that you have been moving around a lot more than usual: not at all 9. Thoughts that you would be better off or of hurting yourself in some way: not at all Total score: 1 Depression Screening Interpretation: Negative Depression Screening Done: Yes 92414 - PHQ-9 Billing: Yes Source: Developed by Drs. Merrick Justin, Debbie Monsalve, Yovany Curran and colleagues, with an educational cortney from [employer]. Thrive Questionnaire Date Thrive assessed: 07/19/25 I am a: Patient What is your living situation today?: I have a steady place to live Within the past 12 months, did the food you bought not last and you didn't have the money to get more?: Never true Within the past 12 months, did you worry whether your food would run out before you got money to buy more?: Never true Do you have trouble paying for medicines?: No Do you have trouble getting transportation to medical appointments?: No Do you have trouble paying your heating and electricity bill?: No Do you have trouble taking care of your child, family member or friend?: No Do you have trouble with day-to-day activities such as bathing, preparing meals, shopping, managing finances, etc.?: No Are you currently unemployed and looking for a job?: No Are you interested in more education?: No Please select the resources that you would like help with: None Currently or been in a relationship where the following occur: No concerns reported THRIVE Score: 0 AUDIT C Alcohol Use Questionnaire (AUDIT-C) 1. How often do you have a drink containing alcohol?: Never 3. How often do you have six or more drinks on one occasion?: Never Total Score: 0 Score Reviewed/Action Taken: Yes FABY-7 AMB Questionnaire FABY-7 Date FABY - 7 assessed: 07/19/25 Feeling nervous, anxious, or on edge: 0 = Not at all Not being able to stop or control worryin = Not at all Worrying too much about different things: 0 = Not at all Trouble relaxin = Several days Being so restless that it is hard to sit still: 1 = Several days Becoming easily annoyed or irritable: 0 = Not at all Feeling afraid as if something awful might happen: 0 = Not at all Total FABY-7 score (0-4 normal; 5-9 mild; 10-14 moderate; 15-21 severe): 2 Source: Developed by Debbie Markham. Bello, Yovany Curran and colleagues, with an educational cortney from [employer]. Review of Systems Const Denies chills, Reports difficulty sleeping, Denies fatigue, Denies fever(s) and Denies headache(s) ENT Denies dysphagia, Denies dizziness, Denies otalgia, Denies headache(s), Denies neck pain, Denies odynophagia and Denies sore throat Card Denies chest pain, Denies rapid heart rate, Denies irregular heart rhythm, Denies palpitations and Denies dyspnea Resp Denies chest congestion, Denies cough and Denies dyspnea GI Denies abdominal pain, Reports constipation (chronic), Denies dysphagia, Denies heartburn, Denies diarrhea, Denies nausea, Denies odynophagia and Denies vomiting Denies hematuria, Denies difficulty voiding, Denies nocturia, Denies dysuria, Denies urinary incontinence and Denies urinary urgency Musc Reports back pain (on and off over the lower back), Reports arthralgias (in hands/fingers due to RA), Denies joint swelling and Denies neck pain Skin/Breast Denies rash Neuro Denies dizziness, Denies headache(s) and Denies paresthesias Psych Reports anxiety and Denies depression Endo Denies fatigue and Denies palpitations Leonardo/Lymph Denies easy bruising Physical exam (Primary Care) Vital Signs: Last Vital Signs Pulse 81 07/19/25 15:08 BP 110/70 07/19/25 15:08 Pulse Ox 99 07/19/25 15:08 Oxygen Delivery Method Room Air 07/19/25 15:08 BMI result Body Mass Index 26.5 Tobacco/Smoking Status: Tobacco use Status Tobacco use date assessed 07/19/25 07/19/25 15:13 Patient Tobacco Use Status Never used Tobacco 07/19/25 15:13 e-Cigarette/Vaping Use Never Used 07/19/25 15:13 PHQ-9: PHQ-9 Score PHQ-9: Total score 1 07/19/25 16:04 Depression Screening Interpretation: Negative Thrive Assessment: Date of Thrive Assessment Date Thrive assessed 07/19/25 07/19/25 15:13 Currently or been in a relationship where the following occur: No concerns reported Const General: no acute distress and alert HENMT Ears: TM's normal bilaterally and EAC's normal Throat: Yes posterior oropharynx normal and Yes tonsils normal (no TP congestion) Neck Neck: Yes no lymphadenopathy and Yes supple Thyroid: Thyroid normal Resp Auscultation: clear to auscultation bilaterally, no rales and no wheezes Cardio Rate: regular rate Rhythm: regular rhythm Heart sounds: no murmurs GI Palpation (GI): Soft to palpation and nontender Auscultation: normal bowel sounds General: Yes no CVA tenderness Back/Spine/Pelvis Back: no CVA tenderness Thoracic/Lumbar Spine: lumbar spinal tenderness Skin Rashes: no rashes Extrem General: Yes no clubbing, cyanosis or edema Right upper extremity: Extremity exam: right hand Details: tenderness (over joints in fingers); no swelling Left upper extremity: hand Details: tenderness (over joints in fingers); no swelling Coding Level of Care Code Est Pt Level 4 (54656) Diagnoses Pure hypercholesterolemia E78.00 History of TIA (transient ischemic attack) Z86.73 Coronary artery disease involving lone pine coronary artery of lone pine heart without angina pectoris I25.10 Associated angina: without angina Coronary Disease-Associated Artery/Lesion type: lone pine artery Torres Martinez vs. transplanted heart: lone pine heart Rheumatoid arthritis with positive rheumatoid factor, involving unspecified site M05.9 Rheumatoid arthritis location: unspecified site Rheumatoid factor presence: with rheumatoid factor Nonintractable headache, unspecified chronicity pattern, unspecified headache type R51.9 Headache chronicity pattern: unspecified pattern Headache type: unspecified Intractability: not intractable Vitamin D deficiency E55.9 GERD without esophagitis K21.9 Nocturnal leg cramps G47.62 Insomnia, unspecified type G47.00 Insomnia type: unspecified Anxiety F41.9 Obesity (BMI 30-39.9) E66.9 Additional Codes PHQ-9 - 22596 - PHQ-9 Billing: Yes ([id number]) Assessment & Plan Assessment & Plan (1) Pure hypercholesterolemia: Code(s): E78.00 - Pure hypercholesterolemia, unspecified Category: Medical Plan: She did not get her follow up labs done prior to her appointment today and is instructed to go and get these done CHETAN Reinforced low cholesterol diet Continue Atorvastatin 40 mg QD Will have her recheck her labs and fasting lipids in 4 months for follow up (2) History of TIA (transient ischemic attack): Code(s): Z86.73 - Personal history of transient ischemic attack (TIA), and cerebral infarction without residual deficits Category: Medical Plan: Continue Aspirin 81 mg QD Head and neck CTA done in 2021 showed no significant vascular disease; carotid US done in 2022 revealed no significant carotid artery disease Head CT done in 2022 was also unremarkable She is advised to continue with aggressive risk factor(s) reduction/modification Follow up with neurology (Dr. Palafox) as scheduled (3) Coronary artery disease: Code(s): I25.10 - Atherosclerotic heart disease of lone pine coronary artery without angina pectoris Category: Medical Qualifiers: Associated angina: without angina Coronary Disease-Associated Artery/Lesion type: lone [place] artery [place] Martinez vs. transplanted heart: lone pine heart Qualified Code(s): I25.10 - Atherosclerotic heart disease of lone pine coronary artery without angina pectoris Plan: Patient was seen by cardiology last year and all of her tests and evaluations done, including echocardiogram, cardiac stress testing as well as cardiac event monitor, have all come back normal Coronary CTA revealed (+) mild LAD atherosclerosis, but normal findings in the circumflex and RCA Holter monitor showed underlying sinus rhythm and no evidence of atrial fibrillation or any arrhythmia She was recommended by cardiology to continue treatment/management for stable vascular disease, with aggressive control of her cholesterol and blood pressure Continue Aspirin 81 mg QD (4) Rheumatoid arthritis: Code(s): M06.9 - Rheumatoid arthritis, unspecified Category: Medical Qualifiers: Rheumatoid arthritis location: unspecified site Rheumatoid factor presence: with rheumatoid factor Qualified Code(s): M05.9 - Rheumatoid arthritis with rheumatoid factor, unspecified Plan: Continue Sulfasalazine 1000 mg BID and Folic Acid 1 mg QD (Rx refilled) She used to see Dr[facility] H[facility] [place] for r heumatology follow up but as Dr. Hurt has reportedly joined [facility] in [place], she is now following up locally here with [facility] [place] [place] Rheumat[facility] for continuing management of her RA She had some additional labs ordered by rheumatology for further evaluation a few months ago and all of these came back normal/negative (5) Headache: Code(s): R51.9 - Headache, unspecified Category: Medical Qualifiers: Headache chronicity pattern: unspecified pattern Headache type: unspecified Intractability: not intractable Qualified Code(s): R51.9 - Headac he, unspecified Plan: Suspect migraine headache or variant - states that her headaches have been better controlled lately Follow up with neurology (Dr. Palafox) as scheduled (6) Vitamin D deficiency: Code(s): E55.9 - Vitamin D deficiency, unspecified Category: Medical Plan: Continue Vitamin D3 25 mcg (1000 units) QD (7) GERD without esophagitis: Code(s): K21.9 - Gastro-esophageal reflux disease without esophagitis Category: Medical Plan: Dietary restrictions reinforced Continue Pantoprazole 40 mg QD (8) Nocturnal leg cramps: Code(s): G47.62 - Sleep related leg cramps Category: Medical Plan: Continue Magnesium tablets 400 mg 1 to 2 tablets Q HS PRN - states that these seem to be helping with her leg cramps (9) Insomnia: Code(s): G47.00 - Insomnia, unspecified Category: Medical Qualifiers: Insomnia type: unspecified Qualified Code(s): G47.00 - Insomnia, unspecified Plan: Sleep hygiene reinforced States that her Hydroxyzine used to help her with her sleep in the past but it is no longer helping She has also tried several OTC sleep aids recently, including Melatonin and Unisom and a couple of others but none of them helped at all We tried her on Trazodone 50 mg Q HS PRN at her last visit and she states that it did not help at all Have advised patient that this is then more likely due to her anxiety and she should be able to sleep better once his anxiety is much better controlled (10) Anxiety: Code(s): F41.9 - Anxiety disorder, unspecified Category: Medical Plan: Continue Hydroxyzine 25 mg 2 tablets Q HS PRN - states that this was helping her sleep better at night but has not helped lately States that her anxiety is mostly related to her brother's untimely passing sometime last year - notes that this has affected her a lot and she is still trying to process this even though her brother over a year ago now States that working and staying busy has helped her a lot We started her on a trial of Lorazepam 0.5 mg Q HS PRN and states that it helps but she does not feel that it is enough and would like to have her dose raised if possible Will increase her Lorazepam now to 1 mg Q HS PRN (11) Obesity (BMI 30-39.9): Code(s): E66.9 - Obesity, unspecified Category: Medical Plan: Reinforced diet/exercise as tolerated/lose weight She stopped taking her Tirzepatide about 2 months ago when she started experiencing increased abdominal pain and bloating and does not wish to try any other GLP-1s at this time Plan Follow up in 4 months Orders: Orders Comprehensive Jackson. Panel Fast 4 Months E78.00 - Pure hypercholesterolemia, un specified Lipid Panel 4 Months E78.00 - Pure hypercholesterolemia, unspecified TSH reflex Free T4 4 Months E78.00 - Pure hypercholesterolemia, unspecified Vitamin D 25-OH Total 4 Months E55.9 - Vitamin D deficiency, unspecified Complete Blood Count Auto Diff 4 Months D64.9 - Anemia, unspecified UA CC w/rflx Micro + Cult 4 Months R30.0 - Dysuria Medications: Changed From lorazepam 0.5 mg PO BEDTIME PRN 30 tabs 0RF anxiety To lorazepam 1 mg PO BEDTIME PRN 30 tabs 0RF anxiety 30 days
--- OUTSIDE RECORDS SUMMARY | 2025-07-19 18:09 | XMS_ITS | Encounter Summary ---
Author Organization [employer] Address [address] [place] [address] Care Team Providers Care Hand Alterations Seamstress Name Role Phone Heide Oreilly MD Primary Care Provider [phone] Madeline Mina CNP Primary Care Provider [phone] Reason for Visit * Reason Comments Med Refill Encounter Details Date Type Department Care Team (Late st Contact Info) Description 12/21/2024 Refill [facility] MED & PEDS [address] [place], [place] [phone] Heide Oreilly MD [address] [place], [place] Social History Tobacco Use Types Packs/Day [...] on filedocumented in this encounter Care Teams Hand Alterations Seamstress Relationship Specialty Start Date End Date Heide Oreilly MD [address] [place] [address] PCP - General Family Medicine 09/03/20 04/20/25 Madeline Mina CNP [address] [place] [address] PCP - General Family Medicine 04/21/25 documented as of this encounter
--- OUTSIDE RECORDS SUMMARY | 2025-07-19 18:09 | XMS_ITS | Encounter Summary ---
Author Organization [facility] Address [address] [place] [address] Care Team Providers Care Cane Flume Watchman Name Role Phone Community, Pcp Primary Care Provider Unavailabl e Heide Oreilly Primary Care Provider Unavailabl e Reason for Visit * Reason Onset Date Comments Medical Records 06/06/2020 Encounter Details Date Type Department Care Team Description 06/06/2020 Telephone OBGYN - [facility] [address] [place] [address] Lauryn Mak MD [address] [place] [id number] Medical Records Social History Tobacco Use Types Packs/Day Years Used Date Smoking Tobacco: Former Smokeless Tobacco: Never Comments:30 years ago Alcohol Use Standard Drinks/Week Comments No 0 (1 standard drink = 0.6 oz pur e alcohol) Alcohol Habits Answer Date Recorded How often do you have a drink containing alcohol ? Never 06/06/2020 How many drinks containing a lcohol do you have on a typical day when you are drinking? Not asked How often do you have six or more drinks on one occasion? Not asked Sex Assigned at Date Recorded Not on file COVID-19 Exposure Response Date Recorded In the last month, have you been in contact with someone who was confirmed or suspected to have Coronavirus / COVID-19? No / Unsure 06/06/2020 10:16 AM EDT documented as of this encounter Miscellaneous Notes * Telephone Encounter - Lety Knutson - 06/06/2020 11:22 AM EDT Copy of isaac sent to [facility]- copy to [facility] documented in this encounter Plan of Treatment Not on file documented as of this encounter Visit Diagnoses Not on filedocumented in this encounter Care Teams Cane Flume Watchman Relationship Specialty Start Date End Date [facility], Pcp PCP - General 08/17/01 09/16/20 Heide Oreilly PCP - General Family Practice 09/17/20 documented as of this encounter
--- OUTSIDE RECORDS SUMMARY | 2025-07-19 18:09 | XMS_ITS | Encounter Summary ---
Author Organization [employer] Address [address] [place] [address] Care Team Providers Care Cook Specialty Foreign Food Name Role Phone Heide Oreilly MD Primary Care Provider [phone] Madeline Mina CNP Primary Care Provider [phone] Reason for Visit * Reason Onset Date Comments Med Refill 12/09/2022 Encounter Details Date Type Department Care Team (Late st Contact Info) Description 12/09/2022 Telephone [facility] [address] [place] [address] Heide Oreilly MD [address] [place], [place] [id number] Med Refill Social History Tobacco Use Types [...] on filedocumented in this encounter Care Teams Cook Specialty Foreign Food Relationship Specialty Start Date End Date Heide Oreilly MD [address] [place] [address] PCP - General Family Medicine 09/03/20 04/20/25 Madeline Mina CNP [address] [place] [address] PCP - General Family Medicine 04/21/25 documented as of this encounter
--- OUTSIDE RECORDS SUMMARY | 2025-07-19 18:09 | XMS_ITS | Encounter Summary ---
Author Organization [employer] Address [address] [facility] [address] [place] [address] Care Team Providers Care Tabulating Machine Mechanic Name Role Phone Heide Oreilly MD Primary Care Provider [phone] Madeline Mina CNP Primary Care Provider [phone] Reason for Visit * Reason Onset Date Comments Results 12/09/2022 Encounter Details Date Type Department Care Team (Late st Contact Info) Description 12/09/2022 Telephone [facility] [address] [place] [address] Heide Oreilly MD [address] [place], [place] [phone] Results Social History Tobacco Use Types Packs/Day [...] also completed a carotid US at [facility]. Requesting result. Advised will obtain from [facility] and if available will forward to [...] requesting lab results. Please contact pt at [phone] documented in this encounter Plan of Treatment Not on file documented as of this encounter Visit Diagnoses Not on filedocumented in this encounter Care Teams Tabulating Machine Mechanic Relationship Specialty Start Date End Date Heide Oreilly MD [address] [place] [address] PCP - General Family Medicine 09/03/20 04/20/25 Madeline Mina CNP [address] [place] [address] PCP - General Family Medicine 04/21/25 documented as of this encounter
--- OUTSIDE RECORDS SUMMARY | 2025-07-19 18:09 | XMS_ITS | Clinical Summary ---
Author Organization [facility] Address [address] [address] Phone Care Team Providers Care Stoneworking Belt Sander Name Role Phone Chidi Rapp MD Primary Care Provider Allergies No known active allergies Medications folic [...] VACCINE (#1) 2025 COVID-19 VACCINE (1 - 2024-2 6 season) 2025 RSV VACCINE (1 - 1-dose [...] REPLACEMENT MEDICARE REPLACEMENT MEDICARE REPLACEMENT Care Teams Stoneworking Belt Sander Relationship Specialty Start Date End Date Chidi Rapp MD PCP - General Internal Medicine 11/15/17 Additional Source Comments The information contained in this document represents components of the legal health record. It is not the complete legal health record.[facility]
--- OUTSIDE RECORDS SUMMARY | 2025-07-19 18:10 | XMS_ITS | Encounter Summary ---
Author Organization [employer] Address [address] [facility] [address] [place] [address] Care Team Providers Care Junior Paralegal Name Role Phone Heide Oreilly MD Primary Care Provider [phone] Madeline Mina CNP Primary Care Provider [phone] Encounter Details Date Type Department Care Team (Late st Contact Info) Description 04/17/2023 Orders Only [facility] MED & PEDS [address] [place] [address] Carrie Heard LPN Social History Tobacco Use [...] on filedocumented in this encounter Care Teams Junior Paralegal Relationship Specialty Start Date End Date Heide Oreilly MD [address] [place] [address] PCP - General Family Medicine 09/03/20 04/20/25 Madeline Mina CNP [address] [place] [address] PCP - General Family Medicine 04/21/25 documented as of this encounter
--- OUTSIDE RECORDS SUMMARY | 2025-07-19 18:10 | XMS_ITS | Encounter Summary ---
Author Organization [employer] Address [address] [facility] 7t [place] [address] Care Team Providers Care Hide Handler Name Role Phone Heide Oreilly MD Primary Care Provider [phone] Madeline Mina CNP Primary Care Provider [phone] Reason for Visit * Reason Onset Date Comments Referral 12/16/2022 Encounter Details Date Type Department Care Team (Late st Contact Info) Description 12/16/2022 Telephone [facility] MEDICINE [address] [place] [address] Heide Oreilly MD [address] [place], [place] [id number] Referral Social History Tobacco Use Types Packs/Day [...] 1:43 PM EDT Tc from Татьяна at [facility] Radiology inquiring patients referral. Patient also requesting to speak to manager floor. Please contact Татьяна at [phone] Or/and patient at [phone] * Telephone Encounter - [place] Babcock - 12/19/2022 1:26 PM EDT Tc from pt returning call per notes, pt is requesting to speak to a nurse in regards to US results and referral. Please contact at [phone] * Telephone Encounter - Liyah Henderson RN [...] for the cardiology. Please contact pt at [phone] documented in this encounter Plan of Treatment Not on file documented as of this encounter Visit Diagnoses Not on filedocumented in this encounter Care Teams Hide Handler Relationship Specialty Start Date End Date Heide Oreilly MD [address] [place] [address] PCP - General Family Medicine 09/03/20 04/20/25 Madeline Mina CNP [address] [place] [address] PCP - General Family Medicine 04/21/25 documented as of this encounter
--- OUTSIDE RECORDS SUMMARY | 2025-07-19 18:10 | XMS_ITS | Encounter Summary ---
Author Organization [employer] Address [address] [facility] 7t [place] [address] Care Team Providers Care Director Of Operations Name Role Phone Heide Oreilly MD Primary Care Provider [phone] Madeline Mina CNP Primary Care Provider [phone] Reason for Visit * Reason Comments Med Refill Encounter Details Date Type Department Care Team (Late st Contact Info) Description 05/09/2024 Refill [facility] CHC MED & PEDS [address] [place], [place] [phone] Heide Oreilly MD [address] [place], [place] Social History Tobacco Use Types Packs/Day [...] in this encounter Care Teams Director Of Operations Relationship Specialty Start Date End Date Heide Oreilly MD [address] [place] [address] PCP - General Family Medicine 09/03/20 04/20/25 Madeline Mina CNP [address] [place] [address] PCP - General Family Medicine 04/21/25 documented as of this encounter
--- OUTSIDE RECORDS SUMMARY | 2025-07-19 18:10 | XMS_ITS | Clinical Summary ---
Author Organization [employer] Address [address] [facility] 7[address] [place] [address] Care Team Providers Care Project Geophysicist Name Role Phone Madeline Mina CNP Primary Care Provider [phone] Allergies No known active allergies Medications famotidine [...] Diagnosed Date Anxiety disorder 10/29/2022 Rheumatoid arthritis (CMS/HCC) 10/29/2022 RLS (restless legs syndrome) 10/29/2022 Synovitis [...] Most Recently Relevant to Health Maintenance Insurance [place] [address] Care Teams Project Geophysicist Relationship Specialty Start Date End Date Madeline Mina CNP PCP - General Family Medicine 04/21/25
--- OUTSIDE RECORDS SUMMARY | 2025-07-19 18:10 | XMS_ITS | Encounter Summary ---
Author Organization [facility] Address [address] [place] [address] Care Team Providers Care Sales Systems Engineer Name Role Phone [facility], Pcp Primary Care Provider Heide Hahn Primary Care Provider Nazario salazar Encounter Details Date Type Department Care Team Description 06/08/2020 Release of Information Medical Records [address] [place] [address] Abstract, Provider Social History Tobacco Use Types Packs/Day Years [...] on filedocumented in this encounter Care Teams Sales Systems Engineer Relationship Specialty Start Date End Date [facility], Pcp PCP - General 08/17/01 09/16/20 Heide Oreilly PCP - General Family Practice 09/17/20 documented as of this encounter
== END 2025-07-19 16:12 | disposition home or self-care (01) ==
LOC: HO.HMCH 15:07
PROVIDERS: PCP Internal Medicine; Visit Provider Internal Medicine
DX: E78.00 Pure hypercholesterolemia, unspecified (principal); M05.9 Rheumatoid arthritis with rheumatoid factor, unspecified; E66.9 Obesity, unspecified; Z68.26 Body mass index [BMI] 26.0-26.9, adult; Z86.73 Personal history of transient ischemic attack (TIA), and cerebral infarction without residual deficits; I25.10 Atherosclerotic heart disease of native coronary artery without angina pectoris; R51.9 Headache, unspecified; E55.9 Vitamin D deficiency, unspecified; K21.9 Gastro-esophageal reflux disease without esophagitis; G47.62 Sleep related leg cramps; G47.00 Insomnia, unspecified; F41.9 Anxiety disorder, unspecified

== ENCOUNTER → 2025-07-19 15:07 | Outpatient (BNVA) | payer MEDICARE, SELFPAY | PROVIDERS: PCP Internal Medicine; Visit Provider Internal Medicine | DX: E78.00 Pure hypercholesterolemia, unspecified (principal); M05.9 Rheumatoid arthritis with rheumatoid factor, unspecified; R51.9 Headache, unspecified; E55.9 Vitamin D deficiency, unspecified; K21.9 Gastro-esophageal reflux disease without esophagitis; G47.62 Sleep related leg cramps; G47.00 Insomnia, unspecified; F41.9 Anxiety disorder, unspecified; E66.9 Obesity, unspecified; Z68.26 Body mass index [BMI] 26.0-26.9, adult; Z86.73 Personal history of transient ischemic attack (TIA), and cerebral infarction without residual deficits | CPT/HCPCS: 96127; 99212 ==

== ENCOUNTER 2025-07-26 08:19 | Outpatient (REF) | payer MEDICARE, SELFPAY ==
--- OUTSIDE RECORDS SUMMARY | 2025-07-26 08:28 | XMS_ITS | Encounter Summary ---
Author Organization [employer] Address [address] [facility] 7t [place] [address] Care Team Providers Care Crap Game Box Person Name Role Phone Heide Oreilly MD Primary Care Provider [phone] Madeline Mina CNP Primary Care Provider [phone] Reason for Visit * Reason Onset Date Comments Results 12/09/2022 Encounter Details Date Type Department Care Team (Late st Contact Info) Description 12/09/[address] [facility] MEDICINE [address] [place] [address] Heide Oreilly MD [address] [place], [place] [phone] Results Social History Tobacco Use Types Packs/Day [...] pt, also completed a carotid US at [facility]. Requesting result. Advised will obtain from [employer] and if available will forward to PCPto [...] requesting lab results. Please contact pt at [phone] documented in this encounter Plan of Treatment Not on file documented as of this encounter Visit Diagnoses Not on filedocumented in this encounter Care Teams Crap Game Box Person Relationship Specialty Start Date End Date Heide Oreilly MD [address] [place] [address] PCP - General Family Medicine 09/03/20 04/20/25 Madeline Mina CNP [address] [place] [address] PCP - General Family Medicine 04/21/25 documented as of this encounter
--- OUTSIDE RECORDS SUMMARY | 2025-07-26 08:28 | XMS_ITS | Encounter Summary ---
Author Organization [email or web address] Address [address] [facility] 7t [place] [address] Care Team Providers Care Lap Polisher Name Role Phone Heide Oreilly MD Primary Care Provider [phone] Madeline Mina CNP Primary Care Provider [phone] Reason for Visit * Reason Comments Med Refill Encounter Details Date Type Department Care Team (Late st Contact Info) Description 12/21/2024 Refill [facility] CHC MED & PEDS [address] [place], [place] [phone] Heide Oreilly MD [address] [place], [place] Social History Tobacco Use Types Packs/Day [...] on filedocumented in this encounter Care Teams Lap Polisher Relationship Specialty Start Date End Date Heide Oreilly MD [address] [place] [address] PCP - General Family Medicine 09/03/20 04/20/25 Madeline Mina CNP [address] [place] [address] PCP - General Family Medicine 04/21/25 documented as of this encounter
--- OUTSIDE RECORDS SUMMARY | 2025-07-26 08:28 | XMS_ITS | Encounter Summary ---
Author Organization [employer] Address [address] [facility] [address] [place] [address] Care Team Providers Care Bucket Chucker Name Role Phone Heide Oreilly MD Primary Care Provider [phone] Madeline Mina CNP Primary Care Provider [phone] Reason for Visit * Reason Onset Date Comments Med Refill 12/09/2022 Encounter Details Date Type Department Care Team (Late st Contact Info) Description 12/09/2022 Telephone [facility] MEDICINE [address] [place] [address] Heide Oreilly MD [address] [place], [place] [phone] Med Refill Social History Tobacco Use Types [...] on filedocumented in this encounter Care Teams Bucket Chucker Relationship Specialty Start Date End Date Heide Oreilly MD [address] [place] [address] PCP - General Family Medicine 09/03/20 04/20/25 Madeline Mina CNP [address] [place] [address] PCP - General Family Medicine 04/21/25 documented as of this encounter
--- OUTSIDE RECORDS SUMMARY | 2025-07-26 08:28 | XMS_ITS | Encounter Summary ---
Author Organization [employer] Address [address] [facility] [address] [place] [address] Care Team Providers Care Industrial [employer] Teacher Name Role Phone Heide Oreilly MD Primary Care Provider [phone] Madeline Mina CNP Primary Care Provider [phone] Reason for Visit * Reason Onset Date Comments Referral 12/16/2022 Encounter Details Date Type Department Care Team (Late st Contact Info) Description 12/16/2022 Telephone [facility] MEDICINE [address] [place] [address] Heide Oreilly MD [address] [place], [place] [phone] Referral Social History Tobacco Use Types Packs/Day [...] 1:43 PM EDT Tc from Татьяна at [facility] Radiology inquiring patients referral. Patient also requesting to speak to janitorial manager. Please contact Татьяна at [phone] Or/and patient at [phone] * Telephone Encounter - [place] Babcock - 12/19/2022 1:26 PM EDT Tc from pt returning call per notes, pt is requesting to speak to a nurse in regards to US results and referral. Please contact at [phone] * Telephone Encounter - Liyah Henderson RN [...] for the cardiology. Please contact pt at [phone] documented in this encounter Plan of Treatment Not on file documented as of this encounter Visit Diagnoses Not on filedocumented in this encounter Care Teams [employer] Teacher Relationship Specialty Start Date End Date Heide Oreilly MD [address] [place] [address] PCP - General Family Medicine 09/03/20 04/20/25 Madeline Mina CNP [address] [place] [address] PCP - General Family Medicine 04/21/25 documented as of this encounter
--- OUTSIDE RECORDS SUMMARY | 2025-07-26 08:29 | XMS_ITS | Encounter Summary ---
Author Organization [employer] Address [address] [facility] 7t [place] [address] Care Team Providers Care Tin Tie Machine Operator Automatic Name Role Phone Heide Oreilly MD Primary Care Provider [phone] Madeline Mina CNP Primary Care Provider [phone] Reason for Visit * Reason Comments Med Refill Encounter Details Date Type Department Care Team (Late st Contact Info) Description 05/09/2024 Refill [facility] CHC MED & PEDS [address] [place], [place] [phone] Heide Oreilly MD [address] [place], [place] Social History Tobacco Use Types Packs/Day [...] on filedocumented in this encounter Care Teams Tin Tie Machine Operator Automatic Relationship Specialty Start Date End Date Heide Oreilly MD [address] [place] [address] PCP - General Family Medicine 09/03/20 04/20/25 Madeline Mina CNP [address] [place] [address] PCP - General Family Medicine 04/21/25 documented as of this encounter
--- OUTSIDE RECORDS SUMMARY | 2025-07-26 08:29 | XMS_ITS | Encounter Summary ---
Author Organization [employer] Address [address] [facility] [address] [place] [address] Care Team Providers Care Wash Test Checker Name Role Phone Heide Oreilly MD Primary Care Provider [phone] Madeline Mina CNP Primary Care Provider [phone] Encounter Details Date Type Department Care Team (Late st Contact Info) Description 04/17/2023 Orders Only [facility] CHC MED & PEDS [address] [place] [address] Carrie Heard LPN Social History Tobacco Use [...] on filedocumented in this encounter Care Teams Wash Test Checker Relationship Specialty Start Date End Date Heide Oreilly MD [address] [place] [address] PCP - General Family Medicine 09/03/20 04/20/25 Madeline Mina CNP [address] [place] [address] PCP - General Family Medicine 04/21/25 documented as of this encounter
--- OUTSIDE RECORDS SUMMARY | 2025-07-26 08:29 | XMS_ITS | Clinical Summary ---
Author Organization [employer] Address [address] [facility] [address] [place] [address] Care Team Providers Care National Sales Executive Name Role Phone Madeline Mina CNP Primary Care Provider [phone] Allergies No known active allergies Medications famotidine [...] to Health Maintenance Insurance MEDICARE ADVANTAGE HMO Care Teams National Sales Executive Relationship Specialty Start Date End Date Madeline Mina CNP PCP - General Family Medicine 04/21/25
[2025-07-26 08:37] LABS: MANUAL DIFF FLAG NO
[2025-07-26 09:22] LABS: Hematocrit 37.3 % (37.0-47.0); Hemoglobin 12.2 g/dl (12.0-16.0); Imm Gran Abs Auto 0.02 X10*3/uL (0.00-0.03); Imm Gran Pct Auto 0.5 % (0.0-0.4); Lymphocytes Absolute Auto 1.2 X10*3/uL (1.2-4.9); Mean Corpuscular HGB Conc 32.7 g/dl (31.0-35.0); Mean Corpuscular Hemoglobin 32.3 pg (27.0-33.0); Mean Corpuscular Volume 98.7 fL (80.0-98.0); NRBC Abs Auto 0.000 X10*3/uL (0.0-0.012); NRBC Pct Auto 0.0 /100WBC (0.0-0.2); Platelet Count 259 X10*3/uL (160-400); Red Blood Count 3.78 X10*6/uL (4.20-5.50); White Blood Count 3.7 X10*3/uL (4.8-10.8)
[2025-07-26 10:12] LABS: Alanine Aminotransferase 25 U/L (0-31); Albumin Level 4.1 g/dL (3.5-5.0); Alkaline Phosphatase 92 U/L (39-117); Anion Gap 12 (12-20); Aspartate Amino Transferase 26 U/L (5-31); Blood Urea Nitrogen 13 mg/dL (9-16); Calcium 9.1 mg/dL (8.4-10.2); Carbon Dioxide 26 mmol/L (22-29); Chloride 108 mmol/L (96-108); Estimated Glomerular Filt Rate > 60; Potassium 4.0 mmol/L (3.3-5.1); Sodium 142 mmol/L (135-145); Total Protein 6.5 g/dL (6.5-8.0)
== END 2025-07-26 08:20 | disposition home or self-care (01) ==
LOC: HO.LAB 08:19
PROVIDERS: Student in an Organized Health Care Education/Training Program; PCP Internal Medicine; Visit Provider Internal Medicine
DX: M05.9 Rheumatoid arthritis with rheumatoid factor, unspecified (principal)
CPT/HCPCS: 36415; 80053; 85025; 85652; 86140

== ENCOUNTER 2025-09-05 07:00 | Day surgery (SDC) | payer MEDICARE, SELFPAY ==
--- NOTE | 2025-08-31 13:36 | HO.ANESPROP2 ---
Documented by User: Elizabeth Ríos NP 08/31/25 13:37 HPI - Anesthesia Eval Consult details Narrative: 70yo F for Upper Endoscopy 2023 w/u with [facility] Cardio for ? vascular disease/TIA negative with prn f/u (testing below) PMFSH Active Problems Active Problems: All Active Problems Chronic idiopathic constipation (Acute) Elevated pancreatic enzyme (Acute) Family history of pancreatic cancer (Acute) Nocturnal leg cramps (Acute) Coronary artery disease (Acute) Encounter for colorectal cancer screening using Cologuard test (Acute) Nocturia (Acute) Insomnia (Acute) Pre-op examination (Acute) History of esophageal stricture (Acute) Bilateral piriformis syndrome (Acute) Frequency of urination (Acute) Cutaneous abscess of groin (Acute) Low back pain potentially associated with radiculopathy (Acute) Long-term use of immunosuppressant medication (Acute) Atherosclerotic cardiovascular disease (Acute) Snorings (Acute) Obesity (BMI 30-39.9) (Acute) Anxiety (Acute) History of TIA (transient ischemic attack) (Acute) Pure hypercholesterolemia (Acute) GERD without esophagitis (Acute) Vitamin D deficiency (Acute) Rheumatoid arthritis (Acute) Past Medical History Medical History Elevated lipase Abdominal pain Pap smear for cervical cancer screening Encounter for screening for cervical cancer Morbid obesity Coronary artery disease Insomnia TIA (transient ischemic attack) Piriformis syndrome of left side Piriformis syndrome of right side Low back pain potentially associated with radiculopathy Long-term use of immunosuppressant medication Obesity (BMI 30-39.9) Pure hypercholesterolemia GERD without esophagitis Vitamin D deficiency Rheumatoid arthritis Family History Family History Paternal Grandfather Heart problem Father Heart problem HTN (hypertension) Mother Heart problem HTN (hypertension) Paternal Grandmother Breast cancer Maternal Grandfather Pancreatic cancer Other Arthritis Surgical History Surgical History H/O colonoscopy Hx of appendectomy Social History Social History Housing: Apartment Alcohol intake: never Patient Tobacco Use Status: Never used Tobacco e-Cigarette/Vaping Use: Never Used Use of substances other than those prescribed or required for medical reasons: No Advance Directives: No Advance Directives Information Provided: Yes service: No Current occupational status: employed Current occupational exposures/hazards: No Cognitive needs: No Hearing needs: No Vision needs: Yes (glasses) Meds Allergies Allergy/AdvReac Type Severity Reaction Status Date / Time No Known Allergies Allergy Verified 09/05/25 07:27 Home Medications ?Medication ?Instructions ?Recorded ?Confirmed ?Last Taken ?Type aspirin 81 mg tablet,delayed 81 mg PO DAILY 02/16/23 09/05/25 09/03/25 History release Exam Narrative Narrative: Pertinent studies reviewed. In the head and neck CTA, no significant stenosis. Mild atherosclerotic wall calcifications on the right side. In the echocardiogram, LVEF 60-65%. There was concern of basal inferior hypokinesis- could be technical finding. In the exercise stress echocardiogram, reached 7 METS exercise capacity, 107% of max predicted heart rate and EKG part was negative. No symptoms. Echocardiographic component was of suboptimal quality. In the coronary CTA, mild LAD atherosclerosis, but nothing in the circumflex or RCA. Holter monitor shows underlying sinus rhythm but no evidence of any atrial fibrillation. Assessment and Plan Assessment Anesthesia Assessment: Chart Reviewed Documented by User: Yonny Marsh MD 09/05/25 08:36 [facility] Past Medical History Medical History Elevated lipase Abdominal pain Pap smear for cervical cancer screening Encounter for screening for cervical cancer Morbid obesity Coronary artery disease Insomnia TIA (transient ischemic attack) Piriformis syndrome of left side Piriformis syndrome of right side Low back pain potentially associated with radiculopathy Long-term use of immunosuppressant medication Obesity (BMI 30-39.9) Pure hypercholesterolemia GERD without esophagitis Vitamin D deficiency Rheumatoid arthritis Family History Family History Paternal Grandfather Heart problem Father Heart problem HTN (hypertension) Mother Heart problem HTN (hypertension) Paternal Grandmother Breast cancer Maternal Grandfather Pancreatic cancer Other Arthritis Family history of problems with anesthesia: No Surgical History Surgical History H/O colonoscopy Hx of appendectomy History of Problems with Anesthesia: No Social History Social History Housing: Apartment Alcohol intake: never Patient Tobacco Use Status: Never used Tobacco e-Cigarette/Vaping Use: Never Used Use of substances other than those prescribed or required for medical reasons: No Advance Directives: No Advance Directives Information Provided: Yes service: No Current occupational status: employed Current occupational exposures/hazards: No Cognitive needs: No Hearing needs: No Vision needs: Yes (glasses) Meds Allergies Allergy/AdvReac Type Severity Reaction Status Date / Time No Known Allergies Allergy Verified 09/05/25 07:27 Home Medications ?Medication ?Instructions ?Recorded ?Confirmed ?Last Taken ?Type aspirin 81 mg tablet,delayed 81 mg PO DAILY 02/16/23 09/05/25 09/03/25 History release Exam Airway Mallampati Class: II TM Dist: >3cm Loose/Missing/Broken Teeth: No Assessment and Plan Assessment Anesthesia Assessment: Anesthesia Plan Discussed Final Anesthetic Review Family History of Problems with Anesthesia: No History of Problems with Anesthesia: No NPO: Yes ASA Class: III Final Preanesthetic Review: No Changes in Pt Med Stat, Meds/Allgs Chart Reviewed, Consent Obtained/Reviewed and Anes Risks/Benef Reviewed Patient Risk: Intermediate Procedure Risk: Low Anesthetic Plan Anesthetic Plan: MAC: Disposition: Standard PACU
[2025-09-01 13:23] VITALS: BMI 26.5
[2025-09-05 07:12] VITALS: BMI 26.2
[2025-09-05 07:19] VITALS: BP 120/73; PULSE 77; RESP 14; TEMP 36.9; O2SAT 96
[2025-09-05] MEDS: Lactated Ringers 1,000 ML 100 ML IVCONT (07:26)
--- NOTE | 2025-09-05 07:56 | MHC.SHP ---
Pre-Procedural Eval Section A - 24 Hr Update-Section A only Date of Service: 09/05/25 Section B - Complete if H&P > 30 days Chief Complaint: Nausea with vomiting, unspecified Details of Present Illness: Elevated lipase Abdominal pain Pap smear for cervical cancer screening Encounter for screening for cervical cancer Morbid obesity Coronary artery disease Insomnia TIA (transient ischemic attack) Piriformis syndrome of left side Piriformis syndrome of right side Low back pain potentially associated with radiculopathy Long-term use of immunosuppressant medication Obesity (BMI 30-39.9) Pure hypercholesterolemia GERD without esophagitis Vitamin D deficiency Rheumatoid arthritis Surgical History H/O colonoscopy Hx of appendectomy Present Medications: see Short Stay Collaborative assessment Allergies: Allergies Allergy/AdvReac Type Severity Reaction Status Date / Time No Known Allergies Allergy Verified 09/05/25 07:27 Review of Systems Review of Systems Comment: Ten point ROS negative Exam Exam Comment: Gen appear: No acute distress HEENT: no icterus Chest: No overt resp distress Abd: soft, nontender, nondistended Psych: Stable affect, answering questions appropriately Neuro: A/Ox3 noted to move all extremities spontaneously Ext: no peripheral edema Plan Diagnosis/Plan: Unchanged I have reviewed the history and physical and performed a pertinent physical examination on my patient. No changes have occurred unless specified. Time Spent With Patient Time: Total time managing care of this patient today ____ minutes.
--- NOTE | 2025-09-05 09:01 | P.OP_ITS ---
Operative Note Operative Note Date of Service: 09/05/25 Narrative: Procedure: Esophagogastroduodenoscopy Endoscopist: Mimi De Guzman MD Indication: Nausea, vomiting Anesthesia Provider: Dr Yonny Marsh Anesthesia Type: MAC ?? EGD Procedure:?? The procedure, indications, preparation and potential complications were reviewed with the patient, who indicated understanding and gave written informed consent to proceed. A physical exam was performed. The endoscope was introduced through the mouth, and advanced to the second part of duodenum. The mucosa was carefully examined on slow withdrawal of the endoscope. The patient tolerated the procedure well. There were no immediate complications.? ? EGD Findings:? * Esophagus:? Normal mucosa noted in the entire esophagus. The Z line was at 34 cm. A Schatzki's ring was noted at the GE junction. The GE junction was displaced by a medium-sized hiatal hernia with the diaphragmatic hiatus at 37 cm. * Stomach:? Mild erythema noted in the antrum. Retroflexion was performed in the cardia that showed Hill grade 3 hiatal hernia. Jumbo forceps random gastric biopsies were taken for histology. * Duodenum:? There was a 15 mm semi pedunculated nodule in the duodenal bulb at the junction of bulb and sweep. Jumbo forceps excisional biopsies were performed. Mucosa was otherwise normal in the whole of the examined duodenum. Additional intervention: A wire guided [id number] balloon dilator was advanced to the lower esophagus and then incrementally insufflated from 18to 20 mm. No resistance or tear was noted i.e Schatzki's ring was not obstructive. ? EGD Impressions:? * Normal esophagus * Schatzki's ring (balloon dilation) * Hiatal hernia * Gastritis (biopsy) * Duodenal nodule (biopsy) ?? Recommendations:?? * Follow biopsy results. Our office will call or send a letter with results within 7-10 days. * Continue PPI therapy. Can consider switch to H2 caro given known osteopenia. * Avoid NSAIDs. Above has been reviewed with the patient.
[2025-09-05 09:05] VITALS: BP 115/60; PULSE 91; RESP 14; TEMP 36.4; O2SAT 95
[2025-09-05 09:22] VITALS: BP 123/60; PULSE 65; RESP 18; TEMP 36.4; O2SAT 98
== END 2025-09-05 09:45 | disposition home or self-care (01) ==
PROVIDERS: PCP Internal Medicine; Visit Provider Internal Medicine
PROC: 0DJ08ZZ Inspection of Upper Intestinal Tract, Via Natural or Artificial Opening Endoscopic (ICD-10-PCS; CPT 43235; principal; 2025-09-05 08:20)
DX: R11.2 Nausea with vomiting, unspecified (principal); R74.8 Abnormal levels of other serum enzymes; K59.04 Chronic idiopathic constipation; D13.2 Benign neoplasm of duodenum; K22.2 Esophageal obstruction; K44.9 Diaphragmatic hernia without obstruction or gangrene
CPT/HCPCS: 43239; 43249; 88305; 88313; 88342; C1726; J2003; J2704

== ENCOUNTER → 2025-09-05 07:00 | Outpatient (BNV) | payer MEDICARE, SELFPAY | PROVIDERS: PCP Internal Medicine; Visit Provider Internal Medicine | DX: R11.2 Nausea with vomiting, unspecified (principal); K29.70 Gastritis, unspecified, without bleeding; K31.7 Polyp of stomach and duodenum; K22.2 Esophageal obstruction | CPT/HCPCS: 43239; 43249 ==